=== PATIENT | male | born 1960 | race Caucasian/White ===

== ENCOUNTER → 2016-05-21 | Outpatient (CLI) | payer OTHER ==
[~2016-05-21] VITALS: Ht 177.2 cm; Wt 99.8 kg
[~2016-05-21] MED LIST: ALEV220C2 PO; LIDOCAINE 2% INJ 100 MG/5 ML SDV (FOR ANES.) As Ordered ONE; LISI-538 PO; METF500T PO; MIDAZOLAM INJ 2 MG/2 ML VIAL (J2250) As Ordered ONE; NS 1,000 ML IV SCH; PROPOFOL 200 MG/20 ML VIAL As Ordered ONE
--- NOTE | 2016-05-21 14:19 | ROOR ---
Patient Name: Abraham Overton Procedure Date: 05/21/2016 2:07 PM Date of : 1960 Age: 56 Room: [facility] Gender: Male Note Status: Finalized Procedure: Upper GI endoscopy Indications: Iron deficiency anemia Providers: Endy BOONE MD Referring MD: SUN GARSIA MD Requesting Provider: Medicines: Monitored Anesthesia Care Complications: No immediate complications. Procedure: Pre-Anesthesia Assessment: - The heart rate, respiratory rate, oxygen saturations, blood pressure, adequacy of pulmonary ventilation, and response to care were monitored throughout the procedure. The Endoscope was introduced through the mouth, and advanced to the second part of duodenum. The upper GI endoscopy was accomplished without difficulty. The patient tolerated the procedure well. Findings: The examined esophagus was normal. The entire examined stomach was normal. The examined duodenum was normal. Biopsies for histology were taken with a cold forceps for evaluation of celiac disease. Impression: - Normal esophagus. - Normal stomach. - Normal examined duodenum. Biopsied. Recommendation: - Await pathology results. - Telephone endoscopist for pathology results in 2 weeks. Endy Boone MD Endy BOONE MD 05/21/2016 2:18:58 PM This report has been signed electronically. Number of Addenda: 0 Note Initiated On: 05/21/2016 2:07 PM Estimated Blood Loss: Estimated blood loss: none.
--- NOTE | 2016-05-21 14:49 | ROOR ---
Patient Name: Abraham Overton Procedure Date: 05/21/2016 2:07 PM Date of : 1960 Age: 56 Room: [facility] Gender: Male Note Status: Finalized Procedure: Colonoscopy Indications: Iron deficiency anemia Providers: Endy BOONE MD Referring MD: SUN GARSIA MD Requesting Provider: Medicines: Monitored Anesthesia Care Complications: No immediate complications. Procedure: Pre-Anesthesia Assessment: - The heart rate, respiratory rate, oxygen saturations, blood pressure, adequacy of pulmonary ventilation, and response to care were monitored throughout the procedure. The Colonoscope was introduced through the anus and advanced to the cecum, identified by appendiceal orifice and ileocecal valve. The colonoscopy was performed without difficulty. The patient tolerated the procedure well. The quality of the bowel preparation was good. Findings: The perianal and digital rectal examinations were normal. (Exam: Complete, Prep: Good or Excellent.) An ulcerated partially obstructing large mass was found in the proximal ascending colon. The mass was circumferential. The mass measured five cm in length. This was biopsied with a cold forceps for histology. Two sessile polyps were found in the rectum and sigmoid colon. The polyps were diminutive in size. These polyps were removed with a cold snare. Resection was complete, but the polyp tissue was not retrieved. Impression: - Malignant partially obstructing tumor in the proximal ascending colon. This was not removed, This was Biopsied. - Two diminutive polyps in the rectum and in the sigmoid colon, removed with a cold snare. Complete resection. Polyp tissue not retrieved. Recommendation: - Refer to a surgeon at appointment to be scheduled. - My office will call you in next few days (after pathology is reviewed) - Perform CT scan (computed tomography) of the chest. - Perform CT scan (computed tomography) of the abdomen. - My office will arrange for CT scans. We will call you in next few days. Endy Boone MD Endy BOONE MD 05/21/2016 2:49:34 PM This report has been signed electronically. Number of Addenda: 0 Note Initiated On: 05/21/2016 2:07 PM Estimated Blood Loss: Estimated blood loss: none.
[2016-05-21 15:10] VITALS: BP 127/71
== END | disposition home or self-care (01) ==
LOC: M OPP 11:58
PROVIDERS: ATTEND Internal Medicine Gastroenterology
DX: D50.9 Iron deficiency anemia, unspecified (principal); C18.9 Malignant neoplasm of colon, unspecified; D12.5 Benign neoplasm of sigmoid colon; D12.8 Benign neoplasm of rectum; E11.9 Type 2 diabetes mellitus without complications; Z79.84 Long term (current) use of oral hypoglycemic drugs; Z79.899 Other long term (current) drug therapy
CPT/HCPCS: 43239; 45380; 45385; 88305; 99156; 99157; J2250

== ENCOUNTER → 2016-05-27 | Outpatient (CLI) | payer OTHER ==
[~2016-05-27] MED LIST changes: -LIDOCAINE 2% INJ 100 MG/5 ML SDV (FOR ANES.) As Ordered ONE; -MIDAZOLAM INJ 2 MG/2 ML VIAL (J2250) As Ordered ONE; -NS 1,000 ML IV SCH; -PROPOFOL 200 MG/20 ML VIAL As Ordered ONE
[2016-05-27 11:26] LABS: BLOOD UREA NITROGEN 11 MG/DL (7-18); CREATININE FOR GFR 0.83 MG/DL (0.70-1.30); GLOMERULAR FILTRATION RATE > 60.0 (>56)
== END ==
LOC: M LAB 10:26
PROVIDERS: ATTEND Internal Medicine Gastroenterology
DX: D50.9 Iron deficiency anemia, unspecified (principal)

== ENCOUNTER → 2016-06-02 | Outpatient (CLI) | payer OTHER ==
[~2016-06-02] MED LIST changes: +GASTROGRAFIN SOLUTION 30ML (Q9963) As Ordered ONE; +ISOVUE-370 76% 100ML VIAL (Q9967) As Ordered ONE
--- NOTE | 2016-06-02 15:50 | REP ---
CT CHEST WITH IV CONTRAST: TECHNIQUE: Axial contrast enhanced images from the thoracic inlet to the upper abdomen using 100 mL Isovue 370 intravenous contrast material with multiplanar reformations. There are several bilateral subcentimeter nodular opacities. A 4 mm nodular opacity in the right middle lobe is subpleural in location on image 69. A 3 mm nodule in the right lower lobe is seen on image 71 and a 5 mm nodular density is seen along the right lateral diaphragm on image 81. Two left lower lobe subpleural nodular opacities are seen measuring 3 mm and 4 mm in diameter. There is no evidence of mediastinal, hilar or chest wall lymphadenopathy. There is no pleural or pericardial effusion. The heart is normal in size. The thoracic aorta is normal in caliber. There is no dissection. There are mild degenerative changes of the spine without compression fracture. IMPRESSION: Several small bilateral subcentimeter nodular opacities. The largest is in the right lower lobe along the right diaphragm measuring 5 mm in maximum diameter. Recommend followup CT of the chest in 6 months. Signed by Jeronimo Armstrong MD 06/02/2016 05:41 P
--- NOTE | 2016-06-02 15:57 | REP ---
CT ABDOMEN AND PELVIS WITH AND WITHOUT CONTRAST: TECHNIQUE: Axial noncontrast images through the abdomen followed by contrast-enhanced images through the abdomen and pelvis using 100 mL Isovue 370 intravenous contrast material, with coronal and sagittal reformations. The liver demonstrates an oval area of hypodensity on pre IV contrast images measuring 3.0 x 2.3 cm. This demonstrates mild heterogeneous enhancement after the intravenous administration of contrast. Gallbladder is grossly unremarkable. The spleen and adrenals are unremarkable as is the pancreas. Small peripelvic cysts are seen in both kidneys without hydronephrosis. There is a 1.2 cm cortical cyst in the upper pole of the left kidney. There is no abdominal aortic aneurysm. There is no free air or free fluid. There is focal nodular thickening of the mid right colon. There are a few adjacent mildly enlarged mesenteric lymph nodes medial to the right colon, the largest measures 1.3 cm in short axis dimension. The appendix is normal. No pelvic mass is seen. The urinary bladder appears unremarkable. Right adrenal calcifications suggest prior hemorrhage. There is mildly enlarged portal lymph node, 1.3 cm in short axis dimension. IMPRESSION: Nonspecific liver mass. Recommend further evaluation with dynamic MRI with and without contrast. Nodular thickening of the mid right colon compatible with neoplasm. There is mild adjacent mesenteric adenopathy medial to the right colon. There is mildly enlarged portal lymph node, 1.3 cm in short axis dimension. Signed by Jeronimo Armstrong MD 06/02/2016 05:42 P
== END ==
LOC: M RAD 11:43
PROVIDERS: ATTEND Internal Medicine Gastroenterology
DX: C18.2 Malignant neoplasm of ascending colon (principal)
CPT/HCPCS: 71260; 74178; Q9963; Q9967

== ENCOUNTER → 2016-06-08 | Outpatient (CLI) | payer OTHER ==
[~2016-06-08] MED LIST changes: -GASTROGRAFIN SOLUTION 30ML (Q9963) As Ordered ONE; -ISOVUE-370 76% 100ML VIAL (Q9967) As Ordered ONE
--- NOTE | 2016-06-08 10:28 | ECGEPIP ---
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
== END ==
LOC: M EKG 09:39
PROVIDERS: ATTEND Anesthesiology
DX: Z01.818 Encounter for other preprocedural examination (principal)

== ENCOUNTER → 2016-07-01 | Outpatient (CLI) | payer OTHER ==
--- NOTE | 2016-07-01 19:07 | REP ---
MRI LIVER WITH DYNAMIC IMAGING PRE- AND POST- IV CONTRAST: Axial and coronal MR sequence are performed using various weighting with post-IV contrast images obtained following the intravenous administration of 19 mL of gadolinium. Correlation made with CT abdomen and pelvis 06/02/2016. An area of abnormal signal is noted in the right lobe of the liver at the site of the CT abnormality. It measures approximately 4.1 x 2.1 cm. It is low in signal on T1 and high in signal on T2 weighted images. There is peripheral nodular enhancement with the intravenous administration of gadolinium and lesion completely fills in with contrast. The findings are consistent with a hemangioma. No other liver lesion is seen. Spleen, adrenals and pancreas appear unremarkable. A cyst is again seen in the upper pole of the left kidney. IMPRESSION: Liver mass seen on the prior CT represents a hemangioma based on MRI findings. No other liver lesion is seen. Signed by Jeronimo Armstrong MD 07/02/2016 05:15 P
== END ==
LOC: M RAD 13:36
PROVIDERS: ATTEND Surgery
DX: C18.2 Malignant neoplasm of ascending colon (principal); D37.6 Neoplasm of uncertain behavior of liver, gallbladder and bile ducts
CPT/HCPCS: 74183; A9576

== ENCOUNTER → 2016-07-06 | Outpatient (REF) | payer OTHER ==
[2016-07-06 18:47] LABS: INR 0.94
[2016-07-06 18:48] LABS: MEAN CORPUSCULAR HEMOGLOBIN 22.1 pg (27.0-33.0); MEAN CORPUSCULAR HGB CONC 29.7 g/dl (32.0-36.5); MEAN CORPUSCULAR VOLUME 74.3 fl (80.0-96.0); RED CELL DISTRIBUTION WIDTH 14.7 % (11.5-14.5); WHITE BLOOD COUNT 7.5 K/mm3 (4.0-10.0)
[2016-07-06 20:45] LABS: ALBUMIN 3.6 GM/DL (3.2-5.2); ALBUMIN/GLOBULIN RATIO 1.03 (1.00-1.93); ALKALINE PHOSPHATASE 85 U/L (45-117); ALT/SGPT 18 U/L (12-78); ANION GAP 7 MEQ/L (8-16); AST/SGOT 7 U/L (15-37); BILIRUBIN,TOTAL 0.3 MG/DL (0.2-1.0); BLOOD UREA NITROGEN 12 MG/DL (7-18); CALCIUM LEVEL 8.9 MG/DL (8.5-10.1); CARBON DIOXIDE LEVEL 26 MEQ/L (21-32); CARCINOEMBRYONIC ANTIGEN 1.5 NG/ML (<2.5); CHLORIDE LEVEL 106 MEQ/L (98-107); CREATININE FOR GFR 0.76 MG/DL (0.70-1.30); GLOMERULAR FILTRATION RATE > 60.0 (>56); GLUCOSE, FASTING 117 MG/DL (70-105); POTASSIUM SERUM 4.5 MEQ/L (3.5-5.1); SODIUM LEVEL 139 MEQ/L (136-145); TOTAL PROTEIN 7.1 GM/DL (6.4-8.2)
== END ==
LOC: M LAB REF 16:31
PROVIDERS: ATTEND Internal Medicine Medical Oncology
DX: C18.2 Malignant neoplasm of ascending colon (principal)

== ENCOUNTER → 2016-07-07 | Outpatient (CLI) | payer OTHER ==
[~2016-07-07] MED LIST changes: +LIDOCAINE 2% MDV 20 ML VIAL As Ordered ONE; +LIDOCAINE W/EPINEPHRINE 1% 20ML VIAL As Ordered ONE; +MIDAZOLAM INJ 2 MG/2 ML VIAL (J2250) As Ordered ONE; +ceFAZolin 1GM INJ (J0690) As Ordered ONE; +fentaNYL 100 MCG/2 ML INJECTION (J3010) As Ordered ONE
--- NOTE | 2016-07-07 18:37 | REPKIM ---
CLINICAL HISTORY: Colon ca. The referring service has asked a chest infuse-a- port placement for chemotherapy. PROCEDURE PERFORMED: Placement of totally implantable venous access device under combined sonographic and fluoroscopic guidance INTERVENTIONALIST: Zahira Castorena MD CONSENT: The risks, benefits and alternatives to the procedure were explained to the patient and informed written consent was obtained. MEDICATIONS: Local Lidocaine, Ancef 1g IV, Versed IV and Fentanyl IV. SEDATION: Conscious sedation using Versed 2.0 mg IV and Fentanyl 100 mcg IV; starting time at 1330 and end at 1430. Independent trained observer was present during the entire duration of the conscious sedation for monitoring. EBL: 5 mL FLUORO TIME: 0.2 minutes DEVICE USED: [employer] Port 8-[place], Single-Lumen Lot#[id number] PROCEDURE/FINDINGS: The patient was brought to the interventional radiology suite and was positioned supine on the table. Time out procedure was performed. Real time ultrasound was used and permanent image stored. The right IJ vein is patent and compressible. Using ultrasound guidance the internal jugular vein was accessed with a micropuncture needle, after infiltration of the skin and deep tissues with local anesthetic. A peel-away sheath was placed. The catheter tip was inserted via the sheath under controlled respiration. The sheath was removed, and the catheter was flushed with heparinized saline and clamped. Next attention was turned to creation of a subcutaneous pocket for the port along the upper chest. The overlying skin and deep tissues were infiltrated with local anesthetic. A transverse skin incision was made long enough to accommodate the reservoir, and using blunt dissection a subcutaneous pocket was created. A tunnel was created from the pocket to the access site. A clamp was advanced from the pocket incision to the venous access site and used to grasp the free end of the catheter and pull it through to the pocket incision. The catheter was trimmed, attached to the reservoir, and flushed with heparinized saline. The reservoir was inserted into the pocket and secured with 2-0 absorbable sutures. The deep tissue was closed with interrupted 2-0 Vicryl suture. The skin incision was closed with a running subcuticular suture of 4-0 Vicryl. The venotomy incision was closed with 4-0 Vicryl suture. Mastisol and Steri-Strips were applied. The port was then accessed and Heparin (100 units/mL concentration) locked in the port. A sterile dressing was then applied. Post procedure chest spot film radiograph showed the tip of the catheter is at the cavoatrial junction. The patient tolerated the procedure well with no immediate complications. This procedure was performed using ultrasound and fluoroscopy. Dr. Castorena was present. IMPRESSION: 1. The right IJ vein is patent and compressible. 2. Successful placement of right IJ chest port placement as discussed above. The chest [id number] is ready for use. cc: Arelis Carlson MD [facility]
== END | disposition home or self-care (01) ==
LOC: M IRPRO 12:14
PROVIDERS: ATTEND Internal Medicine Medical Oncology
DX: C18.9 Malignant neoplasm of colon, unspecified (principal)
CPT/HCPCS: 36561; 76937; 77001; 99152; 99153; C1788; C1894; J0690; J2250; J3010

== ENCOUNTER → 2016-08-26 | Outpatient (CLI) | payer OTHER ==
[~2016-08-26] MED LIST changes: +GASTROGRAFIN SOLUTION 30ML (Q9963) As Ordered ONE; +ISOVUE-370 76% 100ML VIAL (Q9967) As Ordered ONE; -LIDOCAINE 2% MDV 20 ML VIAL As Ordered ONE; -LIDOCAINE W/EPINEPHRINE 1% 20ML VIAL As Ordered ONE; -METF500T PO; +METF500T13 PO; -MIDAZOLAM INJ 2 MG/2 ML VIAL (J2250) As Ordered ONE; -ceFAZolin 1GM INJ (J0690) As Ordered ONE; -fentaNYL 100 MCG/2 ML INJECTION (J3010) As Ordered ONE
--- NOTE | 2016-08-26 11:17 | REP ---
Clinical: Adenocarcinoma of the cecum. Technique: Axial contrast enhanced images from the lung bases to the pubic symphysis using oral and 100 ml Isovue 370 intravenous contrast material with coronal and sagittal re-formations. Comparison: The 06/02/2016. Findings: The lung bases are clear. Visualized heart and pericardium are normal. The liver demonstrates a vague area of hypodensity with central subtle enhancement along the periphery of the anterior segment right lobe which has been diagnosed as hemangioma by recent MRI. No further hepatic lesions are identified. The spleen, pancreas, gallbladder, and bilateral kidneys are relatively normal / stable. Kidneys demonstrate bilateral subcentimeter parapelvic cysts along with 2 mm nonobstructing left renal calculus. Calcification and atrophy to the right adrenal gland is appreciated along with stable 2 cm nodule to the left adrenal gland which is otherwise nonspecific, but likely represents adenoma. The the patient is status post colonic resection and anastomoses involving the ascending colon. Subtle pericolonic stranding and small lymph nodes in the region of prior neoplasm and current anastomoses are appreciated and warrants followup to exclude recurrence or metastatic disease. The small and large bowel is without obstruction. Evaluation of the colon is somewhat limited due to incomplete intraluminal contrast enhancement and residual soft tissue at the site of anastomosis cannot definitively be excluded. Enhanced and delayed images suggest portal vein thrombosis within the superior mesenteric vein extending to the confluence with splenic vein and proximal portal vein (images 45 - 65). Pelvis demonstrates normal bladder along with enlarged heterogeneous prostate gland measuring 4.6 cm maximal transverse diameter. No ascites. No free air. No obvious retroperitoneal adenopathy. Abdominal aorta is without aneurysm or dissection. Musculoskeletal structures demonstrate age-related changes without focal osseous abnormality. Impression: 1. Evidence for portal vein thrombosis as described above with subtle infiltration to the mesenteric fat as well as small scattered lymph nodes which are nonspecific. 2. Fatty infiltration and small lymph nodes at the site of resection are less prominent than prior examination but require continued follow-up to exclude recurrence. 3. Presumed left adrenal adenoma. 4. Further chronic changes as described above. Signed by Teddy Amaya MD 08/26/2016 11:08 A
== END ==
LOC: M RAD 09:09
PROVIDERS: ATTEND Internal Medicine Medical Oncology
DX: C18.0 Malignant neoplasm of cecum (principal)
CPT/HCPCS: 74178; Q9963; Q9967

== ENCOUNTER → 2016-09-22 | Outpatient (REF) | payer OTHER ==
[~2016-09-22] MED LIST changes: -GASTROGRAFIN SOLUTION 30ML (Q9963) As Ordered ONE; -ISOVUE-370 76% 100ML VIAL (Q9967) As Ordered ONE
== END ==
LOC: M LAB REF 13:30
PROVIDERS: ATTEND Internal Medicine Medical Oncology
DX: C18.9 Malignant neoplasm of colon, unspecified (principal)

== ENCOUNTER → 2017-01-07 | Outpatient (REF) | payer OTHER | LOC: M LAB REF 12:44 | PROVIDERS: ATTEND Internal Medicine Medical Oncology | DX: C18.9 Malignant neoplasm of colon, unspecified (principal) ==

== ENCOUNTER → 2017-02-01 | Outpatient (CLI) | payer OTHER ==
--- NOTE | 2017-02-01 21:59 | REP ---
Whole body PET CT for colon cancer restaging: The patient has a history of carcinoma of the cecum with resection. Comparison is a CT of the abdomen and pelvis dated 08/26/2016. Whole body PET CT scanning is performed from skull base to the upper thighs. Neck and supraclavicular areas: There are no hypermetabolic foci. Chest: There are no hypermetabolic foci. Abdomen, pelvis and upper thighs: There is an anastomotic surgical suture line in the proximal ascending colon, similar to the comparison CT. There are a few normal-size pericolonic lymph nodes adjacent to the ascending colon as previously and mesenteric stranding adjacent to the ascending colon as previously. There are no hypermetabolic foci of these lymph nodes or within the stranding. However, there are two hypermetabolic foci along the medial wall of the ascending colon, each approximately 1 cm in diameter. The inferior-most focus is adjacent to the surgical suture line and demonstrates a maximal standard uptake value of 5.3. Just cephalad to this the second focus demonstrates a standard uptake value of 5.2. Otherwise, there is nonspecific bowel uptake. There are no hypermetabolic foci in the liver. There is no uptake in the left adrenal nodule. Impression: There are two small hypermetabolic foci in the proximal ascending colon as described. There are no other hypermetabolic foci. There is no uptake in the left adrenal nodule. There is nonspecific bowel uptake otherwise. The studies performed with 10 millicuries of F 18 FDG. Signed by Jeronimo Frey MD 02/01/2017 09:51 P
== END ==
LOC: M PLARAD 09:08
PROVIDERS: ATTEND Internal Medicine Medical Oncology
DX: C18.9 Malignant neoplasm of colon, unspecified (principal)
CPT/HCPCS: 78815; A9552

== ENCOUNTER → 2017-02-04 | Outpatient (REF) | payer OTHER | LOC: M LAB REF 13:58 | PROVIDERS: ATTEND Internal Medicine Medical Oncology | DX: C18.9 Malignant neoplasm of colon, unspecified (principal) ==

== ENCOUNTER → 2017-04-07 | Outpatient (REF) | payer OTHER ==
[2017-04-08 11:11] LABS: CARCINOEMBRYONIC ANTIGEN 2.2 NG/ML (<2.5)
== END ==
LOC: M LAB REF 13:44
DX: C18.9 Malignant neoplasm of colon, unspecified (principal)

== ENCOUNTER → 2017-04-12 | Day surgery (SDC) | payer OTHER ==
[~2017-04-12] MED LIST changes: -ALEV220C2 PO; +LIDOCAINE 2% INJ 100 MG/5 ML SDV (FOR ANES.) As Ordered; -LISI-538 PO; -METF500T13 PO; +PROPOFOL 200 MG/20 ML VIAL As Ordered
[2017-04-12] MEDS: LR 1,000 ML IV (11:45)
== END | disposition home or self-care (01) ==
LOC: M OPP 11:38
DX: R93.3 Abnormal findings on diagnostic imaging of other parts of digestive tract (principal); Z98.0 Intestinal bypass and anastomosis status; Z85.038 Personal history of other malignant neoplasm of large intestine; Z92.21 Personal history of antineoplastic chemotherapy; E11.9 Type 2 diabetes mellitus without complications; R10.9 Unspecified abdominal pain; D64.9 Anemia, unspecified; R06.83 Snoring; Z79.84 Long term (current) use of oral hypoglycemic drugs; Z79.899 Other long term (current) drug therapy
CPT/HCPCS: 45378

== ENCOUNTER → 2017-07-05 | Outpatient (REF) | payer OTHER ==
[2017-07-05 14:22] LABS: CARCINOEMBRYONIC ANTIGEN 1.4 NG/ML (<2.5)
== END ==
LOC: M LAB REF 13:23
DX: C18.9 Malignant neoplasm of colon, unspecified (principal)

== ENCOUNTER → 2017-10-04 | Outpatient (REF) | payer OTHER ==
[2017-10-04 13:57] LABS: CARCINOEMBRYONIC ANTIGEN 2.1 NG/ML (<2.5)
== END ==
LOC: M LAB REF 13:26
DX: C18.2 Malignant neoplasm of ascending colon (principal)

== ENCOUNTER → 2017-10-12 | Outpatient (CLI) | payer OTHER ==
[~2017-10-12] MED LIST changes: -LIDOCAINE 2% INJ 100 MG/5 ML SDV (FOR ANES.) As Ordered; +LIDOCAINE 2% MDV 20 ML VIAL As Ordered; -PROPOFOL 200 MG/20 ML VIAL As Ordered
== END | disposition home or self-care (01) ==
LOC: M IRPRO 10:19
DX: Z45.2 Encounter for adjustment and management of vascular access device (principal); Z85.038 Personal history of other malignant neoplasm of large intestine
CPT/HCPCS: 36590

== ENCOUNTER → 2018-01-31 | Outpatient (CLI) | payer OTHER ==
[~2018-01-31] MED LIST changes: +GASTROGRAFIN SOLUTION 30ML (Q9963) As Ordered; -LIDOCAINE 2% MDV 20 ML VIAL As Ordered
== END ==
LOC: M RAD 12:09
DX: C18.9 Malignant neoplasm of colon, unspecified (principal); R59.0 Localized enlarged lymph nodes
CPT/HCPCS: Q9963

== ENCOUNTER → 2018-02-22 | Outpatient (CLI) | payer OTHER ==
[~2018-02-22] MED LIST changes: +ALEV220C2 PO; +ATOR1TAB19 PO; -GASTROGRAFIN SOLUTION 30ML (Q9963) As Ordered; +LIDOCAINE 1% MDV 20ML VIAL As Ordered ONE; +LISI-538 PO; +LOPE2CAP PO; +METF500T13 PO; +ONDA8TAB7 PO; +PROC10TA4 PO; +VITAD1000T PO
--- NOTE | 2018-02-22 13:35 | REP ---
CT GUIDED BIOPSY OF RETROPERITONEAL ADENOPATHY: Patient was referred for CT guided biopsy of retroperitoneal adenopathy. Procedure was explained in detail to the patient as well as the risks, which include but are not limited, hemorrhage, infection, pain and injury to internal organs. Informed consent was obtained. Under sterile conditions and after satisfactory administration of local anesthesia, using CT guidance a 17 gauge introducer needle was placed into margin of left retroperitoneal adenopathy at the level of the left renal vein. Using coaxial technique an 18-gauge TenHua Kang biopsy gun was inserted through the introducer needle. Biopsy gun was fired. Images show the biopsy needle within the adenopathy. Four 18-gauge core biopsy samples were obtained without difficulty. They were placed in Formalin and sent to pathology. The needle was removed and hemostasis was obtained with no immediate complication. Postprocedure images show a tiny amount of air in the region of the biopsied lymph node with no hematoma. The patient was observed for 1 hour prior to discharge. He was discharged in stable condition. Electronically Signed by Jeronimo Armstrong MD 02/22/2018 02:19 P
== END ==
LOC: M RADPRO 08:15
PROVIDERS: ATTEND Internal Medicine Medical Oncology
DX: C78.6 Secondary malignant neoplasm of retroperitoneum and peritoneum (principal); C18.9 Malignant neoplasm of colon, unspecified; Z79.899 Other long term (current) drug therapy

== ENCOUNTER → 2018-03-08 | Outpatient (CLI) | payer OTHER ==
[~2018-03-08] MED LIST changes: +DOXY-350 PO; +HYDR1CRE93 TOP; +ISOVUE-300 61% 50ML VIAL (Q9967) As Ordered ONE; -LIDOCAINE 1% MDV 20ML VIAL As Ordered ONE; +LIDOCAINE 2% MDV 20 ML VIAL As Ordered ONE; +MAGICMW SSP; +ceFAZolin 1GM INJ (J0690 PER 500MG) As Ordered ONE
--- NOTE | 2018-03-27 07:09 | REPIR ---
DATE OF PROCEDURE: 03/08/2018 ATTENDING SURGEON: Dr. Nilam Lubin LAMINATION INSPECTOR: Enzo Palafox PREOPERATIVE DIAGNOSIS: Colon cancer with metastatic disease, previous right internal jugular vein tunneled central venous catheter with subcutaneous port. POSTOPERATIVE DIAGNOSIS: Colon cancer with metastatic disease, previous right internal jugular vein tunneled central venous catheter with subcutaneous port. PROCEDURE: Ultrasound-guided right internal jugular vein cannulation, fluoroscopic guided right internal jugular vein tunneled central venous catheter with subcutaneous port placement with a [place] PowerPort and a 25 cm length catheter. INDICATION: The patient is a 57-year-old male with colon cancer who requires access for chemotherapy and will undergo placement of a right internal jugular vein tunneled central venous catheter with subcutaneous port. The procedure was described and explained to the patient in detail including a drawing of pictures demonstrating the procedure and pertinent anatomy. Risks, benefits and alternative treatment options were discussed with the patient. Alternative treatment options included but were not limited to, no intervention. Benefits included but were not limited to, central venous access for chemotherapy installation and drawing of blood for laboratory evaluation avoiding peripheral venipuncture and IVs. Risks included but were not limited to, infection, bleeding, renal failure requiring hemodialysis, pneumothorax, hemothorax, possible need for further surgical intervention, adverse reaction to the prepping and draping materials, adverse reaction to the local anesthetic and/or sedation medications, cerebrovascular accident, possible need for transfusion of blood products, myocardial infarction, pulmonary embolus, deep vein thrombosis (DVT), loss of limb, loss of life, failure of the port to function properly requiring revision, repair and/or replacement, bruising, nerve damage, scarring, poor outcome, poor results and poor satisfaction. Risks of not performing the procedure included but were not limited to, no central access, requiring peripheral IVs for chemotherapy and venipuncture for blood draws with sclerosis and loss of peripheral veins. The patient's questions were answered. The patient voices understanding and acceptance of these risks, benefits and alternative treatment options and consents to proceed. No promises or guarantees were made to the patient regarding the procedure results and/or outcome. ANESTHESIA: Local with 20 mL of 2% lidocaine. FLUORO TIME: 0.1 minutes. CONTRAST: None. COMPLICATIONS: None. DRAINS: None. SPECIMENS: None. IMPLANTS: [place] PowerPort with a 25 cm length catheter in the right internal jugular vein. PROCEDURE: The patient was taken to the angiography suite, placed supine on the angiography room table and then prepped and draped. A time-out was then conducted by myself and the team members in the room confirming the correct patient, procedure and laterality. The ultrasound was used to evaluate the right internal jugular vein which was noted to be easily compressible, widely patent and free of thrombus. Ultrasound was then used to guide cannulation of the right internal jugular vein with real-time concurrent visualization of the entry of the micropuncture needle into the right internal jugular vein with a hard copy image preserved. Prior to ultrasound guided cannulation, the skin and subcutaneous tissue was injected with 2% lidocaine. The micropuncture wire was then advanced through the micropuncture needle which was upsized to a micropuncture sheath. A J-wire was advanced through the micropuncture sheath which was removed and an introducer sheath placed over the J-wire using fluoroscopic guidance. The catheter was then tunneled from a puncture wound in the right chest and brought out through the puncture wound at the right internal jugular vein entry site. The catheter was advanced through the introducer sheath and positioned under fluoroscopic guidance with the tip in the superior vena cava/right atrial junction. The introducer sheath was peeled away and removed. The pocket for the subcutaneous port was then created in the chest after anesthetizing the overlying skin and subcutaneous tissue with 2% lidocaine. The port was connected to the catheter which had been measured and cut to 25 cm. The port was placed in the pocket. The port was accessed with a Mcgraw needle and the port was aspirated and noted to aspirate easily and then flushed with heparinized saline. The incision in the chest was closed using 3-0 Monocryl in inverted interrupted fashion. The incision in the neck was closed using 3-0 Monocryl in inverted interrupted fashion. Steri-Strips and dressings were applied. The patient tolerated the procedure well. All instrument, sponge and needle counts were correct at the end of the case. There were no complications. Dr. Lubin was present for and directed the entire case. The patient was transferred to the holding area where the procedure findings and results were discussed with the patient with all of his questions answered. The right internal jugular vein 25 cm tunneled central venous catheter with subcutaneous port is stable for use for access. RADIOLOGIC SUPERVISION INTERPRETATION: The ultrasound of the right internal jugular vein showed the internal jugular vein to be widely patent, easily compressible and free of thrombus. The ultrasound was used to guide cannulation with real-time concurrent visualization of the entry of the needle into the right internal jugular vein with a hard copy image preserved. Fluoroscopy was used to dilate the right internal jugular vein and position the catheter with the tip in the superior vena cava/right atrial junction. Final fluoroscopic image showed the catheter to be in good position and good alignment as well as the port with the tip in the superior vena cava/right atrial junction with no pneumo or hemothorax noted. The tunneled central venous catheter with subcutaneous port is stable for use for access.
== END | disposition home or self-care (01) ==
LOC: M IRPRO 09:27
PROVIDERS: ATTEND Internal Medicine Medical Oncology
DX: C18.9 Malignant neoplasm of colon, unspecified (principal); C79.9 Secondary malignant neoplasm of unspecified site
CPT/HCPCS: 36561; 76937; 77001; C1788; C1894; J0690

== ENCOUNTER → 2018-06-12 | Outpatient (CLI) | payer OTHER ==
[~2018-06-12] MED LIST changes: +CLIN1GEL3 TOP; +GASTROGRAFIN SOLUTION 30ML (Q9963) As Ordered ONE; +HYDR-3363 PO; -ISOVUE-300 61% 50ML VIAL (Q9967) As Ordered ONE; +ISOVUE-370 76% 100ML VIAL (Q9967) As Ordered ONE; -LIDOCAINE 2% MDV 20 ML VIAL As Ordered ONE; +MAGN400T5 PO; -ceFAZolin 1GM INJ (J0690 PER 500MG) As Ordered ONE
--- NOTE | 2018-06-13 08:36 | REP ---
CT chest with IV contrast: History: Followup colon carcinoma. On chemotherapy. Comparison chest CT study: January 31, 2018. June 02, 2016 study is also reviewed. CT contrast dose: 100 mL of intravenous Isovue 370. CT findings: Preliminary digital health professional radiograph shows an [id number] catheter. This is seen on the right side and terminates in the superior vena cava. There is no evidence of hilar or mediastinal mass or adenopathy. No pleural or pericardial effusion is observed. There are multiple stable predominately pleural-based subcentimeter nodules in the left lower lobe, right lower lobe, and right middle lobe unchanged from the June 02, 2016 study. These are consistent with benign granulomatous nodules. No new pulmonary nodule is appreciated. No pulmonary mass lesion is seen. Bone window settings show no bony destructive lesions. There is no evidence of axillary or supraclavicular mass or adenopathy. There is evidence of upper abdominal lymphadenopathy. There is a cyst in the upper pole of the left kidney. There is a lesion in the right lobe of the liver. Impression: No active disease in the chest. There is evidence of upper abdominal lymphadenopathy. Electronically Signed by Angel Venegas MD 06/13/2018 10:22 A
--- NOTE | 2018-06-13 09:10 | REP ---
CT abdomen and pelvis with IV and oral contrast: History: Followup colon carcinoma. On chemotherapy. The patient is status post CT guided retroperitoneal needle biopsy for lymph nodes on February 22, 2018. Comparison abdomen CT study January 31, 2018 and August 26, 2016. PET/CT from February 01, [address] contrast dose: 100 mL of intravenous Isovue 370. CT findings: There is no evidence of upper abdominal ascites. There is a 3.0 cm enhancing liver lesion in the right lobe consistent with the previously described hemangioma. No other definite liver lesion. Spleen is normal in size and homogeneous in texture. There is a small cyst in the upper pole of the left kidney unchanged. There is a small intrarenal calculus in the lower pole of the left kidney. This is also unchanged. There are peripelvic cysts in the right kidney. There is calcification of the right adrenal gland. No left adrenal lesion is seen. There is however portocaval lymphadenopathy in the upper abdomen. This is the largest upper abdominal lymph node measuring 4.1 x 1.8 x 3.3 cm. This appears to have decreased slightly in size compared with the most recent study of January 31, 2018. It is larger than it was August 26, 2016. Left periaortic and right aortocaval adenopathy is also evident. The enlarged lymph nodes above the level of the left renal vascular pedicle which were the target of the recent CT biopsy are unchanged. The aortocaval and left periaortic nodes below the level of the left renal vein and artery are slightly less prominent. The aortocaval node measures 18 mm in craniocaudal span today, 28 mm in craniocaudal dimension on January 31, 2018. No new or other retroperitoneal adenopathy is observed. No pelvic adenopathy is visible. No abdominal wall lesion is seen. Small and large intestinal bowel loops are unremarkable. The patient is status post right hemicolectomy and an anastomosis. No colonic mass lesion is observed. Seminal vesicles, prostate and urinary bladder are unremarkable. No bony destructive lesion is seen. Impression: There is upper abdominal lymphadenopathy in the retroperitoneum and portacaval region. Two or three of these lymph nodes show a subtle decrease in size. Stable liver lesion previously felt to be a hemangioma. Electronically Signed by Angel Venegas MD 06/13/2018 10:22 A
== END ==
LOC: M RAD 15:27
PROVIDERS: ATTEND Internal Medicine Hematology & Oncology
DX: C18.9 Malignant neoplasm of colon, unspecified (principal)

== ENCOUNTER 2018-09-01 22:02 | Emergency (ER) | payer OTHER ==
[~2018-09-01] VITALS: Ht 180.3 cm; Wt 91.8 kg
[~2018-09-01 22:02] MED LIST changes: +ANUS25SU PR; +CEPH500C PO; -GASTROGRAFIN SOLUTION 30ML (Q9963) As Ordered ONE; -ISOVUE-370 76% 100ML VIAL (Q9967) As Ordered ONE; +K-TA1TAB PO; +MAGN400T PO; +OMEP40CA2 PO; +PRED20TA PO; +PRIL20TA2 PO
[2018-09-01] MEDS ORDERED: SUCRALFATE SUSP 1GM/10ML UD PO ONE (22:30)
[2018-09-01] MEDS ORDERED: GI COCKTAIL 50ML BTL(HYOSCYAMINE/MAALOX/LIDOCAINE VISCOUS)(1:3:1) PO ONE (22:30)
[2018-09-01] MEDS ORDERED: PANTOPRAZOLE 40MG INJ (PROTONIX) (C9113) IV ONE (22:30)
[2018-09-01 23:08] LABS: BASO # 0.1 10^3/uL (0.0-0.2); BASO % 0.7 % (0.0-1.0); EOS # 0.4 10^3/uL (0.0-0.50); EOS % 4.8 % (0.0-3.0); HEMATOCRIT 45.4 % (42.0-52.0); HEMOGLOBIN 14.4 g/dl (13.5-17.5); LYMPH # 1.9 10^3/uL (1.5-4.5); LYMPH % 21.2 % (24.0-44.0); MEAN CORPUSCULAR HEMOGLOBIN 29.3 pg (27.0-33.0); MEAN CORPUSCULAR HGB CONC 31.7 g/dl (32.0-36.5); MEAN CORPUSCULAR VOLUME 92.5 fl (80.0-96.0); MONO # 0.7 10^3/uL (0.0-0.8); MONO % 7.5 % (0.0-5.0); NEUTROPHILS # 5.9 10^3/uL (1.8-7.7); NEUTROPHILS % 65.4 % (36.0-66.0); PLATELET COUNT, AUTOMATED 249 10^3/uL (150-450); RED BLOOD COUNT 4.91 10^6/uL (4.30-6.10)
[2018-09-01 23:23] LABS: INR 0.92; PARTIAL THROMBOPLASTIN TIME 26.8 SECONDS (25.0-38.4); PROTHROMBIN TIME 12.1 SECONDS (11.8-14.0)
[2018-09-01 23:43] LABS: ALT/SGPT 21 U/L (12-78); BILIRUBIN,DIRECT < 0.1 MG/DL (0.0-0.2); BILIRUBIN,TOTAL 0.4 MG/DL (0.2-1.0); BLOOD UREA NITROGEN 20 MG/DL (7-18); CALCIUM LEVEL 8.4 MG/DL (8.5-10.1); CARBON DIOXIDE LEVEL 26 MEQ/L (21-32); CHLORIDE LEVEL 110 MEQ/L (98-107); CK-MB VALUE MASS < 1.0 NG/ML (<3.6); CPK CREATINE PHOSPHOKINASE 42 U/L (39-308); GLOMERULAR FILTRATION RATE > 60.0 (>56); GLUCOSE, FASTING 143 MG/DL (70-100); LIPASE 273 U/L (73-393); MB/CK RELATIVE INDEX 2.38 (< OR =4); SODIUM LEVEL 143 MEQ/L (136-145); TOTAL PROTEIN 6.5 GM/DL (6.4-8.2); TROPONIN I < 0.02 NG/ML (< 0.10)
[2018-09-02] MEDS ORDERED: ISOVUE-370 76% 100ML VIAL (Q9967) As Ordered ONE (00:09)
--- NOTE | 2018-09-02 01:43 | REPVR ---
EXAM: CT Abdomen and Pelvis With Contrast EXAM DATE/TIME: 09/01/2018 11:58 PM CLINICAL HISTORY: 58 years old, male; Abdominal pain; Generalized; Prior surgery; Surgery date: 6+ months; Surgery type: Colon TECHNIQUE: Imaging protocol: Axial computed tomography images of the abdomen and pelvis with intravenous contrast. Coronal and sagittal reformatted images were created and reviewed. Radiation optimization: All CT scans at this facility use at least one of these dose optimization techniques: automated exposure control; mA and/or kV adjustment per patient size (includes targeted exams where dose is matched to clinical indication); or iterative reconstruction. Contrast material: ISO; Contrast volume: 100 ml; Contrast route: PORT; COMPARISON: CT ABD PELVIS WITH CONTRAST 06/12/2018 4:54 PM FINDINGS: Lungs: 3 mm nodule in the lateral segment of the right middle lobe. 3 mm nodule in the anterior right lower lobe and 5 mm nodule in the mid to right lower lobe. 3 mm nodule in the right lower lobe pleural base. 3 mm nodule in the left lower lobe. 3 mm nodule in the left lung base. Nodules are present number next size from prior study. Further workup with nonemergent CT chest is recommended. Liver: Normal. No mass. Gallbladder and bile ducts: Contracted gallbladder. Nodule in the left adrenal gland measuring 19.4 x 14 mm. Pancreas: Normal. No ductal dilation. Spleen: Normal. No splenomegaly. Adrenals: Calcifications of the right adrenal gland likely from prior injury. Kidneys and ureters: 2 cysts in the upper pole of the left kidney, one measuring 16 and another measuring 8.2 mm. Small right renal parapelvic cyst. Stomach and bowel: Diverticulosis without CT evidence of diverticulitis. Right-sided ileocolonic anastomotic surgery. Appendix: Appendix is likely surgically absent. No bowel dilatation or obstruction. No bowel dilatation or obstruction. Intraperitoneal space: Normal. No free air. No significant fluid collection. Vasculature: Normal. No abdominal aortic aneurysm. Lymph nodes: Retroperitoneal and precaval lymph nodes largest one is in the left para-aortic region measuring up to 29 mm and on the right side measuring about 17.2 mm. Few scattered mesenteric root lymph nodes measuring up to 15 mm adjacent to the right colonic surgery. Lymph nodes are slightly prominent than prior study. Bladder: Unremarkable as visualized. Reproductive: Prominent prostate causing indentation on the bladder base. Bones/joints: Mild degenerative changes. Soft tissues: Unremarkable. IMPRESSION: Retroperitoneal and precaval lymph nodes largest one is in the left para-aortic region measuring up to 29 mm and on the right side measuring about 17.2 mm. Few scattered mesenteric root lymph nodes measuring up to 15 mm adjacent to the right colonic surgery. Lymph nodes are slightly prominent than prior study. COMMENT: Consistent with the [employer]'s Incidental Findings Committee Report (J Am Aby Radiol 2010): Unless the patient's specific circumstances suggest otherwise, any liver lesion 0.5 cm or less, any cystic kidney lesion less than 1.0 cm, and/or any adrenal lesion 1.0 cm or less not otherwise characterized in this report as possessing suspicious or indeterminate imaging features is/are highly likely to be benign and do not require follow-up imaging or biopsy. Electronically signed by: Tiffany Rivera On 09/02/2018 01:42:30 AM
[2018-09-02] MEDS ORDERED: SUCR1SS PO (02:07)
[2018-09-02] MEDS ORDERED: PROT1TAB2 PO (02:07)
[2018-09-02 02:32] VITALS: BP 128/82
[2018-09-02] MEDS ORDERED: SODIUM CHLORIDE 0.9% INJ 10 ML SYR IV PRN (02:45)
--- NOTE | 2018-09-02 11:19 | ECGEPIP ---
[facility] - ED Test Date: 2018-09-01 Pat Name: DAYNA PENN Department: Room: - Gender: Male Radiology Manager: : 1960 Requested By: NITHIN YEE Order Number: [id number] Reading MD: Lupe Estrella Measurements Intervals [place] Rate: 103 P: 25 ID: [id number] QRS: QRSD: 94 T: 20 QT: 331 QTc: 435 Interpretive Statements SINUS TACHYCARDIA BORDERLINE LEFT AXIS DEVIATION ABNORMAL RHYTHM ECG NSTTW abnormalities INCREASED RATE 06/08/16 Electronically Signed on 09-02-2018 11:19:48 EDT by Lupe Estrella
--- NOTE | 2018-09-04 13:21 | ED PDOC ---
Post-Departure Follow-Up ft luis manuel fp faxed formal report of ct abd/p. pt also sent certified letter. pleas e ensure pt follows up w pcp des for abnormal lymphadenopathy on ct =- see report Briseida Parry MD Sep 04, 2018 13:21
== END 2018-09-02 02:52 | disposition home or self-care (01) ==
LOC: M ED 22:02
DX: K29.70 Gastritis, unspecified, without bleeding (principal); I10 Essential (primary) hypertension; E78.5 Hyperlipidemia, unspecified; C18.9 Malignant neoplasm of colon, unspecified; K21.9 Gastro-esophageal reflux disease without esophagitis; Z86.79 Personal history of other diseases of the circulatory system; Z79.899 Other long term (current) drug therapy
CPT/HCPCS: 36415; 74177; 80048; 80076; 82550; 82553; 83690; 84484; 85025; 85610; 85730; 93005; 96374; 99284; C9113; Q9967

== ENCOUNTER 2018-11-01 11:35 | Day surgery (SDC) | payer OTHER ==
[~2018-11-01] VITALS: Ht 180.3 cm; Wt 88.5 kg
[~2018-11-01 11:35] MED LIST changes: +ACET-897 PO; +CHOL100029 PO; +NS 1,000 ML IV ONE; +POTA10TA16 PO; +PROT1TAB2 PO; +SUCR1SS PO; -VITAD1000T PO
[2018-11-01] MEDS ORDERED: PROPOFOL 200 MG/20 ML VIAL As Ordered ONE (13:03)
[2018-11-01 14:15] VITALS: BP 135/93
--- NOTE | 2018-11-01 15:05 | ROOR ---
Patient Name: Abraham Overton Procedure Date: 11/01/2018 1:33 PM Date of : 1960 Age: 58 Room: [facility] Gender: Male Note Status: Finalized Procedure: Upper GI endoscopy Indications: Epigastric abdominal pain, Abnormal CT of the GI tract Providers: Yovani Kirkpatrick MD Referring MD: SUN GARSIA MD Requesting Provider: Medicines: Monitored Anesthesia Care Complications: No immediate complications. Procedure: Pre-Anesthesia Assessment: - Prior to the procedure, a History and Physical was performed, and patient medications and allergies were reviewed. The patient is competent. The risks and benefits of the procedure and the sedation options and risks were discussed with the patient. All questions were answered and informed consent was obtained. Patient identification and proposed procedure were verified by the physician, the nurse and the contract coordinator in the procedure room. Mental Status Examination: alert and oriented. CV Examination: regular rate and rhythm. Prophylactic Antibiotics: The patient does not require prophylactic antibiotics. Prior Anticoagulants: The patient has taken no previous anticoagulant or antiplatelet agents. ASA Grade Assessment: II - A patient with mild systemic disease. After reviewing the risks and benefits, the patient was deemed in satisfactory condition to undergo the procedure. The anesthesia plan was to use monitored anesthesia care (MAC). Immediately prior to administration of medications, the patient was re-assessed for adequacy to receive sedatives. The heart rate, respiratory rate, oxygen saturations, blood pressure, adequacy of pulmonary ventilation, and response to care were monitored throughout the procedure. The physical status of the patient was re-assessed after the procedure. The Endoscope was introduced through the mouth, and advanced to the second part of duodenum. The upper GI endoscopy was accomplished without difficulty. The patient tolerated the procedure well. Findings: The examined esophagus was normal. A few diminutive sessile polyps were found in the gastric body. Localized mild inflammation characterized by swelling with narrowing of the pyloric channel was found at the pylorus. Erythematous mucosa was found in the first portion of the duodenum and in the second portion of the duodenum. Multiple diffuse erosions were found in the second portion of the duodenum. Biopsies were taken with a cold forceps for histology. Impression: - Normal esophagus. - A few gastric polyps. - Gastritis. - Erythematous duodenopathy. - Duodenal erosions. Biopsied. Recommendation: - Discharge patient to home. - Resume previous diet. - Continue present medications. - Await pathology results. Yovani Kirkpatrick MD Yovani Kirkpatrick MD 11/01/2018 3:05:27 PM Electronically signed by Yovani Kirkpatrick MD Number of Addenda: 0 Note Initiated On: 11/01/2018 1:33 PM Estimated Blood Loss: Estimated blood loss was minimal.
[2018-11-07] MEDS ORDERED: PANT40TA3 PO (11:52)
== END 2018-11-01 14:28 | disposition home or self-care (01) ==
LOC: M OPP 11:35
PROVIDERS: ATTEND Surgery
DX: K31.7 Polyp of stomach and duodenum (principal); K29.70 Gastritis, unspecified, without bleeding; K31.89 Other diseases of stomach and duodenum; K26.9 Duodenal ulcer, unspecified as acute or chronic, without hemorrhage or perforation; R10.13 Epigastric pain; R93.3 Abnormal findings on diagnostic imaging of other parts of digestive tract; Z79.899 Other long term (current) drug therapy; C18.9 Malignant neoplasm of colon, unspecified; Z92.21 Personal history of antineoplastic chemotherapy

== ENCOUNTER → 2018-12-11 | Outpatient (CLI) | payer OTHER ==
[~2018-12-11] MED LIST changes: +CAPE1TAB2 PO; +GASTROGRAFIN SOLUTION 30ML (Q9963) As Ordered ONE; +ISOVUE-370 76% 100ML VIAL (Q9967) As Ordered ONE; -MAGN400T PO; +MAGN400T3 PO; +NEUR300C PO; -NS 1,000 ML IV ONE; -OMEP40CA2 PO; +OMEP40CA97 PO; +PANT40TA3 PO
--- NOTE | 2018-12-12 09:54 | REP ---
Clinical: Colon cancer. Restaging. Comparison: 06/12/2018. Technique: Axial contrast enhanced images from the thoracic inlet to the upper abdomen with coronal and sagittal re-formations using 100 ml Isovue 370 intravenous contrast material. Findings: Bilateral lung [place] are relatively well aerated, symmetric and clear. No acute pulmonary parenchymal consolidation, significant nodule or mass lesion appreciated to suggest metastatic disease or active process. Small scattered subpleural noncalcified nodules up to 4 mm remains stable. No effusion. No pneumothorax. Tracheobronchial tree is patent. No axillary, hilar, or mediastinal adenopathy. The mediastinum demonstrates normal pulmonary vasculature, thoracic aorta, and heart/pericardium. Impression: No acute mediastinal or pleuroparenchymal process appreciated. No evidence for metastatic disease related to the chest. Electronically Signed by Teddy Amaya MD 12/12/2018 09:45 A
--- NOTE | 2018-12-12 10:06 | REP ---
Clinical: Colon cancer. Restaging. Technique: Axial contrast enhanced images from the lung bases to the pubic symphysis using oral (per protocol) and 100 ml Isovue 370 intravenous contrast material with coronal and sagittal re-formations as well as delayed images of the abdomen. Comparison: 09/02/2018, 06/12/2018 . Findings: Adenopathy involving the celiac axis and extending into the bharat hepatis as well as para-aortic retroperitoneal adenopathy appears to be increased when compared to both prior examinations. Specifically as example, bulky left para-aortic conglomerate adenopathy currently measuring approximately 4.1 x 2.7 cm diameter previously measured 2.7 x 1.6 cm. Smaller mid to lower abdominal and retroperitoneal lymph nodes are also noted which appears slightly more prominent than prior examination as well. Liver demonstrates low density areas within the medial left lobe measuring approximately 1 cm each and vague areas of low density within the posterior right hepatic lobe extending to the periphery which are similar to prior examination and suggestive of stable metastatic disease. Spleen, pancreas, gallbladder, and bilateral adrenal glands appear relatively stable including calcification and atrophic appearance to the right adrenal gland along with enhancing nodular component to the left adrenal gland which is nonspecific. The enteric system is without obstruction. Scattered diverticula noted without acute diverticulitis. Pelvis demonstrates normal bladder and stable appearance of the prostate gland. No ascites. No free air. Abdominal aorta and vasculature are relatively normal. Musculoskeletal structures are intact without focal abnormality. Impression: 1. Increased adenopathy primarily noted in the celiac axis/bharat hepatis and periaortic retroperitoneal space. 2. Low density findings within the liver appears similar to prior examination. 3. Stable appearance of the bilateral adrenal glands (left greater than right). Electronically Signed by Teddy Amaya MD 12/12/2018 09:59 A
== END ==
LOC: M RAD 11:28
PROVIDERS: ATTEND Internal Medicine Hematology & Oncology
DX: C18.9 Malignant neoplasm of colon, unspecified (principal); R59.1 Generalized enlarged lymph nodes; R91.8 Other nonspecific abnormal finding of lung field
CPT/HCPCS: 71260; 74177; Q9963; Q9967

== ENCOUNTER → 2019-03-05 | Outpatient (CLI) | payer OTHER ==
--- NOTE | 2019-03-05 22:19 | REP ---
Clinical: Restaging colon cancer. Technique: Axial contrast enhanced images from the thoracic inlet to the upper abdomen with coronal and sagittal re-formations using 100 ml Isovue 370 intravenous contrast material. Comparison: 12/11/2018. Findings: The bilateral lung [place] are well-aerated. Few small qpt-et-lzttu mm noncalcified nodules primarily noted in the bilateral lower lobes are nonspecific. However, given the history of metastatic colon cancer, early pulmonary metastases cannot definitively be excluded. No consolidation. No pleural effusion. Tracheobronchial tree is patent. No significant mediastinal, axillary or hilar adenopathy noted. The mediastinum demonstrates normal thoracic aorta without aneurysm or dissection. Atherosclerotic changes to the coronary arteries noted without cardiomegaly or pericardial effusion. Surrounding musculoskeletal structures are intact. Impression: 1. Few scattered bibasilar noncalcified nodules measuring 2-3 mm are nonspecific. Consider short-term follow-up given the patient's history of metastatic colon cancer. 2. No further acute mediastinal or pleuroparenchymal process appreciated. Electronically Signed by Teddy Amaya MD 03/05/2019 10:11 P
--- NOTE | 2019-03-06 09:05 | REP ---
Clinical: Restaging. Colon cancer. Technique: Axial contrast enhanced images from the lung bases to the pubic symphysis using oral (per protocol) and 100 ml Isovue 370 intravenous contrast material with delayed images of the abdomen as well as coronal and sagittal re-formations. Comparison: 12/11/2018. Findings: Liver demonstrates few scattered small hypodensities which may be slightly more numerous than prior examination and are nonspecific and too small to characterize. Spleen, pancreas, gallbladder, bilateral adrenal glands and kidneys are relatively normal / stable. Partially calcified, atrophic appearance to the right adrenal gland along with bilateral renal cysts and nonobstructing left intrarenal calculi are unchanged. Adenopathy at the bharat hepatis/celiac axis and majority of the retroperitoneal adenopathy adjacent to the aorta remain stable. However, there are few moderately increased pathologic lymph nodes adjacent to the IVC and aortocaval space which have increased. As example, a 2.4 cm lymph node (image 64) previously measured 9 mm. Evidence for prior right hemicolectomy. Residual large bowel demonstrates diverticulosis and no evidence for obstruction. The small bowel is grossly unremarkable. The pelvis demonstrates collapsed bladder and mildly prominent prostate gland/seminal vesicles. No ascites. No free air. Abdominal aorta and vasculature without aneurysm or dissection. Musculoskeletal structures demonstrate degenerative changes without focal abnormality. Impression: 1. Liver demonstrates few subcentimeter hypodensities which may be slightly more numerous than prior examination and differential diagnosis would include small cysts as well as the possibility of metastatic disease. 2. Few enlarged pathologic retroperitoneal lymph nodes increased from prior examination. 3. Diverticulosis. 4. No ascites. No acute focal inflammatory stranding. Electronically Signed by Teddy Amaya MD 03/06/2019 08:56 A
== END ==
LOC: M RAD 15:49
PROVIDERS: ATTEND Internal Medicine Hematology & Oncology
DX: C18.6 Malignant neoplasm of descending colon (principal)
CPT/HCPCS: 71260; 74177; Q9963; Q9967

== ENCOUNTER 2019-04-28 17:01 | Inpatient (IN) | payer OTHER ==
[~2019-04-28] VITALS: Ht 177.8 cm; Wt 83.9 kg
[~2019-04-28 17:01] MED LIST changes: +CELE100C PO; +D 10TAB2 PO; -GASTROGRAFIN SOLUTION 30ML (Q9963) As Ordered ONE; -ISOVUE-370 76% 100ML VIAL (Q9967) As Ordered ONE; +ONDA8TAB10 PO; -ONDA8TAB7 PO; +VITA100054 PO
[2019-04-28] MEDS ORDERED: ONDANSETRON 4MG/2ML VIAL (J2405) IV ONE (17:45)
[2019-04-28] MEDS ORDERED: ACETAMINOPHEN 325 MG TAB PO ONE (17:45)
[2019-04-28] MEDS ORDERED: NS 1,000 ML IV ONE (17:45)
[2019-04-28 18:26] LABS: VENOUS BASE EXCESS -1.2 (-2.0-2.0); VENOUS HCO3 23.2 MEQ/L (23.0-27.0); VENOUS O2 SATURATION 49.9 % (60.0-80.0); VENOUS PARTIAL PRESSURE CO2 37.9 mmHg (38.0-50.0); VENOUS PH 7.404 UNITS (7.330-7.430); VENOUS STANDARD HCO3 22.3 MEQ/L; VENOUS TOTAL CO2 24.3 MEQ/L (24.0-28.0)
[2019-04-28 18:29] LABS: BASO % 0.3 % (0.0-1.0); HEMATOCRIT 45.4 % (42.0-52.0); HEMOGLOBIN 15.3 g/dl (13.5-17.5); LYMPH # 0.5 10^3/uL (1.5-5.0); LYMPH % 12.4 % (24.0-44.0); MEAN CORPUSCULAR HEMOGLOBIN 30.9 pg (27.0-33.0); MEAN CORPUSCULAR HGB CONC 33.7 g/dl (32.0-36.5); MEAN CORPUSCULAR VOLUME 91.7 fl (80.0-96.0); MONO # 0.1 10^3/uL (0.0-0.8); MONO % 2.3 % (0.0-5.0); NEUTROPHILS # 3.3 10^3/uL (1.5-8.5); NEUTROPHILS % 84.5 % (36.0-66.0); PLATELET COUNT, AUTOMATED 236 10^3/uL (150-450); RED BLOOD COUNT 4.95 10^6/uL (4.30-6.10); WHITE BLOOD COUNT 3.9 10^3/uL (4.0-10.0)
[2019-04-28 18:40] LABS: INR 1.02; PROTHROMBIN TIME 13.1 SECONDS (11.8-14.0)
[2019-04-28 18:57] LABS: INFLUENZA A AMPLIFICATION POSITIVE (NEGATIVE); INFLUENZA B AMPLIFICATION NEGATIVE (NEGATIVE)
[2019-04-28 19:00] LABS: ALBUMIN 3.1 GM/DL (3.2-5.2); ALT/SGPT 17 U/L (12-78); BILIRUBIN,DIRECT 0.2 MG/DL (0.0-0.2); BILIRUBIN,TOTAL 0.8 MG/DL (0.2-1.0); BLOOD UREA NITROGEN 12 MG/DL (7-18); CALCIUM LEVEL 8.4 MG/DL (8.5-10.1); CARBON DIOXIDE LEVEL 24 MEQ/L (21-32); CHLORIDE LEVEL 100 MEQ/L (98-107); CK-MB VALUE MASS < 1.0 NG/ML (<3.6); CPK CREATINE PHOSPHOKINASE 46 U/L (39-308); CREATININE FOR GFR 0.78 MG/DL (0.70-1.30); GLOMERULAR FILTRATION RATE > 60.0 (>56); GLUCOSE, FASTING 110 MG/DL (70-100); MB/CK RELATIVE INDEX 2.17 (< OR =4); SODIUM LEVEL 133 MEQ/L (136-145); TOTAL PROTEIN 6.8 GM/DL (6.4-8.2); TROPONIN I < 0.02 NG/ML (< 0.10)
[2019-04-28] MEDS ORDERED: OSELTAMIVIR PHOSPHATE 75 MG CAP (TAMIFLU) PO ONE (19:15)
[2019-04-28] MEDS ORDERED: GABAPENTIN 300 MG CAP PO ONE (20:15)
[2019-04-28] MEDS ORDERED: GABA-843 PO (20:49)
[2019-04-28] MEDS ORDERED: VITAD1000T PO (20:49)
[2019-04-28] MEDS: GABAPENTIN 300 MG CAP PO SCH (21:00)
[2019-04-28] MEDS: OSELTAMIVIR PHOSPHATE 75 MG CAP (TAMIFLU) PO SCH (21:18)
[2019-04-28] MEDS ORDERED: MOM 30ML SUSPENSION UDC PO PRN (21:45)
[2019-04-28] MEDS ORDERED: POTASSIUM CHLORIDE 10 MEQ SR TABLET PO PRN (21:45)
[2019-04-28] MEDS ORDERED: MAALOX 30 ML SUSP *UDC PO PRN (21:45)
--- NOTE | 2019-04-28 21:53 | HPEPDOC ---
[facility] Medical History & Physical Date of Admission Apr 28, 2019 Date of Service: Apr 28, 2019 Attending Physician: GABBIE MEDRANO MD History and Physical CHIEF COMPLAINT: Weakness HISTORY OF PRESENT ILLNESS: Melvin wei is a 58-year-old male with a history of adenocarcinoma of the colon with metastasis to lymph nodes who presents to the hospital with a 48-hour history of weakness. Patient states when he came home from the [facility] on , 04/26/2019 he was feeling weak and spent most of the day in bed. Patient's is feeling like he's had the chills. Patient reports that he's had to wear a sweatshirt, sweatpants, thick socks, be on a heated waterbed, and be under a down comforter to feel warm. Patient has not been able to eat or drink much over the past 2 days. Patient says he has been vomiting over the last few days. Patient says last time he vomited was once he arrived to the emergency department. Patient denies any blood in his vomitus. Patient denies any decreased urine output as he's been trying to maintain drinking as much as he can. Patient says he does not feel dizzy or lightheaded but he just feels weak. REVIEW OF SYSTEMS: General: Patient does not know if he's had a fever but endorses chills. Patient denies night sweats or unintentional weight loss. HEENT: Patient denies headaches, changes in vision, sore throat. Cardiovascular: Patient denies chest pain, chest pressure, or palpitations Respiratory: Patient denies shortness of breath, cough GI: Patient endorses nausea and vomiting. Patient also endorses chronic abdominal pain in his right lower quadrant secondary to lymph node metastasis. : Patient denies pain or difficulty with urination Neurological: Patient denies numbness or tingling in extremities Extremities: Patient denies swelling or pain in extremities Skin: Patient endorses a rash that is from his chemotherapeutic agent that he is currently seeing oncology for. Hematologic: Patient denies any easy bruising. Lymphatic: Patient denies any lumps in his neck, axilla, or groin. PAST MEDICAL HISTORY: 1. Adenocarcinoma of the colon with metastasis to lymph nodes on FOLFIRI with Erbitux 2. Hypertension. 3. Uhm-iwecuma-vyycjljbx diabetes mellitus. Dyslipidemia PAST SURGICAL HISTORY: 1. Right hemicolectomy. 2. Inguinal hernia repair. 3. Tonsillectomy as a child. SOCIAL HISTORY: Patient lives at home with his in their [place] [facility]. Patient says he smoked for short time when he is 15 years old. Patient denies drinking any alcohol or taking any other illicit drugs. Patient is retired and his former . Patient's last appointment was to [facility] when he was 40 years old. 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 FAMILY HISTORY: Patient's is heart disease runs in his family with both his mother and father having it. His maternal grandmother had colon cancer. HTN ALLERGIES: Please see below. HOME MEDICATIONS: Please see below. PHYSICAL EXAMINATION: VITAL SIGNS: Temperature 98.7, pulse 98, respiratory rate 24, blood pressure 118/83, pulse oximetry 97% on room air. General: Patient is an alert and oriented male patient who appears very tired while lying on the stretcher in the emergency department. Patient was able to answer questions and sit awake through the entire exam however, he did appear very run down. Patient does not appear to be in any acute distress. HEENT: Normocephalic, atraumatic, dry mucous membranes, posterior pharynx was nonerythematous. Neck: No lymphadenopathy, thyromegaly Cardiac: Regular rate and rhythm, no murmurs, normal S1, normal S2 Pulm: Clear to auscultation bilaterally. No wheezes, rhonchi, rales Abd: Soft and nondistended abdomen. There was tenderness to palpation of the right lower quadrant which patient says is chronic secondary to lymph node metastasis. Ext: No edema bilateral lower extremities Neuro: No gross neurological deficits. Patient was able to follow commands. Skin: Patient had a rash on the posterior forearms that appeared papular howev er, did appear to be mostly scabbed over at this point. LABORATORY DATA: IMAGING: A chest x-ray performed in the emergency department is pending official read from radiology however, on personal review the airway is straight no bony abnormalities, cardiac silhouette is normal size and shape. There is a [id number] in place. Lung montana appear well aerated with no focal consolidation. MICROBIOLOGY: Please see below. ASSESSMENT: Patient is a 58-year-old male who presents to the hospital with weakness and was found to have influenza A. PLAN: 1. Influenza A. Patient will be placed on droplet precautions and was started on Tamiflu 75 mg twice a day. We will continue to monitor the patient. Because the patient is not taking very much in by mouth, patient will be receiving normal saline at 70 mL per hour. 2. Weakness. This is most likely secondary to patient's influenza A. As patient is feeling better, he'll work with physical therapy prior to discharge summary can be safely discharged home. 3. Sepsis secondary to influenza. Patient was tachycardic, tachypneic, and had a fever upon arrival to the hospital. Patient does not appear to have any other infection at this time. We will continue with Tamiflu and other supportive care. 4. Adenocarcinoma of the colon. Patient will follow-up with oncology after discharge. 5. Hypertension. We will continue the patient's lisinopril 20 mg. 6. Hyperlipidemia. Continue atorvastatin 10 mg daily. 7. Abdominal pain secondary to adenocarcinoma of the colon with metastasis to lymph node. Patient has been on gabapentin 300 mg 3 times a day for this. This will be continued. 8. DVT prophylaxis: Enoxaparin 40 mg daily 9. CODE STATUS: Full code Home Medications Scheduled Acetaminophen (Tylenol Extra Strength) 500 Mg Tablet, 1,000 MG PO QHS Atorvastatin Calcium (Atorvastatin Calcium) 10 Mg Tab, 10 MG PO QPM Cholecalciferol (Vitamin D3) (Vitamin D3) 1,000 Unit Tablet, 1,000 UNITS PO DAILY Gabapentin (Gabapentin) 300 Mg Capsule, 300 MG PO TID Lisinopril (Lisinopril) 20 Mg Tab, 20 MG PO DAILY Scheduled PRN Ondansetron HCl (Ondansetron HCl) 8 Mg Tablet, 8 MG PO Q6H PRN for NAUSEA OR VOMITING Potassium Chloride (Potassium Chloride) 10 Meq Tab.er.prt, 10 MEQ PO DAILYPRN PRN for ASDIRECTED Allergies Coded Allergies: No Known Allergies (Unverified , 10/11/18) A-FIB/CHADSVASC A-FIB History Current/History of A-Fib/PAF?: No GME ATTESTATION GME ATTESTATION My faculty preceptor for this patient encounter was physically present during the encounter and was fully available. All aspects of the patient interview, examination, medical decision making process, and medical care plan development were reviewed and approved by the faculty preceptor. The faculty preceptor is aware and concurs with the plan as stated in the body of this note and will attest to such by his/her cosignature. ATTENDING NOTE Time of service 9:17 PM Mr. Overton is a 59-year-old male with a past medical history of stage IV colon cancer 2 diabetes, hypertension and dyslipidemia who is admitted for management of sepsis secondary to influenza A. 1. Sepsis 2/2 Influenza A Plan: admit to medical floor/ telemetry / Tamiflu / lactic acid / IV fluids / /f/u blood cx / Acetaminophen PRN for fever / target MAP 65 to 70 / f/u Is and Os with target UOP of atleast 0.5 ml/kg/H / target serum glucose 140-180 while acutely ill 2. Mild Hypoxemia VBG reviewed Plan: supplemental O2 PRN TIERRA FINNEGAN DO Apr 28, 2019 21:53 GABBIE MEDRANO MD Apr 28, 2019 23:34
[2019-04-28 22:30] VITALS: BP 146/98
[2019-04-28] MEDS: ATORVASTATIN 10 MG TAB PO SCH (23:44)
[2019-04-28] MEDS: NS 1,000 ML IV SCH (23:44)
[2019-04-29 06:00] VITALS: BP 144/97
[2019-04-29] MEDS: ONDANSETRON 4MG/2ML VIAL (J2405) IV PRN ×4 (06:09→21:01)
[2019-04-29] MEDS: GABAPENTIN 300 MG CAP PO SCH ×3 (07:06→21:01)
[2019-04-29 08:10] LABS: BASO % 0.3 % (0.0-1.0); HEMATOCRIT 41.8 % (42.0-52.0); HEMOGLOBIN 14.1 g/dl (13.5-17.5); LYMPH # 0.5 10^3/uL (1.5-5.0); LYMPH % 16.1 % (24.0-44.0); MEAN CORPUSCULAR HEMOGLOBIN 30.9 pg (27.0-33.0); MEAN CORPUSCULAR HGB CONC 33.7 g/dl (32.0-36.5); MEAN CORPUSCULAR VOLUME 91.7 fl (80.0-96.0); MONO # 0.1 10^3/uL (0.0-0.8); MONO % 2.6 % (0.0-5.0); NEUTROPHILS # 2.5 10^3/uL (1.5-8.5); PLATELET COUNT, AUTOMATED 181 10^3/uL (150-450); RED BLOOD COUNT 4.56 10^6/uL (4.30-6.10); WHITE BLOOD COUNT 3.1 10^3/uL (4.0-10.0)
[2019-04-29 08:30] LABS: HEMOGLOBIN A1c 6.9 %
[2019-04-29 08:41] LABS: BLOOD UREA NITROGEN 10 MG/DL (7-18); CALCIUM LEVEL 7.6 MG/DL (8.5-10.1); CARBON DIOXIDE LEVEL 21 MEQ/L (21-32); CHLORIDE LEVEL 106 MEQ/L (98-107); CREATININE FOR GFR 0.53 MG/DL (0.70-1.30); GLOMERULAR FILTRATION RATE > 60.0 (>56); GLUCOSE, FASTING 88 MG/DL (70-100); MAGNESIUM LEVEL 1.7 MG/DL (1.8-2.4); POTASSIUM SERUM 3.7 MEQ/L (3.5-5.1); SODIUM LEVEL 136 MEQ/L (136-145)
[2019-04-29] MEDS: VITAMIN D 1,000 INTERNATIONAL UNITS TABLET PO SCH (08:49)
[2019-04-29] MEDS: lisinopriL 20 MG TAB PO SCH (08:50)
[2019-04-29] MEDS: ENOXAPARIN 40 MG/0.4 ML SYRINGE (J1650) SC SCH (08:51)
--- NOTE | 2019-04-29 09:01 | REP ---
CHEST: Single view. There is no evidence of acute infiltrate. No pleural effusion is seen. The heart is normal in size. The mediastinal silhouette is unremarkable. The visualized osseous structures are intact. A right central venous catheter is seen with the tip in the superior vena cava. IMPRESSION: No acute pulmonary disease. Electronically Signed by Jeronimo Armstrong MD 04/29/2019 06:26 P
[2019-04-29 10:00] VITALS: BP 139/63
--- NOTE | 2019-04-29 10:45 | IPNPDOC ---
Date Seen The patient was seen on 04/29/19. Progress Note SUBJECTIVE: 59-year-old male with past medical history of metastatic colon cancer, status post right hemicolectomy, currently on chemotherapy, hypertension, diabetes mellitus and hyperlipidemia was admitted for influenza. Patient continues to have generalized fatigue, malaise, dyspnea and dry cough, minimally improved from yesterday, no other complaints. He denies any chest pain, nausea, vomiting, abdominal pain or diarrhea. 10 point review of system is negative except for above PHYSICAL EXAMINATION: VITAL SIGNS: Please see below. GENERAL: No distress HEENT: Normocephalic, atraumatic, moist mucous membranes NECK: Supple CARDIOVASCULAR EXAMINATION: S1, S2, no murmurs RESPIRATORY EXAMINATION: Scattered rhonchi, no wheezing ABDOMINAL EXAMINATION: Soft, nontender, nondistended, positive bowel sounds EXTREMITIES: Range of motion intact SKIN: No rash NEUROLOGICAL EXAMINATION: Alert and oriented 3, no focal deficits PSYCHIATRIC EXAMINATION: Calm and cooperative LABORATORY DATA, IMAGING STUDIES, MICROBIOLOGY: Please see below. ASSESSMENT AND PLAN: 59-year-old male with past medical history of metastatic colon cancer on chemotherapy, hypertension, hyperlipidemia, diabetes mellitus, admitted for influenza virus. PROBLEMS: 1. Influenza: Supportive care, Tamiflu 75 mg twice a day, slight improvement from yesterday, but still far from baseline, immunocompromised, will monitor david wood.. 2. Metastatic colon cancer: Status post resection, currently on chemotherapy, outpatient follow-up. 3. Hypertension: Continue lisinopril 4. Hyperlipidemia: Continue atorvastatin DVT prophylaxis: Lovenox. GI prophylaxis: Not needed VS, I&O, 24H, Fishbone Vital Signs/I&O Vital Signs Date Time Temp Pulse Resp B/P (MAP) Pulse Ox O2 Delivery O2 Flow Rate FiO2 04/29/19 06:00 97.9 87 18 144/97 (113) 93 04/28/19 22:30 Room Air I&O- Last 24 Hours up to 6 AM 04/29/19 06:00 Intake Total 1835 ml Balance 1835 ml Laboratory Data 24H LABS Laboratory Tests 2 04/28/19 18:17: Immature Granulocyte % (Auto) 0.5, Neutrophils (%) (Auto) 84.5H, Lymphocytes (%) (Auto) 12.4L, Monocytes (%) (Auto) 2.3, Eosinophils (%) (Auto) 0.0, Basophils (%) (Auto) 0.3, Neutrophils # (Auto) 3.3, Lymphocytes # (Auto) 0.5L, Monocytes # (Auto) 0.1, Eosinophils # (Auto) 0.0, Basophils # (Auto) 0.0, Nucleated Red Blood Cells % (auto) 0.0, Prothrombin Time 13.1, Prothromb Time International Ratio 1.02, Blood Gas Bicarbonate Standard 22.3, Venous Blood pH 7.404, Venous Blood Partial Pressure CO2 37.9L, Venous Blood Partial Pressure O2 28.0L, Venous Blood Total Carbon Dioxide 24.3, Venous Blood HCO3 23.2, Venous Blood Oxygen Saturation 49.9L, Venous Blood Base Excess -1.2, Anion Gap 9, Glomerular Filtration Rate > 60.0, Lactic Acid Level 2.2*H, Calcium Level 8.4L, Total Bilirubin 0.8, Direct Bilirubin 0.2, Aspartate Amino Transf (AST/SGOT) 13, Anibal ne Aminotransferase (ALT/SGPT) 17, Alkaline Phosphatase 93, Total Creatine Kinase 46, Creatine Kinase MB < 1.0, Creatine Kinase MB Relative Index 2.17, Troponin I < 0.02, Total Protein 6.8, Albumin 3.1L, Albumin/Globulin Ratio 0.84L 04/28/19 18:18: Influenza Type A (RT-PCR) POSITIVEH, Influenza Type B (RT-PCR) NEGATIVE 04/28/19 22:48: Lactic Acid Followup at 4 Hours 1.9 04/29/19 07:53: Immature Granulocyte % (Auto) 1.0, Neutrophils (%) (Auto) 80.0H, Lymphocytes (%) (Auto) 16.1L, Monocytes (%) (Auto) 2.6, Eosinophils (%) (Auto) 0.0, Basophils (%) (Auto) 0.3, Neutrophils # (Auto) 2.5, Lymphocytes # (Auto) 0.5L, Monocytes # (Auto) 0.1, Eosinophils # (Auto) 0.0, Basophils # (Auto) 0.0, Nucleated Red Blood Cells % (auto) 0.0, Anion Gap 9, Glomerular Filtration Rate > 60.0, Calcium Level 7.6L, Estimated Mean Plasma Glucose 151H, Hemoglobin A1c 6.9, Magnesium Level 1.7L CBC/BMP Laboratory Tests 04/28/19 18:17 04/29/19 07:53 Microbiology Microbiology 04/28/19 Blood Culture, Received Pending 04/28/19 Blood Culture, Received Pending ELISEO BARNES MD Apr 29, 2019 10:45
[2019-04-29] MEDS ORDERED: POTASSIUM CHLORIDE 10 MEQ SR TABLET PO ONE (11:00)
[2019-04-29] MEDS: MAG SULF 1GM/100ML (MAG RUN) 1 GM in IV 1 EA IV SCH ×2 (11:55→13:15)
[2019-04-29] MEDS: NS 1,000 ML IV SCH ×2 (13:15→21:02)
[2019-04-29 14:00] VITALS: BP 119/84
[2019-04-29] MEDS: ACETAMINOPHEN TAB 650MG DOSE (2X325MG) PO PRN ×2 (15:58→21:01)
[2019-04-29] MEDS: VANCOMYCIN ORAL SOL 250MG/5ML ORAL SYRINGE PO SCH ×2 (18:00→23:04)
[2019-04-29 19:01] LABS: CLOSTRIDIUM DIFFICILE PCR POSITIVE (NEGATIVE)
--- NOTE | 2019-04-29 19:27 | IPNPDOC ---
Text Note Date of Service The patient was seen on 04/29/19. NOTE Per RN Senia Amos C diff is positive. Since the WBC # is not >15 and his Cr is not >1.5 we will start Fidaxomicin 200mg BID for 10 days. GABBIE MEDRANO MD Apr 29, 2019 19:27
--- NOTE | 2019-04-29 20:24 | ECGEPIP ---
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
[2019-04-29] MEDS ORDERED: FIDAXOMICIN 200 MG TAB (DIFICID) PO SCH (21:00)
[2019-04-29] MEDS: ATORVASTATIN 10 MG TAB PO SCH (21:01)
[2019-04-29] MEDS: OSELTAMIVIR PHOSPHATE 75 MG CAP (TAMIFLU) PO SCH (21:01)
[2019-04-29 22:00] VITALS: BP 115/75
[2019-04-30] MEDS: ACETAMINOPHEN TAB 650MG DOSE (2X325MG) PO PRN ×2 (01:33→11:50)
[2019-04-30] MEDS: ONDANSETRON 4MG/2ML VIAL (J2405) IV PRN ×3 (01:33→11:49)
[2019-04-30 06:00] VITALS: BP 100/63
[2019-04-30 06:09] LABS: BASO % 0.4 % (0.0-1.0); HEMATOCRIT 40.9 % (42.0-52.0); HEMOGLOBIN 13.8 g/dl (13.5-17.5); LYMPH # 0.5 10^3/uL (1.5-5.0); MEAN CORPUSCULAR HEMOGLOBIN 30.7 pg (27.0-33.0); MEAN CORPUSCULAR HGB CONC 33.7 g/dl (32.0-36.5); MEAN CORPUSCULAR VOLUME 91.1 fl (80.0-96.0); MONO # 0.1 10^3/uL (0.0-0.8); NEUTROPHILS # 1.8 10^3/uL (1.5-8.5); NEUTROPHILS % 76.2 % (36.0-66.0); PLATELET COUNT, AUTOMATED 173 10^3/uL (150-450); RED BLOOD COUNT 4.49 10^6/uL (4.30-6.10); WHITE BLOOD COUNT 2.4 10^3/uL (4.0-10.0)
[2019-04-30] MEDS: VANCOMYCIN ORAL SOL 250MG/5ML ORAL SYRINGE PO SCH ×3 (06:12→18:33)
[2019-04-30 06:31] LABS: BLOOD UREA NITROGEN 13 MG/DL (7-18); CALCIUM LEVEL 7.2 MG/DL (8.5-10.1); CARBON DIOXIDE LEVEL 20 MEQ/L (21-32); CHLORIDE LEVEL 106 MEQ/L (98-107); CREATININE FOR GFR 0.66 MG/DL (0.70-1.30); GLOMERULAR FILTRATION RATE > 60.0 (>56); GLUCOSE, FASTING 91 MG/DL (70-100); POTASSIUM SERUM 3.2 MEQ/L (3.5-5.1); SODIUM LEVEL 133 MEQ/L (136-145)
[2019-04-30] MEDS: ENOXAPARIN 40 MG/0.4 ML SYRINGE (J1650) SC SCH (08:43)
[2019-04-30] MEDS: lisinopriL 20 MG TAB PO SCH (08:43)
[2019-04-30] MEDS: POTASSIUM CHLORIDE 10 MEQ SR TABLET PO SCH ×2 (08:44→11:50)
[2019-04-30] MEDS: GABAPENTIN 300 MG CAP PO SCH ×3 (08:44→20:40)
[2019-04-30] MEDS: OSELTAMIVIR PHOSPHATE 75 MG CAP (TAMIFLU) PO SCH ×2 (08:44→20:40)
[2019-04-30] MEDS: VITAMIN D 1,000 INTERNATIONAL UNITS TABLET PO SCH (08:44)
[2019-04-30] MEDS: BACITRACIN OINT 30GM TOP PRN (11:51)
[2019-04-30 14:00] VITALS: BP 104/69
--- NOTE | 2019-04-30 15:03 | IPNPDOC ---
Date Seen The patient was seen on 04/30/19. Progress Note SUBJECTIVE: 59-year-old male with past medical history of metastatic colon cancer, status post right hemicolectomy, currently on chemotherapy, hypertension, diabetes mellitus and hyperlipidemia was admitted for influenza. Patient continues to have generalized fatigue, malaise, dyspnea and dry cough, minimally improved from yesterday, no other complaints. He denies any chest pain, nausea, vomiting, abdominal pain or diarrhea. 04/30/19 Positive for C. diff, started on oral vancomycin, reports significant fatigue in the morning, PO intake is low, had multiple watery BMs overnight, no other com plaints. 10 point review of system is negative except for above PHYSICAL EXAMINATION: VITAL SIGNS: Please see below. GENERAL: No distress HEENT: Normocephalic, atraumatic, moist mucous membranes NECK: Supple CARDIOVASCULAR EXAMINATION: S1, S2, no murmurs RESPIRATORY EXAMINATION: Scattered rhonchi, no wheezing ABDOMINAL EXAMINATION: Soft, nontender, nondistended, positive bowel sounds EXTREMITIES: Range of motion intact SKIN: No rash NEUROLOGICAL EXAMINATION: Alert and oriented 3, no focal deficits PSYCHIATRIC EXAMINATION: Calm and cooperative LABORATORY DATA, IMAGING STUDIES, MICROBIOLOGY: Please see below. ASSESSMENT AND PLAN: 59-year-old male with past medical history of metastatic colon cancer on chemotherapy, hypertension, hyperlipidemia, diabetes mellitus, admitted for influenza virus. PROBLEMS: 1. Influenza: Supportive care, Tamiflu 75 mg twice a day, immunocompromised, maría l monitor closely. 2. C. diff: Continue oral vancomycin, IV hydration. 2. Metastatic colon cancer: Status post resection, currently on chemotherapy, outpatient follow-up. 3. Hypertension: Continue lisinopril 4. Hyperlipidemia: Continue atorvastatin DVT prophylaxis: Lovenox. GI prophylaxis: Not needed VS, I&O, 24H, Fishbone Vital Signs/I&O Vital Signs Date Time Temp Pulse Resp B/P (MAP) Pulse Ox O2 Delivery O2 Flow Rate FiO2 04/30/19 14:00 98.9 99 17 104/69 (81) 99 Room Air I&O- Last 24 Hours up to 6 AM 04/30/19 06:00 Intake Total 2845 ml Output Total 150 ml Balance 2695 ml Laboratory Data 24H LABS Laboratory Tests 2 04/30/19 05:56: Immature Granulocyte % (Auto) 0.4, Neutrophils (%) (Auto) 76.2H, Lymphocytes (%) (Auto) 20.0L, Monocytes (%) (Auto) 3.0, Eosinophils (%) (Auto) 0.0, Basophils (%) (Auto) 0.4, Neutrophils # (Auto) 1.8, Lymphocytes # (Auto) 0.5L, Monocytes # (Auto) 0.1, Eosinophils # (Auto) 0.0, Basophils # (Auto) 0.0, Nucleated Red Blood Cells % (auto) 0.0, Anion Gap 7L, Glomerular Filtration Rate > 60.0, Calcium Level 7.2L, Magnesium Level 2.0 CBC/BMP Laboratory Tests 04/30/19 05:56 Microbiology Microbiology 04/28/19 Blood Culture - Preliminary, Resulted No growth after 24 hours . All specim... 04/28/19 Blood Culture - Preliminary, Resulted No growth after 24 hours . All specim... ELISEO BARNES MD Apr 30, 2019 15:03
[2019-04-30] MEDS ORDERED: ONDANSETRON 4 MG TAB (S0181) PO PRN (18:00)
[2019-04-30] MEDS: ATORVASTATIN 10 MG TAB PO SCH (20:40)
[2019-04-30 22:00] VITALS: BP 127/78
[2019-05-01] MEDS: VANCOMYCIN ORAL SOL 250MG/5ML ORAL SYRINGE PO SCH ×5 (00:03→23:34)
[2019-05-01 06:00] VITALS: BP 130/82
[2019-05-01 06:38] LABS: HEMATOCRIT 36.5 % (42.0-52.0); HEMOGLOBIN 12.6 g/dl (13.5-17.5); LYMPH # 0.4 10^3/uL (1.5-5.0); LYMPH % 16.2 % (24.0-44.0); MEAN CORPUSCULAR HEMOGLOBIN 30.8 pg (27.0-33.0); MEAN CORPUSCULAR HGB CONC 34.5 g/dl (32.0-36.5); MEAN CORPUSCULAR VOLUME 89.2 fl (80.0-96.0); MONO # 0.1 10^3/uL (0.0-0.8); NEUTROPHILS # 1.9 10^3/uL (1.5-8.5); NEUTROPHILS % 79.9 % (36.0-66.0); PLATELET COUNT, AUTOMATED 152 10^3/uL (150-450); RED BLOOD COUNT 4.09 10^6/uL (4.30-6.10); WHITE BLOOD COUNT 2.4 10^3/uL (4.0-10.0)
[2019-05-01 07:07] LABS: BLOOD UREA NITROGEN 5 MG/DL (7-18); CALCIUM LEVEL 7.5 MG/DL (8.5-10.1); CARBON DIOXIDE LEVEL 22 MEQ/L (21-32); CHLORIDE LEVEL 102 MEQ/L (98-107); CREATININE FOR GFR 0.51 MG/DL (0.70-1.30); GLOMERULAR FILTRATION RATE > 60.0 (>56); GLUCOSE, FASTING 112 MG/DL (70-100); MAGNESIUM LEVEL 1.5 MG/DL (1.8-2.4); POTASSIUM SERUM 3.1 MEQ/L (3.5-5.1); SODIUM LEVEL 132 MEQ/L (136-145)
[2019-05-01] MEDS: POTASSIUM CHLORIDE 10 MEQ SR TABLET PO SCH ×4 (08:30→13:07)
[2019-05-01] MEDS: ENOXAPARIN 40 MG/0.4 ML SYRINGE (J1650) SC SCH (09:00)
[2019-05-01] MEDS: VITAMIN D 1,000 INTERNATIONAL UNITS TABLET PO SCH (09:43)
[2019-05-01] MEDS: OSELTAMIVIR PHOSPHATE 75 MG CAP (TAMIFLU) PO SCH ×2 (09:43→21:11)
[2019-05-01] MEDS: MAG SULF 1GM/100ML (MAG RUN) 1 GM in IV 1 EA IV SCH ×4 (09:43→13:07)
[2019-05-01] MEDS: GABAPENTIN 300 MG CAP PO SCH ×3 (09:44→21:11)
[2019-05-01] MEDS: lisinopriL 20 MG TAB PO SCH (09:45)
[2019-05-01] MEDS: NS 1,000 ML IV SCH ×2 (09:46→21:21)
[2019-05-01 10:00] VITALS: BP 130/82
[2019-05-01] MEDS: ONDANSETRON 4MG/2ML VIAL (J2405) IV PRN ×3 (11:03→21:16)
[2019-05-01 14:00] VITALS: BP 120/73
[2019-05-01] MEDS: ACETAMINOPHEN TAB 650MG DOSE (2X325MG) PO PRN ×2 (14:01→23:34)
--- NOTE | 2019-05-01 17:45 | IPNPDOC ---
Date Seen The patient was seen on 05/01/19. Progress Note SUBJECTIVE: 59-year-old male with past medical history of metastatic colon cancer, status post right hemicolectomy, currently on chemotherapy, hypertension, diabetes mellitus and hyperlipidemia was admitted for influenza. Patient continues to have generalized fatigue, malaise, dyspnea and dry cough, minimally improved from yesterday, no other complaints. He denies any chest pain, nausea, vomiting, abdominal pain or diarrhea. 04/30/19 Positive for C. diff, started on oral vancomycin, reports significant fatigue in the morning, PO intake is low, had multiple watery BMs overnight, no other com plaints. 05/01/19 Remains fatigued, had 3-4 episodes of diarrhea overnight & earlier today, tolerating PO but intake is low compared to output, continues to have SOB/dry cough, no other complaints. 10 point review of system is negative except for above PHYSICAL EXAMINATION: VITAL SIGNS: Please see below. GENERAL: No distress HEENT: Normocephalic, atraumatic, moist mucous membranes NECK: Supple CARDIOVASCULAR EXAMINATION: S1, S2, no murmurs RESPIRATORY EXAMINATION: Scattered rhonchi, no wheezing ABDOMINAL EXAMINATION: Soft, nontender, nondistended, positive bowel sounds EXTREMITIES: Range of motion intact SKIN: No rash NEUROLOGICAL EXAMINATION: Alert and oriented 3, no focal deficits PSYCHIATRIC EXAMINATION: Calm and cooperative LABORATORY DATA, IMAGING STUDIES, MICROBIOLOGY: Please see below. ASSESSMENT AND PLAN: 59-year-old male with past medical history of metastatic colon cancer on chemotherapy, hypertension, hyperlipidemia, diabetes mellitus, admitted for influenza virus. PROBLEMS: 1. Influenza: Supportive care, Tamiflu 75 mg twice a day, immunocompromised, will monitor closely. 2. C. diff: Continue oral vancomycin, IV hydration. 2. Metastatic colon cancer: Status post resection, currently on chemotherapy, outpatient follow-up. 3. Hypertension: Continue lisinopril 4. Hyperlipidemia: Continue atorvastatin DVT prophylaxis: Lovenox. GI prophylaxis: Not needed VS, I&O, 24H, Fishbone Vital Signs/I&O Vital Signs Date Time Temp Pulse Resp B/P (MAP) Pulse Ox O2 Delivery O2 Flow Rate FiO2 05/01/19 14:00 97.9 97 19 120/73 (89) 94 Room Air I&O- Last 24 Hours up to 6 AM 05/01/19 05:59 Intake Total 1530 ml Output Total 0 ml Balance 1530 ml Laboratory Data 24H LABS Laboratory Tests 2 05/01/19 06:20: Immature Granulocyte % (Auto) 0.9, Neutrophils (%) (Auto) 79.9H, Lymphocytes (%) (Auto) 16.2L, Monocytes (%) (Auto) 3.0, Eosinophils (%) (Auto) 0.0, Basophils (%) (Auto) 0.0, Neutrophils # (Auto) 1.9, Lymphocytes # (Auto) 0.4L, Monocytes # (Auto) 0.1, Eosinophils # (Auto) 0.0, Basophils # (Auto) 0.0, Nucleated Red Blood Cells % (auto) 0.0, Anion Gap 8, Glomerular Filtration Rate > 60.0, Calcium Level 7.5L, Magnesium Level 1.5L CBC/BMP Laboratory Tests 05/01/19 06:20 Microbiology Microbiology 04/28/19 Blood Culture - Preliminary, Resulted No Growth after 48 hours. All Specime... 04/28/19 Blood Culture - Preliminary, Resulted No Growth after 48 hours. All Specime... ELISEO BARNES MD May 01, 2019 17:45
[2019-05-01] MEDS ORDERED: POTASSIUM CHLORIDE 10% LIQ 20 MEQ/15 ML UDC PO SCH (21:00)
[2019-05-01] MEDS: ATORVASTATIN 10 MG TAB PO SCH (21:11)
[2019-05-01 22:00] VITALS: BP 125/75
[2019-05-02] MEDS: VANCOMYCIN ORAL SOL 250MG/5ML ORAL SYRINGE PO SCH ×4 (05:33→23:53)
[2019-05-02] MEDS: ONDANSETRON 4MG/2ML VIAL (J2405) IV PRN ×3 (05:33→15:51)
[2019-05-02 06:00] VITALS: BP 124/77
[2019-05-02 06:00] LABS: EOS % 0.6 % (0.0-3.0); HEMATOCRIT 37.9 % (42.0-52.0); LYMPH # 0.6 10^3/uL (1.5-5.0); LYMPH % 33.5 % (24.0-44.0); MEAN CORPUSCULAR HGB CONC 34.3 g/dl (32.0-36.5); MEAN CORPUSCULAR VOLUME 90.5 fl (80.0-96.0); MONO # 0.1 10^3/uL (0.0-0.8); MONO % 6.4 % (0.0-5.0); NEUTROPHILS % 58.9 % (36.0-66.0); PLATELET COUNT, AUTOMATED 145 10^3/uL (150-450); RED BLOOD COUNT 4.19 10^6/uL (4.30-6.10)
[2019-05-02 06:33] LABS: BLOOD UREA NITROGEN 7 MG/DL (7-18); CALCIUM LEVEL 7.4 MG/DL (8.5-10.1); CARBON DIOXIDE LEVEL 23 MEQ/L (21-32); CHLORIDE LEVEL 104 MEQ/L (98-107); CREATININE FOR GFR 0.51 MG/DL (0.70-1.30); GLOMERULAR FILTRATION RATE > 60.0 (>56); GLUCOSE, FASTING 87 MG/DL (70-100); POTASSIUM SERUM 2.9 MEQ/L (3.5-5.1); SODIUM LEVEL 134 MEQ/L (136-145)
[2019-05-02 06:34] LABS: WHITE BLOOD COUNT 1.7 10^3/uL (4.0-10.0)
[2019-05-02] MEDS ORDERED: POTASSIUM CHLORIDE 10 MEQ SR TABLET PO ONE ×2 (07:15→18:45)
[2019-05-02] MEDS: ENOXAPARIN 40 MG/0.4 ML SYRINGE (J1650) SC SCH (09:00)
[2019-05-02 09:22] LABS: IMMUNOGLOBULIN G 730 MG/DL (681-1648); IMMUNOGLOBULIN M 47.8 MG/DL (40-230)
[2019-05-02] MEDS: KCL 10MEQ/100ML SWI (KRUN) 10 MEQ in IV 1 EA IV SCH ×4 (09:47→13:33)
[2019-05-02] MEDS: GABAPENTIN 300 MG CAP PO SCH ×3 (09:48→21:09)
[2019-05-02] MEDS: OSELTAMIVIR PHOSPHATE 75 MG CAP (TAMIFLU) PO SCH ×2 (09:48→21:09)
[2019-05-02] MEDS: VITAMIN D 1,000 INTERNATIONAL UNITS TABLET PO SCH (09:48)
[2019-05-02] MEDS: NS 1,000 ML IV SCH ×2 (09:48→21:10)
[2019-05-02] MEDS: lisinopriL 20 MG TAB PO SCH (09:52)
[2019-05-02 14:00] VITALS: BP 115/75
[2019-05-02] MEDS ORDERED: FILGRASTIM 300 MCG/0.5 ML SYRINGE (J1442 PER 1MCG) SC ONE (14:00)
[2019-05-02] MEDS: POTASSIUM CHLORIDE 10% LIQ 20 MEQ/15 ML UDC PO ONE ×2 (15:51→16:45)
[2019-05-02] MEDS: LIDOCAINE VISCOUS 2% SOLN 15ML UDC SS PRN (15:51)
--- NOTE | 2019-05-02 18:59 | IPNPDOC ---
Date Seen The patient was seen on 05/02/19. Progress Note SUBJECTIVE: 59-year-old male with past medical history of metastatic colon cancer, status post right hemicolectomy, currently on chemotherapy, hypertension, diabetes mellitus and hyperlipidemia was admitted for influenza. Patient continues to have generalized fatigue, malaise, dyspnea and dry cough, minimally improved from yesterday, no other complaints. He denies any chest pain, nausea, vomiting, abdominal pain or diarrhea. 04/30/19 Positive for C. diff, started on oral vancomycin, reports significant fatigue in the morning, PO intake is low, had multiple watery BMs overnight, no other com plaints. 05/01/19 Remains fatigued, had 3-4 episodes of diarrhea overnight & earlier today, tolerating PO but intake is low compared to output, continues to have SOB/dry cough, no other complaints. 05/02/19 Patient continues to have profound diarrhea, roughly 8 episodes of diarrhea overnight and earlier today, continues to have mild dyspnea with dry cough, remains fatigued, oral intake and adequate. Patient neutropenic today. 10 point review of system is negative except for above PHYSICAL EXAMINATION: VITAL SIGNS: Please see below. GENERAL: No distress HEENT: Normocephalic, atraumatic, moist mucous membranes NECK: Supple CARDIOVASCULAR EXAMINATION: S1, S2, no murmurs RESPIRATORY EXAMINATION: Scattered rhonchi, no wheezing ABDOMINAL EXAMINATION: Soft, nontender, nondistended, positive bowel sounds EXTREMITIES: Range of motion intact SKIN: No rash NEUROLOGICAL EXAMINATION: Alert and oriented 3, no focal deficits PSYCHIATRIC EXAMINATION: Calm and cooperative LABORATORY DATA, IMAGING STUDIES, MICROBIOLOGY: Please see below. ASSESSMENT AND PLAN: 59-year-old male with past medical history of metastatic colon cancer on chemotherapy, hypertension, hyperlipidemia, diabetes mellitus, a dmitted for influenza virus. PROBLEMS: 1. Influenza: Supportive care, Tamiflu 75 mg twice a day for a total of 5 days, neutropenic today, case discussed with patient's oncologist, Dr. Enriquez, who r ecommends checking immunoglobulin levels and agrees with Neupogen 300 g once. 2. C. diff: Continue oral vancomycin, IV hydration. Patient with hypokalemia from GI loss, will continue to supplement as needed. 2. Metastatic colon cancer: Status post resection, currently on chemotherapy, outpatient follow-up. 3. Hypertension: Continue lisinopril 4. Hyperlipidemia: Continue atorvastatin DVT prophylaxis: Lovenox. GI prophylaxis: Not needed VS, I&O, 24H, Fishbone Vital Signs/I&O Vital Signs Date Time Temp Pulse Resp B/P (MAP) Pulse Ox O2 Delivery O2 Flow Rate FiO2 05/02/19 14:00 98.4 89 17 115/75 (88) 95 Room Air I&O- Last 24 Hours up to 6 AM 05/02/19 06:00 Intake Total 2910 ml Output Total 250 ml Balance 2660 ml Laboratory Data 24H LABS Laboratory Tests 2 05/02/19 05:26: Anion Gap 7L, Glomerular Filtration Rate > 60.0, Calcium Level 7.4L, Magnesium Level 2.0, Immunoglobulin G 730, Immunoglobulin A 251.0, Immunoglobulin M 47.8 05/02/19 05:27: Immature Granulocyte % (Auto) 0.6, Neutrophils (%) (Auto) 58.9, Lymphocytes (%) (Auto) 33.5, Monocytes (%) (Auto) 6.4H, Eosinophils (%) (Auto) 0.6, Basophils (%) (Auto) 0.0, Neutrophils # (Auto) 1.0L, Lymphocytes # (Auto) 0.6L, Monocytes # (Auto) 0.1, Eosinophils # (Auto) 0.0, Basophils # (Auto) 0.0, Nucleated Red Blood Cells % (auto) 0.0 CBC/BMP Laboratory Tests 05/02/19 05:26 05/02/19 05:27 Microbiology Microbiology 04/28/19 Blood Culture - Preliminary, Resulted No Growth after 72 hours. All specime... 04/28/19 Blood Culture - Preliminary, Resulted No Growth after 72 hours. All specime... ELISEO BARNES MD May 02, 2019 18:59
[2019-05-02] MEDS: ATORVASTATIN 10 MG TAB PO SCH (21:09)
[2019-05-02] MEDS: BACITRACIN OINT 30GM TOP PRN (21:13)
[2019-05-02 22:00] VITALS: BP 118/76
[2019-05-03] MEDS: VANCOMYCIN ORAL SOL 250MG/5ML ORAL SYRINGE PO SCH ×3 (05:43→17:07)
[2019-05-03] MEDS: ONDANSETRON 4MG/2ML VIAL (J2405) IV PRN ×3 (05:43→20:33)
[2019-05-03 06:00] VITALS: BP 119/76
[2019-05-03 06:40] LABS: BASO % 0.2 % (0.0-1.0); EOS % 0.5 % (0.0-3.0); HEMATOCRIT 37.3 % (42.0-52.0); HEMOGLOBIN 12.8 g/dl (13.5-17.5); LYMPH # 0.7 10^3/uL (1.5-5.0); LYMPH % 11.3 % (24.0-44.0); MEAN CORPUSCULAR HEMOGLOBIN 30.7 pg (27.0-33.0); MEAN CORPUSCULAR HGB CONC 34.3 g/dl (32.0-36.5); MEAN CORPUSCULAR VOLUME 89.4 fl (80.0-96.0); MONO # 0.2 10^3/uL (0.0-0.8); MONO % 3.6 % (0.0-5.0); NEUTROPHILS # 5.1 10^3/uL (1.5-8.5); NEUTROPHILS % 84.1 % (36.0-66.0); PLATELET COUNT, AUTOMATED 171 10^3/uL (150-450); RED BLOOD COUNT 4.17 10^6/uL (4.30-6.10); WHITE BLOOD COUNT 6.1 10^3/uL (4.0-10.0)
[2019-05-03 07:06] LABS: BLOOD UREA NITROGEN 3 MG/DL (7-18); CALCIUM LEVEL 7.5 MG/DL (8.5-10.1); CARBON DIOXIDE LEVEL 23 MEQ/L (21-32); CHLORIDE LEVEL 107 MEQ/L (98-107); CREATININE FOR GFR 0.43 MG/DL (0.70-1.30); GLOMERULAR FILTRATION RATE > 60.0 (>56); GLUCOSE, FASTING 94 MG/DL (70-100); MAGNESIUM LEVEL 1.6 MG/DL (1.8-2.4); POTASSIUM SERUM 3.2 MEQ/L (3.5-5.1); SODIUM LEVEL 137 MEQ/L (136-145)
[2019-05-03] MEDS: ENOXAPARIN 40 MG/0.4 ML SYRINGE (J1650) SC SCH (08:37)
[2019-05-03] MEDS ORDERED: POTASSIUM CHLORIDE 10 MEQ SR TABLET PO ONE (09:30)
[2019-05-03] MEDS: GABAPENTIN 300 MG CAP PO SCH ×3 (09:50→20:33)
[2019-05-03] MEDS: OSELTAMIVIR PHOSPHATE 75 MG CAP (TAMIFLU) PO SCH ×2 (09:50→20:33)
[2019-05-03] MEDS: lisinopriL 20 MG TAB PO SCH (09:51)
[2019-05-03] MEDS: KCL 10MEQ/100ML SWI (KRUN) 10 MEQ in IV 1 EA IV SCH ×4 (09:51→13:34)
[2019-05-03] MEDS: VITAMIN D 1,000 INTERNATIONAL UNITS TABLET PO SCH (11:05)
[2019-05-03] MEDS: NS 1,000 ML IV SCH ×2 (11:30→20:35)
[2019-05-03 14:00] VITALS: BP 114/77
[2019-05-03] MEDS: MAG SULF 1GM/100ML (MAG RUN) 1 GM in IV 1 EA IV SCH ×4 (14:45→18:15)
[2019-05-03] MEDS: ATORVASTATIN 10 MG TAB PO SCH (20:33)
[2019-05-03] MEDS: LIDOCAINE VISCOUS 2% SOLN 15ML UDC SS PRN (20:33)
--- NOTE | 2019-05-03 21:17 | IPNPDOC ---
Date Seen The patient was seen on 05/03/19. Progress Note SUBJECTIVE: 59-year-old male with past medical history of metastatic colon cancer, status post right hemicolectomy, currently on chemotherapy, hypertension, diabetes mellitus and hyperlipidemia was admitted for influenza. Patient continues to have generalized fatigue, malaise, dyspnea and dry cough, minimally improved from yesterday, no other complaints. He denies any chest pain, nausea, vomiting, abdominal pain or diarrhea. 04/30/19 Positive for C. diff, started on oral vancomycin, reports significant fatigue in the morning, PO intake is low, had multiple watery BMs overnight, no other com plaints. 05/01/19 Remains fatigued, had 3-4 episodes of diarrhea overnight & earlier today, tolerating PO but intake is low compared to output, continues to have SOB/dry cough, no other complaints. 05/02/19 Patient continues to have profound diarrhea, roughly 8 episodes of diarrhea overnight and earlier today, continues to have mild dyspnea with dry cough, remains fatigued, oral intake and adequate. Patient neutropenic today. 05/03/19 Still having copious amounts of diarrhea, dyspnea resolved, continues to have dry cough, tolerating PO, although intake adequate, no other complaints. 10 point review of system is negative except for above PHYSICAL EXAMINATION: VITAL SIGNS: Please see below. GENERAL: No distress HEENT: Normocephalic, atraumatic, moist mucous membranes NECK: Supple CARDIOVASCULAR EXAMINATION: S1, S2, no murmurs RESPIRATORY EXAMINATION: Scattered rhonchi, no wheezing ABDOMINAL EXAMINATION: Soft, nontender, nondistended, positive bowel sounds EXTREMITIES: Range of motion intact SKIN: No rash NEUROLOGICAL EXAMINATION: Alert and oriented 3, no focal deficits PSYCHIATRIC EXAMINATION: Calm and cooperative LABORATORY DATA, IMAGING STUDIES, MICROBIOLOGY: Please see below. ASSESSMENT AND PLAN: 59-year-old male with past medical history of metastatic colon cancer on chemotherapy, hypertension, hyperlipidemia, diabetes mellitus, admitted for influenza virus. PROBLEMS: 1. Influenza: Supportive care, Tamiflu 75 mg twice a day for a total of 5 days, neutropenia resolved, immunoglobulin levels within normal limits. 2. C. diff: Continue oral vancomycin, IV hydration. Electrolyte supplemented. 2. Metastatic colon cancer: Status post resection, currently on chemotherapy, outpatient follow-up. 3. Hypertension: Continue lisinopril 4. Hyperlipidemia: Continue atorvastatin DVT prophylaxis: Lovenox. GI prophylaxis: Not needed VS, I&O, 24H, Fishbone Vital Signs/I&O Vital Signs Date Time Temp Pulse Resp B/P (MAP) Pulse Ox O2 Delivery O2 Flow Rate FiO2 05/03/19 14:00 98.7 82 18 114/77 (89) 95 Room Air I&O- Last 24 Hours up to 6 AM 05/03/19 06:00 Intake Total 3290 ml Output Total 0 ml Balance 3290 ml Laboratory Data 24H LABS Laboratory Tests 2 05/03/19 06:14: Immature Granulocyte % (Auto) 0.3, Neutrophils (%) (Auto) 84.1H, Lymphocytes (%) (Auto) 11.3L, Monocytes (%) (Auto) 3.6, Eosinophils (%) (Auto) 0.5, Basophils (%) (Auto) 0.2, Neutrophils # (Auto) 5.1, Lymphocytes # (Auto) 0.7L, Monocytes # (Auto) 0.2, Eosinophils # (Auto) 0.0, Basophils # (Auto) 0.0, Nucleated Red Blood Cells % (auto) 0.0 05/03/19 06:15: Anion Gap 7L, Glomerular Filtration Rate > 60.0, Calcium Level 7.5L, Magnesium Level 1.6L CBC/BMP Laboratory Tests 05/03/19 06:14 05/03/19 06:15 Microbiology Microbiology 04/28/19 Blood Culture - Final, Complete NO GROWTH AFTER 5 DAYS 04/28/19 Blood Culture - Final, Complete NO GROWTH AFTER 5 DAYS ELISEO BARNES MD May 03, 2019 21:17
[2019-05-03 22:00] VITALS: BP 114/76
[2019-05-04] MEDS: VANCOMYCIN ORAL SOL 250MG/5ML ORAL SYRINGE PO SCH ×4 (00:40→17:03)
[2019-05-04 06:00] VITALS: BP 124/77
[2019-05-04 06:36] LABS: HEMATOCRIT 36.4 % (42.0-52.0); HEMOGLOBIN 12.4 g/dl (13.5-17.5); MEAN CORPUSCULAR HEMOGLOBIN 30.7 pg (27.0-33.0); MEAN CORPUSCULAR HGB CONC 34.1 g/dl (32.0-36.5); MEAN CORPUSCULAR VOLUME 90.1 fl (80.0-96.0); PLATELET COUNT, AUTOMATED 184 10^3/uL (150-450); RED BLOOD COUNT 4.04 10^6/uL (4.30-6.10); WHITE BLOOD COUNT 7.3 10^3/uL (4.0-10.0)
[2019-05-04 07:01] LABS: BLOOD UREA NITROGEN 2 MG/DL (7-18); CALCIUM LEVEL 7.5 MG/DL (8.5-10.1); CARBON DIOXIDE LEVEL 24 MEQ/L (21-32); CHLORIDE LEVEL 109 MEQ/L (98-107); CREATININE FOR GFR 0.48 MG/DL (0.70-1.30); GLOMERULAR FILTRATION RATE > 60.0 (>56); GLUCOSE, FASTING 93 MG/DL (70-100); MAGNESIUM LEVEL 1.8 MG/DL (1.8-2.4); PHOSPHORUS LEVEL 2.3 MG/DL (2.5-4.9); POTASSIUM SERUM 3.2 MEQ/L (3.5-5.1); SODIUM LEVEL 140 MEQ/L (136-145)
[2019-05-04 07:16] LABS: ATYPICAL LYMPH 1 % (0-5); EOSINOPHILS 2 % (0-3); LYMPHOCYTES 11 % (16-44); MONOCYTES 3 % (0-5); NEUTROPHILS 83 % (28-66)
[2019-05-04 07:18] LABS: PLATELET ESTIMATE NORMAL (NORMAL)
[2019-05-04] MEDS ORDERED: POTASSIUM CHLORIDE 10 MEQ SR TABLET PO ONE (08:45)
[2019-05-04] MEDS: ENOXAPARIN 40 MG/0.4 ML SYRINGE (J1650) SC SCH (09:00)
[2019-05-04] MEDS: MAG SULF 1GM/100ML (MAG RUN) 1 GM in IV 1 EA IV SCH ×2 (09:44→11:00)
[2019-05-04] MEDS: lisinopriL 20 MG TAB PO SCH (09:44)
[2019-05-04] MEDS: VITAMIN D 1,000 INTERNATIONAL UNITS TABLET PO SCH (09:44)
[2019-05-04] MEDS: K-PHOS NEUTRAL 250MG TABLET (SOD.PHOSPHATE/POT.PHOSPHATE) PO SCH ×3 (09:44→20:45)
[2019-05-04] MEDS: GABAPENTIN 300 MG CAP PO SCH ×3 (09:45→20:45)
[2019-05-04] MEDS: KCL 10MEQ/100ML SWI (KRUN) 10 MEQ in IV 1 EA IV SCH ×6 (11:56→18:21)
[2019-05-04] MEDS: NS 1,000 ML IV SCH ×2 (12:30→22:28)
[2019-05-04 14:00] VITALS: BP 115/76
[2019-05-04] MEDS: ONDANSETRON 4MG/2ML VIAL (J2405) IV PRN (20:45)
[2019-05-04] MEDS: ATORVASTATIN 10 MG TAB PO SCH (20:45)
--- NOTE | 2019-05-04 21:33 | IPNPDOC ---
Date Seen The patient was seen on 05/04/19. Progress Note SUBJECTIVE: 59-year-old male with past medical history of metastatic colon cancer, status post right hemicolectomy, currently on chemotherapy, hypertension, diabetes mellitus and hyperlipidemia was admitted for influenza. Patient continues to have generalized fatigue, malaise, dyspnea and dry cough, minimally improved from yesterday, no other complaints. He denies any chest pain, nausea, vomiting, abdominal pain or diarrhea. 04/30/19 Positive for C. diff, started on oral vancomycin, reports significant fatigue in the morning, PO intake is low, had multiple watery BMs overnight, no other com plaints. 05/01/19 Remains fatigued, had 3-4 episodes of diarrhea overnight & earlier today, tolerating PO but intake is low compared to output, continues to have SOB/dry cough, no other complaints. 05/02/19 Patient continues to have profound diarrhea, roughly 8 episodes of diarrhea overnight and earlier today, continues to have mild dyspnea with dry cough, remains fatigued, oral intake and adequate. Patient neutropenic today. 05/03/19 Still having copious amounts of diarrhea, dyspnea resolved, continues to have dry cough, tolerating PO, although intake adequate, no other complaints. 05/04/19 continues to have diarrhea, no dyspnea, continues to have dry cough & fatigue. 10 point review of system is negative except for above PHYSICAL EXAMINATION: VITAL SIGNS: Please see below. GENERAL: No distress HEENT: Normocephalic, atraumatic, moist mucous membranes NECK: Supple CARDIOVASCULAR EXAMINATION: S1, S2, no murmurs RESPIRATORY EXAMINATION: Scattered rhonchi, no wheezing ABDOMINAL EXAMINATION: Soft, nontender, nondistended, positive bowel sounds EXTREMITIES: L antecubital abscess draining pus, at a previous IV site. SKIN: No rash NEUROLOGICAL EXAMINATION: Alert and oriented 3, no focal deficits PSYCHIATRIC EXAMINATION: Calm and cooperative LABORATORY DATA, IMAGING STUDIES, MICROBIOLOGY: Please see below. ASSESSMENT AND PLAN: 59-year-old male with past medical history of metastatic colon cancer on chemotherapy, hypertension, hyperlipidemia, diabetes mellitus, admitted for influenza virus. PROBLEMS: 1. Influenza: Supportive care, complete Tamiflu for a total of 5 days, neutr openia resolved, immunoglobulin levels within normal limits. 2. C. diff: Continue oral vancomycin, IV hydration. Electrolyte supplemented. 2. Metastatic colon cancer: Status post resection, currently on chemotherapy, outpatient follow-up. 3. Hypertension: Continue lisinopril 4. Hyperlipidemia: Continue atorvastatin 5. LUE Abscess - at IV site, general surgery consulted for I&D. DVT prophylaxis: Lovenox. GI prophylaxis: Not needed VS, I&O, 24H, Fishbone Vital Signs/I&O Vital Signs Date Time Temp Pulse Resp B/P (MAP) Pulse Ox O2 Delivery O2 Flow Rate FiO2 05/04/19 14:00 97.7 92 13 115/76 (89) 96 05/03/19 14:00 Room Air I&O- Last 24 Hours up to 6 AM 05/04/19 06:00 Intake Total 4335 ml Output Total 1975 ml Balance 2360 ml Laboratory Data 24H LABS Laboratory Tests 2 05/04/19 06:10: Neutrophils (%) (Auto) , Nucleated Red Blood Cells % (auto) 0.0, Neutrophils 83H, Lymphocytes (Manual) 11L, Monocytes (Manual) 3, Eosinophils (Manual) 2, Atypical Lymphocytes 1, Red Blood Cell Morphology NORMAL, Platelet Estimate NORMAL, Anion Gap 7L, Glomerular Filtration Rate > 60.0, Calcium Level 7.5L, Phosphorus Level 2.3L, Magnesium Level 1.8 CBC/BMP Laboratory Tests 05/04/19 06:10 Microbiology Microbiology 04/28/19 Blood Culture - Final, Complete NO GROWTH AFTER 5 DAYS 04/28/19 Blood Culture - Final, Complete NO GROWTH AFTER 5 DAYS ELISEO BARNES MD May 04, 2019 21:33
[2019-05-04 22:00] VITALS: BP 114/78
[2019-05-05] MEDS: VANCOMYCIN ORAL SOL 250MG/5ML ORAL SYRINGE PO SCH ×4 (00:25→17:36)
[2019-05-05 06:00] VITALS: BP 134/81
[2019-05-05 06:26] LABS: HEMATOCRIT 35.8 % (42.0-52.0); HEMOGLOBIN 12.3 g/dl (13.5-17.5); MEAN CORPUSCULAR HEMOGLOBIN 31.4 pg (27.0-33.0); MEAN CORPUSCULAR HGB CONC 34.4 g/dl (32.0-36.5); MEAN CORPUSCULAR VOLUME 91.3 fl (80.0-96.0); PLATELET COUNT, AUTOMATED 211 10^3/uL (150-450); RED BLOOD COUNT 3.92 10^6/uL (4.30-6.10); WHITE BLOOD COUNT 5.3 10^3/uL (4.0-10.0)
[2019-05-05 06:42] LABS: BLOOD UREA NITROGEN < 1 MG/DL (7-18); CALCIUM LEVEL 7.8 MG/DL (8.5-10.1); CARBON DIOXIDE LEVEL 27 MEQ/L (21-32); CHLORIDE LEVEL 109 MEQ/L (98-107); CREATININE FOR GFR 0.43 MG/DL (0.70-1.30); GLOMERULAR FILTRATION RATE > 60.0 (>56); GLUCOSE, FASTING 88 MG/DL (70-100); MAGNESIUM LEVEL 1.6 MG/DL (1.8-2.4); PHOSPHORUS LEVEL 2.5 MG/DL (2.5-4.9); POTASSIUM SERUM 3.4 MEQ/L (3.5-5.1); SODIUM LEVEL 139 MEQ/L (136-145)
[2019-05-05 07:25] LABS: ATYPICAL LYMPH 4 % (0-5); BASOPHILS 1 % (0-1); EOSINOPHILS 1 % (0-3); LYMPHOCYTES 19 % (16-44); MONOCYTES 3 % (0-5); NEUTROPHILS 71 % (28-66)
[2019-05-05 07:26] LABS: ANISOCYTOSIS 1+; PLATELET ESTIMATE NORMAL (NORMAL)
[2019-05-05] MEDS ORDERED: POTASSIUM CHLORIDE 10 MEQ SR TABLET PO ONE (08:00)
[2019-05-05] MEDS: KCL 10MEQ/100ML SWI (KRUN) 10 MEQ in IV 1 EA IV SCH ×4 (08:22→14:38)
[2019-05-05] MEDS: VITAMIN D 1,000 INTERNATIONAL UNITS TABLET PO SCH (08:23)
[2019-05-05] MEDS: K-PHOS NEUTRAL 250MG TABLET (SOD.PHOSPHATE/POT.PHOSPHATE) PO SCH ×3 (08:23→20:25)
[2019-05-05] MEDS: GABAPENTIN 300 MG CAP PO SCH ×3 (08:23→20:25)
[2019-05-05] MEDS: ENOXAPARIN 40 MG/0.4 ML SYRINGE (J1650) SC SCH (08:25)
[2019-05-05] MEDS: lisinopriL 20 MG TAB PO SCH (08:25)
[2019-05-05] MEDS: MAG SULF 1GM/100ML (MAG RUN) 1 GM in IV 1 EA IV SCH ×4 (09:54→16:44)
[2019-05-05] MEDS: NS 1,000 ML IV SCH (13:30)
[2019-05-05 14:00] VITALS: BP 128/72
[2019-05-05] MEDS ORDERED: KCL 10MEQ IN STERILE WATER 100ML As Ordered ONE (14:36)
[2019-05-05] MEDS ORDERED: MAGNESIUM SULFATE 1 GM/100 ML D5W BAG (10MG/ML) (J3475) As Ordered ONE ×2 (15:05→16:31)
[2019-05-05] MEDS: ACETAMINOPHEN TAB 650MG DOSE (2X325MG) PO PRN (15:08)
[2019-05-05] MEDS: ATORVASTATIN 10 MG TAB PO SCH (20:25)
--- NOTE | 2019-05-05 20:44 | IPNPDOC ---
Date Seen The patient was seen on 05/05/19. Progress Note SUBJECTIVE: 59-year-old male with past medical history of metastatic colon cancer, status post right hemicolectomy, currently on chemotherapy, hypertension, diabetes mellitus and hyperlipidemia was admitted for influenza. Patient continues to have generalized fatigue, malaise, dyspnea and dry cough, minimally improved from yesterday, no other complaints. He denies any chest pain, nausea, vomiting, abdominal pain or diarrhea. 04/30/19 Positive for C. diff, started on oral vancomycin, reports significant fatigue in the morning, PO intake is low, had multiple watery BMs overnight, no other com plaints. 05/01/19 Remains fatigued, had 3-4 episodes of diarrhea overnight & earlier today, tolerating PO but intake is low compared to output, continues to have SOB/dry cough, no other complaints. 05/02/19 Patient continues to have profound diarrhea, roughly 8 episodes of diarrhea overnight and earlier today, continues to have mild dyspnea with dry cough, remains fatigued, oral intake and adequate. Patient neutropenic today. 05/03/19 Still having copious amounts of diarrhea, dyspnea resolved, continues to have dry cough, tolerating PO, although intake adequate, no other complaints. 05/04/19 continues to have diarrhea, no dyspnea, continues to have dry cough & fatigue. 05/05/19 Slight improvement in diarrhea, frequency & volume of diarrhea has improved from yesterday, no longer having any dyspnea/cough, no other complaints. 10 point review of system is negative except for above PHYSICAL EXAMINATION: VITAL SIGNS: Please see below. GENERAL: No distress HEENT: Normocephalic, atraumatic, moist mucous membranes NECK: Supple CARDIOVASCULAR EXAMINATION: S1, S2, no murmurs RESPIRATORY EXAMINATION: Scattered rhonchi, no wheezing ABDOMINAL EXAMINATION: Soft, nontender, nondistended, positive bowel sounds EXTREMITIES: ROM intact SKIN: No rash NEUROLOGICAL EXAMINATION: Alert and oriented 3, no focal deficits PSYCHIATRIC EXAMINATION: Calm and cooperative LABORATORY DATA, IMAGING STUDIES, MICROBIOLOGY: Please see below. ASSESSMENT AND PLAN: 59-year-old male with past medical history of metastatic colon cancer on chemotherapy, hypertension, hyperlipidemia, diabetes mellitus, admitted for influenza virus. PROBLEMS: 1. Influenza: Supportive care, completed Tamiflu for a total of 5 days, neutropenia resolved, immunoglobulin levels within normal limits. 2. C. diff: Continue oral vancomycin, IV hydration. Electrolyte supplemented. Tentatively plan for discharge in 24-48 hours if oral intake & electrolyte levels acceptable 2. Metastatic colon cancer: Status post resection, currently on chemotherapy, outpatient follow-up. 3. Hypertension: Continue lisinopril 4. Hyperlipidemia: Continue atorvastatin DVT prophylaxis: Lovenox. GI prophylaxis: Not needed VS, I&O, 24H, Fishbone Vital Signs/I&O Vital Signs Date Time Temp Pulse Resp B/P (MAP) Pulse Ox O2 Delivery O2 Flow Rate FiO2 05/05/19 14:00 98.8 89 16 128/72 (90) 94 Room Air I&O- Last 24 Hours up to 6 AM 05/05/19 06:00 Intake Total 2300 ml Output Total 850 ml Balance 1450 ml Laboratory Data 24H LABS Laboratory Tests 2 05/05/19 06:04: Neutrophils (%) (Auto) , Nucleated Red Blood Cells % (auto) 0.0, Neutrophils 71H, Band Neutrophils 1, Lymphocytes (Manual) 19, Monocytes (Manual) 3, Eosinophils (Manual) 1, Basophils (Manual) 1, Atypical Lymphocytes 4, Anisocy tosis 1+, Platelet Estimate NORMAL, Anion Gap 3L, Glomerular Filtration Rate > 60.0, Calcium Level 7.8L, Phosphorus Level 2.5, Magnesium Level 1.6L CBC/BMP Laboratory Tests 05/05/19 06:04 Microbiology Microbiology 05/04/19 Gram Stain - Final, Resulted 05/04/19 Wound Culture, Resulted Pending 04/28/19 Blood Culture - Final, Complete NO GROWTH AFTER 5 DAYS 04/28/19 Blood Culture - Final, Complete NO GROWTH AFTER 5 DAYS ELISEO BARNES MD May 05, 2019 20:43
[2019-05-05 22:00] VITALS: BP 120/79
[2019-05-05] MEDS: ONDANSETRON 4MG/2ML VIAL (J2405) IV PRN (22:13)
[2019-05-06] MEDS: VANCOMYCIN ORAL SOL 250MG/5ML ORAL SYRINGE PO SCH ×4 (00:18→17:22)
[2019-05-06] MEDS: NS 1,000 ML IV SCH (01:36)
[2019-05-06 06:00] VITALS: BP 122/79
[2019-05-06 06:04] LABS: HEMATOCRIT 35.4 % (42.0-52.0); HEMOGLOBIN 12.2 g/dl (13.5-17.5); MEAN CORPUSCULAR HEMOGLOBIN 31.2 pg (27.0-33.0); MEAN CORPUSCULAR HGB CONC 34.5 g/dl (32.0-36.5); MEAN CORPUSCULAR VOLUME 90.5 fl (80.0-96.0); PLATELET COUNT, AUTOMATED 236 10^3/uL (150-450); RED BLOOD COUNT 3.91 10^6/uL (4.30-6.10); WHITE BLOOD COUNT 3.7 10^3/uL (4.0-10.0)
[2019-05-06 06:21] LABS: BLOOD UREA NITROGEN 1 MG/DL (7-18); CALCIUM LEVEL 7.8 MG/DL (8.5-10.1); CARBON DIOXIDE LEVEL 26 MEQ/L (21-32); CHLORIDE LEVEL 107 MEQ/L (98-107); CREATININE FOR GFR 0.44 MG/DL (0.70-1.30); GLOMERULAR FILTRATION RATE > 60.0 (>56); GLUCOSE, FASTING 96 MG/DL (70-100); POTASSIUM SERUM 3.7 MEQ/L (3.5-5.1); SODIUM LEVEL 137 MEQ/L (136-145)
[2019-05-06] MEDS ORDERED: POTASSIUM CHLORIDE 10 MEQ SR TABLET PO ONE (08:45)
[2019-05-06] MEDS: ENOXAPARIN 40 MG/0.4 ML SYRINGE (J1650) SC SCH (09:00)
[2019-05-06] MEDS: GABAPENTIN 300 MG CAP PO SCH ×3 (09:04→20:15)
[2019-05-06] MEDS: lisinopriL 20 MG TAB PO SCH (09:05)
[2019-05-06] MEDS: VITAMIN D 1,000 INTERNATIONAL UNITS TABLET PO SCH (09:05)
[2019-05-06 14:00] VITALS: BP 135/86
[2019-05-06] MEDS ORDERED: SODIUM CHLORIDE 0.9% INJ 10 ML SYR IV PRN (14:30)
--- NOTE | 2019-05-06 18:28 | IPNPDOC ---
Date Seen The patient was seen on 05/06/19. Progress Note SUBJECTIVE: 59-year-old male with past medical history of metastatic colon cancer, status post right hemicolectomy, currently on chemotherapy, hypertension, diabetes mellitus and hyperlipidemia was admitted for influenza. Patient continues to have generalized fatigue, malaise, dyspnea and dry cough, minimally improved from yesterday, no other complaints. He denies any chest pain, nausea, vomiting, abdominal pain or diarrhea. 04/30/19 Positive for C. diff, started on oral vancomycin, reports significant fatigue in the morning, PO intake is low, had multiple watery BMs overnight, no other com plaints. 05/01/19 Remains fatigued, had 3-4 episodes of diarrhea overnight & earlier today, tolerating PO but intake is low compared to output, continues to have SOB/dry cough, no other complaints. 05/02/19 Patient continues to have profound diarrhea, roughly 8 episodes of diarrhea overnight and earlier today, continues to have mild dyspnea with dry cough, remains fatigued, oral intake and adequate. Patient neutropenic today. 05/03/19 Still having copious amounts of diarrhea, dyspnea resolved, continues to have dry cough, tolerating PO, although intake adequate, no other complaints. 05/04/19 continues to have diarrhea, no dyspnea, continues to have dry cough & fatigue. 05/05/19 Slight improvement in diarrhea, frequency & volume of diarrhea has improved from yesterday, no longer having any dyspnea/cough, no other complaints. 05/06/19 Diarrhea improving, no other complaints, oral intake improving as well, denies dyspnea/cough. 10 point review of system is negative except for above PHYSICAL EXAMINATION: VITAL SIGNS: Please see below. GENERAL: No distress HEENT: Normocephalic, atraumatic, moist mucous membranes NECK: Supple CARDIOVASCULAR EXAMINATION: S1, S2, no murmurs RESPIRATORY EXAMINATION: clear to auscultation ABDOMINAL EXAMINATION: Soft, nontender, nondistended, positive bowel sounds EXTREMITIES: ROM intact SKIN: No rash NEUROLOGICAL EXAMINATION: Alert and oriented 3, no focal deficits PSYCHIATRIC EXAMINATION: Calm and cooperative LABORATORY DATA, IMAGING STUDIES, MICROBIOLOGY: Please see below. ASSESSMENT AND PLAN: 59-year-old male with past medical history of metastatic colon cancer on chemotherapy, hypertension, hyperlipidemia, diabetes mellitus, admitted for influenza virus. PROBLEMS: 1. Influenza: Supportive care, completed Tamiflu for a total of 5 days, n eutropenia resolved, immunoglobulin levels within normal limits. 2. C. diff: Continue oral vancomycin, IV fluids discontinued. Electrolyte supplemented. Tentatively plan for discharge tomorrow if oral intake & electrolyte levels acceptable 2. Metastatic colon cancer: Status post resection, currently on chemotherapy, outpatient follow-up. 3. Hypertension: Continue lisinopril 4. Hyperlipidemia: Continue atorvastatin DVT prophylaxis: Lovenox. GI prophylaxis: Not needed VS, I&O, 24H, Fishbone Vital Signs/I&O Vital Signs Date Time Temp Pulse Resp B/P (MAP) Pulse Ox O2 Delivery O2 Flow Rate FiO2 05/06/19 14:00 98.4 89 15 135/86 (102) 95 Room Air I&O- Last 24 Hours up to 6 AM 05/06/19 05:59 Intake Total 3480 ml Output Total 950 ml Balance 2530 ml Laboratory Data 24H LABS Laboratory Tests 2 05/06/19 05:21: Nucleated Red Blood Cells % (auto) 0.0, Anion Gap 4L, Glomerular Filtration Rate > 60.0, Calcium Level 7.8L CBC/BMP Laboratory Tests 05/06/19 05:21 Microbiology Microbiology 05/04/19 Gram Stain - Final, Resulted 05/04/19 Wound Culture - Preliminary, Resulted Staphylococcus Aureus 04/28/19 Blood Culture - Final, Complete NO GROWTH AFTER 5 DAYS 04/28/19 Blood Culture - Final, Complete NO GROWTH AFTER 5 DAYS ELISEO BARNES MD May 06, 2019 18:28
[2019-05-06] MEDS: ATORVASTATIN 10 MG TAB PO SCH (20:15)
[2019-05-06 22:00] VITALS: BP 124/80
[2019-05-06] MEDS: ONDANSETRON 4MG/2ML VIAL (J2405) IV PRN (22:39)
[2019-05-07] MEDS: VANCOMYCIN ORAL SOL 250MG/5ML ORAL SYRINGE PO SCH ×3 (00:46→12:10)
[2019-05-07 06:00] VITALS: BP 123/80
[2019-05-07 06:39] LABS: MEAN CORPUSCULAR HEMOGLOBIN 30.6 pg (27.0-33.0); MEAN CORPUSCULAR HGB CONC 34.2 g/dl (32.0-36.5); MEAN CORPUSCULAR VOLUME 89.4 fl (80.0-96.0); PLATELET COUNT, AUTOMATED 281 10^3/uL (150-450); RED BLOOD COUNT 4.25 10^6/uL (4.30-6.10); WHITE BLOOD COUNT 3.9 10^3/uL (4.0-10.0)
[2019-05-07 07:05] LABS: BLOOD UREA NITROGEN 1 MG/DL (7-18); CALCIUM LEVEL 8.4 MG/DL (8.5-10.1); CARBON DIOXIDE LEVEL 23 MEQ/L (21-32); CHLORIDE LEVEL 102 MEQ/L (98-107); CREATININE FOR GFR 0.44 MG/DL (0.70-1.30); GLOMERULAR FILTRATION RATE > 60.0 (>56); GLUCOSE, FASTING 97 MG/DL (70-100); MAGNESIUM LEVEL 1.7 MG/DL (1.8-2.4); PHOSPHORUS LEVEL 2.4 MG/DL (2.5-4.9); POTASSIUM SERUM 4.1 MEQ/L (3.5-5.1); SODIUM LEVEL 131 MEQ/L (136-145)
[2019-05-07 08:56] VITALS: BP 119/78
[2019-05-07] MEDS: VITAMIN D 1,000 INTERNATIONAL UNITS TABLET PO SCH (08:56)
[2019-05-07] MEDS: GABAPENTIN 300 MG CAP PO SCH (08:56)
[2019-05-07] MEDS: MAG SULF 1GM/100ML (MAG RUN) 1 GM in IV 1 EA IV SCH ×3 (08:56→11:15)
[2019-05-07] MEDS: lisinopriL 20 MG TAB PO SCH (08:56)
[2019-05-07] MEDS: ENOXAPARIN 40 MG/0.4 ML SYRINGE (J1650) SC SCH (08:57)
[2019-05-07] MEDS ORDERED: SODIUM CHLORIDE 0.9% INJ 10 ML SYR IV SCH (09:00)
[2019-05-07] MEDS ORDERED: K-PHOS NEUTRAL 250MG TABLET (SOD.PHOSPHATE/POT.PHOSPHATE) PO SCH (10:00)
[2019-05-07] MEDS ORDERED: FIRV50SO PO (10:45)
[2019-05-07] MEDS: ACETAMINOPHEN TAB 650MG DOSE (2X325MG) PO PRN (12:10)
[2019-05-07] MEDS ORDERED: MUPI2OI TOP (12:38)
--- NOTE | 2019-05-07 19:25 | DS.PDOC ---
Discharge Summary General Date of Admission Apr 28, 2019 at 20:31 Date of Discharge 05/07/19 Attending Physician: ELISEO BARNES MD Discharge Summary PROCEDURES PERFORMED DURING STAY: None. ADMITTING DIAGNOSES: 1. Influenza, C. difficile, electrolyte abnormalities. DISCHARGE DIAGNOSES: 1. Influenza, C. difficile, electrolyte abnormalities. COMPLICATIONS/CHIEF COMPLAINT: Dehydration; Influenza A. HISTORY OF PRESENT ILLNESS: 59-year-old male was admitted for influenza, initi ally treated with supportive care and Tamiflu. Patient was also diagnosed with C. difficile, treated with oral vancomycin. Patient had persistent diarrhea during hospitalization causing significant dehydration and severe electrolyte abnormalities requiring oral and IV supplementation. Patient finally had improvement in diarrhea, significant decrease in frequency and formed stool today, oral intake is adequate and electrolytes are acceptable for discharge. Patient completed his course of Tamiflu. Patient is clinically and hemodynamically stable for discharge today. Patient will be discharged on oral vancomycin to complete his regimen. Patient will also be discharged with a prescription for blood work to be done within 3-5 days to monitor renal function and electrolytes. Patient is advised to follow with PCP within 1 week for results. HOSPITAL COURSE: As above. DISCHARGE MEDICATIONS: Please see below. ALLERGIES: Please see below. PHYSICAL EXAMINATION: VITAL SIGNS: Please see below. GENERAL: No distress HEENT: Normocephalic, atraumatic, moist mucous membranes NECK: Supple CARDIOVASCULAR EXAMINATION: S1, S2, no murmurs RESPIRATORY EXAMINATION: Clear to auscultation, no wheezing ABDOMINAL EXAMINATION: Soft, nontender, nondistended, positive bowel sounds EXTREMITIES: Range of motion intact SKIN: No rash NEUROLOGICAL EXAMINATION: Alert and oriented 3, no focal deficits PSYCHIATRIC EXAMINATION: Calm and cooperative LABORATORY DATA: Please see below. IMAGING: Chest x-ray without acute pathology PROGNOSIS: Fair ACTIVITY: As tolerated. DIET: Cardiac DISCHARGE PLAN: Follow with PCP and oncologist within 1-2 weeks DISPOSITION: 01 Home, Self-Care. DISCHARGE INSTRUCTIONS: 1. As above. ITEMS TO FOLLOWUP ON ON OUTPATIENT: 1. Repeat blood work within 3-5 days. DISCHARGE CONDITION: Stable. TIME SPENT ON DISCHARGE: Greater than 33 minutes. Vital Signs/I&Os Vital Signs Date Time Temp Pulse Resp B/P (MAP) Pulse Ox O2 Delivery O2 Flow Rate FiO2 05/07/19 08:56 119/78 05/07/19 06:00 97.9 105 16 95 Room Air I&O- Last 24 Hours up to 6 AM 05/07/19 06:00 Intake Total 1410 ml Output Total 2375 ml Balance -965 ml Laboratory Data Labs 24H Laboratory Tests 2 05/07/19 06:09: Nucleated Red Blood Cells % (auto) 0.0, Anion Gap 6L, Glomerular Filtration Rate > 60.0, Calcium Level 8.4L, Phosphorus Level 2.4L, Magnesium Level 1.7L CBC/BMP Laboratory Tests 05/07/19 06:09 Microbiology Microbiology 05/04/19 Gram Stain - Final, Complete 05/04/19 Wound Culture - Final, Complete Staphylococcus Aureus 04/28/19 Blood Culture - Final, Complete NO GROWTH AFTER 5 DAYS 04/28/19 Blood Culture - Final, Complete NO GROWTH AFTER 5 DAYS Discharge Medications Scheduled Acetaminophen (Tylenol Extra Strength) 500 Mg Tablet, 1,000 MG PO QHS, (Reported) Atorvastatin Calcium (Atorvastatin Calcium) 10 Mg Tab, 10 MG PO QPM, (Reported) Cholecalciferol (Vitamin D3) (Vitamin D3) 1,000 Unit Tablet, 1,000 UNITS PO DAILY, (Reported) Gabapentin (Gabapentin) 300 Mg Capsule, 300 MG PO TID, (Reported) Lisinopril (Lisinopril) 20 Mg Tab, 20 MG PO DAILY, (Reported) Mupirocin (Mupirocin) 22 Gm Oint...g., 1 APLCT TOP TID apply to affected area(s) Vancomycin HCl (Firvanq) 50 Mg/1 Ml Soln.recon, 250 MG PO Q6H Scheduled PRN Ondansetron HCl (Ondansetron HCl) 8 Mg Tablet, 8 MG PO Q6H PRN for NAUSEA OR VOMITING, (Reported) Potassium Chloride (Potassium Chloride) 10 Meq Tab.er.prt, 10 MEQ PO DAILYPRN PRN for ASDIRECTED, (Reported) Allergies Coded Allergies: No Known Allergies (Unverified , 10/11/18) ELISEO BARNES MD May 07, 2019 19:25
--- NOTE | 2019-05-08 09:57 | IPN ---
DATE OF SERVICE: 05/06/2019 HISTORY: I was asked to see the patient on May 03 for an IV site infection in the left antecubital fossa. He had originally been admitted with influenza and diarrhea and was diagnosed with Clostridium difficile several days after admission. He continues on oral vancomycin. His antecubital fossa infection appeared to be draining adequately at the time of my initial visit and I recommended some warm compresses and local wound care. Vital signs show that the patient has been afebrile. His pulse is in the 70s and 80s and his blood pressure is good. Intake and output show that yesterday he had 3200 in with 950 out in urine, but multiple loose bowel movements were recorded. His weight is remaining about the same at 84 kg. Physical exam was limited to his left antecubital fossa. He now has an open area where the pustule has opened further and there is a small amount of dried purulent matter on the dressing. There is an area of redness about 1.5 cm wide x 5 mm long. There is a central opening about 3-4 mm in size and there is no additional fluid that can be extruded. Microbiology report indicates the presence of Staphylococcus aureus with quantity of growth that is heavy. Apparently, there are still pending tests to determine whether this is a methicillin-resistant Staph aureus or methicillin-sensitive. IMPRESSION: The patient is doing well with the small antecubital fossa infection. This appears to be adequately drained and he is not showing any increased area of cellulitis. RECOMMENDATIONS: I have not placed the patient on any antibiotics for this and have recommended continuing local wound care. Certainly, additional antibiotics to treat the Staph aureus may worsen his Clostridium difficile process. I will defer to the hospitalist to determine if they feel antibiotics systemically for this infection are appropriate. I will check back periodically to see how he is doing.
== END 2019-05-07 14:00 | disposition home or self-care (01) | DRG 872 ==
LOC: M ED 17:01 → M ED INP 20:31 → ENRESERVTM 22:13 → ENRESERVDT 22:13 → M MSPAV 22:31
PROVIDERS: ADMIT Internal Medicine; ATTEND Internal Medicine
DX: A41.9 Sepsis, unspecified organism (principal); A04.72 Enterocolitis due to Clostridium difficile, not specified as recurrent; C18.9 Malignant neoplasm of colon, unspecified; C77.9 Secondary and unspecified malignant neoplasm of lymph node, unspecified; L03.114 Cellulitis of left upper limb; J10.1 Influenza due to other identified influenza virus with other respiratory manifestations; E86.0 Dehydration; Z79.899 Other long term (current) drug therapy; I10 Essential (primary) hypertension; E78.5 Hyperlipidemia, unspecified; E11.9 Type 2 diabetes mellitus without complications

== ENCOUNTER 2019-05-09 11:32 | Inpatient (IN) | payer OTHER ==
[~2019-05-09] VITALS: Ht 175.3 cm; Wt 78.4 kg
[~2019-05-09 11:32] MED LIST changes: +FIRV50SO PO; +GABA-843 PO; +MUPI2OI TOP; +VITAD1000T PO
[2019-05-09] MEDS ORDERED: NS 1,000 ML IV SCH (12:27)
[2019-05-09] MEDS ORDERED: MORPHINE 4 MG/ML 1ML VIAL/SYRINGE (J2270) IV ONE ×2 (12:30→16:30)
[2019-05-09] MEDS ORDERED: VANCOMYCIN ORAL SOL 250MG/5ML ORAL SYRINGE PO ONE (12:30)
--- NOTE | 2019-05-09 12:34 | REP ---
Portable chest, 02:16 p.m., single AP view with the patient supine: Comparison is 04/28/2019. The lung [place] are clear and unchanged. The cardiac size is normal and unchanged. The mumtaz, mediastinum, skeletal structures are unremarkable and unchanged. There is a right IJ Yrnupm-C-Ezmc with the tip in the superior vena cava, unchanged. Impression: No acute cardiopulmonary findings. No interval change. Right IJ Ukprhw-I-Mdaz is unchanged. Electronically Signed by Jeronimo Frey MD 05/09/2019 12:24 P
[2019-05-09 12:57] LABS: BASO % 0.2 % (0.0-1.0); EOS % 0.3 % (0.0-3.0); HEMATOCRIT 39.6 % (42.0-52.0); HEMOGLOBIN 13.4 g/dl (13.5-17.5); LYMPH # 0.8 10^3/uL (1.5-5.0); LYMPH % 13.1 % (24.0-44.0); MEAN CORPUSCULAR HEMOGLOBIN 30.7 pg (27.0-33.0); MEAN CORPUSCULAR HGB CONC 33.8 g/dl (32.0-36.5); MEAN CORPUSCULAR VOLUME 90.6 fl (80.0-96.0); MONO # 1.1 10^3/uL (0.0-0.8); MONO % 17.5 % (0.0-5.0); NEUTROPHILS # 4.1 10^3/uL (1.5-8.5); NEUTROPHILS % 67.9 % (36.0-66.0); PLATELET COUNT, AUTOMATED 373 10^3/uL (150-450); RED BLOOD COUNT 4.37 10^6/uL (4.30-6.10)
[2019-05-09 13:27] LABS: ALBUMIN 2.6 GM/DL (3.2-5.2); ALT/SGPT 10 U/L (12-78); BILIRUBIN,DIRECT 0.2 MG/DL (0.0-0.2); BILIRUBIN,TOTAL 0.7 MG/DL (0.2-1.0); BLOOD UREA NITROGEN 7 MG/DL (7-18); CALCIUM LEVEL 8.5 MG/DL (8.5-10.1); CARBON DIOXIDE LEVEL 26 MEQ/L (21-32); CHLORIDE LEVEL 102 MEQ/L (98-107); CK-MB VALUE MASS < 1.0 NG/ML (<3.6); CPK CREATINE PHOSPHOKINASE 22 U/L (39-308); CREATININE FOR GFR 0.49 MG/DL (0.70-1.30); GLOMERULAR FILTRATION RATE > 60.0 (>56); GLUCOSE, FASTING 109 MG/DL (70-100); MB/CK RELATIVE INDEX 4.55 (< OR =4); POTASSIUM SERUM 4.5 MEQ/L (3.5-5.1); SODIUM LEVEL 134 MEQ/L (136-145); TOTAL PROTEIN 6.4 GM/DL (6.4-8.2); TROPONIN I < 0.02 NG/ML (< 0.10)
[2019-05-09] MEDS ORDERED: ISOVUE-370 76% 100ML VIAL (Q9967) As Ordered ONE (14:07)
--- NOTE | 2019-05-09 15:18 | REP ---
CT PULMONARY ANGIOGRAM: With IV contrast. HISTORY: Left-sided chest pain and cough. COMPARISON STUDIES: Comparison study March 05, 2019. CONTRAST DOSE: 75 mL of Isovue [address] TECHNIQUE: Helical scanning is acquired and overlapping 1.5 mm and contiguous 3 mm axial images are reformatted. In addition, maximum intensity projection and multiplanar re-formation images are generated in sagittal and coronal imaging projections. CT PULMONARY ANGIOGRAPHIC FINDINGS: There is good opacification of the pulmonary arterial tree. There is no CT evidence of pulmonary embolus. There is no evidence of aortic aneurysm or dissection. No pleural or pericardial effusion is apparent. There is a right-sided Zamuqc-L-Rmdd catheter in place with its tip in the SVC right atrial junction. No adrenal lesion is seen. There are two visible small low-density lesions in the liver which are unchanged from the March 05, 2019 CT study of the abdomen. Visualized upper abdominal structures are otherwise unremarkable. No hilar or mediastinal adenopathy is seen. The lung parenchyma is exposed at a lesser level of inspiration. There is discoid atelectasis in the left lower lobe and there are subsegmental atelectatic changes in the dependent portions of the lower lobes. No focal infiltrate is appreciated. No significant pulmonary nodule is visualized. No bony destructive lesion is seen. IMPRESSION: No CT evidence of pulmonary embolus. Discoid atelectasis left lower lobe. Too small hypodense nodules in the liver unchanged from recent prior CT study. No other acute abnormality. Electronically Signed by Angel Venegas MD 05/09/2019 04:51 P
[2019-05-09] MEDS ORDERED: MUPI2OI TOP (16:49)
[2019-05-09] MEDS ORDERED: VANC250C3 PO (16:49)
[2019-05-09] MEDS ORDERED: IRIN300V IV (16:57)
[2019-05-09] MEDS ORDERED: [UNRECOGNIZED DRUG - CODE] IV (16:57)
[2019-05-09] MEDS ORDERED: [UNRECOGNIZED DRUG - CODE] IV (16:57)
[2019-05-09] MEDS ORDERED: ERBI200I IV (16:57)
[2019-05-09] MEDS ORDERED: PANTOPRAZOLE 40MG TAB (PROTONIX) PO ONE (17:45)
[2019-05-09] MEDS ORDERED: GLUCOSE 4 GM CHEW TABLET PO PRN (18:00)
[2019-05-09] MEDS: VANCOMYCIN ORAL SOL 250MG/5ML ORAL SYRINGE PO SCH (18:00)
[2019-05-09] MEDS ORDERED: GLUCAGON FOR INJ 1 MG VIAL (J1610) SC PRN (18:00)
[2019-05-09] MEDS ORDERED: DEXTROSE 50% 50 ML SYRINGE IV PRN (18:00)
[2019-05-09] MEDS: NS 1,000 ML IV SCH (18:19)
--- NOTE | 2019-05-09 18:22 | HPEPDOC ---
[facility] Medical History & Physical Date of Admission May 09, 2019 Date of Service: May 09, 2019 Attending Physician: ELISEO BARNES MD History and Physical CHIEF COMPLAINT: L shoulder/chest pain HISTORY OF PRESENT ILLNESS: 59 y.o male w/ PMH of metastatic Colon cancer, on chemotherapy, HTN, DM & HLD presents from home with L shoulder/chest pain. Patient was recently admitted for influenza & c. diff, was discharged a few days ago. He reports sleeping on the couch, on his left side, two nights ago. He started having left shoulder/chest pain yesterday which has persisted through today. Pain is sharp in nature, non-radiating, constant and reproducible. He denies any associated symptoms, denies any SOB, vomiting, dizziness, palpitations or headache. He reports significant improvement in pain with Morphine in the ED but pain is very severe with movement of his arm. He denies any trauma. He reports significant improvement in diarrhea from the time he was discharged. 10 point review of system is negative except for above. PAST MEDICAL HISTORY: 1. Metastatic colon cancer 2. HTN 3. DM 4. HLD PAST SURGICAL HISTORY: 1. Colon resection 2. Hernia repair SOCIAL HISTORY: Previous smoker rare alcohol use denies drug use FAMILY HISTORY: Positive for heart disease ALLERGIES: Please see below. HOME MEDICATIONS: Please see below. PHYSICAL EXAMINATION: VITAL SIGNS: See below GENERAL APPEARANCE: No distress HEENT: Moist mucus membranes CARDIOVASCULAR: S1, S2, no murmurs LUNGS: clear to auscultation ABDOMEN: soft, non-tender, non-distended, +BS MUSCULOSKELETAL: Significant L shoulder & lateral chest pain with palpation, worse with movement of L arm/lifting EXTREMITIES: No LE edema NEUROLOGICAL: No focal deficits PSYCHIATRIC: Calm LABORATORY DATA: See below. IMAGING: CT chest showing atelectasis MICROBIOLOGY: Please see below. ASSESSMENT: 59 y.o male w/ multiple medical comorbidities who was recently admitted for Influenza & C. diff now presents with pleuritic shoulder/chest pain. PLAN: 1. L Shoulder/chest pain - Pleuritic, slept on his left side the night before, cardiac work up negative, pain severe in nature requiring extensive pain meds, PT, pain control w/ IV Toradol as needed, will monitor progression over the next 24-48 hours and treat accordingly. 2. DM - sliding scale insulin w/ meals & at bedtime 3. HTN - continue Lisinopril 4. HLD - continue atorvastatin DVT Prophylaxis - Lovenox GI Prophylaxis - Protonix Vital Signs Vital Signs Date Time Temp Pulse Resp B/P (MAP) Pulse Ox O2 Delivery O2 Flow Rate FiO2 05/09/19 16:00 113 18 142/86 (104) 96 Room Air 05/09/19 11:33 97.8 Laboratory Data Labs 24H Laboratory Tests 2 05/09/19 12:49: Immature Granulocyte % (Auto) 1.0, Neutrophils (%) (Auto) 67.9H, Lymphocytes (%) (Auto) 13.1L, Monocytes (%) (Auto) 17.5H, Eosinophils (%) (Auto) 0.3, Basophils (%) (Auto) 0.2, Neutrophils # (Auto) 4.1, Lymphocytes # (Auto) 0.8L, Monocytes # (Auto) 1.1H, Eosinophils # (Auto) 0.0, Basophils # (Auto) 0.0, Nucleated Red Blood Cells % (auto) 0.0, Anion Gap 6L, Glomerular Filtration Rate > 60.0, C alcium Level 8.5, Total Bilirubin 0.7, Direct Bilirubin 0.2, Aspartate Amino Transf (AST/SGOT) 4L, Alanine Aminotransferase (ALT/SGPT) 10L, Alkaline Phosphatase 110, Total Creatine Kinase 22L, Creatine Kinase MB < 1.0, Creatine Kinase MB Relative Index 4.55H, Troponin I < 0.02, Total Protein 6.4, Albumin 2.6L, Albumin/Globulin Ratio 0.68L CBC/BMP Laboratory Tests 05/09/19 12:49 Home Medications Scheduled Acetaminophen (Tylenol Extra Strength) 500 Mg Tablet, 1,000 MG PO QHS Atorvastatin Calcium (Atorvastatin Calcium) 10 Mg Tab, 10 MG PO QHS Cetuximab (Erbitux) 200 Mg/100 Ml Vial, 520 MG IV ASDIRECTED RECEIVES ON DAY 03/07/14 OF 21 DAY CHEMO CYCLE Cholecalciferol (Vitamin D3) (Vitamin D3) 1,000 Unit Tablet, 1,000 UNITS PO DAILY Fluorouracil (Adrucil) 500 Mg/10 Ml Vial, 830 MG IV ASDIRECTED RECEIVES ON DAY 1 OF 21 DAY CHEMO CYCLE Gabapentin (Gabapentin) 300 Mg Capsule, 300 MG PO TID Irinotecan HCl (Irinotecan HCl) 300 Mg/15 Ml Vial, 370 MG IV ASDIRECTED RECEIVES ON DAY 1 OF 21 DAY CHEMO CYCLE Leucovorin Calcium (Leucovorin Calcium) 100 Mg Vial, 830 MG IV ASDIRECTED RECEIVES ON DAY 1 OF 21 DAY CHEMO CYCLE Leucovorin Calcium (Leucovorin Calcium) 100 Mg Vial, 4,970 MG IV ASDIRECTED CONTINUOUS INFUSION OVER 46-48 HOURS Lisinopril (Lisinopril) 20 Mg Tab, 20 MG PO DAILY Mupirocin (Mupirocin) 22 Gm Oint...g., 1 APLCT TOP TID APPLY TO LEFT ARM AT IV SITE Potassium Chloride (Potassium Chloride) 10 Meq Tab.er.prt, 10 MEQ PO DAILY Vancomycin Hcl (Vancomycin HCl) 250 Mg Capsule, 250 MG PO Q6H PER FAMILY, PT HAS 5 DOSES OF MEDICATION LEFT Scheduled PRN Ondansetron HCl (Ondansetron HCl) 8 Mg Tablet, 8 MG PO Q6H PRN for NAUSEA OR VOMITING Allergies Coded Allergies: No Known Allergies (Unverified , 10/11/18) A-FIB/CHADSVASC A-FIB History Current/History of A-Fib/PAF?: No ELISEO BARNES MD May 09, 2019 18:22
[2019-05-09 19:00] VITALS: BP 129/99
--- NOTE | 2019-05-09 20:57 | ECGEPIP ---
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
[2019-05-09] MEDS: HumaLOG INSULIN (NovoLOG) PER UNIT SC SCH (21:00)
[2019-05-09] MEDS: GABAPENTIN 300 MG CAP PO SCH (21:50)
[2019-05-09] MEDS: ATORVASTATIN 10 MG TAB PO SCH (21:50)
[2019-05-09] MEDS: KETOROLAC 30 MG/ML VIAL (J1885) IV PRN (21:52)
[2019-05-09] MEDS: ACETAMINOPHEN 500 MG TAB PO SCH (21:52)
[2019-05-09] MEDS: DICLOFENAC EPOLAMINE 1.3 % PATCH TOP SCH (21:52)
[2019-05-10] MEDS: VANCOMYCIN ORAL SOL 250MG/5ML ORAL SYRINGE PO SCH ×4 (00:50→18:28)
[2019-05-10] MEDS: NS 1,000 ML IV SCH ×2 (00:50→14:17)
[2019-05-10] MEDS: KETOROLAC 30 MG/ML VIAL (J1885) IV PRN ×4 (03:59→21:28)
[2019-05-10 06:00] VITALS: BP 120/74
[2019-05-10 06:29] LABS: HEMATOCRIT 36.3 % (42.0-52.0); HEMOGLOBIN 12.2 g/dl (13.5-17.5); MEAN CORPUSCULAR HEMOGLOBIN 30.7 pg (27.0-33.0); MEAN CORPUSCULAR HGB CONC 33.6 g/dl (32.0-36.5); MEAN CORPUSCULAR VOLUME 91.4 fl (80.0-96.0); PLATELET COUNT, AUTOMATED 326 10^3/uL (150-450); RED BLOOD COUNT 3.97 10^6/uL (4.30-6.10); WHITE BLOOD COUNT 9.2 10^3/uL (4.0-10.0)
[2019-05-10 07:01] LABS: ALBUMIN 2.2 GM/DL (3.2-5.2); ALT/SGPT 6 U/L (12-78); BILIRUBIN,TOTAL 0.9 MG/DL (0.2-1.0); BLOOD UREA NITROGEN 10 MG/DL (7-18); CALCIUM LEVEL 8.2 MG/DL (8.5-10.1); CARBON DIOXIDE LEVEL 26 MEQ/L (21-32); CHLORIDE LEVEL 100 MEQ/L (98-107); CREATININE FOR GFR 0.61 MG/DL (0.70-1.30); GLOMERULAR FILTRATION RATE > 60.0 (>56); GLUCOSE, FASTING 102 MG/DL (70-100); MAGNESIUM LEVEL 1.5 MG/DL (1.8-2.4); POTASSIUM SERUM 4.5 MEQ/L (3.5-5.1); SODIUM LEVEL 132 MEQ/L (136-145); TOTAL PROTEIN 5.6 GM/DL (6.4-8.2)
[2019-05-10] MEDS: HumaLOG INSULIN (NovoLOG) PER UNIT SC SCH ×4 (07:30→20:44)
[2019-05-10] MEDS: PANTOPRAZOLE 40MG TAB (PROTONIX) PO SCH (08:46)
[2019-05-10] MEDS: lisinopriL 20 MG TAB PO SCH (08:46)
[2019-05-10] MEDS: VITAMIN D 1,000 INTERNATIONAL UNITS TABLET PO SCH (08:46)
[2019-05-10] MEDS: GABAPENTIN 300 MG CAP PO SCH ×3 (08:46→21:28)
[2019-05-10] MEDS: DICLOFENAC EPOLAMINE 1.3 % PATCH TOP SCH ×2 (08:46→21:29)
[2019-05-10] MEDS: ENOXAPARIN 40MG/0.4ML SYRINGE (J1650 PER 10MG) SC SCH ×2 (08:47→08:54)
[2019-05-10] MEDS: MAG SULF 1GM/100ML (MAG RUN) 1 GM in IV 1 EA IV SCH ×4 (10:41→14:17)
[2019-05-10] MEDS: BENZONATATE 100 MG CAP PO PRN (10:41)
[2019-05-10] MEDS ORDERED: DICL1PAT TOP (11:44)
[2019-05-10] MEDS ORDERED: OXYC1TAB23 PO (11:50)
[2019-05-10] MEDS ORDERED: DICL1GEL3 TOP (12:57)
[2019-05-10 14:00] VITALS: BP 138/91
[2019-05-10] MEDS: ONDANSETRON 4MG/2ML VIAL (J2405) IV PRN (18:04)
[2019-05-10] MEDS: ATORVASTATIN 10 MG TAB PO SCH (21:29)
[2019-05-10] MEDS: ACETAMINOPHEN 500 MG TAB PO SCH (21:29)
[2019-05-10 22:00] VITALS: BP 136/90
--- NOTE | 2019-05-10 22:35 | IPNPDOC ---
Date Seen The patient was seen on 05/10/19. Progress Note HISTORY OF PRESENT ILLNESS: 59 y.o male w/ PMH of metastatic Colon cancer, on chemotherapy, HTN, DM & HLD presents from home with L shoulder/chest pain. Patient was recently admitted for influenza & c. diff, was discharged a few days ago. He reports sleeping on the couch, on his left side, two nights ago. He started having left shoulder/chest pain yesterday which has persisted through today. Pain is sharp in nature, non-radiating, constant and reproducible. He denies any associated symptoms, denies any SOB, vomiting, dizziness, palpitations or headache. He reports significant improvement in pain with Morphine in the ED but pain is very severe with movement of his arm. He denies any trauma. He reports significant improvement in diarrhea from the time he was discharged. 05/10/19 Pain has improved from yesterday, minimal at rest, still having moderate pain with movement of left upper extremity, febrile today, no other complaints. 10 point review of system is negative except for above. PHYSICAL EXAMINATION: VITAL SIGNS: See below GENERAL APPEARANCE: No distress HEENT: Moist mucus membranes CARDIOVASCULAR: S1, S2, no murmurs LUNGS: clear to auscultation ABDOMEN: soft, non-tender, non-distended, +BS MUSCULOSKELETAL: Left shoulder/chest pain with active movement of left upper e xtremity, pain with palpation has resolved. EXTREMITIES: No LE edema NEUROLOGICAL: No focal deficits PSYCHIATRIC: Calm LABORATORY DATA: See below. IMAGING: CT chest showing atelectasis MICROBIOLOGY: Please see below. ASSESSMENT: 59 y.o male w/ multiple medical comorbidities who was recently a dmitted for Influenza & C. diff now presents with pleuritic shoulder/chest pain. PLAN: 1. L Shoulder/chest pain -Improving, likely musculoskeletal, cardiac work up negative, pain control, was planning to discharge patient but he developed fever, ordered infectious workup, will monitor overnight and plan for discharge tomorrow if stable. 2. DM - sliding scale insulin w/ meals & at bedtime 3. HTN - continue Lisinopril 4. HLD - continue atorvastatin DVT Prophylaxis - Lovenox GI Prophylaxis - Protonix VS, I&O, 24H, Fishbone Vital Signs/I&O Vital Signs Date Time Temp Pulse Resp B/P (MAP) Pulse Ox O2 Delivery O2 Flow Rate FiO2 05/10/19 14:00 100.5 109 18 138/91 (107) 91 Room Air I&O- Last 24 Hours up to 6 AM 05/10/19 06:00 Intake Total 2100 ml Balance 2100 ml Laboratory Data 24H LABS Laboratory Tests 2 05/10/19 06:06: Nucleated Red Blood Cells % (auto) 0.0, Anion Gap 6L, Glomerular Filtration Rate > 60.0, Calcium Level 8.2L, Magnesium Level 1.5L, Total Bilirubin 0.9, Aspartate Amino Transf (AST/SGOT) 7, Alanine Aminotransferase (ALT/SGPT) 6L, Alkaline Phosphatase 89, Total Protein 5.6L, Albumin 2.2L, Albumin/Globulin Ratio 0.65L 05/10/19 11:54: Bedside Glucose (Misc Panel) 107H 05/10/19 17:00: Bedside Glucose (Misc Panel) 100 05/10/19 20:33: Bedside Glucose (Misc Panel) 131H CBC/BMP Laboratory Tests 05/10/19 06:06 Microbiology Microbiology 05/10/19 Blood Culture, Received Pending 05/10/19 Blood Culture, Received Pending 05/10/19 Respiratory Virus Panel (PCR) ([facility]) - Final, Complete 05/10/19 Blood Culture, Received Pending ELISEO BARNES MD May 10, 2019 22:35
[2019-05-10] MEDS ORDERED: PERCOCET 5MG/325MG TAB PO PRN (22:45)
[2019-05-11] MEDS: VANCOMYCIN ORAL SOL 250MG/5ML ORAL SYRINGE PO SCH ×5 (00:02→23:41)
[2019-05-11] MEDS: NS 1,000 ML IV SCH ×3 (00:02→21:21)
[2019-05-11 06:00] VITALS: BP 138/78
[2019-05-11] MEDS: PERCOCET 5MG/325MG TAB PO PRN ×2 (06:17→14:39)
[2019-05-11 07:01] LABS: HEMOGLOBIN 11.4 g/dl (13.5-17.5); MEAN CORPUSCULAR HEMOGLOBIN 30.8 pg (27.0-33.0); MEAN CORPUSCULAR HGB CONC 33.5 g/dl (32.0-36.5); MEAN CORPUSCULAR VOLUME 91.9 fl (80.0-96.0); PLATELET COUNT, AUTOMATED 274 10^3/uL (150-450); WHITE BLOOD COUNT 9.5 10^3/uL (4.0-10.0)
[2019-05-11] MEDS: HumaLOG INSULIN (NovoLOG) PER UNIT SC SCH ×4 (07:30→21:00)
[2019-05-11 07:45] LABS: BLOOD UREA NITROGEN 11 MG/DL (7-18); CALCIUM LEVEL 7.8 MG/DL (8.5-10.1); CARBON DIOXIDE LEVEL 23 MEQ/L (21-32); CHLORIDE LEVEL 101 MEQ/L (98-107); CREATININE FOR GFR 0.44 MG/DL (0.70-1.30); GLOMERULAR FILTRATION RATE > 60.0 (>56); GLUCOSE, FASTING 101 MG/DL (70-100); MAGNESIUM LEVEL 2.1 MG/DL (1.8-2.4); POTASSIUM SERUM 4.4 MEQ/L (3.5-5.1); SODIUM LEVEL 131 MEQ/L (136-145)
--- NOTE | 2019-05-11 08:27 | PHACANCOPD ---
PHARMACY VANCOMYCIN DOSING Pt Demographics Demographics Patient Age:59 , Weight:78.400 , Gender: male Adjusted Body Weight Date: 05/11/19, Adjusted Body Weight: Kg Events Past 24 Hours Events Past 24 Hours: YES: Fever; NO: Dialysis, Diuretic Therapy, Change in CrCl, Elevation in WBC, Pending Diagnostics, Pending Procedures, Other Vancomycin Vancomycin Target Ranges: 15-20 mcg/ml Vancomycin Load Y/N: Yes Load Dose Date Time Vancomycin Load Dose: 2G Date: 05/10 Time: 0900 Vancomycin Dose Date: 05/11/19. Current Vancomycin Dose: Intermittent Dosing?: No Labs Labs Item Value Date Time White Blood Count 9.5 10^3/uL 05/11/19 0650 White Blood Count 9.2 10^3/uL 05/10/19 0606 White Blood Count 6.0 10^3/uL 05/09/19 1249 Creatinine 0.44 MG/DL L 05/11/19 0650 Creatinine 0.61 MG/DL L 05/10/19 0606 Creatinine 0.49 MG/DL L 05/09/19 1249 Micro Microbiology 05/10/19 Blood Culture, Received Pending 05/10/19 Blood Culture - Preliminary, Resulted 05/10/19 Respiratory Virus Panel (PCR) ([facility]) - Final, Complete 05/10/19 Blood Culture - Preliminary, Resulted Creatinine Clearance Date:05/11/19. Creatinine Clearance: . Assessment and Plan Maintaining Current Dose?: Yes Reason for dose change: No Dose Change Pharmacist Note Pharmacist Note Date: 05/11/19. Pharmacist note: Pt was recently admitted with influenza. Now returns with pleuritic left shoulder/chest pain. Blood cultures preliminary for G(+) clusters. Vancomycin ordered empirically. No hx of Vanco here. Loaded patient with Vanco 2G, followed by 1G IV Q8H@1000. We will continue to monitor and adjust dose as needed. [facility] May 11, 2019 08:27
[2019-05-11] MEDS ORDERED: VANCOMYCIN HCL 1,000 MG, VIAL MATE ADAPTER 1 EACH in D5W 250 ML IV ONE (09:00)
[2019-05-11] MEDS: ENOXAPARIN 40MG/0.4ML SYRINGE (J1650 PER 10MG) SC SCH (09:00)
[2019-05-11] MEDS: lisinopriL 20 MG TAB PO SCH (09:14)
[2019-05-11] MEDS: PANTOPRAZOLE 40MG TAB (PROTONIX) PO SCH (09:14)
[2019-05-11] MEDS: VITAMIN D 1,000 INTERNATIONAL UNITS TABLET PO SCH (09:14)
[2019-05-11] MEDS: GABAPENTIN 300 MG CAP PO SCH ×3 (09:14→21:19)
[2019-05-11] MEDS: DICLOFENAC EPOLAMINE 1.3 % PATCH TOP SCH ×2 (09:15→21:17)
[2019-05-11] MEDS: VANCOMYCIN HCL 1,000 MG, VIAL MATE ADAPTER 1 EACH in D5W 250 ML IV SCH ×2 (11:40→17:52)
[2019-05-11 12:35] LABS: ERYTHROCYTE SEDIMENTATION RATE 65 mm/hr (0-20)
[2019-05-11] MEDS: ONDANSETRON 4MG/2ML VIAL (J2405) IV PRN (13:37)
--- NOTE | 2019-05-11 13:46 | REP ---
MRI LEFT SHOULDER WITHOUT CONTRAST: HISTORY: Concern for septic arthritis/osteomyelitis. No comparison radiographs. Comparison is made with images from chest CT May 09, 2019. TECHNIQUE: Axial, oblique coronal and oblique sagittal imaging planes utilized. T1- and T2-weighted scans were included with and without fat saturation. MRI FINDINGS: There is a mild subcortical cyst formation in the superolateral humeral head, which is a finding which may correlate with impingement. Otherwise, cortical and medullary bone signal intensity are normal. There is no evidence to suggest osteomyelitis. There is mild osteoarthritic hypertrophy at the acromioclavicular joint and a sliver of fluid is seen within the joint. No glenohumeral effusion is seen. Tendinosis/tendonitis change is seen in the distal supraspinatus tendon with no full-thickness cuff tear seen. No glenoid labral disruption is appreciated. Infraspinatus, subscapularis, and biceps tendons have an intact appearance. No juxta-articular cyst or mass is seen. IMPRESSION: No MR evidence of osteomyelitis or septic arthritis. Mild AC joint osteoarthritic hypertrophy. Tendinosis change in the distal supraspinatus tendon. Tiny sliver of subacromial subdeltoid bursal fluid. Electronically Signed by Angel Venegas MD 05/11/2019 03:51 P
--- NOTE | 2019-05-11 13:47 | REP ---
LEFT FOREARM SOFT TISSUE SONOGRAPHY WITH DOPPLER: HISTORY: Assess depth of left forearm abscess. FINDINGS: Soft tissue sonography of the left forearm show thrombosis of the distal segment of the cephalic vein. In the area of skin oozing, there is a small hypoechoic tract to the overlying skin. No abscess cavity is appreciated. IMPRESSION: Venous thrombosis of the left cephalic vein. A thin tract from the occluded cephalic vein is seen to the overlying skin in the area of skin oozing. No abscess cavity is appreciated. Electronically Signed by Angel Venegas MD 05/11/2019 03:51 P
[2019-05-11 14:00] VITALS: BP 145/90
[2019-05-11] MEDS: ACETAMINOPHEN TAB 650MG DOSE (2X325MG) PO PRN (16:08)
--- NOTE | 2019-05-11 19:45 | ECHO ---
DATE OF PROCEDURE: 05/11/2019 AGE: 59 GENDER: Male HEIGHT: 69 inches WEIGHT: 171 pounds BODY SURFACE AREA: 1.94 m2 PATIENT LOCATION: Inpatient, [address] [place] [address], room 4213 REFERRING PHYSICIAN: Dr. Ray Smiley INDICATION: Sepsis. 2-D MEASUREMENTS: RV: 3.8 cm LV: 4.9 cm Septum: 1.0 cm Posterior wall: 1.0 cm Aortic root: 3.2 cm LA: 3.6 cm LVEF: 75%. DOPPLER MEASUREMENTS: AV: 1.14 m/s LVOT: 0.91 m/s LVOT diameter; 1.9 cm MV-E: 54, A: 69, EA ratio: 0.8 Early mitral deceleration time: 203 ms E prime medial: 9.9 A prime medial: 12.7 E prime lateral: 8.9 PB: 0.8 m/s Pulmonary artery acceleration time: 100 ms RVSP: 40 mmHg IVC: 2.0 cm COMMENTS Normal sinus rhythm without intraventricular conduction disturbance. M-mode and two-dimensional echocardiography was performed with pulsed, continuous wave, color flow and tissue Doppler studies. Normal left ventricular size, wall thickness and hyperkinetic wall motion. Left atrial size upper limits of normal with grade 1 LV diastolic dysfunction, but normal estimated mean left atrial pressure. Normal right heart chamber sizes and motion with Doppler evidence of mild pulmonary hypertension. Normal IVC size, but slightly reduced respiratory collapse in keeping with a slightly elevated central venous pressure. Normal appearing valvular structures and function. Normal aortic dimensions. No apparent intracardiac mass or pericardial effusion. MTDD
[2019-05-11] MEDS: ATORVASTATIN 10 MG TAB PO SCH (21:19)
[2019-05-11] MEDS: ENOXAPARIN 80MG/0.8ML SYRINGE (J1650 PER 10MG) SC SCH (21:20)
[2019-05-11] MEDS: ACETAMINOPHEN 500 MG TAB PO SCH (21:20)
[2019-05-11 22:00] VITALS: BP 117/70
--- NOTE | 2019-05-11 23:24 | IPNPDOC ---
Date Seen The patient was seen on 05/11/19. Progress Note HISTORY OF PRESENT ILLNESS: 59 y.o male w/ PMH of metastatic Colon cancer, on chemotherapy, HTN, DM & HLD presents from home with L shoulder/chest pain. Patient was recently admitted for influenza & c. diff, was discharged a few days ago. He reports sleeping on the couch, on his left side, two nights ago. He started having left shoulder/chest pain yesterday which has persisted through today. Pain is sharp in nature, non-radiating, constant and reproducible. He denies any associated symptoms, denies any SOB, vomiting, dizziness, palpitations or headache. He reports significant improvement in pain with Morphine in the ED but pain is very severe with movement of his arm. He denies any trauma. He reports significant improvement in diarrhea from the time he was discharged. 05/10/19 Pain has improved from yesterday, minimal at rest, still having moderate pain with movement of left upper extremity, febrile today, no other complaints. 05/11/19 Patient seen in the morning, continues to have left arm/shoulder pain, diarrhea improving, blood cultures are positive for gram-positive cocci in clusters. 10 point review of system is negative except for above. PHYSICAL EXAMINATION: VITAL SIGNS: See below GENERAL APPEARANCE: No distress HEENT: Moist mucus membranes CARDIOVASCULAR: S1, S2, no murmurs LUNGS: clear to auscultation ABDOMEN: soft, non-tender, non-distended, +BS MUSCULOSKELETAL: Left shoulder/chest pain with active movement of left upper extremity. EXTREMITIES: Left upper extremity with small abscess having pustular drainage NEUROLOGICAL: No focal deficits PSYCHIATRIC: Calm LABORATORY DATA: See below. MICROBIOLOGY: Please see below. ASSESSMENT: 59 y.o male w/ multiple medical comorbidities who was recently admitted for Influenza & C. diff now presents with pleuritic shoulder/chest pain. PLAN: 1. Bacteremia Blood cultures are positive for gram-positive cocci in clusters, TTE without vegetation, started vancomycin empirically, left upper extremity ultrasound negative for abscess, but does show a cephalic vein thrombosis. Patient has a port, which will need to be removed, will contact surgery. 2. DVT. Left upper extremity, positive for cephalic vein thrombosis, patient has been refusing his DVT prophylaxis Lovenox "just because", start Lovenox 80 mg twice a day, risks and benefits were explained to patient and in detail, he is agreeable with this plan. 3. DM - sliding scale insulin w/ meals & at bedtime 4. HTN - continue Lisinopril 5. HLD - continue atorvastatin DVT Prophylaxis - Lovenox GI Prophylaxis - Protonix VS, I&O, 24H, Fishbone Vital Signs/I&O Vital Signs Date Time Temp Pulse Resp B/P (MAP) Pulse Ox O2 Delivery O2 Flow Rate FiO2 05/11/19 15:09 18 Room Air 05/11/19 14:00 101.9 93 145/90 (108) 96 I&O- Last 24 Hours up to 6 AM 05/11/19 06:00 Intake Total 4180 ml Output Total 0 ml Balance 4180 ml Laboratory Data 24H LABS Laboratory Tests 2 05/11/19 06:50: Nucleated Red Blood Cells % (auto) 0.0, Erythrocyte Sedimentation Rate 65H, Anion Gap 7L, Glomerular Filtration Rate > 60.0, Calcium Level 7.8L, Magnesium Level 2.1, C-Reactive Protein, Quantitative 13.40H 05/11/19 16:30: Bedside Glucose (Misc Panel) 105 05/11/19 21:09: Bedside Glucose (Misc Panel) 147H CBC/BMP Laboratory Tests 05/11/19 06:50 Microbiology Microbiology 05/10/19 Blood Culture - Preliminary, Resulted 05/10/19 Blood Culture - Preliminary, Resulted 05/10/19 Respiratory Virus Panel (PCR) ([facility]) - Final, Complete 05/10/19 Blood Culture - Preliminary, Resulted ELISEO BARNES MD May 11, 2019 23:24
[2019-05-12] MEDS: PERCOCET 5MG/325MG TAB PO PRN ×4 (00:34→22:13)
[2019-05-12] MEDS: VANCOMYCIN HCL 1,000 MG, VIAL MATE ADAPTER 1 EACH in D5W 250 ML IV SCH ×4 (01:55→22:13)
[2019-05-12] MEDS: ONDANSETRON 4MG/2ML VIAL (J2405) IV PRN (04:40)
[2019-05-12] MEDS: VANCOMYCIN ORAL SOL 250MG/5ML ORAL SYRINGE PO SCH ×4 (05:43→23:31)
[2019-05-12] MEDS: NS 1,000 ML IV SCH (05:43)
[2019-05-12 06:00] VITALS: BP 124/72
[2019-05-12 06:27] LABS: HEMATOCRIT 32.4 % (42.0-52.0); HEMOGLOBIN 10.8 g/dl (13.5-17.5); MEAN CORPUSCULAR HEMOGLOBIN 30.4 pg (27.0-33.0); MEAN CORPUSCULAR HGB CONC 33.3 g/dl (32.0-36.5); MEAN CORPUSCULAR VOLUME 91.3 fl (80.0-96.0); PLATELET COUNT, AUTOMATED 256 10^3/uL (150-450); RED BLOOD COUNT 3.55 10^6/uL (4.30-6.10); WHITE BLOOD COUNT 9.5 10^3/uL (4.0-10.0)
[2019-05-12 07:05] LABS: ALBUMIN 1.7 GM/DL (3.2-5.2); ALT/SGPT 6 U/L (12-78); BILIRUBIN,TOTAL 0.3 MG/DL (0.2-1.0); BLOOD UREA NITROGEN 7 MG/DL (7-18); CALCIUM LEVEL 7.7 MG/DL (8.5-10.1); CARBON DIOXIDE LEVEL 26 MEQ/L (21-32); CHLORIDE LEVEL 99 MEQ/L (98-107); CREATININE FOR GFR 0.46 MG/DL (0.70-1.30); GLOMERULAR FILTRATION RATE > 60.0 (>56); GLUCOSE, FASTING 104 MG/DL (70-100); MAGNESIUM LEVEL 1.8 MG/DL (1.8-2.4); PHOSPHORUS LEVEL 3.1 MG/DL (2.5-4.9); SODIUM LEVEL 130 MEQ/L (136-145); TOTAL PROTEIN 4.8 GM/DL (6.4-8.2)
[2019-05-12] MEDS: HumaLOG INSULIN (NovoLOG) PER UNIT SC SCH ×4 (07:30→20:37)
[2019-05-12] MEDS ORDERED: SODIUM CHLORIDE 0.9% INJ 10 ML SYR IV SCH (09:00)
[2019-05-12] MEDS: VITAMIN D 1,000 INTERNATIONAL UNITS TABLET PO SCH (09:16)
[2019-05-12] MEDS: FAMOTIDINE 20 MG TAB PO SCH ×2 (09:17→20:55)
[2019-05-12] MEDS: lisinopriL 20 MG TAB PO SCH (09:17)
[2019-05-12] MEDS: GABAPENTIN 300 MG CAP PO SCH ×3 (09:17→20:55)
[2019-05-12] MEDS: ENOXAPARIN 80MG/0.8ML SYRINGE (J1650 PER 10MG) SC SCH ×2 (09:17→20:55)
[2019-05-12] MEDS: DICLOFENAC EPOLAMINE 1.3 % PATCH TOP SCH ×2 (09:18→20:55)
[2019-05-12] MEDS ORDERED: SODIUM CHLORIDE 0.9% INJ 10 ML SYR IV PRN (10:30)
[2019-05-12] MEDS ORDERED: ONDANSETRON 4MG/2ML VIAL (J2405) IV PRN ×2 (10:30→15:15)
[2019-05-12] MEDS ORDERED: LIDOCAINE 1% MDV 20ML VIAL As Ordered ONE (13:19)
[2019-05-12] MEDS ORDERED: BUPIVACAINE HCL 0.25% 10ML VIAL As Ordered ONE (13:19)
--- NOTE | 2019-05-12 13:51 | IPNPDOC ---
Text Note Date of Service The patient was seen on 05/12/19. NOTE I was asked to remove aptients infusaport on his right side for suspicion of the source of his bloodstream infection. He has had 3 blood cultures positive for staphylococcus aureus. In the preop area anesthesia was not able to get another peripheral line so I will also attempt to place a temporary central venous catheter on left side. He has been complaining of left shoulder pain and has a pain patch on the left shoulder. Will do a left IJ catheter. Consent has been amended as such. VS,Beni, I+O VS, Beni, I+O Laboratory Tests 05/12/19 06:14 Vital Signs Date Time Temp Pulse Resp B/P (MAP) Pulse Ox O2 Delivery O2 Flow Rate FiO2 05/12/19 09:17 126/74 05/12/19 07:45 16 Room Air 05/12/19 06:00 97.3 88 95 I&O- Last 24 Hours up to 6 AM 05/12/19 06:00 Intake Total 2050 ml Output Total 400 ml Balance 1650 ml NUNO BULL MD May 12, 2019 13:51
[2019-05-12] MEDS ORDERED: propofoL 200 MG/20 ML VIAL As Ordered ONE (14:31)
[2019-05-12] MEDS ORDERED: fentaNYL 100 MCG/2 ML INJECTION (J3010) As Ordered ONE (14:31)
[2019-05-12] MEDS ORDERED: MIDAZOLAM INJ 2 MG/2 ML VIAL (J2250) As Ordered ONE (14:31)
[2019-05-12] MEDS ORDERED: LIDOCAINE 2% INJ 100 MG/5 ML SDV (FOR ANES.) As Ordered ONE (14:31)
[2019-05-12] MEDS ORDERED: LIDOCAINE 1% MDV 20ML VIAL SC ONE (14:40)
[2019-05-12] MEDS ORDERED: fentaNYL 100 MCG/2 ML INJECTION (J3010) IV PRN (15:15)
[2019-05-12] MEDS ORDERED: LR 1,000 ML IV SCH (15:15)
[2019-05-12] MEDS ORDERED: PERCOCET 5MG/325MG TAB PO PRN (15:15)
[2019-05-12 15:25] VITALS: BP 157/90
--- NOTE | 2019-05-12 18:34 | IPNPDOC ---
Date Seen The patient was seen on 05/12/19. Progress Note HISTORY OF PRESENT ILLNESS: 59 y.o male w/ PMH of metastatic Colon cancer, on chemotherapy, HTN, DM & HLD presents from home with L shoulder/chest pain. Patient was recently admitted for influenza & c. diff, was discharged a few days ago. He reports sleeping on the couch, on his left side, two nights ago. He started having left shoulder/chest pain yesterday which has persisted through today. Pain is sharp in nature, non-radiating, constant and reproducible. He denies any associated symptoms, denies any SOB, vomiting, dizziness, palpitations or headache. He reports significant improvement in pain with Morphine in the ED but pain is very severe with movement of his arm. He denies any trauma. He reports significant improvement in diarrhea from the time he was discharged. 05/10/19 Pain has improved from yesterday, minimal at rest, still having moderate pain with movement of left upper extremity, febrile today, no other complaints. 05/11/19 Patient seen in the morning, continues to have left arm/shoulder pain, diarrhea improving, blood cultures are positive for gram-positive cocci in clusters. 05/12/19 Patient seen in the morning, no acute events overnight, unchanged from yesterday , continues to have left arm pain, diarrhea has resolved. He denies any short of breath, chest pain, nausea, vomiting, abdominal pain or dizziness. 10 point review of system is negative except for above. PHYSICAL EXAMINATION: VITAL SIGNS: See below GENERAL APPEARANCE: No distress HEENT: Moist mucus membranes CARDIOVASCULAR: S1, S2, no murmurs LUNGS: clear to auscultation ABDOMEN: soft, non-tender, non-distended, +BS MUSCULOSKELETAL: Left shoulder/chest pain with active movement of left upper extremity. EXTREMITIES: Range of motion intact NEUROLOGICAL: No focal deficits PSYCHIATRIC: Calm LABORATORY DATA: See below. MICROBIOLOGY: Please see below. ASSESSMENT: 59 y.o male w/ multiple medical comorbidities who was recently admitted for Influenza & C. diff now presents with pleuritic shoulder/chest pain. PLAN: 1. Staph aureus Bacteremia All 3 sets of cultures are positive, susceptibility pending, repeat cultures have been drawn, TTE without vegetation, continue vancomycin, Gen. surgery was consulted regarding removal of [id number], scheduled to have it removed later today. Infectious disease was consulted 2. Superficial vein thrombosis Left upper extremity Doppler positive for cephalic vein thrombosis, septic thrombophlebitis, history of hepatic/portal vein thrombosis, status post 3 months of anticoagulation, given history of prior thrombosis, current active malignancy on chemotherapy, we'll and tinea anticoagulation with Lovenox 80 mg twice a day, risks and benefits were explained to patient and in detail, he is agreeable with this plan. 3. DM - sliding scale insulin w/ meals & at bedtime 4. HTN - continue Lisinopril 5. HLD - continue atorvastatin DVT Prophylaxis - Lovenox GI Prophylaxis - Protonix VS, I&O, 24H, Fishbone Vital Signs/I&O Vital Signs Date Time Temp Pulse Resp B/P (MAP) Pulse Ox O2 Delivery O2 Flow Rate FiO2 05/12/19 16:27 18 Room Air 05/12/19 15:25 97.3 86 157/90 (112) 92 I&O- Last 24 Hours up to 6 AM 05/12/19 06:00 Intake Total 2050 ml Output Total 400 ml Balance 1650 ml Laboratory Data 24H LABS Laboratory Tests 2 05/11/19 21:09: Bedside Glucose (Misc Panel) 147H 05/12/19 06:14: Nucleated Red Blood Cells % (auto) 0.0, Anion Gap 5L, Glomerular Filtration Rate > 60.0, Calcium Level 7.7L, Phosphorus Level 3.1, Magnesium Level 1.8, Total Bilirubin 0.3#, Aspartate Amino Transf (AST/SGOT) 17, Alanine Aminotransferase (ALT/SGPT) 6L, Alkaline Phosphatase 85, Total Protein 4.8L, Albumin 1.7#L, Albumin/Globulin Ratio 0.55L 05/12/19 11:40: Bedside Glucose (Misc Panel) 102 05/12/19 16:30: Bedside Glucose (Misc Panel) 77 05/12/19 17:25: Vancomycin Level Trough 9.6L CBC/BMP Laboratory Tests 05/12/19 06:14 Microbiology Microbiology 05/12/19 Gram Stain, Received Pending 05/12/19 Bacterial Culture, Received Pending 05/12/19 Anaerobic Culture, Received Pending 05/12/19 Blood Culture, Received Pending 05/10/19 Blood Culture - Preliminary, Resulted Staphylococcus Aureus 05/10/19 Blood Culture - Preliminary, Resulted Staphylococcus Aureus 05/10/19 Respiratory Virus Panel (PCR) ([facility]) - Final, Complete 05/10/19 Blood Culture - Preliminary, Resulted Staphylococcus Aureus ELISEO BARNES MD May 12, 2019 18:34
--- NOTE | 2019-05-12 19:26 | REPVR ---
PROCEDURE INFORMATION: Exam: MR Head Without and With Contrast Exam date and time: 05/12/2019 6:41 PM Age: 59 years old Clinical indication: Alteration of consciousness and altered mental status/memory loss; Stupor; Confusion or disorientation; Patient HX: PT has brief moments of confusion and slurred speech, blood infection, sepsis from port/removal. Nki, no priors of brain, PT was given 15cc prohance; Additional info: AMS, staph aureus bacteremia, immunocompromised TECHNIQUE: Imaging protocol: MR of the head without and with intravenous contrast. Contrast material: PROHANCE; Contrast volume: 15 ml; Contrast route: 20G CENTRAL LINE; COMPARISON: No relevant prior studies available. FINDINGS: Brain: Normal. No acute infarct. No hemorrhage. No significant white matter disease. No edema. No abnormal enhancement. Ventricles: Normal. No ventriculomegaly. Bones/joints: Unremarkable. Soft tissues: Unremarkable. Sinuses: Normal as visualized. No acute sinusitis. Mastoid air cells: Normal as visualized. No mastoid effusion. Orbits: Unremarkable. IMPRESSION: No acute intracranial abnormality. Electronically signed by: Carlso Fung On 05/12/2019 19:26:37 PM
[2019-05-12] MEDS: ACETAMINOPHEN 500 MG TAB PO SCH (20:55)
[2019-05-12] MEDS: ATORVASTATIN 10 MG TAB PO SCH (20:55)
[2019-05-12] MEDS: SODIUM CHLORIDE 0.9% INJ 10 ML SYR IV SCH (20:57)
[2019-05-12 22:00] VITALS: BP 128/81
[2019-05-12] MEDS: SODIUM CHLORIDE 0.9% INJ 10 ML SYR IV PRN (23:32)
[2019-05-13] MEDS: VANCOMYCIN HCL 1,000 MG, VIAL MATE ADAPTER 1 EACH in D5W 250 ML IV SCH (05:43)
[2019-05-13] MEDS: VANCOMYCIN ORAL SOL 250MG/5ML ORAL SYRINGE PO SCH ×4 (05:44→23:04)
[2019-05-13] MEDS: SODIUM CHLORIDE 0.9% INJ 10 ML SYR IV SCH ×3 (05:44→21:46)
[2019-05-13] MEDS: PERCOCET 5MG/325MG TAB PO PRN ×3 (05:46→18:49)
[2019-05-13 06:00] VITALS: BP 129/82
[2019-05-13 06:05] LABS: HEMATOCRIT 32.3 % (42.0-52.0); HEMOGLOBIN 10.9 g/dl (13.5-17.5); MEAN CORPUSCULAR HEMOGLOBIN 30.7 pg (27.0-33.0); MEAN CORPUSCULAR HGB CONC 33.7 g/dl (32.0-36.5); PLATELET COUNT, AUTOMATED 270 10^3/uL (150-450); RED BLOOD COUNT 3.55 10^6/uL (4.30-6.10); WHITE BLOOD COUNT 12.6 10^3/uL (4.0-10.0)
[2019-05-13 06:26] LABS: BLOOD UREA NITROGEN 8 MG/DL (7-18); CALCIUM LEVEL 7.5 MG/DL (8.5-10.1); CARBON DIOXIDE LEVEL 28 MEQ/L (21-32); CHLORIDE LEVEL 97 MEQ/L (98-107); GLOMERULAR FILTRATION RATE > 60.0 (>56); GLUCOSE, FASTING 87 MG/DL (70-100); POTASSIUM SERUM 4.1 MEQ/L (3.5-5.1); SODIUM LEVEL 131 MEQ/L (136-145)
[2019-05-13] MEDS: HumaLOG INSULIN (NovoLOG) PER UNIT SC SCH ×4 (07:28→21:00)
[2019-05-13] MEDS: ENOXAPARIN 80MG/0.8ML SYRINGE (J1650 PER 10MG) SC SCH ×2 (07:35→21:44)
[2019-05-13] MEDS: FAMOTIDINE 20 MG TAB PO SCH ×2 (07:35→21:44)
[2019-05-13] MEDS: DICLOFENAC EPOLAMINE 1.3 % PATCH TOP SCH ×2 (07:36→21:45)
[2019-05-13] MEDS: GABAPENTIN 300 MG CAP PO SCH ×3 (07:36→21:47)
[2019-05-13] MEDS: VITAMIN D 1,000 INTERNATIONAL UNITS TABLET PO SCH (07:36)
[2019-05-13] MEDS: lisinopriL 20 MG TAB PO SCH (07:36)
--- NOTE | 2019-05-13 10:31 | REP ---
REASON: Placement of central venous catheter. COMPARISON: 05/09/2019 The right-sided central venous catheter has been removed. A left-sided internal jugular central venous catheter has been placed, the tip of which is in the left brachiocephalic vein at the junction of the superior vena cava. There is no pneumothorax. There is no significant change in the appearance of the lung [place] other than hypoexpansion seen today likely causing bibasilar subsegmental atelectatic change. There is no change in the osseous structures. IMPRESSION: As above. Electronically Signed by Cornel Tejada DO 05/13/2019 10:53 A
[2019-05-13] MEDS: BENZONATATE 100 MG CAP PO PRN (12:24)
[2019-05-13 14:00] VITALS: BP 127/81
[2019-05-13] MEDS: ceFAZolin SOD 2 GM in IV 1 EA IV SCH ×2 (15:33→22:02)
[2019-05-13] MEDS: ATORVASTATIN 10 MG TAB PO SCH (21:44)
[2019-05-13] MEDS: ACETAMINOPHEN 500 MG TAB PO SCH (21:44)
[2019-05-13] MEDS: SODIUM CHLORIDE 0.9% INJ 10 ML SYR IV PRN ×2 (21:46→23:05)
[2019-05-13 22:00] VITALS: BP 120/78
--- NOTE | 2019-05-13 22:01 | IPNPDOC ---
Date Seen The patient was seen on 05/13/19. Progress Note HISTORY OF PRESENT ILLNESS: 59 y.o male w/ PMH of metastatic Colon cancer, on chemotherapy, HTN, DM & HLD presents from home with L shoulder/chest pain. Patient was recently admitted for influenza & c. diff, was discharged a few days ago. He reports sleeping on the couch, on his left side, two nights ago. He started having left shoulder/chest pain yesterday which has persisted through today. Pain is sharp in nature, non-radiating, constant and reproducible. He denies any associated symptoms, denies any SOB, vomiting, dizziness, palpitations or headache. He reports significant improvement in pain with Morphine in the ED but pain is very severe with movement of his arm. He denies any trauma. He reports significant improvement in diarrhea from the time he was discharged. 05/10/19 Pain has improved from yesterday, minimal at rest, still having moderate pain with movement of left upper extremity, febrile today, no other complaints. 05/11/19 Patient seen in the morning, continues to have left arm/shoulder pain, diarrhea improving, blood cultures are positive for gram-positive cocci in clusters. 05/12/19 Patient seen in the morning, no acute events overnight, unchanged from yesterday , continues to have left arm pain, diarrhea has resolved. He denies any short of breath, chest pain, nausea, vomiting, abdominal pain or dizziness. 05/13/19 Infusaport removed by surgery yesterday, L IJ TLC was placed due to lack of IV access, no acute events overnight, comfortable, without complaints today. 10 point review of system is negative except for above. PHYSICAL EXAMINATION: VITAL SIGNS: See below GENERAL APPEARANCE: No distress HEENT: Moist mucus membranes Neck: L IJ TLC CARDIOVASCULAR: S1, S2, no murmurs LUNGS: clear to auscultation ABDOMEN: soft, non-tender, non-distended, +BS EXTREMITIES: Range of motion intact NEUROLOGICAL: No focal deficits PSYCHIATRIC: Calm LABORATORY DATA: See below. MICROBIOLOGY: Please see below. ASSESSMENT: 59 y.o male w/ multiple medical comorbidities who was recently admitted for Influenza & C. diff now presents with pleuritic shoulder/chest pain. PLAN: 1. MSSA Bacteremia All 3 sets of cultures grew MSSA, downgrade antibiotics to Ancef, TTE without vegetation, [id number] has been removed, now has LI TLC, Infectious disease consultation pending. 2. Superficial vein thrombosis Left upper extremity Doppler positive for cephalic vein thrombosis, septic thrombophlebitis, history of hepatic/portal vein thrombosis, status post 3 months of anticoagulation, given history of prior thrombosis and current active malignancy on chemotherapy, we'll continuie anticoagulation with Lovenox 80 mg twice a day, risks and benefits were explained to patient and in detail, he is agreeable with this plan. Will get Hematology recommendation regarding anticoagulation. 3. DM - sliding scale insulin w/ meals & at bedtime 4. HTN - continue Lisinopril 5. HLD - continue atorvastatin DVT Prophylaxis - Lovenox GI Prophylaxis - Protonix VS, I&O, 24H, Fishbone Vital Signs/I&O Vital Signs Date Time Temp Pulse Resp B/P (MAP) Pulse Ox O2 Delivery O2 Flow Rate FiO2 05/13/19 18:49 18 Room Air 05/13/19 14:00 98.4 89 127/81 (96) 95 I&O- Last 24 Hours up to 6 AM 05/13/19 05:59 Intake Total 2025 ml Output Total 1255 ml Balance 770 ml Laboratory Data 24H LABS Laboratory Tests 2 05/13/19 05:42: Nucleated Red Blood Cells % (auto) 0.0, Anion Gap 6L, Glomerular Filtration Rate > 60.0, Calcium Level 7.5L 05/13/19 11:36: Bedside Glucose (Misc Panel) 90 05/13/19 16:36: Bedside Glucose (Misc Panel) 127H CBC/BMP Laboratory Tests 05/13/19 05:42 Microbiology Microbiology 05/12/19 Gram Stain - Final, Resulted 05/12/19 Bacterial Culture, Resulted Pending 05/12/19 Anaerobic Culture, Resulted Pending 05/12/19 Blood Culture - Preliminary, Resulted No growth after 24 hours . All specim... 05/10/19 Blood Culture - Final, Complete Staphylococcus Aureus 05/10/19 Blood Culture - Final, Complete Staphylococcus Aureus 05/10/19 Respiratory Virus Panel (PCR) ([facility]) - Final, Complete 05/10/19 Blood Culture - Final, Complete Staphylococcus Aureus ELISEO BARNES MD May 13, 2019 22:01
[2019-05-14] MEDS: PERCOCET 5MG/325MG TAB PO PRN (03:30)
[2019-05-14 06:00] VITALS: BP 119/78
[2019-05-14] MEDS: VANCOMYCIN ORAL SOL 250MG/5ML ORAL SYRINGE PO SCH ×3 (06:18→17:45)
[2019-05-14] MEDS: SODIUM CHLORIDE 0.9% INJ 10 ML SYR IV SCH ×3 (06:18→21:01)
[2019-05-14] MEDS: ceFAZolin SOD 2 GM in IV 1 EA IV SCH ×3 (06:18→23:25)
[2019-05-14] MEDS: HumaLOG INSULIN (NovoLOG) PER UNIT SC SCH ×4 (07:30→20:40)
[2019-05-14] MEDS: DICLOFENAC EPOLAMINE 1.3 % PATCH TOP SCH ×2 (08:00→21:01)
[2019-05-14] MEDS: ENOXAPARIN 80MG/0.8ML SYRINGE (J1650 PER 10MG) SC SCH (08:00)
[2019-05-14] MEDS: GABAPENTIN 300 MG CAP PO SCH ×3 (08:00→21:00)
[2019-05-14] MEDS: FAMOTIDINE 20 MG TAB PO SCH ×2 (08:00→21:00)
[2019-05-14] MEDS: lisinopriL 20 MG TAB PO SCH (08:01)
[2019-05-14] MEDS: VITAMIN D 1,000 INTERNATIONAL UNITS TABLET PO SCH (08:02)
--- NOTE | 2019-05-14 13:18 | IPNPDOC ---
Date Seen The patient was seen on 05/14/19. Progress Note HISTORY OF PRESENT ILLNESS: 59 y.o male w/ PMH of metastatic Colon cancer, on chemotherapy, HTN, DM & HLD presents from home with L shoulder/chest pain. Patient was recently admitted for influenza & c. diff, was discharged a few days ago. He reports sleeping on the couch, on his left side, two nights ago. He started having left shoulder/chest pain yesterday which has persisted through today. Pain is sharp in nature, non-radiating, constant and reproducible. He denies any associated symptoms, denies any SOB, vomiting, dizziness, pa lpitations or headache. He reports significant improvement in pain with Morphine in the ED but pain is very severe with movement of his arm. He denies any trauma. He reports significant improvement in diarrhea from the time he was discharged. 05/10/19 Pain has improved from yesterday, minimal at rest, still having moderate pain with movement of left upper extremity, febrile today, no other complaints. 05/11/19 Patient seen in the morning, continues to have left arm/shoulder pain, diarrhea improving, blood cultures are positive for gram-positive cocci in clusters. 05/12/19 Patient seen in the morning, no acute events overnight, unchanged from yesterday, continues to have left arm pain, diarrhea has resolved. He denies any short of breath, chest pain, nausea, vomiting, abdominal pain or dizziness. 05/13/19 Infusaport removed by surgery yesterday, L IJ TLC was placed due to lack of IV access, no acute events overnight, comfortable, without complaints today. 05/14/19 Patient seen in the morning, comfortable, no acute events overnight, denies any chest pain, nausea, vomiting, abdominal pain, diarrhea. He continues to have a dry cough at this time. 10 point review of system is negative except for above. PHYSICAL EXAMINATION: VITAL SIGNS: See below GENERAL APPEARANCE: No distress HEENT: Moist mucus membranes Neck: L IJ TLC CARDIOVASCULAR: S1, S2, no murmurs LUNGS: clear to auscultation ABDOMEN: soft, non-tender, non-distended, +BS EXTREMITIES: Range of motion intact NEUROLOGICAL: No focal deficits PSYCHIATRIC: Calm LABORATORY DATA: See below. MICROBIOLOGY: Please see below. ASSESSMENT: 59 y.o male w/ multiple medical comorbidities who was recently admitted for Influenza & C. diff now presents with pleuritic shoulder/chest pain. PLAN: 1. MSSA Bacteremia All 3 sets of cultures grew MSSA, continue Ancef, TTE without vegetation, Pbnrif-b-Utpc has been removed, now has [facility] TLC, Infectious disease consultation pending. 2. Superficial vein thrombosis Left upper extremity Doppler positive for cephalic vein thrombosis, septic thrombophlebitis, history of portal vein thrombosis, status post 3 months of anticoagulation, continue anticoagulation, Lovenox, switched for Eliquis 5 mg twice a day, case was discussed with Dr. Enriquez from hematology/oncology, who agrees with this plan. 3. DM - sliding scale insulin w/ meals & at bedtime 4. HTN - continue Lisinopril 5. HLD - continue atorvastatin DVT Prophylaxis - Lovenox GI Prophylaxis - Protonix VS, I&O, 24H, Fishbone Vital Signs/I&O Vital Signs Date Time Temp Pulse Resp B/P (MAP) Pulse Ox O2 Delivery O2 Flow Rate FiO2 05/14/19 12:12 17 05/14/19 08:01 120/78 05/14/19 06:00 97.5 85 95 Room Air I&O- Last 24 Hours up to 6 AM 05/14/19 06:00 Intake Total 630 ml Output Total 800 ml Balance -170 ml Laboratory Data 24H LABS Laboratory Tests 2 05/13/19 16:36: Bedside Glucose (Misc Panel) 127H 05/13/19 20:12: Bedside Glucose (Misc Panel) 181H 05/14/19 06:24: Bedside Glucose (Misc Panel) 93 Microbiology Microbiology 05/12/19 Gram Stain - Final, Resulted 05/12/19 Bacterial Culture, Resulted Pending 05/12/19 Anaerobic Culture - Final, Resulted 05/12/19 Blood Culture - Preliminary, Resulted No Growth after 48 hours. All Specime... 05/10/19 Blood Culture - Final, Complete Staphylococcus Aureus 05/10/19 Blood Culture - Final, Complete Staphylococcus Aureus 05/10/19 Respiratory Virus Panel (PCR) ([facility]) - Final, Complete 05/10/19 Blood Culture - Final, Complete Staphylococcus Aureus ELISEO BARNES MD May 14, 2019 13:18
[2019-05-14 14:00] VITALS: BP 123/88
[2019-05-14] MEDS: ACETAMINOPHEN TAB 650MG DOSE (2X325MG) PO PRN (17:45)
[2019-05-14] MEDS: BENZONATATE 100 MG CAP PO PRN (17:46)
[2019-05-14] MEDS: SODIUM CHLORIDE 0.9% INJ 10 ML SYR IV PRN (19:59)
[2019-05-14] MEDS: ATORVASTATIN 10 MG TAB PO SCH (21:00)
[2019-05-14] MEDS: APIXABAN 5 MG TAB (ELIQUIS) PO SCH (21:00)
[2019-05-14] MEDS: ACETAMINOPHEN 500 MG TAB PO SCH (21:01)
[2019-05-14 22:00] VITALS: BP 124/85
[2019-05-15] VITALS (9 sets, daily range): BP systolic 114–142; BP diastolic 64–92
[2019-05-15] MEDS: VANCOMYCIN ORAL SOL 250MG/5ML ORAL SYRINGE PO SCH ×3 (00:08→12:06)
[2019-05-15] MEDS: PERCOCET 5MG/325MG TAB PO PRN ×2 (00:09→15:21)
[2019-05-15] MEDS: SODIUM CHLORIDE 0.9% INJ 10 ML SYR IV SCH ×3 (05:57→22:00)
[2019-05-15] MEDS: ceFAZolin SOD 2 GM in IV 1 EA IV SCH ×3 (06:37→23:42)
[2019-05-15] MEDS: HumaLOG INSULIN (NovoLOG) PER UNIT SC SCH ×4 (07:10→20:27)
[2019-05-15] MEDS: GABAPENTIN 300 MG CAP PO SCH ×3 (08:23→21:17)
[2019-05-15] MEDS: DICLOFENAC EPOLAMINE 1.3 % PATCH TOP SCH ×2 (08:23→21:17)
[2019-05-15] MEDS: FAMOTIDINE 20 MG TAB PO SCH ×2 (08:23→21:17)
[2019-05-15] MEDS: lisinopriL 20 MG TAB PO SCH (08:23)
[2019-05-15] MEDS: VITAMIN D 1,000 INTERNATIONAL UNITS TABLET PO SCH (08:23)
[2019-05-15] MEDS: APIXABAN 5 MG TAB (ELIQUIS) PO SCH ×2 (08:23→21:17)
--- NOTE | 2019-05-15 08:40 | CR ---
DATE OF CONSULTATION: 05/14/2019 INFECTIOUS DISEASE CONSULTATION REQUESTING HIP HOP DANCE INSTRUCTOR: Ray Smiley MD REASON FOR CONSULT: Staphylococcus aureus bacteremia. HISTORY OF PRESENT ILLNESS: Mr. Overton is a 59-year-old gentleman with a history of stage IV metastatic colon cancer diagnosed in 2017 status post ascending colectomy in 2017 and chemotherapy for which he follows with Dr. Enriquez at our cancer center. After his most recent chemotherapy session about 3 weeks ago, he has felt gradually increasing weakness, lethargy, and nausea. He initially was hospitalized 04/28/2019 to 05/07/2019, diagnosed with Clostridium (C) difficile colitis and influenza A treated with tamiflu supportive care and oral vancomycin. During that hospitalization, his left arm wound, where there was reportedly an IV that had infiltrated, had culture positive for Staphylococcus aureus. He was not sent on any antibiotics and was to followup outpatient. He now returns for worsening vague generalized weakness, found to have temperatures as high as 101.9. Infectious disease has been consulted due to positive blood cultures times three for methicillin-sensitive Staphylococcus aureus (MSSA). He is currently on by mouth vancomycin day #6 and IV cefazolin day #2 with rising white count, erythrocyte sedimentation rate (ESR) elevated at 65, CRP at 13.4, suspected source of infection with right Qbzmlp-D-Tsgj from which he receives his chemotherapy. That has since been removed this past weekend and repeat blood culture is negative at 24 hours. When examined at bedside, he reports he feels mildly improved from admission with some tenderness on his left upper chest wall in his neck region, which recently had a peripherally inserted central catheter (PICC) line placed since his right Kwriir-P-Tbgb was taken out. Denies any fever, chills, cough, wheezing, or any other skin rashes or any other complaints. Is tolerating by mouth intake well. Still has some mild nausea. PAST MEDICAL HISTORY: Includes dyslipidemia, stage IV colon cancer, vitamin D deficiency, hypertension, and peripheral neuropathy. HOME MEDICATIONS: - Tylenol 1000 mg by mouth nightly - atorvastatin 10 mg by mouth nightly - cetuximab 520 mg IV - vitamin D3 1000 units by mouth daily - diclofenac topical four times a day - fluorouracil 830 mg IV - gabapentin 300 mg by mouth three times a day - irinotecan 370 mg IV - leucovorin 830 mg IV and 4970 mg IV continuous infusion - lisinopril 20 mg by mouth daily - Neosporin topical three times a day - Zofran 8 mg by mouth every 6 hours as needed - Percocet one tablet by mouth four times a day as needed - potassium chloride 10 mg by mouth daily - vancomycin 250 mg by mouth every 6 hours from recent hospital discharge started on 05/09/2019 INPATIENT MEDICATIONS: - glucagon, glucose and D50, hypoglycemic protocol - vancomycin 250 mg by mouth every 6 hours, continued since 05/09/2019, currently day #6 - Humalog insulin - diclofenac patch topical every 12 hours - gabapentin 300 mg by mouth three times a day - Lipitor 10 mg by mouth nightly - Tylenol 1000 mg by mouth nightly - lisinopril 20 mg by mouth daily - vitamin D 1000 units by mouth daily - Tessalon Perles 200 mg by mouth three times a day as needed - Percocet three tablets by mouth every 6 hours as needed - Percocet one tablet by mouth every 6 hours as needed - Tylenol 650 mg by mouth every 6 hours as needed - Lovenox 80 mg subcutaneous twice a day - Pepcid 20 mg by mouth twice a day - Zofran 4 mg IV every 4 hours as needed - cefazolin 2 grams IV every 8 hours started on 05/13/2019, currently day #2 ALLERGIES: No known allergies. SURGICAL HISTORY: Ascending colon resected for colon cancer in [address] Kirkpatrick, right Loiwzi-c-Imzl, pilonidal cyst removal, hernia repair right femoral as a child, and tonsillectomy. FAMILY HISTORY: Father had heart disease. Mother had colon cancer. Strokes are on both sides of the parents. Uncle on father's side had prostate cancer. 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 Lives at home with . Denies any tobacco, alcohol, or illicit substances. REVIEW OF SYSTEMS: Denies any fever. Admits to chills and loss of appetite with gradual weight loss since diagnosed with cancer. Denies any new headaches, blurred vision, tinnitus, dysphagia, odynophagia. Admits to nausea. Denies vomiting or abdominal pain. Admits to intermittent bright blood upon wiping which he attributes to hemorrhoids. Denies any new constipation. Admits to diarrhea since radiation, also now with antibiotics. Denies any new skin rashes or any hot swollen joints or any swelling or lumps or bumps. Denies any new motor or sensory weakness. Admits to mild chest pain in the upper left chest wall and neck area. PHYSICAL EXAMINATION: VITAL SIGNS: Temperature 98.4, pulse 88, respirations 14, blood pressure 123/88, mean arterial pressure (MAP) of 100, pulse oximetry 96% on room air, maximum temperature (T-max) over the last 24 hours of 98.4, T-max since admission is 101.9, which was on the afternoon of 05/11/2019. GENERAL: Resting in bed, no acute distress, alert and oriented times three, appears older than stated age. HEENT: Head normocephalic, atraumatic. Extraocular muscles intact. Poor dentition with dry mucous membranes. Neck is supple with a central line in the left internal jugular with dry blood on the surrounding dressing. CARDIAC: Heart regular rate and rhythm without any appreciable murmurs. There is trace peripheral edema in the lower extremities bilaterally. Dressing clean, dry, intact on the right upper chest wall where recent Cttdrx-v-Zgxw was removed. LUNGS: Have rales in the right lower base. Equal chest rise bilaterally. Clear lung sounds in the remaining lung [place]. No accessory muscle usage. ABDOMEN: Soft, nontender, nondistended with hypoactive bowel sounds. MUSCULOSKELETAL: Strength intact, able to move all extremities. NEUROLOGIC: No focal deficits or any motor or sensory deficiencies. SKIN: No visible rashes or lesions. He does have a small, 2-3 mm, round, purple healing scab wound on the left antecubital region which is where prior cultures grew Staphylococcus aureus. LABORATORY DATA: WBC 12.6, up from 6 on admission, hemoglobin and hematocrit 10.9 and 32.3, platelets 270, ESR 65, CRP 13.4, sodium and potassium 131 and 4.1, BUN and creatinine 8 and 0.5, albumin 1.7. Microbiology: Respiratory panel is negative. Blood cultures from 05/10/2019 positive for MSSA resistant to penicillin only. Port cultures from the right Nyrhzr-s-Xoou that has been removed also positive for MSSA. Repeat blood culture on 05/12/2019 is negative at 48 hours. Culture from left antecubital arm wound from 05/04/2019 positive also for MSSA on 05/04/2019. The Jlvuhx-f-Zusn tip cultures are currently pending. IMAGING: Chest x-ray 05/09/2019 is negative with the right internal jugular (IJ) Mhalty-o-Vysx intact. CTA negative for pulmonary embolism (PE). There is atelectasis left lower lobe. Small hypodense nodules in the liver, unchanged from prior imaging. Shoulder MRI of the left on 05/11/2019 is negative for osteomyelitis or septic arthritis. There is mild acromioclavicular (AC) joint osteoarthritic hypertrophy. Tendinosis change in the distal supraspinatus tendon. Tiny sliver of subacromial subdeltoid bursal fluid. 05/11/2019 left forearm Doppler is positive for venous thrombosis of the left cephalic vein with a thin tract from the occluded cephalic vein seen to the overlying skin where there is oozing. No abscess cavity noted. Chest x-ray on 05/12/2019 reveals a right-sided central venous catheter removed and left-sided IJ central venous catheter is placed without any pneumothorax. Brain MRI on 05/12/2019 for concern of altered mental status, Staphylococcus aureus bacteremia in the immunocompromised patient is negative for any abnormalities. 05/11/2019 echo reveals a left ventricular ejection fraction (LVEF) of 75%, normal sinus rhythm without any intraventricular conduction disturbance. No intracardiac mass or pericardial effusion. There is normal appearing valvular structures and function. Normal inferior vena cava (IVC). Normal right heart chambers. Grade 1 left ventricular diastolic dysfunction. Mild pulmonary hypertension. IMPRESSION AND PLAN: This is a 59-year-old gentleman with active stage IV metastatic colon adenocarcinoma on chemotherapy with Dr. Enriquez presenting for generalized weakness and nausea, found to have methicillin-sensitive Staphylococcus aureus (MSSA) bacteremia, suspected site is more likely the left antecubital wound and less likely the right chest Aaefoj-b-Dbtm. 1. Septic thrombophlebitis of the left cephalic vein. This appears to be where patient had a prior IV that had infiltrated Culture left antecubital wound was positive for MSSA on 05/04/2019 and now he has positive blood cultures for the pathogen total of four positive cultures. A repeat blood culture on 05/12/2019 is negative. Dttgld-b-Wwpd tip site culture is currently pending. This is uncomplicated Staphylococcus bacteremia. Patient has no valvular disease or TTE without vegetation, he is afebrile. Continue to trend inflammatory markers and white count. Will continue IV antibiotics for a total of 14 days from his most recent negative blood culture which is from 05/12/2019. Thus, he will require IV antibiotics until 05/26/2019. This was discussed with the patient. He may likely need midline versus a peripherally inserted central catheter (PICC) line on discharge. Hold off on any reinsertion of any Wwqizf-p-Gudg at this time given his active blood infection. 2. Clostridium (C) difficile colitis recently diagnosed 04/29/2019. Continue by mouth vancomycin as noted above given he is a high risk patient. 3. Influenza A diagnosed 04/28/2019 status post complete course of Tamiflu. He has a mild residual cough. Continue supportive care. Encourage incentive spirometry and ambulation. Most recent chest imaging only noted atelectasis. Monitor with these recommendations.DC tamiflu 5. Protein calorie malnutrition. Patient has active cancer, being treated with chemotherapy. Has decreased appetite and lost weight over the past 3 years since his diagnosis. Low albumin at 1.7 today. Encourage by mouth intake and consider supplementing with additional nutritional drinks. Thank you for the consultation. We shall be happy to follow along. MELYSSA
[2019-05-15 11:06] LABS: C REACTIVE PROTEIN QUANTITATIV 8.41 MG/DL (0.00-0.30)
[2019-05-15 11:28] LABS: ERYTHROCYTE SEDIMENTATION RATE 81 mm/hr (0-20)
--- NOTE | 2019-05-15 12:30 | IPN ---
DATE: 05/15/2019 The patient has not had any fevers. No chills. He is eating his breakfast at the bedside. No chest pain, pressure or tightness. White count is 12.6 this morning, currently on intravenous nafcillin. No other issues per nursing. PHYSICAL EXAMINATION: VITAL SIGNS: Temperature 97.6, pulse 101, respiratory rate 11, blood pressure 120/80, 93% on room air. GENERAL: The patient is awake, alert, oriented, answering questions appropriately. Face is symmetric. Tongue is midline. LUNGS: Clear to auscultation. No wheezing or rales. HEART: S1, S2. Sinus rhythm. No murmurs, rubs or gallops. ABDOMEN: Soft, nontender, nondistended. Left IJ is in place. No erythema, tenderness. EXTREMITIES: No cyanosis or clubbing. LABORATORY DATA: CBC and metabolic panel have been reviewed and notable for a white count of 12,000. The patient had Staphylococcus aureus on blood culture from 05/10/2019. No growth on 05/12/2019 on set, second set has Staphylococcus epidermidis. Two sets on 05/15/2019 still pending. ASSESSMENT AND PLAN: 59-year-old male with history of metastatic colon cancer, on chemotherapy, hypertension, diabetes, hyperlipidemia, had an Mocfbc-B-Oepo when he presented with bacteremia, complaints of left shoulder and chest pain. The patient had methicillin sensitive Staphylococcus aureus (MSSA) in the blood culture, three sets, Staphylococcus epidermidis grew on 05/12/2019. Repeat blood cultures today still pending. White count is increased. Transesophageal echo is ordered. Dr. Alvares will try to do today. 1. Methicillin sensitive Staphylococcus aureus (MSSA) bacteremia. Transthoracic echo is negative for endocarditis. The patient has increased white count of 12,000 despite nafcillin. Transesophageal echo ordered for today with Dr. Alvares. Keep patient nothing by mouth after breakfast. 2. History of metastatic colon cancer. Ufupad-A-Mehs removed on 05/13/2019. Left IJ triple lumen catheter was placed due to lack of IV access on 05/13/2019. Still with potential for line infection with a new left IJ triple lumen catheter. Defer to infectious disease. If needs another line, we will hold off on an Fjbbxn-U-Kgry placement until bacteremia has cleared. 3. Metastatic colon cancer. The patient follows with Dr. Enriquez as an outpatient. Will need to hold off on chemotherapy until bacteremia has resolved. 4. Dyslipidemia, chronic. 5. Hypertension. Controlled on Lisinopril. 6. History of Clostridium (C.) difficile. On tapering dose of vancomycin. MTDD
[2019-05-15] MEDS ORDERED: NS 1,000 ML IV ONE (13:15)
[2019-05-15] MEDS ORDERED: MIDAZOLAM INJ 2 MG/2 ML VIAL (J2250) As Ordered ONE (13:33)
[2019-05-15] MEDS ORDERED: LIDOCAINE VISCOUS 2% SOLN 15ML UDC As Ordered ONE (13:37)
[2019-05-15 13:40] LABS: BLOOD UREA NITROGEN 5 MG/DL (7-18); CALCIUM LEVEL 8.1 MG/DL (8.5-10.1); CARBON DIOXIDE LEVEL 31 MEQ/L (21-32); CHLORIDE LEVEL 100 MEQ/L (98-107); CREATININE FOR GFR 0.53 MG/DL (0.70-1.30); GLOMERULAR FILTRATION RATE > 60.0 (>56); GLUCOSE, FASTING 97 MG/DL (70-100); POTASSIUM SERUM 4.1 MEQ/L (3.5-5.1); SODIUM LEVEL 134 MEQ/L (136-145)
[2019-05-15 14:21] LABS: HEMATOCRIT 33.3 % (42.0-52.0); HEMOGLOBIN 10.9 g/dl (13.5-17.5); MEAN CORPUSCULAR HGB CONC 32.7 g/dl (32.0-36.5); MEAN CORPUSCULAR VOLUME 91.7 fl (80.0-96.0); PLATELET COUNT, AUTOMATED 293 10^3/uL (150-450); RED BLOOD COUNT 3.63 10^6/uL (4.30-6.10); WHITE BLOOD COUNT 12.9 10^3/uL (4.0-10.0)
[2019-05-15] MEDS ORDERED: LIDOCAINE VISCOUS 2% SOLN 15ML UDC MT ONE (14:45)
[2019-05-15] MEDS ORDERED: MIDAZOLAM INJ 2 MG/2 ML VIAL (J2250) IV ONE ×2 (14:45)
--- NOTE | 2019-05-15 14:50 | IPNPDOC ---
Date Seen The patient was seen on 05/15/19. Progress Note Per Sampler Ovens, Dr. Grider, NORMAL TRANSESOPHAGEAL ECHOCARDIOGRAM. NO VEGETATIONS. PLAN: Line sepsis from infusaport -2weeks antibiotics -infusaport discontinued -due to poor iv access , left IJ triple lumen placed 05/03/19 before negative blood cultures. -ID consulted to decide if ok to leave left IJ triple lumen to complete 14 days iv abx for line infection, or if left IJ triple lumen catheter also needs to be removed until repeat blood cultures are negative. VS, I&O, 24H, Fishbone Vital Signs/I&O Vital Signs Date Time Temp Pulse Resp B/P (MAP) Pulse Ox O2 Delivery O2 Flow Rate FiO2 05/15/19 14:30 121 16 114/71 (85) 93 Room Air 05/15/19 14:25 2 05/15/19 06:00 97.6 I&O- Last 24 Hours up to 6 AM 05/15/19 06:00 Intake Total 1680 ml Output Total 1975 ml Balance -295 ml Laboratory Data 24H LABS Laboratory Tests 2 05/14/19 16:29: Bedside Glucose (Misc Panel) 176H 05/14/19 20:00: C-Reactive Protein, Quantitative 9.04H 05/14/19 20:32: Bedside Glucose (Misc Panel) 163H 05/15/19 06:10: Bedside Glucose (Misc Panel) 95 05/15/19 10:21: Nucleated Red Blood Cells % (auto) 0.0, Erythrocyte Sedimentation Rate 81H, Anion Gap 3L, Glomerular Filtration Rate > 60.0, Calcium Level 8.1L, C-Reactive Protein, Quantitative 8.41H 05/15/19 11:06: Bedside Glucose (Misc Panel) 94 CBC/BMP Laboratory Tests 05/15/19 10:21 Microbiology Microbiology 05/15/19 Blood Culture, Received Pending 05/15/19 Blood Culture, Received Pending 05/12/19 Gram Stain - Final, Complete 05/12/19 Bacterial Culture - Final, Complete Staphylococcus Epidermidis 05/12/19 Anaerobic Culture - Final, Complete 05/12/19 Blood Culture - Preliminary, Resulted No Growth after 72 hours. All specime... 05/10/19 Blood Culture - Final, Complete Staphylococcus Aureus 05/10/19 Blood Culture - Final, Complete Staphylococcus Aureus 05/10/19 Respiratory Virus Panel (PCR) ([facility]) - Final, Complete 05/10/19 Blood Culture - Final, Complete Staphylococcus Aureus MARTHA RIVERA MD May 15, 2019 14:50
--- NOTE | 2019-05-15 15:38 | T-ECHO ---
DATE OF STUDY: 05/15/2019 REFERRING PHYSICIAN: Dr. Kathya Che PROCEDURE PERFORMED: Transesophageal echocardiogram. INDICATION: Methicillin-sensitive Staphylococcus aureus bacteremia. PREPROCEDURE DIAGNOSIS: Methicillin-sensitive Staphylococcus aureus bacteremia. POSTPROCEDURE DIAGNOSIS: Methicillin-sensitive Staphylococcus aureus bacteremia. PRINCIPAL FINDINGS: Normal transesophageal echocardiogram. No vegetations. PROCEDURE PERFORMED BY: Endy Alvares MD FAST FOOD RESTAURANT MANAGER: None. IV SEDATION: Midazolam 4 mg IV. COMPLICATIONS: None. PROCEDURE DESCRIPTION: The patient received viscus lidocaine to gargle. He received a total of midazolam 4 mg IV for IV sedation. The patient tolerated the procedure well without any immediate complications. Rhythm was sinus tachycardia. Esophageal intubation using 3D Elsa transesophageal echocardiogram probe was accomplished without difficulty by Dr. Alvares. The left and right ventricles appeared normal in size and systolic function and without regional wall motion abnormalities. Left ventricular ejection fraction was 65% by visual estimate. All the cardiac valves were structurally and functionally normal. Trace mitral regurgitation and trace pulmonic regurgitation were present and within normal limits. No aortic regurgitation. No vegetations in any of the cardiac valves. Atrial septum was intact anatomically and by color flow Doppler. Pulmonary venous connections to the left atrium were normal. Normal pulse wave Doppler of the left upper pulmonary vein. No pericardial effusion. Distal aortic arch and descending thoracic aorta were normal. CONCLUSIONS: 1. Normal transesophageal echocardiogram. 2. No vegetations on any of the cardiac valves.
[2019-05-15] MEDS ORDERED: VANCOMYCIN ORAL SOL 250MG/5ML ORAL SYRINGE PO SCH (17:15)
--- NOTE | 2019-05-15 19:16 | REPVR ---
PROCEDURE INFORMATION: Exam: US Left Non-Vascular Joint or Other Extremity Structure, Limited Upper Extremity Exam date and time: 05/15/2019 6:53 PM Age: 59 years old Clinical indication: Pain; Shoulder; Left; Additional info: Left shoulder swelling / infected bursa? ? ? TECHNIQUE: Imaging protocol: Left US Non-Vascular Joint or Other Extremity Structure. Limited exam of the upper extremity. COMPARISON: US EXTREMITY NON VASCUL LIMITED 05/11/2019 12:40 PM FINDINGS: Soft tissues: Unremarkable. No loculated collections. Bones/joints: Visualized anterior interface of the osseous structures unremarkable. IMPRESSION: Minimal fluid adjacent to the long head of the biceps tendon may indicate a small glenohumeral joint effusion versus synovitis. Biceps tendon intact. Electronically signed by: Kimani Andujar On 05/15/2019 19:15:50 PM
--- NOTE | 2019-05-15 21:00 | IPN ---
DATE: 05/15/2019 INFECTIOUS DISEASE PROGRESS NOTE Abraham is examined at bedside, is feeling much better overall, however is having severe left shoulder pain, gradually worsening the last few days. He has otherwise remained afebrile and underwent a CADEN today. Denies any fevers, chills, cough, chest pain, shortness of breath, sputum production, or any abdominal pain. Tolerating medications well. PHYSICAL EXAMINATION: Temperature 98.1, maximum temperature (T-max) last 24 hours is 98.1, pulse 120, respirations 16, blood pressure 142/64, mean arterial pressure (MAP) 90, pulse oximetry 96% on room air. He is laying comfortably in bed, no acute distress, alert and oriented times three, appropriately conversant. Head: Normocephalic, atraumatic. Extraocular muscles intact. Moist mucous membranes. Neck: Supple with left internal jugular (IJ) central line in place. Heart: Regular rhythm with borderline tachycardia on exam with no appreciable murmurs. Trace peripheral edema in lower extremities bilaterally. [id number] in the right upper chest was removed this past weekend due to concern of infection. Lungs: Rales in the right lower base. Equal chest rise bilaterally. No wheezing, rhonchi, or rales in the other lung [place]. No accessory muscle use. Abdomen: Soft with normoactive bowel sounds, nontender, nondistended. Musculoskeletal: Strength intact, however limited range of motion of the left arm due to shoulder pain. No visible crepitus or effusion or any red, hot, swollen joints. Neurologic: No focal deficits. Zhu intact from prior days. Skin: No visible rashes or lesions. Small, 2-3 mm, round, purple, healing wound on the left antecubital region, unchanged from prior days. This is where prior cultures grew Staphylococcus aureus. LABORATORY DATA: WBC 12.9, hemoglobin and hematocrit 10.9 and 33.3, platelets 203, ESR up from 65 to 81, CRP down from 9 to 8.4, sodium and potassium 134 and 4.1, BUN and creatinine 5 and 0.53. Repeat blood cultures from today are pending. IMPRESSION/PLAN: 59-year-old gentleman with active stage IV metastatic colon adenocarcinoma on chemotherapy presented with generalized weakness and nausea, found to have methicillin-sensitive Staphylococcus aureus (MSSA) bacteremia, most likely site from his left antecubital fossa from where initial culture first was positive for Staphylococcus aureus and thereafter found to have MSSA bacteremia. 1. Uncomplicated Staphylococcus bacteremia. Initial transthoracic echo was negative for any valvular disease or vegetation and he continues to be febrile. He has undergone a CADEN today. The official report is pending, however after discussions with cardiology they report no vegetations or lesions on CADEN. Given this, will continue his IV antibiotics for a total of 2 weeks from his most recent negative culture, thus his end date will be 05/26/2019. Consider peripherally inserted central catheter (PICC) line versus midline as he nears discharge. Avoid any re-insertions of an Igzftz-h-Jzoc at this time until his blood infection clears. Continue cefazolin, currently day #3. Repeat blood cultures from today are pending, followup on these. 2. Likely septic thrombophlebitis of the left cephalic vein. This is where his cultures were first positive for MSSA on 05/04/2019. His Lanvax-g-Iebk tip culture is likely contaminated and grew Staphylococcus epidermidis. Thus, that was likely not the source of his bacteremia, making clinical suspicion stronger for this left arm wound being the source. 3. Clostridium (C) difficile colitis, recently diagnosed 04/29/2019. Continue by mouth vancomycin, currently being day #7 of his hospitalization on this vancomycin. We will decrease the dose to twice a day to make it as a preventative dosing and we will continue this for an additional week after his IV cefazolin is completed given he is immunocompromised and high risk for recurrent C. difficile. Monitor for diarrhea. At this point, he is doing well on current medications. 4. Influenza A, diagnosed 04/28/2019. He just completed a course of Tamiflu. Continue supportive care for his post-residual cough. Encourage incentive spirometry, ambulation, especially in light of atelectasis noted on recent imaging. 5. Left shoulder increasing pain. Most recent MRI of the shoulder on 05/11/2019 was negative for osteomyelitis or septic arthritis. Found some osteoarthritic hypertrophy. There is tendinosis in the distal supraspinatus noted on the image, as well as subacromial subdeltoid bursal fluid. Will recommend following up with an ultrasound to reassess this effusion and rule out septic joint versus worsening inflammatory changes. Consider orthopaedic consult pending the imaging. 6. Protein calorie malnutrition. Patient has active cancer, is actively being treated with chemotherapy. He has low albumin, decreased appetite, and positive for weight loss over the past 3 years. Consider supplementing nutritional drinks. My faculty preceptor for this patient encounter was physically present during the encounter and was fully available. All aspects of the patient interview, examination, medical decision making process, and medical care plan development were reviewed and approved by the faculty preceptor. The faculty preceptor is aware and concurs with the plan as stated in the body of this note and will attest to such by her cosignature. MELYSSA
[2019-05-15] MEDS: ACETAMINOPHEN 500 MG TAB PO SCH (21:17)
[2019-05-15] MEDS: ATORVASTATIN 10 MG TAB PO SCH (21:17)
[2019-05-16 02:00] VITALS: BP 125/76
[2019-05-16 06:00] VITALS: BP 133/87
[2019-05-16] MEDS: ceFAZolin SOD 2 GM in IV 1 EA IV SCH ×3 (06:36→22:02)
[2019-05-16] MEDS: SODIUM CHLORIDE 0.9% INJ 10 ML SYR IV SCH ×3 (06:36→22:03)
[2019-05-16 06:49] LABS: BASO # 0.1 10^3/uL (0.0-0.2); BASO % 0.4 % (0.0-1.0); EOS # 0.2 10^3/uL (0.0-0.5); EOS % 2.1 % (0.0-3.0); HEMATOCRIT 31.6 % (42.0-52.0); HEMOGLOBIN 10.4 g/dl (13.5-17.5); LYMPH # 1.4 10^3/uL (1.5-5.0); MEAN CORPUSCULAR HEMOGLOBIN 30.5 pg (27.0-33.0); MEAN CORPUSCULAR HGB CONC 32.9 g/dl (32.0-36.5); MEAN CORPUSCULAR VOLUME 92.7 fl (80.0-96.0); MONO # 1.1 10^3/uL (0.0-0.8); MONO % 9.1 % (0.0-5.0); NEUTROPHILS # 8.7 10^3/uL (1.5-8.5); NEUTROPHILS % 74.9 % (36.0-66.0); PLATELET COUNT, AUTOMATED 277 10^3/uL (150-450); RED BLOOD COUNT 3.41 10^6/uL (4.30-6.10); WHITE BLOOD COUNT 11.7 10^3/uL (4.0-10.0)
[2019-05-16 07:15] LABS: BLOOD UREA NITROGEN 6 MG/DL (7-18); CALCIUM LEVEL 8.1 MG/DL (8.5-10.1); CARBON DIOXIDE LEVEL 27 MEQ/L (21-32); CHLORIDE LEVEL 103 MEQ/L (98-107); CREATININE FOR GFR 0.45 MG/DL (0.70-1.30); GLOMERULAR FILTRATION RATE > 60.0 (>56); GLUCOSE, FASTING 102 MG/DL (70-100); POTASSIUM SERUM 4.1 MEQ/L (3.5-5.1); SODIUM LEVEL 138 MEQ/L (136-145)
[2019-05-16] MEDS ORDERED: CEFA2PLA4 IV (07:37)
[2019-05-16] MEDS: HumaLOG INSULIN (NovoLOG) PER UNIT SC SCH ×4 (09:06→21:00)
[2019-05-16] MEDS: lisinopriL 20 MG TAB PO SCH (09:07)
[2019-05-16] MEDS: PERCOCET 5MG/325MG TAB PO PRN ×3 (09:07→22:03)
[2019-05-16] MEDS: VITAMIN D 1,000 INTERNATIONAL UNITS TABLET PO SCH (09:07)
[2019-05-16] MEDS: APIXABAN 5 MG TAB (ELIQUIS) PO SCH ×2 (09:07→22:01)
[2019-05-16] MEDS: GABAPENTIN 300 MG CAP PO SCH ×3 (09:07→22:01)
[2019-05-16] MEDS: FAMOTIDINE 20 MG TAB PO SCH ×2 (09:07→22:01)
[2019-05-16] MEDS: DICLOFENAC EPOLAMINE 1.3 % PATCH TOP SCH ×2 (09:08→22:02)
[2019-05-16 10:00] VITALS: BP 122/78
[2019-05-16] MEDS ORDERED: [UNRECOGNIZED DRUG - CODE] IV (12:56)
--- NOTE | 2019-05-16 13:06 | IPN ---
DATE: 05/16/2019 Patient denies any fever or chills. No cough, shortness of breath (SOB), chest pain, pressure or tightness, nausea, vomiting, diarrhea, abdominal pain. Temperature 96.4, pulse 106, sinus tachycardia, respiratory rate 21, blood pressure 122/78, 95% on room air. Generally, patient is awake, alert and oriented to person, place and time, answering questions appropriately. Anicteric, no jaundice. Moist mucous membranes. No jugular venous distention (JVD). Left internal jugular (IJ) noted. No erythema, tenderness or swelling. Lungs clear to auscultation. No wheezing, rales or rhonchi. Heart S1, S2 sinus tachycardia, nondisplaced point of maximal impulse (PMI). Abdomen is obese, soft, nontender, nondistended. Extremities no cyanosis, clubbing. Skin warm, dry and well perfused. LABORATORY DATA:: White count 11.7, hemoglobin 10, hematocrit 31, platelet count 277. Sodium 138, potassium 4, chloride 103, bicarb 27, BUN 6, creatinine 0.4, glucose 102. Microbiology: 05/09 blood culture Staphylococcus Aureus, 05/11 one of two sets Staphylococcus epidermidis, 05/14 no growth after 24 hours, 05/15 blood culture is pending. Extremity ultrasound 05/14 minimal fluid adjacent to long head of the biceps tendon, may indicate a small glenohumeral joint effusion versus synovitis. ASSESSMENT/PLAN: This is a 59-year-old male with history of metastatic colon cancer on chemotherapy, diabetic, hypertension, hyperlipidemia, has an Infusaport when he presented to the emergency room with complaints of left shoulder pain and chest pain. Blood culture grew out methicillin-sensitive Staphylococcus aureus (MSSA). Repeat blood culture on 05/11 grew out Staphylococcus epidermidis, most likely a contaminant. Repeat blood cultures on 05/14 are negative for 24 hours. Transesophageal echocardiogram (CADEN) was negative for endocarditis. ID consulted for line sepsis management. To complete IV cefazolin every 8 hours until 05/26/2019. IMPRESSION: 1. MSSA line sepsis secondary to Infusaport, which has been discontinued. Infusaport was discontinued on 05/12 and left IJ triple lumen catheter was placed due to a lack of IV access. Still with potential for line infection with new left IJ triple lumen catheter. Infectious disease specialist recommended discontinuation of left IJ triple lumen at hospital discharge and placement of a PICC line and to complete antibiotics for a total of 14 days from negative cultures. Patient is not to have an Infusaport placed for chemotherapy until five days of completion of antibiotics and negative repeat blood cultures. 2. Dyslipidemia. Chronic. 3. Hypertension. Controlled on lisinopril. 4. History of C. difficile currently on tapering dose of vancomycin. DISPOSITION: Patient and family services (PFS) to arrange for home care referral as well as IV antibiotics every 8 hours. Per infectious disease, line sepsis cannot be under treated and requires every 8 hours dosing. No changes to be made. Once home care and antibiotics are approved, the patient may be discharged at any time. UZIELD
[2019-05-16] MEDS: ACETAMINOPHEN TAB 650MG DOSE (2X325MG) PO PRN (13:38)
[2019-05-16 14:00] VITALS: BP 120/78
[2019-05-16] MEDS ORDERED: ELIQ5TAB PO (14:20)
[2019-05-16] MEDS ORDERED: VANC1CAP7 PO (14:27)
[2019-05-16 18:00] VITALS: BP 120/77
[2019-05-16] MEDS: ACETAMINOPHEN 500 MG TAB PO SCH (21:00)
[2019-05-16 22:00] VITALS: BP 118/80
[2019-05-16] MEDS: ATORVASTATIN 10 MG TAB PO SCH (22:01)
[2019-05-16] MEDS: SODIUM CHLORIDE 0.9% INJ 10 ML SYR IV PRN (23:07)
[2019-05-17] MEDS: SODIUM CHLORIDE 0.9% INJ 10 ML SYR IV SCH (05:42)
[2019-05-17] MEDS: PERCOCET 5MG/325MG TAB PO PRN ×2 (05:58→12:10)
[2019-05-17 06:00] VITALS: BP 122/82
[2019-05-17] MEDS: ceFAZolin SOD 2 GM in IV 1 EA IV SCH (06:00)
[2019-05-17 06:12] LABS: BASO # 0.1 10^3/uL (0.0-0.2); BASO % 0.5 % (0.0-1.0); EOS # 0.3 10^3/uL (0.0-0.5); EOS % 2.2 % (0.0-3.0); HEMATOCRIT 31.1 % (42.0-52.0); HEMOGLOBIN 10.1 g/dl (13.5-17.5); LYMPH # 1.5 10^3/uL (1.5-5.0); LYMPH % 13.2 % (24.0-44.0); MEAN CORPUSCULAR HEMOGLOBIN 30.5 pg (27.0-33.0); MEAN CORPUSCULAR HGB CONC 32.5 g/dl (32.0-36.5); MONO # 0.9 10^3/uL (0.0-0.8); MONO % 8.2 % (0.0-5.0); NEUTROPHILS # 8.2 10^3/uL (1.5-8.5); NEUTROPHILS % 73.7 % (36.0-66.0); PLATELET COUNT, AUTOMATED 306 10^3/uL (150-450); RED BLOOD COUNT 3.31 10^6/uL (4.30-6.10); WHITE BLOOD COUNT 11.1 10^3/uL (4.0-10.0)
[2019-05-17 06:19] LABS: BLOOD UREA NITROGEN 7 MG/DL (7-18); C REACTIVE PROTEIN QUANTITATIV 5.43 MG/DL (0.00-0.30); CARBON DIOXIDE LEVEL 29 MEQ/L (21-32); CHLORIDE LEVEL 101 MEQ/L (98-107); CREATININE FOR GFR 0.52 MG/DL (0.70-1.30); GLOMERULAR FILTRATION RATE > 60.0 (>56); GLUCOSE, FASTING 101 MG/DL (70-100); POTASSIUM SERUM 4.2 MEQ/L (3.5-5.1); SODIUM LEVEL 135 MEQ/L (136-145)
[2019-05-17 06:36] LABS: ERYTHROCYTE SEDIMENTATION RATE > 140 mm/hr (0-20)
[2019-05-17] MEDS: SODIUM CHLORIDE 0.9% INJ 10 ML SYR IV PRN (06:54)
--- NOTE | 2019-05-17 07:56 | DS.PDOC ---
Discharge Summary General Date of Admission May 11, 2019 at 13:11 Date of Discharge May 17, 2019 Discharge Summary DISCHARGE DIAGNOSES: MSSA bacteremia from infusaport line sepsis septic thrombophlebitis of the left cephalic vein- positive for MSSA on 05/04/2019. Venous thrombosis of the left cephalic vein. small left glenohumeral joint effusion versus synovitis. Clostridium (C) difficile colitis,diagnosed 04/29/2019. Influenza A, diagnosed 04/28/2019. stage 4 metastatic colon cancer on chemotherapy type 2 diabetes hypertension hyperlipidemia DISCHARGE MEDICATIONS: pls see below PROCEDURES DURING THIS ADMISSION: 05/12/19 REMOVAL OF INFUSAPORT 05/12/19 LEFT INTERNAL JUGULAR VEIN CENTRAL VENOUS CATHETER DUE TO POOR IV ACCESS 05/17/19 REMOVAL OF LEFT IJ CVC 05/17/19 PICC LINE PLACEMENT FOR IV CEFAZOLIN UNTIL 05/26/19 CONSULTANTS DURING THIS ADMISSION: GENERAL SURGERY: DR. BULL-REMOVAL OF INFUSAPORT/LEFT IJ CVC PLACEMENT INFECTIOUS DISEASE: DR. BAILEY DISCHARGE INSTRUCTIONS: (1) MSSA LINE SEPSIS/BACTEREMIA-to complete iv cefazolin 6g iv q24hrs until 05/26/19. sherron Bailey in 1-2 wks, weekly cbc w diff, mp, esr, crp, repeat blood cx on completion of antibiotics. (2)Clostridium (C) difficile colitis,diagnosed 04/29/2019. Due to high risk of recurrent Cdiff infection, ID recommended continuation of vancomycin po 250 mg bid until 06/02/19 , 7days after completion of antibiotics. (3)stage 4 metastatic colon cancer. sherron Enriquez in 1-2wks. Pt is to have repeat blood cultures after completing cefazolin, and infusaport for chemo is not to be inserted until 5 days of negative cultures from completion of antibiotics, or until after June 07, 2019. (4) small left glenohumeral joint effusion versus synovitis. Primary care physician to refer to orthopedic surgery within 1-2wks of discharge. HOSPITAL COURSE: This is a 59-year-old male with history of stage 4 metastatic colon cancer on chemotherapy seen at the [facility] by Dr. Enriquez, type 2 diabetic, hypertension, hyperlipidemia, had an Infusaport when he presented to the emergency room with complaints of left shoulder pain and chest pain. Ct chest: no PE, PNA, or effusion. Blood culture grew out methicillin-sensitive Staphylococcus aureus (MSSA). Repeat blood culture on 05/11 grew out Staphylococcus epidermidis, most likely a contaminant. Repeat blood cultures on 05/14 are negative for 24 hours. TTE negative. Transesophageal echocardiogram (CADEN) was negative for endocarditis. ID consulted for line sepsis management. To complete IV cefazolin every 8 hours until 05/26/2019. MSSA line sepsis secondary to Infusaport, which has been discontinued. on 05/12 and left IJ triple lumen catheter was placed due to a lack of IV access. Still with potential for line infection with new left IJ triple lumen catheter. Infectious disease specialist recommended discontinuation of left IJ triple lumen at hospital discharge and placement of a PICC line and to complete antibiotics for a total of 14 days from negative cultures. Patient is not to have an Infusaport placed for chemotherapy until five days of completion of antibiotics and negative repeat blood cultures. 2D echo was negative . Transthoracic Echocardiogram: NO vegetations. No endocarditis. To simplify his home antibiotic regimen, pt's cefazolin was changed to 6grams iv daily until 05/26/19. Due to high risk of recurrent Cdiff infection, ID recommended continuation of vancomycin po 250 mg bid until 06/02/19 , 7days after completion of antibiotics. Pt is to have repeat blood cultures after completing cefazolin, and infusaport for chemo is not to be inserted until 5 days of negative cultures from completion of antibiotics, or until after June 07, 2019. Dyslipidemia. Chronic. Hypertension. Controlled on lisinopril. History of C. difficile currently on tapering dose of vancomycin down ton 250 mg bid to be completed 7days after iv abx are done on May. DISCHARGE PHYSICAL EXAMINATION: VITALS: PLS SEE BELOW Generally, patient is awake, alert and oriented to person, place and time, answering questions appropriately. Anicteric, no jaundice. Moist mucous membranes. No jugular venous distention (JVD). Left internal jugular (IJ) noted. No erythema, tenderness or swelling. Lungs clear to auscultation. No wheezing, rales or rhonchi. Heart S1, S2 sinus tachycardia, nondisplaced point of maximal impulse (PMI). Abdomen is obese, soft, nontender, nondistended. Extremities no cyanosis, clubbing. Skin warm, dry and well perfused. DISCHARGE LABORATORY DATA:: White count 11.7, hemoglobin 10, hematocrit 31, platelet count 277. Sodium 138, potassium 4, chloride 103, bicarb 27, BUN 6, creatinine 0.4, glucose 102. MICROBIOLOGY 05/09 blood culture Staphylococcus Aureus, 05/11 one of two sets Staphylococcus epidermidis, 05/14 no growth after 24 hours, 05/15 blood culture negative. 05/17/19 triplelumen cath tip pending. IMAGING STUDIES: PLS SEE BELOW CT PULMONARY ANGIOGRAM: With IV contrast. HISTORY: Left-sided chest pain and cough. COMPARISON STUDIES: Comparison study March 05, 2019. CONTRAST DOSE: 75 mL of Isovue [address] TECHNIQUE: Helical scanning is acquired and overlapping 1.5 mm and contiguous 3 mm axial images are reformatted. In addition, maximum intensity projection and multiplanar re-formation images are generated in sagittal and coronal imaging projections. CT PULMONARY ANGIOGRAPHIC FINDINGS: There is good opacification of the pulmonary arterial tree. There is no CT evidence of pulmonary embolus. There is no evidence of aortic aneurysm or dissection. No pleural or pericardial effusion is apparent. There is a right-sided Xqvaiq-N-Xgyd catheter in place with its tip in the SVC right atrial junction. No adrenal lesion is seen. There are two visible small low-density lesions in the liver which are unchanged from the March 05, 2019 CT study of the abdomen. Visualized upper abdominal structures are otherwise unremarkable. No hilar or mediastinal adenopathy is seen. The lung parenchyma is exposed at a lesser level of inspiration. There is discoid atelectasis in the left lower lobe and there are subsegmental atelectatic changes in the dependent portions of the lower lobes. No focal infiltrate is appreciated. No significant pulmonary nodule is visualized. No bony destructive lesion is seen. IMPRESSION: No CT evidence of pulmonary embolus. Discoid atelectasis left lower lobe. Too small hypodense nodules in the liver unchanged from recent prior CT study. No other acute abnormality. Electronically Signed by Angel Venegas MD 05/09/2019 04:51 P DD: Angel Venegas MD 05/09/19 1455 DT: ODILIA 05/09/19 6956 DS: MARQUISE 05/09/19 1651 05/09/19 1651 MRI LEFT SHOULDER WITHOUT CONTRAST: HISTORY: Concern for septic arthritis/osteomyelitis. No comparison radiographs. Comparison is made with images from chest CT May 09, 2019. TECHNIQUE: Axial, oblique coronal and oblique sagittal imaging planes utilized. T1- and T2-weighted scans were included with and without fat saturation. MRI FINDINGS: There is a mild subcortical cyst formation in the superolateral humeral head, which is a finding which may correlate with impingement. Otherwise, cortical and medullary bone signal intensity are normal. There is no evidence to suggest osteomyelitis. There is mild osteoarthritic hypertrophy at the acromioclavicular joint and a sliver of fluid is seen within the joint. No glenohumeral effusion is seen. Tendinosis/tendonitis change is seen in the distal supraspinatus tendon with no full-thickness cuff tear seen. No glenoid labral disruption is appreciated. Infraspinatus, subscapularis, and biceps tendons have an intact appearance. No juxta-articular cyst or mass is seen. IMPRESSION: No MR evidence of osteomyelitis or septic arthritis. Mild AC joint osteoarthritic hypertrophy. Tendinosis change in the distal supraspinatus tendon. Tiny sliver of subacromial subdeltoid bursal fluid. Electronically Signed by Angel Venegas MD 05/11/2019 03:51 P DD: Angel Venegas MD 05/11/19 1256 DT: ODILIA 05/11/19 1342 LEFT FOREARM SOFT TISSUE SONOGRAPHY WITH DOPPLER: HISTORY: Assess depth of left forearm abscess. FINDINGS: Soft tissue sonography of the left forearm show thrombosis of the distal segment of the cephalic vein. In the area of skin oozing, there is a small hypoechoic tract to the overlying skin. No abscess cavity is appreciated. IMPRESSION: Venous thrombosis of the left cephalic vein. A thin tract from the occluded cephalic vein is seen to the overlying skin in the area of skin oozing. No abscess cavity is appreciated. Electronically Signed by Angel Venegas MD 05/11/2019 03:51 P DD: Angel Venegas MD 05/11/19 1302 DT: ODILIA 05/11/19 1345 DS: MARQUISE 05/11/19 1551 05/11/19 1551 REASON: Placement of central venous catheter. COMPARISON: 05/09/2019 The right-sided central venous catheter has been removed. A left-sided internal jugular central venous catheter has been placed, the tip of which is in the left brachiocephalic vein at the junction of the superior vena cava. There is no pneumothorax. There is no significant change in the appearance of the lung [place] other than hypoexpansion seen today likely causing bibasilar subsegmental atelectatic change. There is no change in the osseous structures. IMPRESSION: As above. Unreviewed PROCEDURE INFORMATION: Exam: MR Head Without and With Contrast Exam date and time: 05/12/2019 6:41 PM Age: 59 years old Clinical indication: Alteration of consciousness and altered mental status/memory loss; Stupor; Confusion or disorientation; Patient HX: PT has brief moments of confusion and slurred speech, blood infection, sepsis from port/removal. Nki, no priors of brain, PT was given 15cc prohance; Additional info: AMS, staph aureus bacteremia, immunocompromised TECHNIQUE: Imaging protocol: MR of the head without and with intravenous contrast. Contrast material: PROHANCE; Contrast volume: 15 ml; Contrast route: 20G CENTRAL LINE; COMPARISON: No relevant prior studies available. FINDINGS: Brain: Normal. No acute infarct. No hemorrhage. No significant white matter disease. No edema. No abnormal enhancement. Ventricles: Normal. No ventriculomegaly. Bones/joints: Unremarkable. Soft tissues: Unremarkable. Sinuses: Normal as visualized. No acute sinusitis. Mastoid air cells: Normal as visualized. No mastoid effusion. Orbits: Unremarkable. IMPRESSION: No acute intracranial abnormality. PROCEDURE INFORMATION: Exam: US Left Non-Vascular Joint or Other Extremity Structure, Limited Upper Extremity Exam date and time: 05/15/2019 6:53 PM Age: 59 years old Clinical indication: Pain; Shoulder; Left; Additional info: Left shoulder swelling / infected bursa? ? ? TECHNIQUE: Imaging protocol: Left US Non-Vascular Joint or Other Extremity Structure. Lmited exam of the upper extremity. COMPARISON: US EXTREMITY NON VASCUL LIMITED 05/11/2019 12:40 PM FINDINGS: Soft tissues: Unremarkable. No loculated collections. Bones/joints: Visualized anterior interface of the osseous structures unremarkable. IMPRESSION: Minimal fluid adjacent to the long head of the biceps tendon may indicate a small glenohumeral joint effusion versus synovitis. Biceps tendon intact. Electronically signed by: Kimani Anand On 05/15/2019 19:15:50 PM DD: KIMANI ANAND MD 05/15/191852 DT: MARY 05/15/191914 DS: DEBRA 05/15/191914 TRANSTHORACIC ECHOCARDIOGRAM: AGE: 59 GENDER: Male HEIGHT: 69 inches WEIGHT: 171 pounds BODY SURFACE AREA: 1.94 m2 PATIENT LOCATION: Inpatient, [address] [place] [address], room 4213 REFERRING PHYSICIAN: Dr. Ray Smiley INDICATION: Sepsis. 2-D MEASUREMENTS: RV: 3.8 cm LV: 4.9 cm Septum: 1.0 cm Posterior wall: 1.0 cm Aortic root: 3.2 cm LA: 3.6 cm LVEF: 75%. DOPPLER MEASUREMENTS: AV: 1.14 m/s LVOT: 0.91 m/s LVOT diameter; 1.9 cm MV-E: 54, A: 69, EA ratio: 0.8 Early mitral deceleration time: 203 ms E prime medial: 9.9 A prime medial: 12.7 E prime lateral: 8.9 PB: 0.8 m/s Pulmonary artery acceleration time: 100 ms RVSP: 40 mmHg IVC: 2.0 cm COMMENTS Normal sinus rhythm without intraventricular conduction disturbance. M-mode and two-dimensional echocardiography was performed with pulsed, continuous wave, color flow and tissue Doppler studies. Normal left ventricular size, wall thickness and hyperkinetic wall motion. Left atrial size upper limits of normal with grade 1 LV diastolic dysfunction, but normal estimated mean left atrial pressure. Normal right heart chamber sizes and motion with Doppler evidence of mild pulmonary hypertension. Normal IVC size, but slightly reduced respiratory collapse in keeping with a slightly elevated central venous pressure. Normal appearing valvular structures and function. Normal aortic dimensions. No apparent intracardiac mass or pericardial effusion. DD: Ruddy Yen MD, [facility] 05/11/191841 DT: [facility] 05/11/19 193 DS: DANIEL 05/13/19 1024 <Electronically signed by Ruddy Yen > 05/13/19 1024 DS2: TRANSESOPHAGEAL ECHOCARDIOGRAM: DATE OF STUDY: 05/15/2019 REFERRING PHYSICIAN: Dr. Martha Rivera PROCEDURE PERFORMED: Transesophageal echocardiogram. INDICATION: Methicillin-sensitive Staphylococcus aureus bacteremia. PREPROCEDURE DIAGNOSIS: Methicillin-sensitive Staphylococcus aureus bacteremia. POSTPROCEDURE DIAGNOSIS: Methicillin-sensitive Staphylococcus aureus bacteremia. PRINCIPAL FINDINGS: Normal transesophageal echocardiogram. No vegetations. PROCEDURE PERFORMED BY: Endy Alvares MD INTERIOR DESIGN DIRECTOR: None. IV SEDATION: Midazolam 4 mg IV. COMPLICATIONS: None. PROCEDURE DESCRIPTION: The patient received viscus lidocaine to gargle. He received a total of midazolam 4 mg IV for IV sedation. The patient tolerated the procedure well without any immediate complications. Rhythm was sinus tachycardia. Esophageal intubation using 3D Elsa transesophageal echocardiogram probe was accomplished without difficulty by Dr. Alvares. The left and right ventricles appeared normal in size and systolic function and without regional wall motion abnormalities. Left ventricular ejection fraction was 65% by visual estimate. All the cardiac valves were structurally and functionally normal. Trace mitral regurgitation and trace pulmonic regurgitation were present and within normal limits. No aortic regurgitation. No vegetations in any of the cardiac valves. Atrial septum was intact anatomically and by color flow Doppler. Pulmonary venous connections to the left atrium were normal. Normal pulse wave Doppler of the left upper pulmonary vein. No pericardial effusion. Distal aortic arch and descending thoracic aorta were normal. CONCLUSIONS: 1. Normal transesophageal echocardiogram. 2. No vegetations on any of the cardiac valves. DD: Endy Alvares MD [facility] 05/15/19 1448 DT: Pancho 05/15/19 1528 DS: ANTLENY 05/16/19 1016 <Electronically signed by Endy Alvares MD> 05/16/19 1016 DS2: TIME SPENT ON DISCHARGE: 30 MINUTES. Vital Signs/I&Os Vital Signs Date Time Temp Pulse Resp B/P (MAP) Pulse Ox O2 Delivery O2 Flow Rate FiO2 05/16/19 15:11 15 92 Room Air 05/16/19 14:00 96.8 116 120/78 (92) 05/16/19 06:00 2.0 I&O- Last 24 Hours up to 6 AM 05/16/19 06:00 Intake Total 1350 ml Output Total 1475 ml Balance -125 ml Laboratory Data Labs 24H Laboratory Tests 2 05/15/19 20:01: Bedside Glucose (Misc Panel) 191H 05/16/19 06:31: Immature Granulocyte % (Auto) 1.5, Neutrophils (%) (Auto) 74.9H, Lymphocytes (%) (Auto) 12.0L, Monocytes (%) (Auto) 9.1H, Eosinophils (%) (Auto) 2.1, Basophils (%) (Auto) 0.4, Neutrophils # (Auto) 8.7H, Lymphocytes # (Auto) 1.4L, Monocytes # (Auto) 1.1H, Eosinophils # (Auto) 0.2, Basophils # (Auto) 0.1, Nucleated Red Blood Cells % (auto) 0.0, Anion Gap 8, Glomerular Filtration Rate > 60.0, Calcium Level 8.1L 05/16/19 11:30: Bedside Glucose (Misc Panel) 117H 05/16/19 16:23: Bedside Glucose (Misc Panel) 133H CBC/BMP Laboratory Tests 05/16/19 06:31 FSBS Laboratory Tests Test 05/15/19 20:01 05/16/19 11:30 05/16/19 16:23 Range/Units Bedside Glucose (Misc Panel) 191 117 133 70-105 MG/DL Microbiology Microbiology 05/16/19 Blood Culture, Received Pending 05/16/19 Blood Culture, Received Pending 05/15/19 Blood Culture - Preliminary, Resulted No growth after 24 hours . All specim... 05/15/19 Blood Culture - Preliminary, Resulted No growth after 24 hours . All specim... 05/12/19 Gram Stain - Final, Complete 05/12/19 Bacterial Culture - Final, Complete Staphylococcus Epidermidis 05/12/19 Anaerobic Culture - Final, Complete 05/12/19 Blood Culture - Preliminary, Resulted No Growth after 72 hours. All specime... 05/10/19 Blood Culture - Final, Complete Staphylococcus Aureus 05/10/19 Blood Culture - Final, Complete Staphylococcus Aureus 05/10/19 Respiratory Virus Panel (PCR) (SHIRA) - Final, Complete 05/10/19 Blood Culture - Final, Complete Staphylococcus Aureus Discharge Medications Scheduled Acetaminophen (Tylenol Extra Strength) 500 Mg Tablet, 1,000 MG PO QHS, (Reported) Apixaban (Eliquis) 5 Mg Tablet, 5 MG PO BID Atorvastatin Calcium (Atorvastatin Calcium) 10 Mg Tab, 10 MG PO QHS, (Reported) Cefazolin Sodium in 0.9 % NaCl (Cefazolin 3 G/100 ml-0.9% NaCl) 3 Gm/100 Ml Piggyback, 6 INJ IV DAILY Cholecalciferol (Vitamin D3) (Vitamin D3) 1,000 Unit Tablet, 1,000 UNITS PO DAILY, (Reported) Diclofenac Sodium (Diclofenac Sodium) 1% 100GM Gel..gram., 1 APLCT TOP QID Gabapentin (Gabapentin) 300 Mg Capsule, 300 MG PO TID, (Reported) Lisinopril (Lisinopril) 20 Mg Tab, 20 MG PO DAILY, (Reported) Mupirocin (Mupirocin) 22 Gm Oint...g., 1 APLCT TOP TID, (Reported) APPLY TO LEFT ARM AT IV SITE Potassium Chloride (Potassium Chloride) 10 Meq Tab.er.prt, 10 MEQ PO DAILY, (Reported) Vancomycin HCl (Vancocin HCl) 250 Mg Capsule, 250 MG PO BID Scheduled PRN Ondansetron HCl (Ondansetron HCl) 8 Mg Tablet, 8 MG PO Q6H PRN for NAUSEA OR VOMITING, (Reported) Oxycodone HCl/Acetaminophen (Oxycodone-Acetaminophen 5-325) 1 Each Tablet, 1 TAB PO QIDP PRN for pain Allergies Coded Allergies: No Known Allergies (Unverified , 10/11/18) MARTHA RIVERA MD May 16, 2019 17:51
[2019-05-17] MEDS: GABAPENTIN 300 MG CAP PO SCH (07:59)
[2019-05-17] MEDS: FAMOTIDINE 20 MG TAB PO SCH (07:59)
[2019-05-17 08:00] VITALS: BP 122/82
[2019-05-17] MEDS: lisinopriL 20 MG TAB PO SCH (08:00)
[2019-05-17] MEDS: VITAMIN D 1,000 INTERNATIONAL UNITS TABLET PO SCH (08:00)
[2019-05-17] MEDS: DICLOFENAC EPOLAMINE 1.3 % PATCH TOP SCH (08:00)
[2019-05-17] MEDS: APIXABAN 5 MG TAB (ELIQUIS) PO SCH (08:00)
[2019-05-17] MEDS: HumaLOG INSULIN (NovoLOG) PER UNIT SC SCH ×2 (08:01→12:00)
[2019-05-17] MEDS: ACETAMINOPHEN TAB 650MG DOSE (2X325MG) PO PRN (09:46)
[2019-05-17] MEDS ORDERED: LIDOCAINE 1% MDV 20ML VIAL As Ordered ONE (10:51)
[2019-05-17] MEDS ORDERED: VANC250C3 PO (10:52)
[2019-05-17] MEDS ORDERED: DICL1PAT TOP (10:52)
[2019-05-17] MEDS ORDERED: DICL1GEL3 TOP (10:55)
[2019-05-17] MEDS ORDERED: PERCOCET PO (10:55)
[2019-05-17 11:28] VITALS: BP 118/72
--- NOTE | 2019-05-17 17:43 | REP ---
PICC line insertion under ultrasound guidance. The procedure was performed by HODA Thomason, under the direct supervision of Dr. Armstrong. The risks and benefits of the procedure were explained to the patient and informed consent was obtained both verbally and written. Directly prior to the start of the procedure, a formal timeout was completed in the procedure room. The right basilic vein was localized using ultrasound guidance. The skin was prepped and draped in the sterile fashion. 1 ml 1% lidocaine 10 mg/ml was used as a local anesthetic. Using ultrasound guidance the right basilic vein was cannulated and a 0.018 guidewire was inserted and advanced to the SVC using fluoroscopic guidance. The needle was removed and a 4.5 Slovak dilator and peel-away sheath was inserted over the guidewire. A 4.5 Slovak single lumen catheter was cut to the length of 40 cm. The dilator was removed and the catheter was inserted over the guide wire with the tip ending in the SVC. The peel-away sheath was removed and the catheter was flushed with heparinized saline as per hospital protocol. The catheter was affixed to the skin and a sterile dressing was applied. The patient tolerated the procedure well and there were no immediate complications. 1.1 minutes of fluoroscopy time was utilized for this procedure. Some fluoroscopic images are performed with last image hold technology. These images require no additional radiation. Reviewed by HODA Rose 05/17/2019 11:34 A Electronically Signed by Jeronimo Armstrong MD 05/17/2019 05:35 P
--- NOTE | 2019-06-07 08:55 | ROOPDOC ---
[facility] Report Of Operation Report of Operation DATE OF PROCEDURE: 06/07/19 PREPROCEDURE DIAGNOSES: suspected central line infection, lack of peripheral venous access POSTPROCEDURE DIAGNOSES: same. PROCEDURE: Insertion of left IJ triple lumen catheter under ultrasound guidance, removal of right IJ infusaport. SURGEON: Clayton Paul MD TRANSLITERATOR: ANESTHESIA: Monitored Anesthesia care, local anesthesia with 1% lidocaine mixed with 1/4% marcaine. ESTIMATED BLOOD LOSS: Approximately 10 mL. COMPLICATIONS: none. PROCEDURE NOTE: Patient has had positive blood cultures for Staphylococcus epidermidis with negative workup as to the source. He has a long-standing Dljfni-p-Uvkp placed in the right side for his chemotherapy and this is being suspected to be the source of infection and thus I was asked to remove the port. Patient does not have any peripheral access despite multiple attempts by anesthesia. Thus it was decided to put a temporary triple-lumen catheter on the left side prior to removal of his Vmpmzh-m-Gljc. DESCRIPTION OF PROCEDURE: Patient is currently receiving vancomycin IV and scheduled doses for his positive blood culture. This is continued perioperatively in his usual scheduled doses. Anesthesia attempted to place peripheral IV while in the preoperative holding area with no success. I discussed with the patient placement of a in addition to the planned removal of his Kcnokd-f-Gcsg. He was brought to the operating room, laid supine on the table his left arm was tucked. Compression boots placed on both lower extremities were DVT prophylaxis. Monitored anesthesia care including IV sedation was started.We paused for a surgical timeout using both pre-incision safety checklist to verify correct patient, procedure site and additional clinical information prior to beginning the procedure Using a sterile line bundle, his left neck chest, shoulder and upper arms were prepped and draped in usual sterile fashion. I used an ultrasound to locate the course of his internal jugular vein. He was placed in slight Trendelenburg position. An anterior approach to the right IJ was used with entry to the right IJ using the 18-gauge finder needle visualized under ultrasound. Using modified Seldinger technique, the guidewire was threaded through the needle and later on exchange for a triple lumen catheter which was placed at 21 cm at the skin edge. All ports were tested and noted to be aspirating and flushing well. This was secured to the skin and antibiotic containing occlusive dressing was placed. I then switched to the other side, the right chest was prepped and draped in usual sterile fashion. I used a mixture of 1% lidocaine and 1/4% Marcaine to do a field block around the right anterior chest Kzbgco-k-Evzs. The previous transverse incision was opened up and this was deepened through to the subcutaneous tissue in the capsule containing the Ividnu-q-Hzvr. Using a perforating towel clip the port was delivered outside of the capsule and the securing Prolene sutures were cut off. The catheter was removed while placing pressure on the right IJ. The tip of the catheter was sent for microbiology. After maintaining pressure for roughly about 2 minutes, we checked for adequate hemostasis. Once assured of the subcutaneous tissue Was Closed with 3-0 Vicryl and the Skin Was Closed with 4-0 Nylon in a subcuticular fashion. Patient tolerated procedure well. This promptly awakened, transferred to the stretcher and brought to recovery room in stable condition. CLAYTON PAUL MD Jun 07, 2019 08:54
== END 2019-05-17 13:53 | disposition home health service (06) | DRG 314 ==
LOC: M ED 11:32 → M ED INP 11:33 → ENRESERV 18:29 → M MSPAV 19:01 → OBSVTOIN 05-11 13:11
PROVIDERS: ADMIT Internal Medicine; ATTEND General Practice
PROC: 05HN33Z Insertion of Infusion Device into Left Internal Jugular Vein, Percutaneous Approach (ICD-10-PCS; 2019-05-12)
PROC: 02PY33Z Removal of Infusion Device from Great Vessel, Percutaneous Approach (ICD-10-PCS; 2019-05-12)
PROC: B246ZZ4 Ultrasonography of Right and Left Heart, Transesophageal (ICD-10-PCS; 2019-05-15)
PROC: 02HV33Z Insertion of Infusion Device into Superior Vena Cava, Percutaneous Approach (ICD-10-PCS; principal; 2019-05-17 11:00)
DX: T80.211A Bloodstream infection due to central venous catheter, initial encounter (principal); A41.01 Sepsis due to Methicillin susceptible Staphylococcus aureus; I82.612 Acute embolism and thrombosis of superficial veins of left upper extremity; C18.9 Malignant neoplasm of colon, unspecified; E46 Unspecified protein-calorie malnutrition; C79.9 Secondary malignant neoplasm of unspecified site; E78.5 Hyperlipidemia, unspecified; I10 Essential (primary) hypertension; E11.51 Type 2 diabetes mellitus with diabetic peripheral angiopathy without gangrene; M25.412 Effusion, left shoulder; Z79.899 Other long term (current) drug therapy; Z79.4 Long term (current) use of insulin; Y83.8 Other surgical procedures as the cause of abnormal reaction of the patient, or of later complication, without mention of misadventure at the time of the procedure

== ENCOUNTER → 2019-05-22 | Outpatient (REF) | payer OTHER ==
[~2019-05-22] MED LIST changes: +CEFA2PLA4 IV; +DICL1GEL3 TOP; +DICL1PAT TOP; +ELIQ5TAB PO; +ERBI200I IV; +IRIN300V IV; +OXYC1TAB23 PO; +PERCOCET PO; +VANC1CAP7 PO; +VANC250C3 PO; +[UNRECOGNIZED DRUG - CODE] IV; +[UNRECOGNIZED DRUG - CODE] IV; +[UNRECOGNIZED DRUG - CODE] IV
[2019-05-22 14:46] LABS: HEMATOCRIT 32.5 % (42.0-52.0); HEMOGLOBIN 10.4 g/dl (13.5-17.5); MEAN CORPUSCULAR HEMOGLOBIN 30.1 pg (27.0-33.0); MEAN CORPUSCULAR VOLUME 94.2 fl (80.0-96.0); PLATELET COUNT, AUTOMATED 649 10^3/uL (150-450); RED BLOOD COUNT 3.45 10^6/uL (4.30-6.10); WHITE BLOOD COUNT 12.9 10^3/uL (4.0-10.0)
[2019-05-22 15:02] LABS: ALBUMIN 2.3 GM/DL (3.2-5.2); ALT/SGPT 12 U/L (12-78); BILIRUBIN,TOTAL 0.3 MG/DL (0.2-1.0); BLOOD UREA NITROGEN 8 MG/DL (7-18); C REACTIVE PROTEIN QUANTITATIV 1.75 MG/DL (0.00-0.30); CALCIUM LEVEL 8.6 MG/DL (8.5-10.1); CARBON DIOXIDE LEVEL 30 MEQ/L (21-32); CHLORIDE LEVEL 98 MEQ/L (98-107); CREATININE FOR GFR 0.55 MG/DL (0.70-1.30); GLOMERULAR FILTRATION RATE > 60.0 (>56); GLUCOSE, FASTING 162 MG/DL (70-100); POTASSIUM SERUM 4.7 MEQ/L (3.5-5.1); SODIUM LEVEL 132 MEQ/L (136-145); TOTAL PROTEIN 6.6 GM/DL (6.4-8.2)
[2019-05-22 15:07] LABS: ERYTHROCYTE SEDIMENTATION RATE 118 mm/hr (0-20)
== END ==
LOC: M SHH 14:23
PROVIDERS: ATTEND General Practice
DX: A41.2 Sepsis due to unspecified staphylococcus (principal); T80.212D Local infection due to central venous catheter, subsequent encounter; A04.72 Enterocolitis due to Clostridium difficile, not specified as recurrent; C18.9 Malignant neoplasm of colon, unspecified

== ENCOUNTER → 2019-05-24 | Outpatient (CLI) | payer OTHER ==
--- NOTE | 2019-05-24 15:07 | REP ---
MRI left shoulder without contrast: History: Acute pain left shoulder, rule out septic arthritis or osteomyelitis. Comparison left shoulder MRI study is from May 11, 2019. Technique: Axial, oblique coronal, and oblique sagittal imaging planes are utilized. T1 and T2-weighted scans were included with and without fat saturation. MRI findings: The glenohumeral and acromioclavicular joints are normally aligned. There is osteoarthritic hypertrophy in the acromioclavicular joint. There is no evidence of marrow edema or significant joint effusion to suggest septic arthritis or osteomyelitis. There is no evidence of glenohumeral joint effusion. No significant subacromial subdeltoid bursal effusion is seen. There is mild subcortical cyst formation in the superolateral humeral head, unchanged from the prior study. Tendinosis tendonitis change is seen in the distal supraspinatus on oblique coronal T1 and oblique coronal T2-weighted scans, unchanged. No periarticular fluid collection is seen. Skeletal muscle signal intensity is normal. Impression: No significant change from the May 11, 2019 prior study. No MR evidence to suggest septic arthritis, osteomyelitis, or periarticular fluid collection. Electronically Signed by Angel Venegas MD 05/24/2019 03:38 P
== END ==
LOC: M RAD 12:16
PROVIDERS: ATTEND Internal Medicine Infectious Disease
DX: M25.512 Pain in left shoulder (principal); B95.61 Methicillin susceptible Staphylococcus aureus infection as the cause of diseases classified elsewhere; R78.81 Bacteremia

== ENCOUNTER → 2019-05-29 | Outpatient (REF) | payer OTHER ==
[2019-05-29 16:18] LABS: HEMATOCRIT 34.6 % (42.0-52.0); HEMOGLOBIN 10.9 g/dl (13.5-17.5); MEAN CORPUSCULAR HEMOGLOBIN 29.6 pg (27.0-33.0); MEAN CORPUSCULAR HGB CONC 31.5 g/dl (32.0-36.5); PLATELET COUNT, AUTOMATED 622 10^3/uL (150-450); RED BLOOD COUNT 3.68 10^6/uL (4.30-6.10); WHITE BLOOD COUNT 9.1 10^3/uL (4.0-10.0)
[2019-05-29 16:41] LABS: ALBUMIN 2.6 GM/DL (3.2-5.2); ALT/SGPT 11 U/L (12-78); BILIRUBIN,TOTAL 0.4 MG/DL (0.2-1.0); BLOOD UREA NITROGEN 7 MG/DL (7-18); C REACTIVE PROTEIN QUANTITATIV 0.32 MG/DL (0.00-0.30); CALCIUM LEVEL 9.2 MG/DL (8.5-10.1); CARBON DIOXIDE LEVEL 30 MEQ/L (21-32); CHLORIDE LEVEL 97 MEQ/L (98-107); CREATININE FOR GFR 0.61 MG/DL (0.70-1.30); GLOMERULAR FILTRATION RATE > 60.0 (>56); GLUCOSE, FASTING 100 MG/DL (70-100); POTASSIUM SERUM 4.6 MEQ/L (3.5-5.1); SODIUM LEVEL 133 MEQ/L (136-145); TOTAL PROTEIN 7.2 GM/DL (6.4-8.2)
[2019-05-29 17:14] LABS: ERYTHROCYTE SEDIMENTATION RATE 87 mm/hr (0-20)
== END ==
LOC: M SHH 15:58
PROVIDERS: ATTEND General Practice
DX: A41.2 Sepsis due to unspecified staphylococcus (principal); C18.9 Malignant neoplasm of colon, unspecified; T80.212A Local infection due to central venous catheter, initial encounter; A04.72 Enterocolitis due to Clostridium difficile, not specified as recurrent

== ENCOUNTER 2019-06-01 17:59 | Inpatient (IN) | payer MEDICARE, OTHER ==
[~2019-06-01] VITALS: Ht 180.3 cm; Wt 79.9 kg
[2019-06-01 18:33] LABS: BASO # 0.1 10^3/uL (0.0-0.2); BASO % 0.7 % (0.0-1.0); EOS # 0.1 10^3/uL (0.0-0.5); EOS % 0.9 % (0.0-3.0); HEMATOCRIT 34.7 % (42.0-52.0); LYMPH # 1.7 10^3/uL (1.5-5.0); LYMPH % 18.3 % (24.0-44.0); MEAN CORPUSCULAR HGB CONC 31.7 g/dl (32.0-36.5); MEAN CORPUSCULAR VOLUME 91.6 fl (80.0-96.0); MONO # 0.7 10^3/uL (0.0-0.8); MONO % 7.2 % (0.0-5.0); NEUTROPHILS # 6.9 10^3/uL (1.5-8.5); NEUTROPHILS % 72.3 % (36.0-66.0); PLATELET COUNT, AUTOMATED 523 10^3/uL (150-450); RED BLOOD COUNT 3.79 10^6/uL (4.30-6.10); WHITE BLOOD COUNT 9.5 10^3/uL (4.0-10.0)
--- NOTE | 2019-06-01 18:35 | REPVR ---
PROCEDURE INFORMATION: Exam: CT Head Without Contrast Exam date and time: 06/01/2019 6:15 PM Age: 59 years old Clinical indication: Other: Status epilepticus TECHNIQUE: Imaging protocol: Computed tomography of the head without contrast. Radiation optimization: All CT scans at this facility use at least one of these dose optimization techniques: automated exposure control; mA and/or kV adjustment per patient size (includes targeted exams where dose is matched to clinical indication); or iterative reconstruction. COMPARISON: MRI-Brain W/O FOLL BY WITH 05/12/2019 6:04 PM FINDINGS: Brain: No intracranial mass, mass effect or midline shift. No acute intracranial hemorrhage. No CT evidence of acute cortical infarct. Ventricles: Ventricles, cisterns, and sulci are normal in size for age. Bones/joints: No calvarial fracture or destructive process. Sinuses: Imaged paranasal sinuses are clear. Mastoid air cells: Mastoid air cells are normally aerated. Orbits: Imaged orbits are unremarkable. Soft tissues: No focal extracranial soft tissue swelling. IMPRESSION: No acute or concerning focal intracranial abnormality. Electronically signed by: Rudy Ayers On 06/01/2019 18:35:06 PM
[2019-06-01] MEDS: NS 1,000 ML IV SCH (18:42)
[2019-06-01 19:00] LABS: ALBUMIN 2.9 GM/DL (3.2-5.2); ALT/SGPT 10 U/L (12-78); BILIRUBIN,DIRECT 0.2 MG/DL (0.0-0.2); BILIRUBIN,TOTAL 0.6 MG/DL (0.2-1.0); BLOOD UREA NITROGEN 10 MG/DL (7-18); CALCIUM LEVEL 9.2 MG/DL (8.5-10.1); CARBON DIOXIDE LEVEL 26 MEQ/L (21-32); CHLORIDE LEVEL 100 MEQ/L (98-107); CK-MB VALUE MASS < 1.0 NG/ML (<3.6); CPK CREATINE PHOSPHOKINASE 24 U/L (39-308); CREATININE FOR GFR 0.57 MG/DL (0.70-1.30); GLOMERULAR FILTRATION RATE > 60.0 (>56); GLUCOSE, FASTING 90 MG/DL (70-100); MAGNESIUM LEVEL 1.8 MG/DL (1.8-2.4); MB/CK RELATIVE INDEX 4.17 (< OR =4); PHOSPHORUS LEVEL 3.7 MG/DL (2.5-4.9); POTASSIUM SERUM 4.2 MEQ/L (3.5-5.1); SODIUM LEVEL 132 MEQ/L (136-145); TROPONIN I < 0.02 NG/ML (< 0.10)
--- NOTE | 2019-06-01 19:47 | REP ---
CHEST, SINGLE VIEW: There is no evidence of acute infiltrate. No pleural effusion is seen. The heart is normal in size. The mediastinal silhouette is unremarkable. The visualized osseous structures are intact. A right arm PICC line is seen with the tip in the superior vena cava. IMPRESSION: No acute pulmonary disease. Electronically Signed by Jeronimo Armstrong MD 06/01/2019 11:28 P
[2019-06-01] MEDS ORDERED: levETIRAcetam 250MG TABLET (KEPPRA) PO ONE (20:45)
[2019-06-01] MEDS ORDERED: ACETAMINOPHEN TAB 650MG DOSE (2X325MG) PO PRN (21:00)
[2019-06-01] MEDS ORDERED: HumaLOG INSULIN (NovoLOG) PER UNIT SC SCH (21:00)
[2019-06-01] MEDS ORDERED: GLUCOSE 4 GM CHEW TABLET PO PRN (21:00)
[2019-06-01] MEDS ORDERED: DEXTROSE 50% 50 ML SYRINGE IV PRN (21:00)
[2019-06-01] MEDS ORDERED: MAALOX 30 ML SUSP *UDC PO PRN (21:00)
[2019-06-01] MEDS ORDERED: GLUCAGON FOR INJ 1 MG VIAL (J1610) SC PRN (21:00)
[2019-06-01] MEDS ORDERED: OXYC1TAB23 PO (21:04)
[2019-06-01] MEDS ORDERED: DICL1GEL3 TOP (21:04)
[2019-06-01] MEDS ORDERED: DICL1PAT TD (21:04)
[2019-06-01 21:09] LABS: PROLACTIN 12.8 NG/ML (2.1-17.7)
--- NOTE | 2019-06-01 21:12 | HPEPDOC ---
[facility] Medical History & Physical Date of Admission Jun 01, 2019 Date of Service: Jun 01, 2019 Attending Physician: GABBIE MEDRANO MD History and Physical TIME OF SERVICE: 10:30 PM CHIEF COMPLAINT: Loss of consciousness HISTORY OF PRESENT ILLNESS: Over the last week this 59-year-old male has had what he describes as shaking of his right arm while trying the color on his ipad. Today came to the hospital for evaluation after having 2 episodes where he lost consciousness. The first episode was unwitnessed; the a second episode was witnessed by EMS, who reported that episode his eyes rolled to the back of his head, his is arms were out the side and stiff. Per discussion with Dr. Khan, Dr. Dr. Ortiz recommended starting 750 mg of Keppra twice a day and felt that the patient could be discharged; Dr. Khan requested admission for observation and to rule out cardiogenic causes of syncope. 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 difficile on cefazolin until 06/02/2019 ? Tonsillectomy Piloidal cystectomy Inguinal Hernia repair 1956 SOCIAL HISTORY: Former smoker Takes alcohol occasionally Denies recreational drugs [place] FAMILY HISTORY: Father had CAD and diabetes Grandmother had unknown type of cancer ALLERGIES: Please see below. HOME MEDICATIONS: Please see below. PHYSICAL EXAMINATION: Vital Signs Date Time Temp Pulse Resp B/P (MAP) Pulse Ox O2 Delivery O2 Flow Rate FiO2 06/01/19 18:05 99.7 113 18 135/87 100 Room Air GEN: well-nourished / well developed/ grimacing with pain INTEGUMENT: not flushed/ not jaundice HEENT: NCAT / mucus membranes moist and pink CVS: RRR/NMRG/ trace lower extremity edema LUNGS: able to speak full sentences without stopping to take a breath / no coughing / lungs are clear to auscultation bilaterally on room air ABDOMEN: soft & not tender with palpation NEURO: CN 2-12 are grossly intact / speech is not dysarthric PSYCH: alert and oriented to person place and time/ able to understand and follow all commands LABORATORY DATA: Anion Gap 6L, Glomerular Filtration Rate > 60.0, Lactic Acid Level 1.5, Calcium Level 9.2, Phosphorus Level 3.7, Magnesium Level 1.8, Total Bilirubin 0.6, Direct Bilirubin 0.2, Aspartate Amino Transf (AST/SGOT) 9, Alanine Aminotransferase (ALT/SGPT) 10L, Alkaline Phosphatase 122H, Total Creatine Kinase 24L, Creatine Kinase MB < 1.0, Creatine Kinase MB Relative Index 4.17H, Troponin I < 0.02, Total Protein 7.0, Albumin 2.9L, Albumin/Globulin Ratio 0.71L, Prolactin 12.8 06/01/19 18:37: Bedside Glucose (Misc Panel) 98 IMAGING: CT head "IMPRESSION: No acute or concerning focal intracranial abnormality. " Chest xray "IMPRESSION: No acute pulmonary disease." MICROBIOLOGY: 06/01/19 Blood Culture, Received Pending 06/01/19 Blood Culture, Received Pending ASSESSMENT: Mr. Overton is a 59-year-old with a history of portal vein thrombosis, NIDDM, chronic HTN, dyslipidemia, Cancer of the cecum, and C. difficile colitis who is admitted for evaluation of syncope versus seizure. PLAN: 1. Syncope VS Syncopal seizure Cause to be determined. The patient thinks it might be due to polypharmacy EKG showed sinus tachycardia with a heart rate of 100 [address] theCT of the head and troponin were unremarkable. Plan: Admit to the medical floor for observation/Telemetry / pending add-on prolactin to rule out seizure will c/w Keppra 750 mg twice a day/ f/u orthostats / fall precautions / the daytime team can determine if additional testing ie, EEG, MRI of brain w shruti +/- out patient Neuro eval are warranted in the morning 2. C. difficile colitis. Per d/w Pharmacist he is on Vancomycin but per Onc progress notes he was switched to Cefazolin. - contact precautions / will ask the day time team to confirm weather he is on Vanc or Cefazolin until June 01 in the morning 3. Tachycardia cause TBD - telemetry / f/u Trops / TSH & mag / pending orthostats may start IVF 4. NN Anemia with thrombocytosis likely multifactorial 2/2 SYED and ACD 2/2 cancer of the cecum - f/u iron studies 5. Asymptomatic mild hyponatremia cause TBD - f/u Sosmol, Uosmol & Young to dete rmine subtype / f/u BMP in the morning 6. Severe left shoulder pain, likely secondary to degenerative joint disease. Status post Bupivacaine & kenalog infection - c/w diclofenac, gabapentin, oxycodone/acetaminophen 7. Right sided abdominal pain possibly 2/2 cancer - c/w pain meds 8. Back pain - c/w home meds, if pain doesn't improve the day time team may consider ordering imaging studies and a Pain Medicine consult 9. NIDDM. A1C within range - diabetic diet / f/u accuchecks / hypoglycemia protocol / sliding scale insulin 10. Chronic HTN - c/w ACEI 11. Cancer of the cecum - f/u Oncologist as scheduled 12. Portal vein thrombosis - c/w apixaban DVT PROPHYLAXIS: n/a on AC DISPOSITION: likely home after less than 2 midnight's stay Home Medications Scheduled Apixaban (Eliquis) 5 Mg Tablet, 5 MG PO BID Cholecalciferol (Vitamin D3) (Vitamin D3) 1,000 Unit Tablet, 1,000 UNITS PO DAILY Diclofenac Epolamine (Diclofenac Epolamine) 1 Each Patch.td12, 1 EACH TD Q12H APPLY TO LEFT SHOULDER Diclofenac Sodium (Diclofenac Sodium) 1% 100GM Gel..gram., 1 APLCT TOP QID APPLY TO LEFT SHOULDER Gabapentin (Gabapentin) 300 Mg Capsule, 300 MG PO TID Lisinopril (Lisinopril) 20 Mg Tab, 20 MG PO DAILY Potassium Chloride (Potassium Chloride) 10 Meq Tab.er.prt, 5 MEQ PO DAILY PATIENT STATES HE ONLY TAKES .5 TABLET, HALF THE PRESCRIBED DOSE Scheduled PRN Acetaminophen (Tylenol Extra Strength) 500 Mg Tablet, 1,000 MG PO Q8H PRN for PAIN TAKES 8 HOURS AFTER NIGHT DOSE OF OXYCODONE Ondansetron HCl (Ondansetron HCl) 8 Mg Tablet, 8 MG PO Q6H PRN for NAUSEA OR VOMITING Oxycodone HCl/Acetaminophen (Oxycodone-Acetaminophen 5-325) 1 Each Tablet, 1 TAB PO QID PRN for PAIN Allergies Coded Allergies: No Known Allergies (Unverified , 10/11/18) A-FIB/CHADSVASC A-FIB History Current/History of A-Fib/PAF?: No Current PO Anticoag Therapy: No GABBIE MEDRANO MD Jun 01, 2019 21:12
[2019-06-01 21:52] LABS: HEMOGLOBIN A1c 6.8 %
[2019-06-01 22:30] VITALS: BP 134/79
[2019-06-01] MEDS ORDERED: PERCOCET 5MG/325MG TAB PO PRN (22:30)
[2019-06-02] MEDS ORDERED: ONDANSETRON 4 MG TAB (S0181) PO PRN
[2019-06-02] MEDS: GABAPENTIN 300 MG CAP PO SCH ×2 (00:10→09:40)
[2019-06-02] MEDS: APIXABAN 5 MG TAB (ELIQUIS) PO SCH ×2 (00:11→09:37)
[2019-06-02] MEDS: NS 1,000 ML IV SCH (01:45)
[2019-06-02] MEDS ORDERED: MORPHINE 2 MG/ML 1ML VIAL (J2270) IV ONE (02:00)
[2019-06-02] MEDS ORDERED: RAMELTEON 8 MG TAB (ROZEREM) PO SCH (02:00)
[2019-06-02] MEDS: DICLOFENAC EPOLAMINE 1.3 % PATCH TD SCH ×2 (03:42→09:38)
[2019-06-02 06:00] VITALS: BP_SYST 111; BP_SYST 119; BP_SYST 123; BP_DIAS 59; BP_DIAS 87; BP_DIAS 95
[2019-06-02] MEDS ORDERED: ANEXSIA, NORCO 7.5MG/325MG TABLET(HYDROCODONE/APAP) PO PRN (06:00)
[2019-06-02 06:29] LABS: HEMATOCRIT 34.1 % (42.0-52.0); HEMOGLOBIN 10.8 g/dl (13.5-17.5); MEAN CORPUSCULAR HEMOGLOBIN 29.5 pg (27.0-33.0); MEAN CORPUSCULAR HGB CONC 31.7 g/dl (32.0-36.5); MEAN CORPUSCULAR VOLUME 93.2 fl (80.0-96.0); PLATELET COUNT, AUTOMATED 481 10^3/uL (150-450); RED BLOOD COUNT 3.66 10^6/uL (4.30-6.10); WHITE BLOOD COUNT 7.7 10^3/uL (4.0-10.0)
[2019-06-02 06:57] LABS: BLOOD UREA NITROGEN 8 MG/DL (7-18); CALCIUM LEVEL 8.9 MG/DL (8.5-10.1); CARBON DIOXIDE LEVEL 27 MEQ/L (21-32); CHLORIDE LEVEL 103 MEQ/L (98-107); CREATININE FOR GFR 0.53 MG/DL (0.70-1.30); GLOMERULAR FILTRATION RATE > 60.0 (>56); GLUCOSE, FASTING 86 MG/DL (70-100); POTASSIUM SERUM 4.4 MEQ/L (3.5-5.1); SODIUM LEVEL 135 MEQ/L (136-145); TROPONIN I < 0.02 NG/ML (< 0.10)
[2019-06-02] MEDS: GASTROGRAFIN SOLUTION 30ML PO SCH ×2 (07:01→07:48)
[2019-06-02] MEDS: HumaLOG INSULIN (NovoLOG) PER UNIT SC SCH ×2 (07:30→12:00)
[2019-06-02] MEDS ORDERED: VANC250C3 PO (07:40)
--- NOTE | 2019-06-02 07:49 | ECGEPIP ---
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
[2019-06-02] MEDS ORDERED: ISOVUE-370 76% 100ML VIAL (Q9967) As Ordered ONE (08:20)
[2019-06-02] MEDS ORDERED: levETIRAcetam 250MG TABLET (KEPPRA) PO SCH (09:00)
[2019-06-02] MEDS ORDERED: ENOXAPARIN 40 MG/0.4 ML SYRINGE (J1650) SC SCH (09:00)
[2019-06-02] MEDS ORDERED: POTASSIUM CHLORIDE 10% LIQ 20 MEQ/15 ML UDC PO SCH (09:00)
[2019-06-02] MEDS ORDERED: lisinopriL 20 MG TAB PO SCH (09:00)
[2019-06-02] MEDS ORDERED: VITAMIN D 1,000 INTERNATIONAL UNITS TABLET PO SCH (09:00)
[2019-06-02] MEDS ORDERED: VANCOMYCIN ORAL SOL 250MG/5ML ORAL SYRINGE PO SCH (09:00)
[2019-06-02 09:37] VITALS: BP 119/75
[2019-06-02] MEDS ORDERED: SODIUM CHLORIDE 0.9% INJ 10 ML SYR IV PRN (10:30)
--- NOTE | 2019-06-02 11:05 | REP ---
CT ABDOMEN AND PELVIS WITH ORAL AND IV CONTRAST: TECHNIQUE: Axial contrast enhanced images from the lung bases to the pubic symphysis using 100 mL Isovue 370 intravenous contrast material with multiplanar reformations. COMPARISON: 03/05/2019. There are several subcentimeter nodular opacities in both lung bases which are essentially stable. The liver demonstrates several hypodense nodules which have increased in size to a mild extent when compared to the prior study consistent with increased size of metastatic lesions. The largest is in the right lobe posterolaterally and measures about 2.6 cm in maximum diameter. Approximately six nodules are visualized scattered throughout the liver. The spleen is normal in size with no intrinsic abnormality. Left adrenal gland is unremarkable. Right adrenal gland demonstrates calcification with no mass. No pancreatic mass is seen. Small peripelvic cysts are seen of both kidneys. There is a cortical cyst in the upper pole of the left kidney which measures approximately 1.9 cm in diameter. There is also a calculus in the mid left kidney measuring approximately 5 mm in diameter. There is no hydronephrosis bilaterally. There is no abdominal aortic aneurysm. Portal adenopathy is again seen unchanged. Diffuse retroperitoneal adenopathy is seen surrounding the aorta and inferior vena cava. This has mildly increased in size compared to the prior study. There is encasement and narrowing of the main left renal artery. There is mild left perinephric stranding. No pelvic adenopathy is seen. No bowel wall thickening is seen. Patient appears to have had a right hemicolectomy. Urinary bladder is mildly distended and grossly unremarkable. There is impression upon the base of the bladder by mildly enlarged prostate. No definite bone lesion is seen. IMPRESSION: Several subcentimeter nodular densities in the lung bases are stable. There are at least six metastatic liver nodules which have increased in size when compared to the prior study. Stable portal adenopathy is seen. There is mild increased size of fairly extensive retroperitoneal adenopathy. Adenopathy encases and narrows the main left renal artery, with what appears to be a fairly significant stenosis of the main left renal artery. No definite bone lesion is seen. Electronically Signed by Jeronmio Armstrong MD 06/02/2019 12:46 P
[2019-06-02] MEDS ORDERED: KEPP250T5 PO (11:06)
--- NOTE | 2019-06-02 11:23 | REP ---
CT LUMBAR SPINE WITHOUT CONTRAST: CT lumbar spine performed, with sagittal and coronal reconstruction images. There is no compression fracture. There is normal alignment and lumbar lordosis. There is mild diffuse spurring. There is slight narrowing of the L4-5 disc space. There is mild diffuse disc bulging at L2-3, L3-4, L4-5, and L5-S1. There is no spinal stenosis or neural foraminal narrowing. No bone lesion is seen. IMPRESSION: No evidence of bone lesion. Mild diffuse degenerative changes with mild diffuse disc bulging at several levels. No evidence of spinal stenosis or neural foraminal narrowing. Electronically Signed by Jeronimo Armstrong MD 06/02/2019 12:47 P
--- NOTE | 2019-06-02 13:40 | REP ---
MRI BRAIN WITHOUT CONTRAST: Multiple sequences obtained in the sagittal, axial, and coronal planes. Comparison is made with prior study of 05/12/2019. Ventricles are normal in size and position with no midline shift or mass effect. Armstrong-white differentiation is well maintained. No signal abnormalities are seen in the brain, brainstem or cerebellum. There is no abnormal signal in the temporal lobes. The seventh and eighth cranial nerves complexes are unremarkable and unchanged. Globes are intact. There is no acute infarct. There is no abnormal signal in the ADC or DWI images. There is mild mucosal thickening in the inferior maxillary sinuses bilaterally. There is also mild mucosal thickening in the ethmoid sinuses bilaterally. IMPRESSION: No acute intracranial abnormality. Mild mucosal thickening in the ethmoid and maxillary sinuses. Electronically Signed by Jeronimo Armstrong MD 06/02/2019 02:28 P
[2019-06-02] MEDS ORDERED: KEPP1TAB PO (13:41)
--- NOTE | 2019-06-02 16:18 | DS.PDOC ---
Discharge Summary General Date of Admission Jun 02, 2019 at 01:54 Date of Discharge June 02, 2019 Attending Physician: ELISEO BARNES MD Discharge Summary PROCEDURES PERFORMED DURING STAY: [None]. ADMITTING DIAGNOSES: 1. Syncope vs seizure DISCHARGE DIAGNOSES: 1. Syncope vs seizure COMPLICATIONS/CHIEF COMPLAINT: Syncopal Seizure. HISTORY OF PRESENT ILLNESS: Over the last week this 59-year-old male has had what he describes as shaking of his right arm while trying the color on his ipad. Today came to the hospital for evaluation after having 2 episodes where he lost consciousness. The first episode was unwitnessed; the a second episode was witnessed by EMS, who reported that episode his eyes rolled to the back of his head, his is arms were out the side and stiff. Per discussion with Dr. Khan, Dr. Dr. Ortiz recommended starting 750 mg of Keppra twice a day and felt that the patient could be discharged; Dr. Khan requested admission for observation and to rule out cardiogenic causes of syncope. HOSPITAL COURSE: The patient was admitted after 2 witnessed syncopal vs seizure- like events at home. Neurology (Dr. Ortiz) was called by ED physician and he recommended 750mg Keppra. The patient was placed on telemetry monitoring with no untoward events. Orthostatic vital signs remained stable. All labs were within normal limits. All imaging was found to be normal. On hospital day #2 the patient only complained of severe left shoulder pain, which was treated with IV morphine. He was discharged home in stable state with plan to follow up with Neurology, Oncology and his PCP within 7 days. DISCHARGE MEDICATIONS: Please see below. ALLERGIES: Please see below. PHYSICAL EXAMINATION ON DISCHARGE: VITAL SIGNS: Please see below. GENERAL APPEARANCE: Laying in bed, appears stated age, no acute distress, calm, cooperative HEENT: EOMI, PERRLA, neck is supple with no thyromegaly or lymphadenopathy RESPIRATORY: Lungs are clear to auscultation bilaterally with no adventitious breath sounds appreciated CARDIOVASCULAR: no JVD, RRR,no murmurs/rubs/gallops ABDOMEN: Soft, nontender to palpation in all four quadrants, no masses/organomegaly EXTREMITIES: no clubbing, cyanosis or edema noted NEUROLOGICAL: CN 2-12 intact; No obvious focal deficits PSYCHIATRIC: normal mood/affect Skin: No rashes or ulcers. LN: No significant cervical or inguinal lymphadenopathy LABORATORY DATA: Please see below. IMAGING: MRI BRAIN WITHOUT CONTRAST: Multiple sequences obtained in the sagittal, axial, and coronal planes. Comparison is made with prior study of 05/12/2019. Ventricles are normal in size and position with no midline shift or mass effect. Armstrong-white differentiation is well maintained. No signal abnormalities are seen in the brain, brainstem or cerebellum. There is no abnormal signal in the temporal lobes. The seventh and eighth cranial nerves complexes are unremarkable and unchanged. Globes are intact. There is no acute infarct. There is no abnormal signal in the ADC or DWI images. There is mild mucosal thickening in the inferior maxillary sinuses bilaterally. There is also mild mucosal thickening in the ethmoid sinuses bilaterally. IMPRESSION: No acute intracranial abnormality. Mild mucosal thickening in the ethmoid and maxillary sinuses. CT ABDOMEN AND PELVIS WITH ORAL AND IV CONTRAST: TECHNIQUE: Axial contrast enhanced images from the lung bases to the pubic symphysis using 100 mL Isovue 370 intravenous contrast material with multiplanar reformations. COMPARISON: 03/05/2019. There are several subcentimeter nodular opacities in both lung bases which are essentially stable. The liver demonstrates several hypodense nodules which have increased in size to a mild extent when compared to the prior study consistent with increased size of metastatic lesions. The largest is in the right lobe posterolaterally and measures about 2.6 cm in maximum diameter. Approximately six nodules are visualized scattered throughout the liver. The spleen is normal in size with no intrinsic abnormality. Left adrenal gland is unremarkable. Right adrenal gland demonstrates calcification with no mass. No pancreatic mass is seen. Small peripelvic cysts are seen of both kidneys. There is a cortical cyst in the upper pole of the left kidney which measures approximately 1.9 cm in diameter. There is also a calculus in the mid left kidney measuring approximately 5 mm in diameter. There is no hydronephrosis bilaterally. There is no abdominal aortic aneurysm. Portal adenopathy is again seen unchanged. Diffuse retroperitoneal adenopathy is seen surrounding the aorta and inferior vena cava. This has mildly increased in size compared to the prior study. There is encasement and narrowing of the main left renal artery. There is mild left perinephric stranding. No pelvic adenopathy is seen. No bowel wall thickening is seen. Patient appears to have had a right hemicolectomy. Urinary bladder is mildly distended and grossly unremarkable. There is impression upon the base of the bladder by mildly enlarged prostate. No definite bone lesion is seen. IMPRESSION: Several subcentimeter nodular densities in the lung bases are stable. There are at least six metastatic liver nodules which have increased in size when compared to the prior study. Stable portal adenopathy is seen. There is mild increased size of fairly extensive retroperitoneal adenopathy. Adenopathy encases and narrows the main left renal artery, with what appears to be a fairly significant stenosis of the main left renal artery. No definite bone lesion is seen. CT LUMBAR SPINE WITHOUT CONTRAST: CT lumbar spine performed, with sagittal and coronal reconstruction images. There is no compression fracture. There is normal alignment and lumbar lordosis. There is mild diffuse spurring. There is slight narrowing of the L4-5 disc space. There is mild diffuse disc bulging at L2-3, L3-4, L4-5, and L5-S1. There is no spinal stenosis or neural foraminal narrowing. No bone lesion is seen. IMPRESSION: No evidence of bone lesion. Mild diffuse degenerative changes with mild diffuse disc bulging at several levels. No evidence of spinal stenosis or neural foraminal narrowing. CHEST, SINGLE VIEW: There is no evidence of acute infiltrate. No pleural effusion is seen. The heart is normal in size. The mediastinal silhouette is unremarkable. The visualized osseous structures are intact. A right arm PICC line is seen with the tip in the superior vena cava. IMPRESSION: No acute pulmonary disease. CT HEAD WITHOUT CONTRAST: TECHNIQUE: Imaging protocol: Computed tomography of the head without contrast. Radiation optimization: All CT scans at this facility use at least one of these dose optimization techniques: automated exposure control; mA and/or kV adjustment per patient size (includes targeted exams where dose is matched to clinical indication); or iterative reconstruction. COMPARISON: MRI-Brain W/O FOLL BY WITH 05/12/2019 6:04 PM FINDINGS: Brain: No intracranial mass, mass effect or midline shift. No acute intracranial hemorrhage. No CT evidence of acute cortical infarct. Ventricles: Ventricles, cisterns, and sulci are normal in size for age. Bones/joints: No calvarial fracture or destructive process. Sinuses: Imaged paranasal sinuses are clear. Mastoid air cells: Mastoid air cells are normally aerated. Orbits: Imaged orbits are unremarkable. Soft tissues: No focal extracranial soft tissue swelling. IMPRESSION: No acute or concerning focal intracranial abnormality. PROGNOSIS: fair ACTIVITY: [As tolerated]. DIET: as tolerated DISCHARGE PLAN: Home DISPOSITION: . DISCHARGE INSTRUCTIONS: 1. Follow up with Neurology (Dr. Ortiz) 2. Follow up with Oncology (Dr. Enriquez) 3. Follow up with PCP ITEMS TO FOLLOWUP ON ON OUTPATIENT: 1. none DISCHARGE CONDITION: [Stable]. TIME SPENT ON DISCHARGE: Greater than 35 minutes. Attending Addendum: I discussed the care and management of this patient with resident in detail and agree with the plan above. Vital Signs/I&Os Vital Signs Date Time Temp Pulse Resp B/P (MAP) Pulse Ox O2 Delivery O2 Flow Rate FiO2 06/02/19 09:37 119/75 06/02/19 07:40 19 06/02/19 06:00 85 108 119 06/02/19 06:00 98.0 06/01/19 22:30 98 Room Air I&O- Last 24 Hours up to 6 AM 06/02/19 06:00 Intake Total 1400 ml Balance 1400 ml Laboratory Data Labs 24H Laboratory Tests 2 06/01/19 18:19: Immature Granulocyte % (Auto) 0.6, Neutrophils (%) (Auto) 72.3H, Lymphocytes (%) (Auto) 18.3L, Monocytes (%) (Auto) 7.2H, Eosinophils (%) (Auto) 0.9, Basophils (%) (Auto) 0.7, Neutrophils # (Auto) 6.9, Lymphocytes # (Auto) 1.7, Monocytes # (Auto) 0.7, Eosinophils # (Auto) 0.1, Basophils # (Auto) 0.1, Nucleated Red Blood Cells % (auto) 0.0, Anion Gap 6L, Glomerular Filtration Rate > 60.0, Lactic Acid Level 1.5, Calcium Level 9.2, Phosphorus Level 3.7, Magnesium Level 1.8, Total Bilirubin 0.6, Direct Bilirubin 0.2, Aspartate Amino Transf (AST/SGOT) 9, Alanine Aminotransferase (ALT/SGPT) 10L, Alkaline Phosphatase 122H, Total Creatine Kinase 24L, Creatine Kinase MB < 1.0, Creatine Kinase MB Relative Index 4.17H, Troponin I < 0.02, Total Protein 7.0, Albumin 2.9L, Albumin/Globulin Ratio 0.71L, Prolactin 12.8 06/01/19 18:37: Bedside Glucose (Misc Panel) 98 4/3/20 21:21: Estimated Mean Plasma Glucose 148H, Hemoglobin A1c 6.8, Osmolality 276, Iron Level 32L, Total Iron Binding Capacity 267, Transferrin % Saturation 12.0L, Ferritin 215 06/01/19 22:39: Bedside Glucose (Misc Panel) 166H 06/02/19 00:05: Troponin I < 0.02 06/02/19 05:24: Troponin I < 0.02, Nucleated Red Blood Cells % (auto) 0.0, Anion Gap 5L, Glomerular Filtration Rate > 60.0, Calcium Level 8.9, Thyroid Stimulating Hormone (TSH) 1.210 06/02/19 13:00: Bedside Glucose (Misc Panel) 93 CBC/BMP Laboratory Tests 06/01/19 18:19 06/02/19 05:24 FSBS Laboratory Tests Test 06/01/19 18:37 06/01/19 22:39 06/02/19 13:00 Range/Units Bedside Glucose (Misc Panel) 98 166 93 70-105 MG/DL Microbiology Microbiology 06/01/19 Blood Culture, Received Pending 06/01/19 Blood Culture, Received Pending Discharge Medications Scheduled Apixaban (Eliquis) 5 Mg Tablet, 5 MG PO BID Cholecalciferol (Vitamin D3) (Vitamin D3) 1,000 Unit Tablet, 1,000 UNITS PO DAILY, (Reported) Diclofenac Epolamine (Diclofenac Epolamine) 1 Each Patch.td12, 1 EACH TD Q12H, (Reported) APPLY TO LEFT SHOULDER Diclofenac Sodium (Diclofenac Sodium) 1% 100GM Gel..gram., 1 APLCT TOP QID, (Re ported) APPLY TO LEFT SHOULDER Gabapentin (Gabapentin) 300 Mg Capsule, 300 MG PO TID, (Reported) Levetiracetam (Keppra) 500 Mg Tablet, 1 TAB PO BID Lisinopril (Lisinopril) 20 Mg Tab, 20 MG PO DAILY, (Reported) Potassium Chloride (Potassium Chloride) 10 Meq Tab.er.prt, 5 MEQ PO DAILY, (Reported) PATIENT STATES HE ONLY TAKES .5 TABLET, HALF THE PRESCRIBED DOSE Vancomycin Hcl (Vancomycin HCl) 250 Mg Capsule, 250 MG PO BID, (Reported) 06/03/2019 LAST DAY FOR VANCO Scheduled PRN Acetaminophen (Tylenol Extra Strength) 500 Mg Tablet, 1,000 MG PO Q8H PRN for PAIN, (Reported) TAKES 8 HOURS AFTER NIGHT DOSE OF OXYCODONE Ondansetron HCl (Ondansetron HCl) 8 Mg Tablet, 8 MG PO Q6H PRN for NAUSEA OR VOMITING, (Reported) Oxycodone HCl/Acetaminophen (Oxycodone-Acetaminophen 5-325) 1 Each Tablet, 1 TAB PO QID PRN for PAIN, (Reported) Allergies Coded Allergies: No Known Allergies (Unverified , 10/11/18) GME ATTESTATION GME ATTESTATION My faculty preceptor for this patient encounter was physically present during the encounter and was fully available. All aspects of the patient interview, examination, medical decision making process, and medical care plan development were reviewed and approved by the faculty preceptor. The faculty preceptor is aware and concurs with the plan as stated in the body of this note and will attest to such by his/her cosignature. VINNY HASSAN MD Jun 02, 2019 13:45 ELISEO BARNES MD Jun 02, 2019 20:30
[2019-06-02] MEDS ORDERED: SODIUM CHLORIDE 0.9% INJ 10 ML SYR IV SCH (18:00)
== END 2019-06-02 14:23 | disposition home or self-care (01) | DRG 101 ==
LOC: M ED 17:59 → EDBD 17:59 → M ED INP 20:48 → ENRESERV 21:26 → M MSPAV 22:13 → OBSVTOIN 06-02 01:54
PROVIDERS: ADMIT Internal Medicine; ATTEND Internal Medicine
DX: R56.9 Unspecified convulsions (principal); A04.72 Enterocolitis due to Clostridium difficile, not specified as recurrent; C18.0 Malignant neoplasm of cecum; E87.1 Hypo-osmolality and hyponatremia; R55 Syncope and collapse; Z79.899 Other long term (current) drug therapy; E78.5 Hyperlipidemia, unspecified; I10 Essential (primary) hypertension; E11.9 Type 2 diabetes mellitus without complications; Z87.891 Personal history of nicotine dependence; D50.9 Iron deficiency anemia, unspecified

== ENCOUNTER 2019-06-05 09:02 | Emergency (ER) | payer MEDICARE, OTHER ==
[~2019-06-05] VITALS: Ht 180.3 cm; Wt 77.0 kg
[~2019-06-05 09:02] MED LIST changes: +DICL1PAT TD; +KEPP1TAB PO; +KEPP250T5 PO
[2019-06-05] MEDS ORDERED: levETIRAcetam 250MG TABLET (KEPPRA) PO ONE ×2 (09:30→10:30)
[2019-06-05 09:31] LABS: BASO # 0.1 10^3/uL (0.0-0.2); BASO % 0.7 % (0.0-1.0); EOS # 0.1 10^3/uL (0.0-0.5); EOS % 1.2 % (0.0-3.0); HEMATOCRIT 35.9 % (42.0-52.0); HEMOGLOBIN 11.3 g/dl (13.5-17.5); LYMPH # 1.8 10^3/uL (1.5-5.0); LYMPH % 20.5 % (24.0-44.0); MEAN CORPUSCULAR HGB CONC 31.5 g/dl (32.0-36.5); MEAN CORPUSCULAR VOLUME 92.3 fl (80.0-96.0); MONO # 0.7 10^3/uL (0.0-0.8); MONO % 7.7 % (0.0-5.0); NEUTROPHILS # 6.2 10^3/uL (1.5-8.5); NEUTROPHILS % 69.4 % (36.0-66.0); PLATELET COUNT, AUTOMATED 468 10^3/uL (150-450); RED BLOOD COUNT 3.89 10^6/uL (4.30-6.10); WHITE BLOOD COUNT 8.9 10^3/uL (4.0-10.0)
[2019-06-05 09:59] LABS: BLOOD UREA NITROGEN 8 MG/DL (7-18); CARBON DIOXIDE LEVEL 23 MEQ/L (21-32); CHLORIDE LEVEL 102 MEQ/L (98-107); GLOMERULAR FILTRATION RATE > 60.0 (>56); GLUCOSE, FASTING 98 MG/DL (70-100); MAGNESIUM LEVEL 1.9 MG/DL (1.8-2.4); SODIUM LEVEL 135 MEQ/L (136-145)
[2019-06-05] MEDS ORDERED: KEPP10002 PO (10:27)
--- NOTE | 2019-06-05 10:31 | REP ---
CT BRAIN WITHOUT CONTRAST: HISTORY: Seizure activity. Comparison brain MRI study June 02, 2019. Comparison CT study June 01, 2019. CT FINDINGS: Preliminary digital roll capper radiograph is unremarkable. No bony calvarial lesion is seen. Visualized paranasal sinuses remain clear. No orbital abnormality is seen. There is minimal generalized atrophy again noted. There is no evidence of intracranial hemorrhage, acute infarction, extra-axial fluid collection, or mass. IMPRESSION: No acute intracranial abnormality. No change from recent comparison study. Electronically Signed by Angel Venegas MD 06/05/2019 10:42 A
[2019-06-05 12:12] VITALS: BP 136/82
--- NOTE | 2019-06-06 09:54 | ECGEPIP ---
[facility] - ED Test Date: 2019-06-05 Pat Name: DAYNA PENN Department: Room: - Gender: Male Administrator: CHAZ : 1960 Requested By: TIERRA FINNEGAN Order Number: [id number] Reading MD: James Brown Measurements Intervals [place] Rate: 96 P: 10 VT: 140 QRS: -1 QRSD: 106 T: 15 QT: 345 QTc: 437 Interpretive Statements SINUS RHYTHM POOR R WAVE PROGRESSION SIMILAR TO 06/01/19 Electronically Signed on 06-06-2019 9:53:36 EDT by James Brown
[2019-06-06] MEDS ORDERED: ELIQ5TAB PO (11:53)
[2019-06-06] MEDS ORDERED: MAGN400C2 PO (11:53)
[2019-06-06] MEDS ORDERED: KEPP10002 PO (11:53)
== END 2019-06-05 12:15 | disposition home or self-care (01) ==
LOC: M ED 09:02
DX: R56.9 Unspecified convulsions (principal); R11.0 Nausea; C18.9 Malignant neoplasm of colon, unspecified; Z86.718 Personal history of other venous thrombosis and embolism; F17.210 Nicotine dependence, cigarettes, uncomplicated; Z79.01 Long term (current) use of anticoagulants; Z79.899 Other long term (current) drug therapy

== ENCOUNTER 2019-06-06 10:32 | Inpatient (IN) | payer MEDICARE, OTHER ==
[~2019-06-06] VITALS: Ht 180.3 cm; Wt 75.8 kg
[2019-06-06] MEDS: DICLOFENAC EPOLAMINE 1.3 % PATCH TD SCH ×2 (09:00→20:28)
[~2019-06-06 10:32] MED LIST changes: +KEPP10002 PO
[2019-06-06 11:08] LABS: BASO # 0.1 10^3/uL (0.0-0.2); BASO % 0.6 % (0.0-1.0); EOS # 0.1 10^3/uL (0.0-0.5); EOS % 1.1 % (0.0-3.0); HEMATOCRIT 37.2 % (42.0-52.0); HEMOGLOBIN 11.6 g/dl (13.5-17.5); LYMPH % 23.3 % (24.0-44.0); MEAN CORPUSCULAR HEMOGLOBIN 28.9 pg (27.0-33.0); MEAN CORPUSCULAR HGB CONC 31.2 g/dl (32.0-36.5); MEAN CORPUSCULAR VOLUME 92.5 fl (80.0-96.0); MONO # 0.7 10^3/uL (0.0-0.8); MONO % 8.3 % (0.0-5.0); NEUTROPHILS # 5.7 10^3/uL (1.5-8.5); NEUTROPHILS % 66.2 % (36.0-66.0); PLATELET COUNT, AUTOMATED 482 10^3/uL (150-450); RED BLOOD COUNT 4.02 10^6/uL (4.30-6.10); WHITE BLOOD COUNT 8.5 10^3/uL (4.0-10.0)
[2019-06-06 11:27] LABS: ALBUMIN 3.1 GM/DL (3.2-5.2); ALT/SGPT 12 U/L (12-78); BILIRUBIN,DIRECT 0.2 MG/DL (0.0-0.2); BILIRUBIN,TOTAL 0.6 MG/DL (0.2-1.0); BLOOD UREA NITROGEN 7 MG/DL (7-18); CALCIUM LEVEL 9.2 MG/DL (8.5-10.1); CARBON DIOXIDE LEVEL 19 MEQ/L (21-32); CHLORIDE LEVEL 98 MEQ/L (98-107); CREATININE FOR GFR 0.86 MG/DL (0.70-1.30); GLOMERULAR FILTRATION RATE > 60.0 (>56); GLUCOSE, FASTING 113 MG/DL (70-100); MAGNESIUM LEVEL 1.8 MG/DL (1.8-2.4); POTASSIUM SERUM 3.9 MEQ/L (3.5-5.1); SODIUM LEVEL 133 MEQ/L (136-145); TOTAL PROTEIN 7.4 GM/DL (6.4-8.2)
[2019-06-06] MEDS ORDERED: MAGN400C2 PO (11:53)
[2019-06-06] MEDS ORDERED: ELIQ5TAB PO (11:53)
[2019-06-06] MEDS ORDERED: KEPP10002 PO (11:53)
[2019-06-06] MEDS ORDERED: ONDANSETRON 4 MG TAB (S0181) PO PRN (12:30)
[2019-06-06 13:08] VITALS: BP 138/95
[2019-06-06] MEDS: VITAMIN D 1,000 INTERNATIONAL UNITS TABLET PO SCH (13:19)
[2019-06-06] MEDS: APIXABAN 5 MG TAB (ELIQUIS) PO SCH ×2 (13:20→20:27)
[2019-06-06] MEDS: POTASSIUM CHLORIDE 10 MEQ SR TABLET PO SCH (13:20)
[2019-06-06] MEDS: lisinopriL 20 MG TAB PO SCH (13:22)
[2019-06-06] MEDS: SLF 3 ML SYR IV SCH ×2 (13:30→20:28)
[2019-06-06] MEDS ORDERED: SLF 3 ML SYR IV PRN (13:30)
--- NOTE | 2019-06-06 14:19 | HPEPDOC ---
[facility] [place] Medical History & Physical Date of Admission Jun 06, 2019 Date of Service: Jun 06, 2019 Attending Physician: LEISEO BARNES MD History and Physical CHIEF COMPLAINT: Seizure HISTORY OF PRESENT ILLNESS: 59 y.o male w/ PMH of metastatic Colon cancer, on chemotherapy, HTN, DM, seizure, left upper extremity DVT & HLD presents with seizure-like activity. Patient was recently hospitalized for question of seizure, workup was negative and patient was discharged on Keppra 500 mg twice a day. Patient reports having another seizure yesterday, presented to the emergency department, after discussing case with neurologist patient was sent home with an increase to Keppra 1 g twice a day. Patient reports good compliance with medication, took his Keppra last night, reportedly seized multiple times on his way to the cancer Center today. Patient recalls being in the car, followed by waking up in the emergency department. He denies any symptoms prior to the seizure, denies any symptoms related to postictal state, denies urinary/fecal incontinence or tongue biting. Patient's witnessed the seizures, reportedly told the patient that he had multiple seizures today, unable to provide any more details regarding his seizures. Patient is currently comfortable in bed, asymptomatic, without any complaints at this time. Patient has not had any seizure activity while in the hospital during last hospitalization, yesterday's ED visit and today, after arrival to the hospital. 10 point review of system is negative except for above. PAST MEDICAL HISTORY: 1. Metastatic colon cancer 2. HTN 3. DM 4. HLD 5. Seizure disorder. 6. Upper extremity DVT PAST SURGICAL HISTORY: 1. Colon resection 2. Hernia repair SOCIAL HISTORY: Previous smoker rare alcohol use denies drug use FAMILY HISTORY: Positive for heart disease ALLERGIES: Please see below. HOME MEDICATIONS: Please see below. PHYSICAL EXAMINATION: VITAL SIGNS: See below GENERAL APPEARANCE: No distress HEENT: Moist mucus membranes CARDIOVASCULAR: S1, S2, no murmurs LUNGS: clear to auscultation ABDOMEN: soft, non-tender, non-distended, +BS EXTREMITIES: No LE edema NEUROLOGICAL: No focal deficits, lateral nystagmus appreciated with left lateral gaze PSYCHIATRIC: Calm LABORATORY DATA: See below. MICROBIOLOGY: Please see below. ASSESSMENT: 59 y.o male w/ multiple medical comorbidities who was recently admitted for seizure activity and presented to the emergency department yesterday with seizure is being readmitted for multiple seizures today. PLAN: 1. Seizures - Admitted for the same reason recently, workup was negative at the time, Keppra was increased to 1 g twice a day yesterday when he presented to the emergency department for seizure, reports good compliance, possible psychogenic component, case discussed with neurologist, Dr. Holden who recommends starting Dilantin, will load with 15 mg/kg 1 followed by 100 mg twice a day, check Dilantin level at 8 PM prior to next dose, will adjust dosing based on levels. EEG pending, will avoid brain imaging as patient had multiple CTs and MRI within the last week. 2. DM - sliding scale insulin w/ meals & at bedtime 3. HTN - continue Lisinopril 4. HLD - continue atorvastatin 5. DVT. Continue Eliquis DVT Prophylaxis - Eliquis GI Prophylaxis - Protonix Vital Signs Vital Signs Date Time Temp Pulse Resp B/P (MAP) Pulse Ox O2 Delivery O2 Flow Rate FiO2 06/06/19 13:22 138/95 06/06/19 13:08 96.5 94 19 97 Room Air Laboratory Data Labs 24H Laboratory Tests 2 06/06/19 10:36: Immature Granulocyte % (Auto) 0.5, Neutrophils (%) (Auto) 66.2H, Lymphocytes (%) (Auto) 23.3L, Monocytes (%) (Auto) 8.3H, Eosinophils (%) (Auto) 1.1, Basophils (%) (Auto) 0.6, Neutrophils # (Auto) 5.7, Lymphocytes # (Auto) 2.0, Monocytes # (Auto) 0.7, Eosinophils # (Auto) 0.1, Basophils # (Auto) 0.1, Nucleated Red Blood Cells % (auto) 0.0, Anion Gap 16, Glomerular Filtration Rate > 60.0, Calcium Level 9.2, Magnesium Level 1.8, Total Bilirubin 0.6, Direct Bilirubin 0.2, Aspartate Amino Transf (AST/SGOT) 10, Alanine Aminotransferase (ALT/SGPT) 12, Alkaline Phosphatase 134H, Total Protein 7.4, Albumin 3.1L, Albumin/Globulin Ratio 0.72L 06/06/19 10:54: Bedside Glucose (Misc Panel) 121H CBC/BMP Laboratory Tests 06/06/19 10:36 Home Medications Scheduled Apixaban (Eliquis) 5 Mg Tablet, 5 MG PO BID Cholecalciferol (Vitamin D3) (Vitamin D3) 1,000 Unit Tablet, 1,000 UNITS PO D AILY Diclofenac Epolamine (Diclofenac Epolamine) 1 Each Patch.td12, 1 EACH TD Q12H APPLY TO LEFT SHOULDER Gabapentin (Gabapentin) 300 Mg Capsule, 300 MG PO TID Levetiracetam (Keppra) 1,000 Mg Tablet, 1,000 MG PO BID Lisinopril (Lisinopril) 20 Mg Tab, 20 MG PO DAILY Magnesium Oxide (Magnesium) 400 Mg Capsule, 400 MG PO DAILY Potassium Chloride (Potassium Chloride) 10 Meq Tab.er.prt, 5 MEQ PO DAILY Scheduled PRN Acetaminophen (Tylenol Extra Strength) 500 Mg Tablet, 1,000 MG PO Q8H PRN for PAIN TAKES 8 HOURS AFTER NIGHT DOSE OF OXYCODONE Diclofenac Sodium (Diclofenac Sodium) 1% 100GM Gel..gram., 1 APLCT TOP QID PRN for PAIN APPLY TO LEFT SHOULDER Ondansetron HCl (Ondansetron HCl) 8 Mg Tablet, 8 MG PO Q6H PRN for NAUSEA OR VOMITING Oxycodone HCl/Acetaminophen (Oxycodone-Acetaminophen 5-325) 1 Each Tablet, 1 TAB PO QID PRN for PAIN Allergies Coded Allergies: No Known Allergies (Unverified , 10/11/18) A-FIB/CHADSVASC A-FIB History Current/History of A-Fib/PAF?: No ELISEO BARNES MD Jun 06, 2019 14:19
[2019-06-06] MEDS ORDERED: NS IV ONE (14:30)
[2019-06-06] MEDS ORDERED: DEXTROSE 50% 50 ML SYRINGE IV PRN (14:30)
[2019-06-06] MEDS ORDERED: GLUCAGON FOR INJ 1 MG VIAL (J1610) SC PRN (14:30)
[2019-06-06] MEDS ORDERED: PHENYTOIN IV ONE (14:30)
[2019-06-06] MEDS ORDERED: GLUCOSE 4 GM CHEW TABLET PO PRN (14:30)
[2019-06-06] MEDS ORDERED: PILL CUTTER 1 EACH XX PRN (15:00)
[2019-06-06 16:00] VITALS: BP 127/82
[2019-06-06] MEDS: GABAPENTIN 300 MG CAP PO SCH ×2 (16:00→20:29)
[2019-06-06] MEDS ORDERED: ONDANSETRON 4MG/2ML VIAL (J2405) As Ordered ONE (17:05)
[2019-06-06] MEDS: ONDANSETRON 4MG/2ML VIAL (J2405) IV PRN (17:11)
[2019-06-06] MEDS ORDERED: HumaLOG INSULIN (NovoLOG) PER UNIT SC SCH ×2 (17:30→21:00)
--- NOTE | 2019-06-06 19:15 | ECGEPIP ---
[facility] - ED Test Date: 2019-06-06 Pat Name: DAYNA PENN Department: Room: - Gender: Male Electrification Adviser: JGonzalez : 1960 Requested By: TIERRA FINNEGAN Order Number: [id number] Reading MD: James Brown Measurements Intervals [place] Rate: 108 P: 31 LA: 136 QRS: 0 QRSD: 103 T: 23 QT: 329 QTc: 443 Interpretive Statements SINUS TACHYCARDIA SIMILAR TO 06/05/19 Electronically Signed on 06-06-2019 19:15:08 EDT by James Brown
[2019-06-06 20:00] VITALS: BP 138/71
[2019-06-06] MEDS: levETIRAcetam 250MG TABLET (KEPPRA) PO SCH (20:27)
--- NOTE | 2019-06-06 20:47 | EEG ---
DATE OF PROCEDURE: 06/06/2019 DIAGNOSIS: Seizure. EEG #: [id number] HISTORY The patient is a 59-year-old man with history of cancer and seizures. This EEG was done to rule out epileptic potential. He is currently taking gabapentin, Keppra, Eliquis Percocet, lisinopril, Lovenox. TECHNICAL DESCRIPTION This digital EEG was recorded by 21 scalp, ear and two EKG electrodes and was reviewed in bipolar and referential montages following reformatting in 10-20 international electrode placement system. INTERPRETATION The patient was noted to be in awake and drowsy states during this EEG. Resting awake background rhythm consisted of well-formed posterior dominant rhythm with anterior/posterior gradient comprising of 10 Hz alpha activity which was symmetric and reactive to eye opening. Attenuation of posterior dominant rhythm was seen during transition into drowsiness. Anteriorly low voltage and mixed frequency activity was noted. Stage I and II sleep were reviewed and was symmetric bilaterally. Hyperventilation could not be performed. Photic stimulation remained unremarkable. EKG revealed normal sinus rhythm. No focal, lateralizing or epileptiform abnormalities were seen. No relevant clinical activity was noted. CONCLUSION This EEG in awake, drowsy states, stage I and II sleep is within normal limits.
[2019-06-06] MEDS ORDERED: PHENYTOIN ER 100 MG CAP PO SCH (21:00)
[2019-06-06] MEDS: PERCOCET 5MG/325MG TAB PO PRN (22:51)
[2019-06-07] VITALS (7 sets, daily range): BP systolic 116–153; BP diastolic 74–84
[2019-06-07] MEDS: SLF 3 ML SYR IV SCH ×3 (06:29→20:45)
[2019-06-07 07:19] LABS: HEMATOCRIT 34.7 % (42.0-52.0); HEMOGLOBIN 11.1 g/dl (13.5-17.5); MEAN CORPUSCULAR HEMOGLOBIN 29.3 pg (27.0-33.0); MEAN CORPUSCULAR VOLUME 91.6 fl (80.0-96.0); PLATELET COUNT, AUTOMATED 417 10^3/uL (150-450); RED BLOOD COUNT 3.79 10^6/uL (4.30-6.10); WHITE BLOOD COUNT 8.2 10^3/uL (4.0-10.0)
[2019-06-07 07:46] LABS: ALBUMIN 2.7 GM/DL (3.2-5.2); ALT/SGPT 12 U/L (12-78); BILIRUBIN,TOTAL 0.6 MG/DL (0.2-1.0); BLOOD UREA NITROGEN 7 MG/DL (7-18); CALCIUM LEVEL 8.9 MG/DL (8.5-10.1); CARBON DIOXIDE LEVEL 28 MEQ/L (21-32); CHLORIDE LEVEL 99 MEQ/L (98-107); CREATININE FOR GFR 0.58 MG/DL (0.70-1.30); GLOMERULAR FILTRATION RATE > 60.0 (>56); GLUCOSE, FASTING 71 MG/DL (70-100); MAGNESIUM LEVEL 1.8 MG/DL (1.8-2.4); SODIUM LEVEL 134 MEQ/L (136-145); TOTAL PROTEIN 6.6 GM/DL (6.4-8.2)
[2019-06-07] MEDS ORDERED: LORazepam 2 MG/ML VIAL (J2060) IV PRN (08:45)
[2019-06-07] MEDS ORDERED: ENOXAPARIN 40 MG/0.4 ML SYRINGE (J1650) SC SCH (09:00)
[2019-06-07] MEDS: PHENYTOIN ER 100 MG CAP PO SCH ×3 (09:24→20:44)
[2019-06-07] MEDS: VITAMIN D 1,000 INTERNATIONAL UNITS TABLET PO SCH (09:24)
[2019-06-07] MEDS: levETIRAcetam 250MG TABLET (KEPPRA) PO SCH ×2 (09:24→20:44)
[2019-06-07] MEDS: GABAPENTIN 300 MG CAP PO SCH ×3 (09:25→20:44)
[2019-06-07] MEDS: DICLOFENAC EPOLAMINE 1.3 % PATCH TD SCH ×2 (09:25→20:44)
[2019-06-07] MEDS: lisinopriL 20 MG TAB PO SCH (09:26)
[2019-06-07] MEDS: POTASSIUM CHLORIDE 10 MEQ SR TABLET PO SCH (09:26)
[2019-06-07] MEDS: APIXABAN 5 MG TAB (ELIQUIS) PO SCH ×2 (09:26→20:44)
[2019-06-07] MEDS: PERCOCET 5MG/325MG TAB PO PRN ×2 (11:38→20:45)
--- NOTE | 2019-06-07 14:58 | IPNPDOC ---
Date Seen The patient was seen on 06/07/19. Progress Note HISTORY OF PRESENT ILLNESS: 59 y.o male w/ PMH of metastatic Colon cancer, on chemotherapy, HTN, DM, seizure, left upper extremity DVT & HLD is readmitted for seizures. He was started on Dilantin yesterday but refused the loading dose due to significant side effects (mainly dizziness). He had another seizure earlier today, prolactin level checked immediately afterwards is elevated. He had a pro dromal episode prior to the seizure, called nursing staff and had a witnessed seizure lasting ~3 minutes. He is anxious post-ictal, no other complaints. 10 point review of system is negative except for above. PHYSICAL EXAMINATION: VITAL SIGNS: See below GENERAL APPEARANCE: No distress HEENT: Moist mucus membranes CARDIOVASCULAR: S1, S2, no murmurs LUNGS: clear to auscultation, tachypneic ABDOMEN: soft, non-tender, non-distended, +BS EXTREMITIES: No LE edema NEUROLOGICAL: No focal deficits PSYCHIATRIC: Calm LABORATORY DATA: See below. MICROBIOLOGY: Please see below. ASSESSMENT: 59 y.o male w/ multiple medical comorbidities who was recently admitted for seizure activity and presented to the emergency department yesterday with seizure is being readmitted for multiple seizures. PLAN: 1. Seizures - had another seizure today, refused Dilantin loading dose yesterday due to side effects, increase Dilantin to 100 mg TID, will check level in the morning, continue Keppra 1 gram BID, PRN Ativan for seizure, case discussed with neurologist (Dr. Holden), EEG without acute pathology. MRI brain w/ & w/o contrast ordered. 2. DM - sliding scale insulin w/ meals & at bedtime 3. HTN - continue Lisinopril 4. HLD - continue atorvastatin 5. DVT. Continue Eliquis DVT Prophylaxis - Eliquis GI Prophylaxis - Protonix VS, I&O, 24H, Fishbone Vital Signs/I&O Vital Signs Date Time Temp Pulse Resp B/P (MAP) Pulse Ox O2 Delivery O2 Flow Rate FiO2 06/07/19 12:08 18 Room Air 06/07/19 12:00 97.9 101 123/82 (96) 98 l I&O- Last 24 Hours up to 6 AM 06/07/19 06:00 Intake Total 360 ml Output Total 300 ml Balance 60 ml Laboratory Data 24H LABS Laboratory Tests 2 06/06/19 19:48: Phenytoin (Dilantin) Level 9.1L 06/07/19 06:59: Nucleated Red Blood Cells % (auto) 0.0, Anion Gap 7L, Glomerular Filtration Rate > 60.0, Calcium Level 8.9, Magnesium Level 1.8, Total Bilirubin 0.6, Aspartate Amino Transf (AST/SGOT) 10, Alanine Aminotransferase (ALT/SGPT) 12, Alkaline Phosphatase 122H, Total Protein 6.6, Albumin 2.7L, Albumin/Globulin Ratio 0.69L 06/07/19 08:35: Prolactin 29.1H CBC/BMP Laboratory Tests 06/07/19 06:59 ELISEO BARNES MD Jun 07, 2019 14:58
[2019-06-07] MEDS ORDERED: PROHANCE 279.3MG/ML 15ML VIAL (A9576) As Ordered ONE (18:07)
--- NOTE | 2019-06-07 18:45 | REPVR ---
PROCEDURE INFORMATION: Exam: MR Head Without and With Contrast Exam date and time: 06/07/2019 6:27 PM Age: 59 years old Clinical indication: Other: Seizure; Additional info: Seizures TECHNIQUE: Imaging protocol: MR of the head without and with intravenous contrast. Contrast material: PROHANCE; Contrast volume: 15 ml; Contrast route: IV; COMPARISON: MRI-Brain W/O FOLL BY WITH 05/12/2019 6:04 PM FINDINGS: Brain: This is a limited MRI brain with/without contrast. Precontrast axial diffusion and coronal T2 sequences are available for review, as well as axial and coronal postcontrast sequences. There is no restricted diffusion within the brain to suggest an acute infarct. The hippocampi are normal in signal intensity and size, without mesial temporal sclerosis. No abnormally enhancing intracranial mass is identified. No cerebral edema. Mild age-appropriate prominence of the sulci. Ventricles: No ventriculomegaly. Bones/joints: Unremarkable, as visualized. Soft tissues: Unremarkable, as visualized. Sinuses: Mucosal thickening of the bilateral maxillary sinuses. Mild mucosal thickening of scattered ethmoid air cells. Mastoid air cells: No mastoid effusion. Orbits: Magnetic susceptibility artifact is identified in the region of the inferior left orbital rim. IMPRESSION: 1. There is no restricted diffusion within the brain to suggest an acute infarct. 2. No abnormally enhancing intracranial mass is identified. 3. Paranasal sinus disease. Electronically signed by: Jerald Morton On 06/07/2019 18:44:47 PM
[2019-06-08] VITALS: BP 101/66
[2019-06-08 04:00] VITALS: BP 123/83
[2019-06-08] MEDS: SLF 3 ML SYR IV SCH ×2 (04:24→17:59)
[2019-06-08 04:26] LABS: HEMATOCRIT 34.3 % (42.0-52.0); HEMOGLOBIN 10.9 g/dl (13.5-17.5); MEAN CORPUSCULAR HEMOGLOBIN 28.8 pg (27.0-33.0); MEAN CORPUSCULAR HGB CONC 31.8 g/dl (32.0-36.5); MEAN CORPUSCULAR VOLUME 90.7 fl (80.0-96.0); PLATELET COUNT, AUTOMATED 420 10^3/uL (150-450); RED BLOOD COUNT 3.78 10^6/uL (4.30-6.10)
[2019-06-08 04:58] LABS: BLOOD UREA NITROGEN 7 MG/DL (7-18); CALCIUM LEVEL 8.8 MG/DL (8.5-10.1); CARBON DIOXIDE LEVEL 28 MEQ/L (21-32); CHLORIDE LEVEL 99 MEQ/L (98-107); CREATININE FOR GFR 0.55 MG/DL (0.70-1.30); GLOMERULAR FILTRATION RATE > 60.0 (>56); GLUCOSE, FASTING 76 MG/DL (70-100); PHENYTOIN (DILANTIN) 5.5 UG/ML (10.0-20.0); POTASSIUM SERUM 3.8 MEQ/L (3.5-5.1); SODIUM LEVEL 133 MEQ/L (136-145)
[2019-06-08] MEDS ORDERED: PHENYTOIN 50 MG CHEW TABLET PO ONE ×2 (09:00→11:00)
[2019-06-08] MEDS: levETIRAcetam 250MG TABLET (KEPPRA) PO SCH ×2 (10:01→20:30)
[2019-06-08] MEDS: GABAPENTIN 300 MG CAP PO SCH ×3 (10:01→20:32)
[2019-06-08] MEDS: lisinopriL 20 MG TAB PO SCH (10:02)
[2019-06-08] MEDS: VITAMIN D 1,000 INTERNATIONAL UNITS TABLET PO SCH (10:02)
[2019-06-08] MEDS: APIXABAN 5 MG TAB (ELIQUIS) PO SCH ×2 (10:02→20:32)
[2019-06-08] MEDS: POTASSIUM CHLORIDE 10 MEQ SR TABLET PO SCH (10:03)
[2019-06-08] MEDS: DICLOFENAC EPOLAMINE 1.3 % PATCH TD SCH ×2 (10:03→20:31)
[2019-06-08] MEDS: PERCOCET 5MG/325MG TAB PO PRN ×2 (10:49→20:31)
[2019-06-08 12:00] VITALS: BP 112/70
--- NOTE | 2019-06-08 12:27 | IPNPDOC ---
Date Seen The patient was seen on 06/08/19. Progress Note SUBJECTIVE: 59 y.o male w/ PMH of metastatic Colon cancer, on chemotherapy, HTN, DM, seizure, left upper extremity DVT & HLD is readmitted for seizures. He has not had any seizure activity since yesterday, resting comfortably in bed, will reattempt Dilantin loading dose by mouth. No acute events overnight 10 point review of system is negative except for above. PHYSICAL EXAMINATION: VITAL SIGNS: See below GENERAL APPEARANCE: No distress HEENT: Moist mucus membranes CARDIOVASCULAR: S1, S2, tachycardic LUNGS: clear to auscultation, tachypneic ABDOMEN: soft, non-tender, non-distended, +BS EXTREMITIES: No LE edema NEUROLOGICAL: No focal deficits PSYCHIATRIC: Calm LABORATORY DATA: See below. MICROBIOLOGY: Please see below. ASSESSMENT: 59 y.o male w/ multiple medical comorbidities who was recently admitted for seizure activity and presented to the emergency department yesterday with seizure is being readmitted for multiple seizures. PLAN: 1. Seizures -No seizure since yesterday, Dilantin level low, will reattempt loading dose of Dilantin by mouth, followed by 100 mg twice a day, recheck levels later today, continue Keppra 1 gram BID, PRN Ativan for seizure, case discussed with neurologist (Dr. Holden), EEG without acute pathology. MRI brain w/ & w/o contrast was negative for acute pathology. 2. DM - sliding scale insulin w/ meals & at bedtime 3. HTN - continue Lisinopril 4. HLD - continue atorvastatin 5. DVT. Continue Eliquis DVT Prophylaxis - Eliquis GI Prophylaxis - Protonix VS, I&O, 24H, Fishbone Vital Signs/I&O Vital Signs Date Time Temp Pulse Resp B/P (MAP) Pulse Ox O2 Delivery O2 Flow Rate FiO2 06/08/19 10:49 18 06/08/19 10:02 123/83 06/08/19 04:00 97.2 100 95 Room Air I&O- Last 24 Hours up to 6 AM 06/08/19 06:00 Intake Total 1130 ml Output Total 650 ml Balance 480 ml Laboratory Data 24H LABS Laboratory Tests 2 06/08/19 04:09: Nucleated Red Blood Cells % (auto) 0.0, Anion Gap 6L, Glomerular Filtration Rate > 60.0, Calcium Level 8.8, Phenytoin (Dilantin) Level 5.5L CBC/BMP Laboratory Tests 06/08/19 04:09 ELISEO BARNES MD Jun 08, 2019 12:27
[2019-06-08 16:00] VITALS: BP 130/77
[2019-06-08 20:00] VITALS: BP 110/73
[2019-06-08] MEDS: PHENYTOIN 50 MG CHEW TABLET PO SCH ×2 (20:30→22:19)
[2019-06-08] MEDS: SODIUM CHLORIDE 0.9% INJ 10 ML SYR IV PRN (20:32)
[2019-06-09] VITALS: BP 114/68
[2019-06-09 04:00] VITALS: BP 118/76
[2019-06-09 04:35] LABS: HEMATOCRIT 35.1 % (42.0-52.0); MEAN CORPUSCULAR HEMOGLOBIN 28.7 pg (27.0-33.0); MEAN CORPUSCULAR HGB CONC 31.3 g/dl (32.0-36.5); MEAN CORPUSCULAR VOLUME 91.6 fl (80.0-96.0); PLATELET COUNT, AUTOMATED 397 10^3/uL (150-450); RED BLOOD COUNT 3.83 10^6/uL (4.30-6.10); WHITE BLOOD COUNT 7.2 10^3/uL (4.0-10.0)
[2019-06-09 05:01] LABS: BLOOD UREA NITROGEN 6 MG/DL (7-18); CALCIUM LEVEL 8.7 MG/DL (8.5-10.1); CARBON DIOXIDE LEVEL 29 MEQ/L (21-32); CHLORIDE LEVEL 99 MEQ/L (98-107); CREATININE FOR GFR 0.57 MG/DL (0.70-1.30); GLOMERULAR FILTRATION RATE > 60.0 (>56); GLUCOSE, FASTING 82 MG/DL (70-100); POTASSIUM SERUM 3.3 MEQ/L (3.5-5.1); SODIUM LEVEL 135 MEQ/L (136-145)
[2019-06-09] MEDS ORDERED: POTASSIUM CHLORIDE 10 MEQ SR TABLET PO ONE ×2 (06:00→17:00)
[2019-06-09] MEDS: SODIUM CHLORIDE 0.9% INJ 10 ML SYR IV SCH ×2 (06:40→17:14)
[2019-06-09] MEDS: TAMSULOSIN 0.4 MG CAP PO SCH (06:44)
[2019-06-09 07:33] VITALS: BP 127/54
[2019-06-09] MEDS: levETIRAcetam 250MG TABLET (KEPPRA) PO SCH ×2 (09:55→20:21)
[2019-06-09] MEDS: APIXABAN 5 MG TAB (ELIQUIS) PO SCH ×2 (09:56→20:20)
[2019-06-09] MEDS: lisinopriL 20 MG TAB PO SCH (09:56)
[2019-06-09] MEDS: PHENYTOIN ER 100 MG CAP PO SCH ×3 (09:56→20:21)
[2019-06-09] MEDS: GABAPENTIN 300 MG CAP PO SCH ×3 (09:56→20:21)
[2019-06-09] MEDS: VITAMIN D 1,000 INTERNATIONAL UNITS TABLET PO SCH (09:56)
[2019-06-09] MEDS: DICLOFENAC EPOLAMINE 1.3 % PATCH TD SCH ×2 (09:57→20:21)
[2019-06-09] MEDS: POTASSIUM CHLORIDE 10 MEQ SR TABLET PO SCH (09:57)
[2019-06-09] MEDS ORDERED: NS 1,000 ML IV SCH (10:00)
[2019-06-09] MEDS: ACETAMINOPHEN 500 MG TAB PO PRN (10:03)
[2019-06-09] MEDS: PERCOCET 5MG/325MG TAB PO PRN ×2 (10:36→20:21)
[2019-06-09 12:14] VITALS: BP 101/66
[2019-06-09 16:00] VITALS: BP 124/75
--- NOTE | 2019-06-09 16:14 | IPNPDOC ---
Date Seen The patient was seen on 06/09/19. Progress Note SUBJECTIVE: 59 y.o male w/ PMH of metastatic Colon cancer, on chemotherapy, HTN, DM, seizure, left upper extremity DVT & HLD is readmitted for seizures. Patient had an episode this morning which was similar to yesterday's episode prior to his seizure where he became very tachycardic, tachypneic, lightheaded with a strain sensation in his mouth. Patient did not have a seizure this time, no issu es overnight. 10 point review of system is negative except for above. PHYSICAL EXAMINATION: VITAL SIGNS: See below GENERAL APPEARANCE: No distress HEENT: Moist mucus membranes CARDIOVASCULAR: S1, S2, tachycardic LUNGS: clear to auscultation, tachypneic ABDOMEN: soft, non-tender, non-distended, +BS EXTREMITIES: No LE edema NEUROLOGICAL: No focal deficits PSYCHIATRIC: Calm LABORATORY DATA: See below. MICROBIOLOGY: Please see below. ASSESSMENT: 59 y.o male w/ multiple medical comorbidities who was recently admitted for seizure activity and presented to the emergency department yesterday with seizure is being readmitted for multiple seizures. PLAN: 1. Seizures - Dilantin level low, increased Dilantin to 200 mg 3 times a day, will recheck level in the morning, continue Keppra 1 gram BID, PRN Ativan for seizure, case discussed with neurologist (Dr. Holden), EEG without acute pathology. MRI brain w/ & w/o contrast was negative for acute pathology. We'll get an LP for further workup, along with blood testing for metabolic etiology; questionable micro-metastases to the brain. 2. DM - Diet controlled 3. HTN - continue Lisinopril 4. HLD - continue atorvastatin 5. DVT. Continue Eliquis DVT Prophylaxis - Eliquis GI Prophylaxis - Protonix VS, I&O, 24H, Fishbone Vital Signs/I&O Vital Signs Date Time Temp Pulse Resp B/P (MAP) Pulse Ox O2 Delivery O2 Flow Rate FiO2 06/09/19 12:14 96.8 101 66 101/66 (78) 97 Room Air I&O- Last 24 Hours up to 6 AM 06/09/19 06:00 Intake Total 500 ml Output Total 650 ml Balance -150 ml Laboratory Data 24H LABS Laboratory Tests 2 06/08/19 20:40: Phenytoin (Dilantin) Level 9.6L 06/09/19 04:25: Nucleated Red Blood Cells % (auto) 0.0, Anion Gap 7L, Glomerular Filtration Rate > 60.0, Calcium Level 8.7 CBC/BMP Laboratory Tests 06/09/19 04:25 ELISEO BARNES MD Jun 09, 2019 16:14
[2019-06-09 20:00] VITALS: BP 120/74
[2019-06-10] VITALS: BP 109/66
[2019-06-10] MEDS: PERCOCET 5MG/325MG TAB PO PRN ×2 (02:04→08:10)
[2019-06-10 04:00] VITALS: BP 137/78
[2019-06-10 05:44] LABS: HEMATOCRIT 33.1 % (42.0-52.0); HEMOGLOBIN 10.4 g/dl (13.5-17.5); MEAN CORPUSCULAR HEMOGLOBIN 28.9 pg (27.0-33.0); MEAN CORPUSCULAR HGB CONC 31.4 g/dl (32.0-36.5); MEAN CORPUSCULAR VOLUME 91.9 fl (80.0-96.0); PLATELET COUNT, AUTOMATED 364 10^3/uL (150-450)
[2019-06-10] MEDS: SODIUM CHLORIDE 0.9% INJ 10 ML SYR IV SCH ×2 (05:54→18:39)
[2019-06-10 07:00] LABS: BLOOD UREA NITROGEN 5 MG/DL (7-18); CALCIUM LEVEL 8.7 MG/DL (8.5-10.1); CARBON DIOXIDE LEVEL 27 MEQ/L (21-32); CHLORIDE LEVEL 102 MEQ/L (98-107); CREATININE FOR GFR 0.48 MG/DL (0.70-1.30); GLOMERULAR FILTRATION RATE > 60.0 (>56); GLUCOSE, FASTING 77 MG/DL (70-100); PHENYTOIN (DILANTIN) 14.4 UG/ML (10.0-20.0); POTASSIUM SERUM 4.1 MEQ/L (3.5-5.1); SODIUM LEVEL 134 MEQ/L (136-145)
[2019-06-10 07:56] VITALS: BP 122/85
[2019-06-10] MEDS: levETIRAcetam 250MG TABLET (KEPPRA) PO SCH ×2 (08:09→21:21)
[2019-06-10] MEDS: DICLOFENAC EPOLAMINE 1.3 % PATCH TD SCH ×2 (08:09→21:20)
[2019-06-10] MEDS: VITAMIN D 1,000 INTERNATIONAL UNITS TABLET PO SCH (08:09)
[2019-06-10] MEDS: GABAPENTIN 300 MG CAP PO SCH ×3 (08:09→21:20)
[2019-06-10] MEDS: TAMSULOSIN 0.4 MG CAP PO SCH (08:09)
[2019-06-10] MEDS: PHENYTOIN ER 100 MG CAP PO SCH ×3 (08:09→21:20)
[2019-06-10] MEDS: APIXABAN 5 MG TAB (ELIQUIS) PO SCH ×2 (08:10→21:21)
[2019-06-10] MEDS: lisinopriL 20 MG TAB PO SCH (08:10)
[2019-06-10] MEDS: POTASSIUM CHLORIDE 10 MEQ SR TABLET PO SCH (08:10)
[2019-06-10] MEDS: ONDANSETRON 4MG/2ML VIAL (J2405) IV PRN (09:17)
[2019-06-10] MEDS: SODIUM CHLORIDE 0.9% INJ 10 ML SYR IV PRN (09:18)
[2019-06-10 12:03] VITALS: BP 122/82
[2019-06-10 14:00] VITALS: BP 126/82
[2019-06-10] MEDS: ACETAMINOPHEN 500 MG TAB PO PRN (18:42)
--- NOTE | 2019-06-10 19:24 | IPNPDOC ---
Date Seen The patient was seen on 06/10/19. Progress Note SUBJECTIVE: 59 y.o male w/ PMH of metastatic Colon cancer, on chemotherapy, HTN, DM, seizure, left upper extremity DVT & HLD is readmitted for seizures. Patient seen in the morning, comfortable, without complaints, no acute events overnight. Patient had a seizure later in the day, received 2 mg of Ativan. 10 point review of system is negative except for above. PHYSICAL EXAMINATION: VITAL SIGNS: See below GENERAL APPEARANCE: No distress HEENT: Moist mucus membranes CARDIOVASCULAR: S1, S2, no murmurs LUNGS: clear to auscultation, no wheezing ABDOMEN: soft, non-tender, non-distended, +BS EXTREMITIES: No LE edema NEUROLOGICAL: No focal deficits PSYCHIATRIC: Calm LABORATORY DATA: See below. MICROBIOLOGY: Please see below. ASSESSMENT: 59 y.o male w/ multiple medical comorbidities who was recently admitted for seizure activity and presented to the emergency department yesterday with seizure is being readmitted for multiple seizures. PLAN: 1. Seizures - Dilantin level within normal limits in the morning, continue Dilantin to 200 mg 3 times a day, will recheck level in the morning & adjust as needed, continue Keppra 1 gram BID, PRN Ativan for seizure, case discussed with neurologist (Dr. Holden), EEG without acute pathology. MRI brain w/ & w/o contrast was negative for acute pathology. We'll get an LP for further workup, along with blood testing for metabolic etiology; questionable micro-metastases to the brain. 2. DM - Diet controlled 3. HTN - continue Lisinopril 4. HLD - continue atorvastatin 5. DVT. Continue Eliquis DVT Prophylaxis - Eliquis GI Prophylaxis - Protonix VS, I&O, 24H, Fishbone Vital Signs/I&O Vital Signs Date Time Temp Pulse Resp B/P (MAP) Pulse Ox O2 Delivery O2 Flow Rate FiO2 06/10/19 14:00 97.2 96 18 126/82 (97) 96 Room Air I&O- Last 24 Hours up to 6 AM0 06/10/19 06:00 Intake Total 2200 ml Output Total 1300 ml Balance 900 ml Laboratory Data 24H LABS Laboratory Tests 2 06/10/19 05:28: Nucleated Red Blood Cells % (auto) 0.0, Anion Gap 5L, Glomerular Filtration Rate > 60.0, Calcium Level 8.7, Thyroid Stimulating Hormone (TSH) 1.390, Phenytoin (Dilantin) Level 14.4 06/10/19 14:40: Bedside Glucose (Misc Panel) 93 CBC/BMP Laboratory Tests 06/10/19 05:28 ELISEO BARNES MD Jun 10, 2019 19:24
[2019-06-10 22:00] VITALS: BP 119/77
[2019-06-11] MEDS: SODIUM CHLORIDE 0.9% INJ 10 ML SYR IV SCH ×2 (05:02→16:54)
[2019-06-11 05:21] LABS: HEMATOCRIT 33.9 % (42.0-52.0); HEMOGLOBIN 10.7 g/dl (13.5-17.5); MEAN CORPUSCULAR HEMOGLOBIN 28.7 pg (27.0-33.0); MEAN CORPUSCULAR HGB CONC 31.6 g/dl (32.0-36.5); MEAN CORPUSCULAR VOLUME 90.9 fl (80.0-96.0); PLATELET COUNT, AUTOMATED 346 10^3/uL (150-450); RED BLOOD COUNT 3.73 10^6/uL (4.30-6.10); WHITE BLOOD COUNT 7.2 10^3/uL (4.0-10.0)
[2019-06-11 05:48] LABS: BLOOD UREA NITROGEN 5 MG/DL (7-18); CALCIUM LEVEL 8.6 MG/DL (8.5-10.1); CARBON DIOXIDE LEVEL 28 MEQ/L (21-32); CHLORIDE LEVEL 103 MEQ/L (98-107); CREATININE FOR GFR 0.53 MG/DL (0.70-1.30); GLOMERULAR FILTRATION RATE > 60.0 (>56); GLUCOSE, FASTING 94 MG/DL (70-100); MAGNESIUM LEVEL 1.6 MG/DL (1.8-2.4); PHOSPHORUS LEVEL 4.2 MG/DL (2.5-4.9); POTASSIUM SERUM 4.1 MEQ/L (3.5-5.1); SODIUM LEVEL 137 MEQ/L (136-145)
[2019-06-11 06:00] VITALS: BP 111/72
[2019-06-11 07:58] LABS: CORTISOL AM 11.6 UG/DL (4.3-22.4)
[2019-06-11] MEDS: PHENYTOIN ER 100 MG CAP PO SCH ×3 (08:58→20:03)
[2019-06-11] MEDS: TAMSULOSIN 0.4 MG CAP PO SCH (08:59)
[2019-06-11] MEDS: GABAPENTIN 300 MG CAP PO SCH ×3 (08:59→20:03)
[2019-06-11] MEDS: levETIRAcetam 250MG TABLET (KEPPRA) PO SCH ×2 (09:00→20:03)
[2019-06-11] MEDS: VITAMIN D 1,000 INTERNATIONAL UNITS TABLET PO SCH (09:00)
[2019-06-11] MEDS: APIXABAN 5 MG TAB (ELIQUIS) PO SCH ×2 (09:01→20:03)
[2019-06-11] MEDS: POTASSIUM CHLORIDE 10 MEQ SR TABLET PO SCH (09:02)
[2019-06-11] MEDS: lisinopriL 20 MG TAB PO SCH (09:03)
[2019-06-11] MEDS: DICLOFENAC EPOLAMINE 1.3 % PATCH TD SCH ×2 (09:06→20:02)
[2019-06-11] MEDS ORDERED: APIXABAN 5 MG TAB (ELIQUIS) PO ONE (12:00)
[2019-06-11 14:00] VITALS: BP 114/77
[2019-06-11] MEDS: MAG SULF 1GM/100ML (MAG RUN) 1 GM in IV 1 EA IV SCH ×3 (17:10→18:53)
--- NOTE | 2019-06-11 18:51 | CR ---
DATE OF CONSULTATION: 06/11/2019 CONSULTATION REPORT FOR: Dr. Smiley REASON FOR CONSULTATION: Frequent seizure-like spells. HISTORY OF PRESENT ILLNESS: Abraham Overton is a 59-year-old man with history of metastatic colon cancer on chemotherapy, hypertension, diabetes, history of deep vein thrombosis (DVT) of left arm who has developed frequent seizure-like spells. These started within the last couple of weeks. The patient was admitted at [facility] a couple of times for these seizure-like spells. He has had a total of 7-8 spells over last 2-3 weeks. The patient was initially hospitalized with two seizures and was discharged home with Keppra 500 mg twice a day. He had another seizure and came to the emergency department and his Keppra was increased to 1000 mg twice a day. The patient was compliant with his medication. He had a couple of seizures on his way to [facility] on the day of admission. The patient remembered being in the car and then woke up in the emergency department. He denies incontinence or tongue biting in any of these episodes. The patient states that he did not know what Dr. Smiley told him yesterday, that he had a seizure when he was in the hospital. The patient was started on Dilantin during this hospital admission in addition to Keppra. His Dilantin level was therapeutic as described below. The patient states that his seizures are as following. He feels and sees both hands and feet start twitching. He called the nurses and then loses consciousness. He does not remember anything after that. He can hear other people in the beginning sometimes but not other times. He states that he does not remember anything after he had called the nurses. He states that in the beginning he can see and feel his both hands and feet are twitching and that is his warning. There is no trigger for these spells. He is tired and confused afterwards. He states that he did not even know that he had a spell yesterday until Dr. Smiley told him that. He states that his back and stomach are sore and burning due to these seizures afterwards. He was told that it was because of the muscle activity. He sometimes feels head pressure when he is going into his seizures. PAST MEDICAL HISTORY: 1. Metastatic colon cancer. 2. Hypertension. 3. Dyslipidemia. 4. Diabetes. 5. Left arm deep vein thrombosis (DVT). 6. Colon resection. 7. Hernia repair. SOCIAL HISTORY: He denies alcohol or illicit drugs. FAMILY HISTORY: No family history of seizures. Positive family history of heart disease. ALLERGIES: None. CURRENT MEDICATIONS: - Eliquis 5 mg by mouth twice a day - gabapentin 300 mg by mouth three times a day - Keppra 1000 mg by mouth twice a day - lisinopril 20 mg by mouth daily - magnesium oxide - potassium chloride - vitamin D3 - diclofenac one patch every 12 hours as needed - Dilantin 200 mg tid - Zofran - Percocet REVIEW OF SYSTEMS: All systems were reviewed with the patient and were found to be noncontributory except as mentioned in the history of present illness. PHYSICAL EXAMINATION: Temperature 97.9, pulse 107, respiratory rate 17, blood pressure 114/77, 96% saturation on room air. HEART: Irregular rate and rhythm. LUNGS: Clear to auscultation. ABDOMEN: Soft, nontender, nondistended. No pedal edema. No musculoskeletal abnormalities. No rash. No signs of meningeal irritation. The patient is awake, alert, oriented to place, person and time. Normal speech, comprehension and repetition. Extraocular muscles are intact. No facial weakness. Tongue and uvula are midline. 5/5 strength in all four extremities. Normal sensation throughout. Gait is normal. No tremor. No dysmetria on [id number] testing. DIAGNOSTIC STUDIES: CT scan of head and MRI scan of brain on 05/11/2019, 06/02/2019, 06/07/2019 were all within normal limits. His routine EEG was normal last week. His Dilantin level was 16 today and 14.4 yesterday. His hemoglobin was 10.7. Normal metabolic profile. Serum prolactin level was 29.1 on 06/07/2019 after his seizure-like spell. ASSESSMENT: 1. Seizure-like spells with persistent spells on therapeutic doses of two broad-spectrum antiepileptic medications, Keppra and Dilantin. 2. There is concern for generalized tonic-clonic seizures and psychogenic nonepileptic spells. PLAN: 1. Continue Keppra 1000 mg by mouth twice a day and Dilantin 200 mg tid but it might become supratherapeutic in few days and might require lowering the dose. 2. Repeat EEG. 3. I explained to the patient that if he continues to have his spells, we may have to transfer him to [facility] for video EEG monitoring. We are exercising caution due to current risk of COVID-19 infection. 4. Seizure precautions including no driving for six months. 5. Follow with our office in 2-3 weeks after hospital discharge. MELYSSA
[2019-06-11] MEDS: PERCOCET 5MG/325MG TAB PO PRN (20:03)
[2019-06-11] MEDS: SODIUM CHLORIDE 0.9% INJ 10 ML SYR IV PRN (20:04)
--- NOTE | 2019-06-11 20:33 | IPNPDOC ---
Date Seen The patient was seen on 06/11/19. Progress Note SUBJECTIVE: 59 y.o male w/ PMH of metastatic Colon cancer, on chemotherapy, HTN, DM, seizure, left upper extremity DVT & HLD is readmitted for seizures. Patient has not had any seizure like activity for >24 hours, resting in bed, concerned about diagnosis/outcome, no other complaints, all questions answered. 10 point review of system is negative except for above. PHYSICAL EXAMINATION: VITAL SIGNS: See below GENERAL APPEARANCE: No distress HEENT: Moist mucus membranes CARDIOVASCULAR: S1, S2, no murmurs LUNGS: clear to auscultation, no wheezing ABDOMEN: soft, non-tender, non-distended, +BS EXTREMITIES: No LE edema NEUROLOGICAL: No focal deficits PSYCHIATRIC: Calm LABORATORY DATA: See below. MICROBIOLOGY: Please see below. ASSESSMENT: 59 y.o male w/ multiple medical comorbidities who was recently admitted for seizure activity and presented to the emergency department yesterday with seizure is being readmitted for multiple seizures. PLAN: 1. Seizure vs pseudoseizure - continue Dilantin 200 mg 3 times a day and Keppra 1 gram BID, PRN Ativan for seizure, Neurology eval appreciated, repeat EEG pending. MRI brain w/ & w/o contrast negative for acute pathology. 2. DM - Diet controlled 3. HTN - continue Lisinopril 4. HLD - continue atorvastatin 5. DVT. Continue Eliquis DVT Prophylaxis - Eliquis GI Prophylaxis - Protonix VS, I&O, 24H, Fishbone Vital Signs/I&O Vital Signs Date Time Temp Pulse Resp B/P (MAP) Pulse Ox O2 Delivery O2 Flow Rate FiO2 06/11/19 20:03 18 06/11/19 14:00 97.9 107 114/77 (89) 96 Room Air I&O- Last 24 Hours up to 6 AM 06/11/19 06:00 Intake Total 1360 ml Output Total 0 ml Balance 1360 ml Laboratory Data 24H LABS Laboratory Tests 2 06/11/19 05:07: Nucleated Red Blood Cells % (auto) 0.0, Anion Gap 6L, Glomerular Filtration Rate > 60.0, Calcium Level 8.6, Phosphorus Level 4.2, Magnesium Level 1.6L, Phenytoin (Dilantin) Level 16.0 06/11/19 15:49: CBC/BMP Laboratory Tests 06/11/19 05:07 ELISEO BARNES MD Jun 11, 2019 20:33
[2019-06-11 22:00] VITALS: BP 112/75
[2019-06-12] VITALS (7 sets, daily range): BP systolic 111–124; BP diastolic 71–81
[2019-06-12] MEDS: PERCOCET 5MG/325MG TAB PO PRN ×2 (04:25→12:51)
[2019-06-12] MEDS: SODIUM CHLORIDE 0.9% INJ 10 ML SYR IV SCH ×2 (05:21→17:45)
[2019-06-12 05:45] LABS: HEMATOCRIT 32.9 % (42.0-52.0); HEMOGLOBIN 10.4 g/dl (13.5-17.5); MEAN CORPUSCULAR HEMOGLOBIN 28.9 pg (27.0-33.0); MEAN CORPUSCULAR HGB CONC 31.6 g/dl (32.0-36.5); MEAN CORPUSCULAR VOLUME 91.4 fl (80.0-96.0); PLATELET COUNT, AUTOMATED 344 10^3/uL (150-450); WHITE BLOOD COUNT 7.2 10^3/uL (4.0-10.0)
[2019-06-12 06:02] LABS: BLOOD UREA NITROGEN 7 MG/DL (7-18); CALCIUM LEVEL 8.3 MG/DL (8.5-10.1); CARBON DIOXIDE LEVEL 29 MEQ/L (21-32); CHLORIDE LEVEL 101 MEQ/L (98-107); CREATININE FOR GFR 0.51 MG/DL (0.70-1.30); GLOMERULAR FILTRATION RATE > 60.0 (>56); GLUCOSE, FASTING 90 MG/DL (70-100); MAGNESIUM LEVEL 2.1 MG/DL (1.8-2.4); POTASSIUM SERUM 3.8 MEQ/L (3.5-5.1); SODIUM LEVEL 135 MEQ/L (136-145)
[2019-06-12] MEDS: levETIRAcetam 250MG TABLET (KEPPRA) PO SCH ×2 (08:17→20:47)
[2019-06-12] MEDS: PHENYTOIN ER 100 MG CAP PO SCH ×3 (08:17→20:47)
[2019-06-12] MEDS: lisinopriL 20 MG TAB PO SCH (08:20)
[2019-06-12] MEDS: VITAMIN D 1,000 INTERNATIONAL UNITS TABLET PO SCH (08:20)
[2019-06-12] MEDS: POTASSIUM CHLORIDE 10 MEQ SR TABLET PO SCH (08:20)
[2019-06-12] MEDS: GABAPENTIN 300 MG CAP PO SCH ×3 (08:20→20:47)
[2019-06-12] MEDS: TAMSULOSIN 0.4 MG CAP PO SCH (08:21)
[2019-06-12] MEDS: APIXABAN 5 MG TAB (ELIQUIS) PO SCH ×2 (08:21→20:47)
[2019-06-12] MEDS: DICLOFENAC EPOLAMINE 1.3 % PATCH TD SCH ×2 (08:21→20:47)
[2019-06-12] MEDS: ALPRAZolam 0.25 MG TAB PO SCH ×2 (09:50→20:47)
[2019-06-12] MEDS ORDERED: BUSP10TA PO (12:50)
[2019-06-12] MEDS ORDERED: DILA100C PO (12:50)
--- NOTE | 2019-06-12 16:22 | EEG ---
DATE OF PROCEDURE: 06/12/2019 REFERRING PHYSICIAN: Dr. Ray Smiley DIAGNOSIS: Seizure-like spells. EEG NUMBER: [id number] HISTORY: The patient is a 59-year-old man with a history of frequent seizure-like spells in last 2-3 weeks despite taking Dilantin and Keppra. This EEG was done to rule out epileptic potential. TECHNICAL DESCRIPTION: This digital EEG was recorded by 21 scalp, ear and two EKG electrodes and was reviewed in bipolar and referential montages following reformatting in 10-20 international electrode placement system. INTERPRETATION: The patient was noted to be in awake and drowsy states during this EEG. Resting awake background rhythm consisted of 9 Hz alpha activity measuring 15-40 microvolts in amplitude, which was symmetric and reactive to eye opening. Anteriorly low voltage and mixed frequency activity was noted. Stage I and II sleep were reviewed and were symmetric bilaterally. Attenuation of background rhythm was seen during transition into drowsiness. Hyperventilation could not be performed. Photic stimulation remained unremarkable. EKG revealed normal sinus rhythm. No focal, lateralizing or epileptiform abnormalities were seen. No relevant clinical activity was noted. CONCLUSION: This prolonged EEG for 35 minutes in awake, drowsy states, stage I and II sleep is within normal limits.
--- NOTE | 2019-06-12 18:43 | DS.PDOC ---
Discharge Summary General Date of Admission Jun 06, 2019 at 12:02 Date of Discharge 06/12/19 Attending Physician: ELISEO BARNES MD Discharge Summary PROCEDURES PERFORMED DURING STAY: None. ADMITTING DIAGNOSES: 1. Uncontrolled Seizure. DISCHARGE DIAGNOSES: 1. Uncontrolled seizure. COMPLICATIONS/CHIEF COMPLAINT: Diabetes Mellitus. HISTORY OF PRESENT ILLNESS: 59-year-old male with past medical history of metastatic colon cancer on chemotherapy, DVT, on anticoagulation, hypertension, and recent seizure activity was admitted for uncontrolled seizures. Patient was admitted 2 weeks ago with first seizure activity, started on Keppra 500 mg twice a day at that time, return to the emergency department 1 week later with another seizure episode, was sent home after Keppra was increased to 1 g twice a day. Patient returned the following day with another seizure activity while he was on his way to the [facility] and has been admitted since then. Patient was also started on Dilantin in addition to Keppra, continued having seizure activity despite 2 antiseizure medications. Patient's last seizure was earlier today when he was transferred momentarily to acute rehabilitation unit, transferred was canceled given his seizure. Patient had an MRI brain performed during his in [facility] hospitalization 2 weeks ago which was negative, had another MRI brain with and without contrast performed during this hospitalization, which is also been negative. Patient has had 2 EEGs performed during this hospitalization, which have been negative. Patient has been a value by neurology, suspicion is high for pseudoseizures, transferred to [facility] is recommended for 24 hour video EEG. Case discussed with neurologist and hospitalist at [facility], patient has been accepted and will be transferred to [facility] later today. Patient is clinically and hemodynamically stable for discharge at this time. HOSPITAL COURSE: As above. DISCHARGE MEDICATIONS: Please see below. ALLERGIES: Please see below. PHYSICAL EXAMINATION: VITAL SIGNS: Please see below. GENERAL: No distress HEENT: Normocephalic, atraumatic, moist mucous membranes NECK: Supple CARDIOVASCULAR EXAMINATION: S1, S2, tachycardic RESPIRATORY EXAMINATION: Clear to auscultation, no wheezing ABDOMINAL EXAMINATION: Soft, nontender, nondistended, positive bowel sounds EXTREMITIES: Range of motion intact SKIN: No rash NEUROLOGICAL EXAMINATION: Alert and oriented 3, no focal deficits PSYCHIATRIC EXAMINATION: Calm and cooperative LABORATORY DATA: Please see below. IMAGING: MRI with and without contrast negative for acute pathology PROGNOSIS: Fair ACTIVITY: As tolerated. DIET: Cardiac DISCHARGE PLAN: Follow with neurologist and hospitalist at [facility] DISPOSITION: [facility]. DISCHARGE INSTRUCTIONS: 1. As above. DISCHARGE CONDITION: Stable. TIME SPENT ON DISCHARGE: Greater than 35 minutes. Vital Signs/I&Os Vital Signs Date Time Temp Pulse Resp B/P (MAP) Pulse Ox O2 Delivery O2 Flow Rate FiO2 06/12/19 16:13 128 24 113/77 (89) 97 Room Air 06/12/19 16:08 97.5 I&O- Last 24 Hours up to 6 AM 06/12/19 06:00 Intake Total 1140 ml Output Total 750 ml Balance 390 ml Laboratory Data Labs 24H Laboratory Tests 2 06/12/19 05:19: Nucleated Red Blood Cells % (auto) 0.0, Anion Gap 5L, Glomerular Filtration Rate > 60.0, Calcium Level 8.3L, Magnesium Level 2.1, Phenytoin (Dilantin) Level 15.0 CBC/BMP Laboratory Tests 06/12/19 05:19 Discharge Medications Scheduled Apixaban (Eliquis) 5 Mg Tablet, 5 MG PO BID, (Reported) Buspirone HCl (Buspirone HCl) 10 Mg Tablet, 1 TAB PO BID Cholecalciferol (Vitamin D3) (Vitamin D3) 1,000 Unit Tablet, 1,000 UNITS PO DAILY, (Reported) Diclofenac Epolamine (Diclofenac Epolamine) 1 Each Patch.td12, 1 EACH TD Q12H, (Reported) APPLY TO LEFT SHOULDER Gabapentin (Gabapentin) 300 Mg Capsule, 300 MG PO TID, (Reported) Levetiracetam (Keppra) 1,000 Mg Tablet, 1,000 MG PO BID, (Reported) Lisinopril (Lisinopril) 20 Mg Tab, 20 MG PO DAILY, (Reported) Magnesium Oxide (Magnesium) 400 Mg Capsule, 400 MG PO DAILY, (Reported) Phenytoin Sodium Extended (Dilantin) 100 Mg Capsule, 200 MG PO BID Potassium Chloride (Potassium Chloride) 10 Meq Tab.er.prt, 5 MEQ PO DAILY, (Reported) Scheduled PRN Acetaminophen (Tylenol Extra Strength) 500 Mg Tablet, 1,000 MG PO Q8H PRN for PAIN, (Reported) TAKES 8 HOURS AFTER NIGHT DOSE OF OXYCODONE Ondansetron HCl (Ondansetron HCl) 8 Mg Tablet, 8 MG PO Q6H PRN for NAUSEA OR VO MITING, (Reported) Oxycodone HCl/Acetaminophen (Oxycodone-Acetaminophen 5-325) 1 Each Tablet, 1 TAB PO QID PRN for PAIN, (Reported) Allergies Coded Allergies: No Known Allergies (Unverified , 10/11/18) ELISEO BARNES MD Jun 12, 2019 18:43
== END 2019-06-12 21:05 | disposition short-term general hospital (02) | DRG 101 ==
LOC: M ED 10:32 → M ED INP 12:02 → ENRESERVDT 12:17 → ENRESERVTM 12:17 → M PCU 12:59 → M MSPAV 06-10 13:59
PROVIDERS: ADMIT Internal Medicine; ATTEND Internal Medicine
DX: G40.909 Epilepsy, unspecified, not intractable, without status epilepticus (principal); C18.9 Malignant neoplasm of colon, unspecified; C79.9 Secondary malignant neoplasm of unspecified site; Z86.718 Personal history of other venous thrombosis and embolism; Z87.891 Personal history of nicotine dependence; Z79.01 Long term (current) use of anticoagulants; Z79.899 Other long term (current) drug therapy; E11.9 Type 2 diabetes mellitus without complications; I10 Essential (primary) hypertension; E78.5 Hyperlipidemia, unspecified

== ENCOUNTER 2019-06-28 15:01 | Inpatient (IN) | payer MEDICARE, OTHER ==
[~2019-06-28] VITALS: Ht 180.3 cm; Wt 75.8 kg
[~2019-06-28 15:01] MED LIST changes: +BUSP10TA PO; -DICL1PAT TD; -DICL1PAT TOP; +DICL1PAT6 TD; +DICL1PAT6 TOP; +DILA100C PO; +MAGN400C2 PO
[2019-06-28] MEDS ORDERED: BISACODYL 10 MG SUPP PR PRN (16:00)
[2019-06-28] MEDS ORDERED: clonazePAM 0.5 MG TAB PO SCH (16:00)
[2019-06-28] MEDS ORDERED: LORazepam 2 MG/ML VIAL IM PRN (16:30)
[2019-06-28 16:35] VITALS: BP 141/85
[2019-06-28] MEDS ORDERED: APAP325T4 PO (16:36)
[2019-06-28] MEDS ORDERED: CLOB10TA PO (16:36)
[2019-06-28] MEDS ORDERED: OXYC-517 PO (16:36)
[2019-06-28] MEDS ORDERED: LEVE750T5 PO (16:36)
[2019-06-28] MEDS ORDERED: LISI30TA4 PO (16:36)
[2019-06-28] MEDS ORDERED: VIMP200T PO (16:36)
[2019-06-28] MEDS ORDERED: DILA100C PO (16:36)
[2019-06-28] MEDS ORDERED: AMLO10TA5 PO (16:36)
[2019-06-28] MEDS ORDERED: DIVA500T94 PO (16:36)
[2019-06-28] MEDS ORDERED: PROT1TAB2 PO (16:36)
[2019-06-28] MEDS ORDERED: LIDO1PAD TD (16:36)
[2019-06-28] MEDS ORDERED: BUSP10TA PO (16:36)
--- NOTE | 2019-06-28 17:32 | HPEPDOC ---
Breaker Layer Note DATE OF ADMISSION: 06-28-19 DATE OF SERVICE: 06-28-19 TIME OF ADMISSION: Please refer to physician's admission order. SOURCE OF ADMISSION INFORMATION: [facility] records, patient CHIEF COMPLAINT: seizure disorder HISTORY OF PRESENT ILLNESS: 59M pmh metastatic colon cancer, HTN, LUE DVT on eliquis was transferred to [facility] from [facility] on 06-12-39 for seizure activity for VEEG. Patient proceeded to have multiple seizures which were captured on VEEG and very difficult to control despite the addition of new anti-seizure medications. Lumbar puncture did not reveal any findings, repeat brain imaging was negative, and patient received a five day course of IV solumedrol for concern for autoimmune induced seizure activity. After the addition of benzodiazepines, lacosamide, and Depakote in addition to an increased dose of Keppra he was found to be seizure-free on vEEG for 48 hours. He was evaluated by therapy with notable deficits in ADLs and mobility below his prior level of function and deemed medically appropriate for discharge to ARU on 06-28-19. REVIEW OF SYSTEMS: The following is a completed review of systems and has been reviewed. Review of systems otherwise unremarkable. PAIN: Patient self reports no pain EYES: No recent vision changes EARS, NOSE, & THROAT: No throat pain, or dysphagia, or rhinorrhea CARDIOVASCULAR: Denies chest pain or palpitations PULMONARY: Denies shortness of breath GASTROINTESTINAL: Denies constipation/diarrhea GENITOURINARY: denies dysuria MUSCULOSKELETAL: generalized weakness NEUROLOGICAL:+seizures HEMATOLOGICAL: denies easy bruising SKIN: no rash PSYCHIATRIC: Unremarkable All other review of systems found to be negative. PAST MEDICAL HISTORY: as per HPI PAST SURGICAL HISTORY: colon and hernia repair ALLERGIES: Please see below. MEDICATIONS: Please see below. SOCIAL HISTORY: no etoh/illicit drugs/smoking DIET: low sodium PHYSICAL EXAMINATION: VITAL SIGNS: Please see below. GENERAL: Pleasant and cooperative. No acute distress. mildly sedated, but able to speak in full sentences and complete complex thought processes HEENT: PERRL. Extraocular movements intact. Clear conjunctiva CARDIOVASCULAR: Regular rate and rhythm. No murmurs, rubs, or gallops LUNGS: Clear to auscultation bilaterally. No wheezes. No rhonchi ABDOMEN: Soft, nontender, nondistended. Positive bowel sounds. Normal active bowel sounds NEUROLOGICAL: Alert and oriented times three. Cranial nerves II through XII grossly intact. Sensation grossly intact +mild apraxia EXTREMITIES:5\5 strength bilateral upper extremities. 5\5 strength right lower extremity. 5/5 strength in left lower extremity. SKIN: +blanchable sacral erythema LABORATORY DATA: Please see below. IMAGING:Imaging documentation personally reviewed by record FUNCTIONAL STATUS: Premorbid: Independent with all activities of daily life as well as mobility On Admission: Min assistance for bathing, upper body dressing, bed chair and wheelchair muir sfers, toilet transfers, ambulation. GOALS: Mod-I for bathing, upper body dressing, bed chair and wheelchair transfers, toilet transfers, ambulation. ASSESSMENT:59-year-old M with past medical history of metastatic colon cancer who presents status post new onset seizure disorder PLAN: 1. Rehab- PT/OT advance gait and ADL training, strengthen/stretch/maintain ROM all 4 limbs 2. Neuro: recent onset of seizures captured on VEEG at [facility] and very difficult to control and contributing to overall impaired mobility -c/u Depakote 500mg BID, Lacosamide 200mg BID, Keppra 1500 q8h, gabapentin 300mg TID, and Onfi 15mg BID ( will bring in medication from [facility] today since we do not carry Onfi inhouse-cell #[phone], discussed with [facility] neurology team who does not recommend any other substitute) -will consult neurology while inhouse to help expedite close outpatient follow- up -Ativan ordered prn seizure 3. Cardiac: hx oh HTN c/u amlodipine and lisinopril, medicine consulted to assist in overall management 4. resp: encourage incentive spirometry 5. Vasc: LUE cephalic vein DVT dx 05-11-19 on eliquis, will repeat US 6. GI: hx of metastatic colon cancer, treatment currently on hold, f/u with oncology 7. Pain: tylneol prn 8. Dispo: TBD POST ADMISSION PHYSICIAN EVALUATION: Medical and functional status: Description of medical status, medical assessment: As above. Rehabilitation diagnosis and current and prior cold morbid medical conditions as above. Risk of complications and plans to mitigate them as above. Description of functional status current status is as above. Prior status as above. Status compared to preadmission: There are no clinically significant differences between the patient's current status and the information described on the preadmission screening document. Treatment plan anticipated: Treatment plan is as described above. Required disciplines including physical therapy, occupational therapy, others as noted above. Intensity of services: 3 hours a day, 6 days a week. Special considerations: There are no specific special or safety considerations that would likely preclude immediate implementation of an intensive rehabilitation program or subsequently influence the plan of care. ATTESTATION: Considering all the information above, it is my best judgment that this patient requires intensive rehabilitation therapy as described above and an inpatient hospital environment due to the complexity of nursing, medical, and rehabilitation needs required by the patient. Furthermore, this patient can reasonably be expected to participate in an benefit from an inpatient rehabilitation stay with an interdisciplinary team approach to the delivery of rehabilitation care under the direction and supervision of rehabilitation physician. PROGNOSIS: good ESTIMATED LENGTH OF STAY:14-18 days. PROJECTED DISCHARGE DESTINATION: Home with family support and any durable medical equipment required to increase functional safety and mobility. TIME SPENT COUNSELING AND COORDINATING INITIAL CARE: Greater than 70 minutes. Vital Signs Vital Signs Date Time Temp Pulse Resp B/P (MAP) Pulse Ox O2 Delivery O2 Flow Rate FiO2 06/28/19 16:35 97.9 112 19 141/85 (103) 97 Room Air Home Medications Scheduled Amlodipine Besylate (Amlodipine Besylate) 10 Mg Tablet, 10 MG PO DAILY, (Reporte d) STARTED AT [facility] Apixaban (Eliquis) 5 Mg Tablet, 5 MG PO BID, (Reported) Buspirone HCl (Buspirone HCl) 10 Mg Tablet, 10 MG PO BID, (Reported) Cholecalciferol (Vitamin D3) (Vitamin D3) 1,000 Unit Tablet, 1,000 UNITS PO DAILY, (Reported) Clobazam (Clobazam) 10 Mg Tablet, 15 MG PO BID, (Reported) STARTED AT [facility] Clobazam (Onfi) 10 Mg Tablet, 15 MG PO BID Diclofenac Epolamine (Diclofenac Epolamine) 1 Each Patch.td12, 1 PATCH TD Q12H, (Reported) APPLY TO LEFT SHOULDER Divalproex Sodium (Divalproex Sodium) 500 Mg Tablet.dr, 500 MG PO Q12H, (Reported) STARTED AT [facility] Gabapentin (Gabapentin) 300 Mg Capsule, 300 MG PO TID, (Reported) Lacosamide (Vimpat) 200 Mg Tablet, 200 MG PO BID, (Reported) STARTED AT [facility] Levetiracetam (Levetiracetam) 750 Mg Tablet, 1,500 MG PO Q8H, (Reported) DOSE CHANGED FROM 1000MG BID AT [facility] Lidocaine (Lidocaine) 5% Adh..patch, 2 PATCH TD DAILY, (Reported) APPLY TO LOWER BACK AND SHOULDER Lisinopril (Lisinopril) 30 Mg Tablet, 30 MG PO DAILY, (Reported) DOSE CHANGED FROM 20MG AT [facility] Magnesium Oxide (Magnesium) 400 Mg Capsule, 400 MG PO DAILY, (Reported) Pantoprazole Sodium (Protonix) 40 Mg Tablet.dr, 40 MG PO DAILY, (Reported) STARTED AT [facility] Phenytoin Sodium Extended (Dilantin) 100 Mg Capsule, 200 MG PO BID, (Reported) DISCONTINUED AT [facility] Scheduled PRN Acetaminophen (Acetaminophen) 325 Mg Tablet, 650 MG PO QID PRN for PAIN, (Reported) Ondansetron HCl (Ondansetron HCl) 8 Mg Tablet, 8 MG PO Q6H PRN for NAUSEA OR VOMITING, (Reported) Oxycodone HCl (Oxycodone HCl) 5 Mg Tablet, 5 MG PO BID PRN for SEVERE PAIN (PS 8-10), (Reported) CHANGED FROM PERCOCET 5MG/325MG AT [facility] Allergies Coded Allergies: No Known Allergies (Unverified , 10/11/18) A-FIB/CHADSVASC A-FIB History Current/History of A-Fib/PAF?: No Current PO Anticoag Therapy: Yes GAGANDEEP DAVIS MD Jun 28, 2019 17:32
[2019-06-28] MEDS ORDERED: ONFI10TA PO (17:45)
[2019-06-28] MEDS: levETIRAcetam 250MG TABLET (KEPPRA) PO SCH ×2 (18:13→20:28)
[2019-06-28] MEDS: GABAPENTIN 300 MG CAP PO SCH ×2 (18:14→20:28)
[2019-06-28] MEDS: REMEDY PHYTOPLEX Z-GUARD PASTE 113GM TUBE (FROM STOREROOM PRODUCT) TOP SCH ×2 (18:15→20:29)
[2019-06-28] MEDS: ACETAMINOPHEN TAB 650MG DOSE (2X325MG) PO PRN (18:19)
[2019-06-28 20:00] VITALS: BP 134/70
[2019-06-28] MEDS ORDERED: PILL CUTTER 1 EACH XX PRN (20:00)
--- NOTE | 2019-06-28 20:00 | REPVR ---
PROCEDURE INFORMATION: Exam: US Duplex Left Upper Extremity Veins, Limited Exam date and time: 06/28/2019 7:44 PM Age: 59 years old Clinical indication: Condition or disease; Other: Cephalic clots; Additional info: Recent cephalic dvt TECHNIQUE: Imaging protocol: Real-time Duplex ultrasound of the Left Upper Extremity with 2-D russell scale, color Doppler flow and spectral waveform analysis with image documentation. Limited exam focused on the left upper extremity veins. COMPARISON: No relevant prior studies available. FINDINGS: Left deep veins: Axillary and brachial veins are patent throughout without thrombus. Normal compressibility and/or augmentation response. Visualized internal jugular and subclavian veins are patent. Left superficial veins: Visualized cephalic and basilic veins are patent without thrombus. Soft tissues: Unremarkable. IMPRESSION: No evidence of deep vein thrombosis involving the left upper extremity. Electronically signed by: Jerald Morton On 06/28/2019 19:59:55 PM
[2019-06-28] MEDS: SENNA 8.6 MG TAB (SENOKOT) PO SCH (20:28)
[2019-06-28] MEDS: DIVALPROEX 500 MG TAB PO SCH (20:28)
[2019-06-28] MEDS: APIXABAN 5 MG TAB (ELIQUIS) PO SCH (20:28)
[2019-06-28] MEDS: LACOSAMIDE 50 MG TAB (VIMPAT) PO SCH (20:28)
[2019-06-28] MEDS: DOCUSATE SODIUM 100 MG CAP PO SCH (20:28)
[2019-06-28] MEDS: busPIRone 10 MG TAB PO SCH (20:28)
[2019-06-28] MEDS: CLOBAZAM 10 MG PO SCH (20:29)
[2019-06-29] MEDS: ACETAMINOPHEN TAB 650MG DOSE (2X325MG) PO PRN ×3 (03:14→22:28)
[2019-06-29 06:00] VITALS: BP 124/73
[2019-06-29] MEDS: levETIRAcetam 250MG TABLET (KEPPRA) PO SCH ×3 (06:09→21:07)
[2019-06-29] MEDS: CLOBAZAM 10 MG PO SCH ×2 (07:48→21:10)
[2019-06-29] MEDS: lisinopriL 10 MG TAB PO SCH (07:49)
[2019-06-29] MEDS: LACOSAMIDE 50 MG TAB (VIMPAT) PO SCH ×2 (07:50→21:07)
[2019-06-29] MEDS: APIXABAN 5 MG TAB (ELIQUIS) PO SCH (07:50)
[2019-06-29] MEDS: busPIRone 10 MG TAB PO SCH ×2 (07:50→21:08)
[2019-06-29] MEDS: DIVALPROEX 500 MG TAB PO SCH ×2 (07:50→21:08)
[2019-06-29] MEDS: amLODIPine 10 MG TAB PO SCH (07:51)
[2019-06-29] MEDS: DOCUSATE SODIUM 100 MG CAP PO SCH ×2 (07:51→21:00)
[2019-06-29] MEDS: GABAPENTIN 300 MG CAP PO SCH ×3 (07:51→21:07)
[2019-06-29] MEDS: ONDANSETRON 4 MG ORAL DISINTEGRATING TAB PO PRN (07:51)
[2019-06-29] MEDS: REMEDY PHYTOPLEX Z-GUARD PASTE 113GM TUBE (FROM STOREROOM PRODUCT) TOP SCH ×3 (07:51→21:00)
[2019-06-29 08:04] LABS: BASO % 0.1 % (0.0-1.0); EOS # 0.2 10^3/uL (0.0-0.5); EOS % 2.2 % (0.0-3.0); HEMATOCRIT 35.2 % (42.0-52.0); HEMOGLOBIN 11.1 g/dl (13.5-17.5); LYMPH # 1.2 10^3/uL (1.5-5.0); MEAN CORPUSCULAR HEMOGLOBIN 27.9 pg (27.0-33.0); MEAN CORPUSCULAR HGB CONC 31.5 g/dl (32.0-36.5); MEAN CORPUSCULAR VOLUME 88.4 fl (80.0-96.0); MONO # 0.8 10^3/uL (0.0-0.8); MONO % 8.6 % (0.0-5.0); NEUTROPHILS # 6.4 10^3/uL (1.5-8.5); NEUTROPHILS % 73.7 % (36.0-66.0); PLATELET COUNT, AUTOMATED 327 10^3/uL (150-450); RED BLOOD COUNT 3.98 10^6/uL (4.30-6.10); WHITE BLOOD COUNT 8.7 10^3/uL (4.0-10.0)
[2019-06-29 08:31] LABS: ALBUMIN 2.5 GM/DL (3.2-5.2); ALT/SGPT 12 U/L (12-78); BILIRUBIN,TOTAL 0.2 MG/DL (0.2-1.0); BLOOD UREA NITROGEN 9 MG/DL (7-18); CALCIUM LEVEL 8.4 MG/DL (8.5-10.1); CARBON DIOXIDE LEVEL 25 MEQ/L (21-32); CHLORIDE LEVEL 108 MEQ/L (98-107); CREATININE FOR GFR 0.45 MG/DL (0.70-1.30); GLOMERULAR FILTRATION RATE > 60.0 (>56); GLUCOSE, FASTING 119 MG/DL (70-100); POTASSIUM SERUM 3.7 MEQ/L (3.5-5.1); SODIUM LEVEL 140 MEQ/L (136-145); TOTAL PROTEIN 6.3 GM/DL (6.4-8.2)
--- NOTE | 2019-06-29 13:58 | IPNPDOC ---
PM&R Progress Note DATE OF SERVICE: June 29, 2019 Partridge Farmer Progress Note Subjective: PAtient reporting he is tired from a full day of therapy and wound like chopped beef for dinner. He denies having any pain. REVIEW OF SYSTEMS: The following is a completed review of systems and has been reviewed. Review of systems otherwise unremarkable. PAIN: Patient self reports no pain EYES: No recent vision changes EARS, NOSE, & THROAT: No throat pain, or dysphagia, or rhinorrhea CARDIOVASCULAR: Denies chest pain or palpitations PULMONARY: Denies shortness of breath GASTROINTESTINAL: Denies constipation/diarrhea GENITOURINARY: denies dysuria MUSCULOSKELETAL: generalized weakness NEUROLOGICAL:+seizures HEMATOLOGICAL: denies easy bruising SKIN: no rash PSYCHIATRIC: Unremarkable All other review of systems found to be negative. PHYSICAL EXAMINATION: VITAL SIGNS: Please see below. GENERAL: Pleasant and cooperative. No acute distress. mildly sedated, but able to speak in full sentences and complete complex thought processes HEENT: PERRL. Extraocular movements intact. Clear conjunctiva CARDIOVASCULAR: Regular rate and rhythm. No murmurs, rubs, or gallops LUNGS: Clear to auscultation bilaterally. No wheezes. No rhonchi ABDOMEN: Soft, nontender, nondistended. Positive bowel sounds. Normal active bowel sounds NEUROLOGICAL: Alert and oriented times three. Cranial nerves II through XII grossly intact. Sensation grossly intact +mild apraxia EXTREMITIES:5\5 strength bilateral upper extremities. 5\5 strength right lower extremity. 5/5 strength in left lower extremity. SKIN: +blanchable sacral erythema ASSESSMENT:59-year-old M with past medical history of metastatic colon cancer who presents status post new onset seizure disorder PLAN: 1. 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 Neuro: recent onset of seizures captured on VEEG at [facility] and very difficult to control and contributing to overall impaired mobility -c/u Depakote 500mg BID, Lacosamide 200mg BID, Keppra 1500 q8h, gabapentin 300mg TID, and Onfi 15mg BID (medicine called in to outpatient pharmacy as [facility] does not carry it) -discussed case with neurology in-house who would prefer to be consulted if new issue arises, so far no new seizure-like activity noted -Ativan ordered prn seizure 3. Cardiac: hx oh HTN c/u amlodipine and lisinopril, medicine consulted to assist in overall management 4. resp: encourage incentive spirometry 5. Vasc: LUE cephalic vein DVT dx 05-11-19 on eliquis, repeat US negative, discussed with Dr. Kang-->treatment for what really is a superficial VT was not necessary, will stop eliquis 6. GI: hx of metastatic colon cancer, treatment currently on hold, f/u with oncology 7. Pain: tylneol prn 8. Dispo: TBD Allergies Coded Allergies: No Known Allergies (Unverified , 10/11/18) Vital Signs Vital Signs Date Time Temp Pulse Resp B/P (MAP) Pulse Ox O2 Delivery O2 Flow Rate FiO2 06/29/19 06:00 97.4 105 18 124/73 (90) 98 Room Air Laboratory Data CBC/BMP Laboratory Tests 06/29/19 07:35 Labs 24H Laboratory Tests 2 06/28/19 16:30: Coronavirus (COVID-19)(PCR) NEGATIVE 06/29/19 07:35: Immature Granulocyte % (Auto) 1.4, Neutrophils (%) (Auto) 73.7H, Lymphocytes (%) (Auto) 14.0L, Monocytes (%) (Auto) 8.6H, Eosinophils (%) (Auto) 2.2, Basophils (%) (Auto) 0.1, Neutrophils # (Auto) 6.4, Lymphocytes # (Auto) 1.2L, Monocytes # (Auto) 0.8, Eosinophils # (Auto) 0.2, Basophils # (Auto) 0.0, Nucleated Red Blood Cells % (auto) 0.0, Anion Gap 7L, Glomerular Filtration Rate > 60.0, Calcium Level 8.4L, Total Bilirubin 0.2, Aspartate Amino Transf (AST/SGOT) 4L, Alanine Aminotransferase (ALT/SGPT) 12, Alkaline Phosphatase 126H, Total Protein 6.3L, Albumin 2.5L, Albumin/Globulin Ratio 0.66L Current Medications Current Medications Current Medications Medications (Trade) Dose Ordered Sig/Juan Pablo Route PRN Reason Start Time Stop Time Status Last Admin Dose Admin Acetaminophen (Tylenol Tab) 650 mg Q4HP PRN PO fever/MILD PAIN (PS 1-4) 06/28/19 16:00 06/29/19 03:14 Amlodipine Besylate (Norvasc) 10 mg DAILY PO 06/29/19 09:00 06/29/19 07:51 Apixaban (Eliquis) 5 mg BID PO 06/28/19 21:00 06/29/19 09:44 DC 06/29/19 07:50 Bisacodyl (Dulcolax Suppository) 10 mg DAILYPRN PRN [place] CONSTIPATION 06/28/19 16:00 Buspirone HCl (Buspar) 10 mg BID PO 06/28/19 21:00 06/29/19 07:50 Clonazepam (KlonoPIN) 0.5 mg TID PO 06/28/19 16:00 06/28/19 17:12 DC Divalproex Sodium (Depakote) 500 mg BID PO 06/28/19 21:00 06/29/19 07:50 Docusate Sodium (Colace) 100 mg BID PO 06/28/19 21:00 06/29/19 07:51 Gabapentin (Neurontin) 300 mg TID PO 06/28/19 16:00 06/29/19 07:51 Home Med (Med Rec Complete!) ASDIRECTED XX 06/28/19 16:45 06/28/19 16:38 DC Lacosamide (Vimpat) 200 mg BID PO 06/28/19 21:00 06/29/19 07:50 Levetiracetam (Keppra) 1,500 mg Q8H PO 06/28/19 14:00 06/29/19 06:09 Lisinopril (Prinivil) 30 mg DAILY PO 06/29/19 09:00 06/29/19 07:49 Lorazepam (Ativan) 2 mg Q4HP PRN IM seizure 06/28/19 16:30 Miscellaneous (Unresolved Patient Own Med Order) SEE LABEL COMMENTS DAILY XX 06/28/19 09:00 06/28/19 19:27 DC Ondansetron HCl (Zofran Odt) 4 mg Q4HP PRN PO NAUSEA OR VOMITING 06/28/19 18:45 06/29/19 07:51 Patient Own Medication (Patient'S Own Med) CLOBAZAM(Onfi)10MG TABS: ADMINISTER 1.5 TABS (15mg) BID PO 06/28/19 21:00 06/29/19 07:48 Bronson (Senokot) 1 tab Q PO 06/28/19 21:00 06/28/19 20:28 GAGANDEEP DAVIS MD June 29, 2019 13:58
[2019-06-29 14:00] VITALS: BP 115/73
[2019-06-29 20:00] VITALS: BP 124/77
--- NOTE | 2019-06-29 20:48 | HPEPDOC ---
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 HISTORY OF PRESENT ILLNESS: Mr. Overton is a 59 year old man with metastatic colorectal CA, HTN, history of LUE clot on eliquis who was recently admitted to [facility] for new persistent seizure activity now discharged to the ARU for acute rehabilitation before likely discharge home. His seizure workup was notable for unrevealing brain MRI, BUS MONITOR fluid studies and he was treated with high dose steroids with concern for autoimmune perhaps paraneoplastic phenomena precipitating the seizures. In ad dition, he was started on multiple agents until they were suppressed after addition of lacosamide, depakote, keppra and clobazam. He was monitored and after he was seizure free for a full 48h on video EEG he was assessed by PT and deemed appropriate for acute rehabilitation and eventually transferred to [facility] acute rehab unit. PAST MEDICAL HISTORY: metastatic colorectal CA, HTN, history of LUE clot on eliquis PAST SURGICAL HISTORY: colon and hernia repair REVIEW OF SYSTEMS: The following is a completed review of systems and has been reviewed. Review of systems otherwise unremarkable. HEENT: No headaches, vision changes, rhinorrhea, congestion, cough, sore throat, difficulty swallowing CARDIOVASCULAR: No chest pain, palpitations, orthopnea PULMONARY: No shortness of breath, audible wheezing, cough GASTROINTESTINAL: No recent history of constipation or diarrhea GENITOURINARY:No hematuria or dysuria MUSCULOSKELETAL: Has generalized weakness from deconditioning that brings him to the ARU NEUROLOGICAL: recent history of seizures HEMATOLOGICAL: No easy bruising, bleeding history SKIN: no rashes ALLERGIES: Please see below. MEDICATIONS: Please see below. SOCIAL HISTORY: Does not consume tobacco, alcohol or illicit drugs PHYSICAL EXAMINATION: VITAL SIGNS: Please see below. GENERAL: Pleasant and cooperative. No acute distress. Sitting up in bed, had been speaking on the phone when I arrived. HEENT: NCAT, PERRLA, EOMI, anicteric, non injected CARDIOVASCULAR: RRR, no mrg LUNGS: CTAB ABDOMEN: Normoactive bowel sounds, soft, NTND NEUROLOGICAL: AOx3 CN2-12 intact. Sensation grossly intact, has slightly slow but clear speech and slow but purposeful successful movement EXTREMITIES: Trace LE edema LABORATORY DATA: Reviewed IMAGING: Reviewed ASSESSMENT:59-year-old M with metastatic colorectal cancer who recently developed epilepsy s/p hospital discharge after optimization now admitted to the ARU for acute rehabilitation. PLAN: Recently diagnosed seizure disorder: -Continue with recently optimized regimen of Depakote 500mg BID, Lacosamide 200mg BID, Keppra 1500 q8h, gabapentin 300mg TID, and clobazam 15mg BID -neurology was consulted to set up outpatient follow-up -Has lorazepam ordered prn for acute seizure activity HTN -continue with home amlodipine 10mg and lisinopril 30mg -BP is well controlled at this time Recent history of LUE cephalic vein DVT: -continue eliquis -Repeat US showed no presence of clots at this time Metastatic colon cancer: -follows with oncology, to follow up as an outpatient DVT ppx: eliquis Vital Signs Vital Signs Date Time Temp Pulse Resp B/P (MAP) Pulse Ox O2 Delivery O2 Flow Rate FiO2 06/29/19 14:00 97.7 109 14 115/73 (87) 97 Room Air Laboratory Data Labs 24H Laboratory Tests 2 06/29/19 07:35: Immature Granulocyte % (Auto) 1.4, Neutrophils (%) (Auto) 73.7H, Lymphocytes (%) (Auto) 14.0L, Monocytes (%) (Auto) 8.6H, Eosinophils (%) (Auto) 2.2, Basophils (%) (Auto) 0.1, Neutrophils # (Auto) 6.4, Lymphocytes # (Auto) 1.2L, Monocytes # (Auto) 0.8, Eosinophils # (Auto) 0.2, Basophils # (Auto) 0.0, Nucleated Red Blood Cells % (auto) 0.0, Anion Gap 7L, Glomerular Filtration Rate > 60.0, Calcium Level 8.4L, Total Bilirubin 0.2, Aspartate Amino Transf (AST/SGOT) 4L, Alanine Aminotransferase (ALT/SGPT) 12, Alkaline Phosphatase 126H, Total Protein 6.3L, Albumin 2.5L, Albumin/Globulin Ratio 0.66L CBC/BMP Laboratory Tests 06/29/19 07:35 Home Medications Scheduled Amlodipine Besylate (Amlodipine Besylate) 10 Mg Tablet, 10 MG PO DAILY STARTED AT [facility] Apixaban (Eliquis) 5 Mg Tablet, 5 MG PO BID Buspirone HCl (Buspirone HCl) 10 Mg Tablet, 10 MG PO BID Cholecalciferol (Vitamin D3) (Vitamin D3) 1,000 Unit Tablet, 1,000 UNITS PO DAILY Clobazam (Clobazam) 10 Mg Tablet, 15 MG PO BID STARTED AT [facility] Clobazam (Onfi) 10 Mg Tablet, 15 MG PO BID Diclofenac Epolamine (Diclofenac Epolamine) 1 Each Patch.td12, 1 PATCH TD Q12H APPLY TO LEFT SHOULDER Divalproex Sodium (Divalproex Sodium) 500 Mg Tablet.dr, 500 MG PO Q12H STARTED AT [facility] Gabapentin (Gabapentin) 300 Mg Capsule, 300 MG PO TID Lacosamide (Vimpat) 200 Mg Tablet, 200 MG PO BID STARTED AT [facility] Levetiracetam (Levetiracetam) 750 Mg Tablet, 1,500 MG PO Q8H DOSE CHANGED FROM 1000MG BID AT [facility] Lidocaine (Lidocaine) 5% Adh..patch, 2 PATCH TD DAILY APPLY TO LOWER BACK AND SHOULDER Lisinopril (Lisinopril) 30 Mg Tablet, 30 MG PO DAILY DOSE CHANGED FROM 20MG AT [facility] Magnesium Oxide (Magnesium) 400 Mg Capsule, 400 MG PO DAILY Pantoprazole Sodium (Protonix) 40 Mg Tablet.dr, 40 MG PO DAILY STARTED AT [facility] Phenytoin Sodium Extended (Dilantin) 100 Mg Capsule, 200 MG PO BID DISCONTINUED AT [facility] Scheduled PRN Acetaminophen (Acetaminophen) 325 Mg Tablet, 650 MG PO QID PRN for PAIN Ondansetron HCl (Ondansetron HCl) 8 Mg Tablet, 8 MG PO Q6H PRN for NAUSEA OR VOMITING Oxycodone HCl (Oxycodone HCl) 5 Mg Tablet, 5 MG PO BID PRN for SEVERE PAIN (PS 8-10) CHANGED FROM PERCOCET 5MG/325MG AT [facility] Allergies Coded Allergies: No Known Allergies (Unverified , 10/11/18) A-FIB/CHADSVASC A-FIB History Current/History of A-Fib/PAF?: No Current PO Anticoag Therapy: Yes SOPHIA SALAZAR MD June 29, 2019 20:48
[2019-06-29] MEDS: SENNA 8.6 MG TAB (SENOKOT) PO SCH (21:00)
[2019-06-30 04:00] VITALS: BP 129/85
[2019-06-30] MEDS: levETIRAcetam 250MG TABLET (KEPPRA) PO SCH ×3 (06:20→20:58)
[2019-06-30] MEDS: busPIRone 10 MG TAB PO SCH ×2 (08:15→20:59)
[2019-06-30] MEDS: DIVALPROEX 500 MG TAB PO SCH ×2 (08:15→20:57)
[2019-06-30] MEDS: DOCUSATE SODIUM 100 MG CAP PO SCH ×2 (08:15→21:00)
[2019-06-30] MEDS: amLODIPine 10 MG TAB PO SCH (08:16)
[2019-06-30] MEDS: GABAPENTIN 300 MG CAP PO SCH ×3 (08:16→20:57)
[2019-06-30] MEDS: CLOBAZAM 10 MG PO SCH ×2 (08:17→21:03)
[2019-06-30] MEDS: LACOSAMIDE 50 MG TAB (VIMPAT) PO SCH ×2 (08:17→20:58)
[2019-06-30] MEDS: lisinopriL 10 MG TAB PO SCH (08:17)
[2019-06-30] MEDS: REMEDY PHYTOPLEX Z-GUARD PASTE 113GM TUBE (FROM STOREROOM PRODUCT) TOP SCH ×3 (08:20→21:00)
[2019-06-30 14:00] VITALS: BP 109/72
[2019-06-30] MEDS: ACETAMINOPHEN TAB 650MG DOSE (2X325MG) PO PRN (15:02)
[2019-06-30 20:00] VITALS: BP 101/70
[2019-06-30] MEDS: SENNA 8.6 MG TAB (SENOKOT) PO SCH (21:00)
[2019-07-01 05:45] VITALS: BP 151/91
[2019-07-01] MEDS: levETIRAcetam 250MG TABLET (KEPPRA) PO SCH ×3 (06:29→20:16)
--- NOTE | 2019-07-01 07:16 | REPVR ---
PROCEDURE INFORMATION: Exam: CT Head Without Contrast Exam date and time: 07/01/2019 6:50 AM Age: 59 years old Clinical indication: Injury or trauma; Fall; Initial encounter; Blunt trauma (contusions or hematomas); Additional info: Fell, hit head, on eliquis TECHNIQUE: Imaging protocol: Computed tomography of the head without contrast. Radiation optimization: All CT scans at this facility use at least one of these dose optimization techniques: automated exposure control; mA and/or kV adjustment per patient size (includes targeted exams where dose is matched to clinical indication); or iterative reconstruction. COMPARISON: CT Head without contrast 06/05/2019 9:42 AM FINDINGS: Brain: Most likely extra-axial artifact at the bone/brain interface over the temporal lobes bilaterally. There is additional superimposed streak artifact over the hemispheric convexities. More focal accentuated density at the bone brain interface over the right hemispheric convexity would not exclude a subtle small subdural hemorrhage best appreciated series 201 images 17 -20 of 0.25 cm in diameter.. There is no focally dominant parenchymal hemorrhage. No mass effect or midline shift. Ventricles: Normal. No ventriculomegaly. Bones/joints: Unremarkable. No acute fracture. Sinuses: Visualized sinuses are unremarkable. No fluid levels. Mastoid air cells: Visualized mastoid air cells are well aerated. Soft tissues: Unremarkable. Other findings: Hemispheric volume loss. IMPRESSION: While findings could reflect artifact very small subdural hemorrhage over the right hemispheric convexity is not entirely excluded. Short interval follow-up repeat CT head is recommended. Electronically signed by: Manjula Guerrier On 07/01/2019 07:15:59 AM
--- NOTE | 2019-07-01 08:14 | REPVR ---
PROCEDURE INFORMATION: Exam: CT Head Without Contrast Exam date and time: 07/01/2019 7:30 AM Age: 59 years old Clinical indication: Injury or trauma; Fall; Initial encounter; Blunt trauma (contusions or hematomas); Consciousness not specified; Additional info: Please rescan at 3mm slices for better delineation TECHNIQUE: Imaging protocol: Computed tomography of the head without contrast. Radiation optimization: All CT scans at this facility use at least one of these dose optimization techniques: automated exposure control; mA and/or kV adjustment per patient size (includes targeted exams where dose is matched to clinical indication); or iterative reconstruction. COMPARISON: CT Head without contrast 06/05/2019 9:42 AM FINDINGS: Brain: Persistent area of attenuation over the right hemispheric convexity with neuro radiology consultation is felt to reflect artifact and is likely non hemorrhagic in origin Ventricles: Normal. No ventriculomegaly. Bones/joints: Unremarkable. No acute fracture. Sinuses: Visualized sinuses are unremarkable. No fluid levels. Mastoid air cells: Visualized mastoid air cells are well aerated. Soft tissues: Unremarkable. IMPRESSION: 1. Most likely artifact over the right hemispheric convexity . No definite evidence of intracranial hemorrhage. Electronically signed by: Manjula Guerrier On 07/01/2019 08:14:26 AM
[2019-07-01] MEDS: lisinopriL 10 MG TAB PO SCH (09:00)
[2019-07-01] MEDS: amLODIPine 10 MG TAB PO SCH (09:00)
[2019-07-01] MEDS: DOCUSATE SODIUM 100 MG CAP PO SCH ×2 (09:00→20:17)
[2019-07-01] MEDS: DIVALPROEX 500 MG TAB PO SCH ×2 (09:16→20:15)
[2019-07-01] MEDS: GABAPENTIN 300 MG CAP PO SCH ×3 (09:16→20:15)
[2019-07-01] MEDS: busPIRone 10 MG TAB PO SCH ×2 (09:16→20:15)
[2019-07-01] MEDS: CLOBAZAM 10 MG PO SCH ×2 (09:16→20:16)
[2019-07-01] MEDS: REMEDY PHYTOPLEX Z-GUARD PASTE 113GM TUBE (FROM STOREROOM PRODUCT) TOP SCH ×3 (09:17→20:16)
[2019-07-01] MEDS: LACOSAMIDE 50 MG TAB (VIMPAT) PO SCH ×2 (09:17→20:16)
[2019-07-01] MEDS: ONDANSETRON 4 MG ORAL DISINTEGRATING TAB PO PRN (11:24)
[2019-07-01 12:30] VITALS: BP 113/74
[2019-07-01 14:00] VITALS: BP 109/72
[2019-07-01] MEDS: ACETAMINOPHEN TAB 650MG DOSE (2X325MG) PO PRN (20:15)
[2019-07-01] MEDS: SENNA 8.6 MG TAB (SENOKOT) PO SCH (20:16)
[2019-07-01 20:17] VITALS: BP 111/77
[2019-07-02 06:00] VITALS: BP 124/83
[2019-07-02] MEDS: levETIRAcetam 250MG TABLET (KEPPRA) PO SCH ×3 (06:10→21:06)
[2019-07-02 06:47] LABS: BASO % 0.2 % (0.0-1.0); EOS # 0.1 10^3/uL (0.0-0.5); EOS % 1.6 % (0.0-3.0); HEMATOCRIT 37.8 % (42.0-52.0); HEMOGLOBIN 11.5 g/dl (13.5-17.5); LYMPH # 1.5 10^3/uL (1.5-5.0); LYMPH % 23.4 % (24.0-44.0); MEAN CORPUSCULAR HEMOGLOBIN 27.9 pg (27.0-33.0); MEAN CORPUSCULAR HGB CONC 30.4 g/dl (32.0-36.5); MEAN CORPUSCULAR VOLUME 91.7 fl (80.0-96.0); MONO # 0.6 10^3/uL (0.0-0.8); MONO % 9.5 % (0.0-5.0); NEUTROPHILS # 4.1 10^3/uL (1.5-8.5); NEUTROPHILS % 64.3 % (36.0-66.0); PLATELET COUNT, AUTOMATED 275 10^3/uL (150-450); RED BLOOD COUNT 4.12 10^6/uL (4.30-6.10); WHITE BLOOD COUNT 6.3 10^3/uL (4.0-10.0)
[2019-07-02 07:21] LABS: BLOOD UREA NITROGEN 7 MG/DL (7-18); CALCIUM LEVEL 8.1 MG/DL (8.5-10.1); CARBON DIOXIDE LEVEL 24 MEQ/L (21-32); CHLORIDE LEVEL 112 MEQ/L (98-107); CREATININE FOR GFR 0.51 MG/DL (0.70-1.30); GLOMERULAR FILTRATION RATE > 60.0 (>56); GLUCOSE, FASTING 75 MG/DL (70-100); POTASSIUM SERUM 3.8 MEQ/L (3.5-5.1); SODIUM LEVEL 143 MEQ/L (136-145)
[2019-07-02] MEDS: CLOBAZAM 10 MG PO SCH ×2 (08:13→20:06)
[2019-07-02] MEDS: amLODIPine 10 MG TAB PO SCH (08:13)
[2019-07-02] MEDS: busPIRone 10 MG TAB PO SCH ×2 (08:13→20:06)
[2019-07-02] MEDS: DIVALPROEX 500 MG TAB PO SCH ×2 (08:13→20:06)
[2019-07-02] MEDS: LACOSAMIDE 50 MG TAB (VIMPAT) PO SCH ×2 (08:13→20:06)
[2019-07-02] MEDS: GABAPENTIN 300 MG CAP PO SCH ×3 (08:13→20:06)
[2019-07-02] MEDS: REMEDY PHYTOPLEX Z-GUARD PASTE 113GM TUBE (FROM STOREROOM PRODUCT) TOP SCH ×4 (08:14→21:38)
[2019-07-02] MEDS: lisinopriL 10 MG TAB PO SCH (08:14)
[2019-07-02] MEDS: DOCUSATE SODIUM 100 MG CAP PO SCH ×2 (08:14→20:07)
--- NOTE | 2019-07-02 12:45 | REP ---
CT brain without contrast: History: Monitor for possible bleed. The patient status post a fall. Comparison is made with the two prior head CT acquisitions from July 01, 2019 and eight June 05, [address] findings: Preliminary digital abstract writer radiograph is unremarkable. There is an intact bony calvarium. No skull fractures seen. Visualized paranasal sinuses are clear. No intraorbital abnormality is seen. There is minimal generalized volume loss. There is no evidence of intracranial hemorrhage. No extra-axial fluid collection is seen. No infarct, mass, or midline shift is appreciated. Impression: Minimal generalized volume loss. Otherwise negative CT study of the brain. Electronically Signed by Angel Venegas MD 07/02/2019 12:36 P
[2019-07-02 14:00] VITALS: BP 102/62
--- NOTE | 2019-07-02 16:58 | IPNPDOC ---
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 REVIEW OF SYSTEMS: The following is a completed review of systems and has been reviewed. Review of systems otherwise unremarkable. PAIN: Patient self reports no pain EYES: No recent vision changes EARS, NOSE, & THROAT: No throat pain, or dysphagia, or rhinorrhea CARDIOVASCULAR: Denies chest pain or palpitations PULMONARY: Denies shortness of breath GASTROINTESTINAL: Denies constipation/diarrhea GENITOURINARY: denies dysuria MUSCULOSKELETAL: generalized weakness NEUROLOGICAL:+seizures HEMATOLOGICAL: denies easy bruising SKIN: no rash PSYCHIATRIC: Unremarkable All other review of systems found to be negative. PHYSICAL EXAMINATION: VITAL SIGNS: Please see below. GENERAL: Pleasant and cooperative. No acute distress. mildly sedated, but able to speak in full sentences and complete complex thought processes HEENT: PERRL. Extraocular movements intact. Clear conjunctiva CARDIOVASCULAR: Regular rate and rhythm. No murmurs, rubs, or gallops LUNGS: Clear to auscultation bilaterally. No wheezes. No rhonchi ABDOMEN: Soft, nontender, nondistended. Positive bowel sounds. Normal active bowel sounds NEUROLOGICAL: Alert and oriented times three. Cranial nerves II through XII grossly intact. Sensation grossly intact +mild apraxia (-) pronator drift EXTREMITIES:5\5 strength bilateral upper extremities. 5\5 strength right lower extremity. 5/5 strength in left lower extremity. SKIN: +blanchable sacral erythema ASSESSMENT:59-year-old M with past medical history of metastatic colon cancer who presents status post new onset seizure disorder PLAN: 1. 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 Neuro: recent onset of seizures and pseudoseizures captured on VEEG at [facility] and very difficult to control and contributing to overall impaired mobility -c/u Depakote 500mg BID, Lacosamide 200mg BID, Keppra 1500 q8h, gabapentin 300mg TID, and Onfi 15mg BID (medicine called in to outpatient pharmacy as [facility] does not carry it), f/u keppra/depakote/lacosamide levels while inhouse- patient understandably very sedated on multiple AEDs, will await blood levels before discussing tapering with neuro -discussed case with neurology in-house who would prefer to be consulted if new issue arises, so far no new seizure-like activity noted -Ativan ordered prn seizure -serial CTHs ordered to f/u two falls on the unit, no intracranial hemorrhage noted, no new focal deficits on exam 3. Cardiac: hx oh HTN c/u amlodipine and lisinopril, medicine consulted to assist in overall management 4. resp: encourage incentive spirometry 5. Vasc: LUE cephalic vein DVT dx 05-11-19 on eliquis, repeat US negative, discussed with Dr. Kang-->treatment for what really is a superficial VT was not necessary- eliquis d/c'd 6. GI: hx of metastatic colon cancer, treatment currently on hold, f/u with oncology 7. Pain: tylneol prn 8. Dispo: TBD Allergies Coded Allergies: No Known Allergies (Unverified , 10/11/18) Vital Signs Vital Signs Date Time Temp Pulse Resp B/P (MAP) Pulse Ox O2 Delivery O2 Flow Rate FiO2 07/02/19 14:00 98.5 116 16 102/62 (75) 97 Room Air Laboratory Data CBC/BMP Laboratory Tests 07/02/19 06:13 Labs 24H Laboratory Tests 2 07/02/19 06:13: Immature Granulocyte % (Auto) 1.0, Neutrophils (%) (Auto) 64.3, Lymphocytes (%) (Auto) 23.4L, Monocytes (%) (Auto) 9.5H, Eosinophils (%) (Auto) 1.6, Basophils (%) (Auto) 0.2, Neutrophils # (Auto) 4.1, Lymphocytes # (Auto) 1.5, Monocytes # (Auto) 0.6, Eosinophils # (Auto) 0.1, Basophils # (Auto) 0.0, Nucleated Red Blood Cells % (auto) 0.0, Anion Gap 7L, Glomerular Filtration Rate > 60.0, Calcium Level 8.1L 07/02/19 12:16: Current Medications Current Medications Current Medications Medications (Trade) Dose Ordered Sig/Juan Pablo Route PRN Reason Start Time Stop Time Status Last Admin Dose Admin Acetaminophen (Tylenol Tab) 650 mg Q4HP PRN PO fever/MILD PAIN (PS 1-4) 06/28/19 16:00 07/01/19 20:15 Amlodipine Besylate (Norvasc) 10 mg DAILY PO 06/29/19 09:00 07/02/19 08:13 Apixaban (Eliquis) 5 mg BID PO 06/28/19 21:00 06/29/19 09:44 DC 06/29/19 07:50 Bisacodyl (Dulcolax Suppository) 10 mg DAILYPRN PRN [place] CONSTIPATION 06/28/19 16:00 Buspirone HCl (Buspar) 10 mg BID PO 06/28/19 21:00 07/02/19 08:13 Clonazepam (KlonoPIN) 0.5 mg TID PO 06/28/19 16:00 06/28/19 17:12 DC Divalproex Sodium (Depakote) 500 mg BID PO 06/28/19 21:00 07/02/19 08:13 Docusate Sodium (Colace) 100 mg BID PO 06/28/19 21:00 06/29/19 07:51 Gabapentin (Neurontin) 300 mg TID PO 06/28/19 16:00 07/02/19 08:13 Home Med (Med Rec Complete!) ASDIRECTED XX 06/28/19 16:45 06/28/19 16:38 DC Lacosamide (Vimpat) 200 mg BID PO 06/28/19 21:00 07/02/19 08:13 Levetiracetam (Keppra) 1,500 mg Q8H PO 06/28/19 14:00 07/02/19 13:44 Lisinopril (Prinivil) 30 mg DAILY PO 06/29/19 09:00 07/02/19 08:14 Lorazepam (Ativan) 2 mg Q4HP PRN IM seizure 06/28/19 16:30 Miscellaneous (Unresolved Patient Own Med Order) SEE LABEL COMMENTS DAILY XX 06/28/19 09:00 06/28/19 19:27 DC Ondansetron HCl (Zofran Odt) 4 mg Q4HP PRN PO NAUSEA OR VOMITING 06/28/19 18:45 07/01/19 11:24 Patient Own Medication (Patient'S Own Med) CLOBAZAM(Onfi)10MG TABS: ADMINISTER 1.5 TABS (15mg) BID PO 06/28/19 21:00 07/02/19 08:13 Senna (Senokot) 1 tab QHS PO 06/28/19 21:00 06/28/19 20:28 GAGANDEEP DAVIS MD July 02, 2019 16:58
[2019-07-02 20:00] VITALS: BP 103/61
[2019-07-02] MEDS: SENNA 8.6 MG TAB (SENOKOT) PO SCH (20:07)
[2019-07-03] VITALS (7 sets, daily range): BP systolic 65–108; BP diastolic 44–68
[2019-07-03] MEDS ORDERED: LIDOCAINE 2% 5ML JELLY UROJET TOP ONE (05:15)
[2019-07-03] MEDS: levETIRAcetam 250MG TABLET (KEPPRA) PO SCH ×3 (05:37→22:57)
[2019-07-03] MEDS: lisinopriL 10 MG TAB PO SCH (09:00)
[2019-07-03] MEDS: DOCUSATE SODIUM 100 MG CAP PO SCH ×2 (09:00→20:19)
[2019-07-03] MEDS: amLODIPine 5 MG TAB PO SCH (09:00)
[2019-07-03] MEDS: GABAPENTIN 300 MG CAP PO SCH (09:17)
[2019-07-03] MEDS: LACOSAMIDE 50 MG TAB (VIMPAT) PO SCH ×2 (09:18→20:18)
[2019-07-03] MEDS: DIVALPROEX 500 MG TAB PO SCH ×2 (09:18→20:18)
[2019-07-03] MEDS: busPIRone 10 MG TAB PO SCH ×2 (09:18→20:19)
[2019-07-03] MEDS: CLOBAZAM 10 MG PO SCH ×2 (09:20→20:20)
[2019-07-03] MEDS: REMEDY PHYTOPLEX Z-GUARD PASTE 113GM TUBE (FROM STOREROOM PRODUCT) TOP SCH ×3 (09:20→20:20)
[2019-07-03] MEDS: ACETAMINOPHEN TAB 650MG DOSE (2X325MG) PO PRN (09:21)
[2019-07-03] MEDS ORDERED: SODIUM CHLORIDE 0.9% 1000ML IV ONE (09:30)
[2019-07-03] MEDS ORDERED: NS 500 ML IV ONE (12:15)
--- NOTE | 2019-07-03 12:30 | IPNPDOC ---
Text Note Date of Service The patient was seen on 07/03/19. NOTE Subjective: Called by nurse for low blood pressure this am 65/45. Patient was in the WC on his way to PT when Bp was checked in sitting position was low and he was tachycardic to 110. Patient did not have any dizziness or light headedness, no confusion, no chest pain or SOB. No fever or chills. No diarrhea or vomiting. Of Note his blood pressure has been very well controlled inthe last few days and he is on 2 antihypertensive medications. PHYSICAL EXAMINATION: VITAL SIGNS: Please see below. GENERAL: Pleasant and cooperative. No acute distress. laying down in bed HEENT: NCAT, PERRLA, EOMI, anicteric, non injected CARDIOVASCULAR: RRR, no mrg LUNGS: CTAB ABDOMEN: Normoactive bowel sounds, soft, NTND NEUROLOGICAL: AOx3 CN2-12 intact. Sensation grossly intact, has slightly slow but clear speech and slow but purposeful successful movement EXTREMITIES: No edema, warm to touch, bilateral pulses palpable ASSESSMENT:59-year-old M with metastatic colorectal cancer who recently developed epilepsy s/p hospital discharge from [facility] after optimization now admitted to the ARU for acute rehabilitation. Hypotension with tachycardia possibly a combination of mild volume contraction with antihypertensives will reduce doses of antihypertensives, regular diet. IVF bolus 1 liter. will check CBC Recently diagnosed seizure disorder: On Depakote 500mg BID, Lacosamide 200mg BID, Keppra 1500 q8h, gabapentin 300mg TID, and clobazam 15mg BID neurology was consulted to set up outpatient follow-up Has lorazepam ordered prn for acute seizure activity HTN now hypotensive reduce lisinopril and reduce dose of amlodipine with hold parameters. Recent history of LUE cephalic vein DVT: continue eliquis Repeat US showed no presence of clots at this time Metastatic colon cancer: follows with oncology, to follow up as an outpatient VS,Beni, I+O VS, Beni, I+O Vital Signs Date Time Temp Pulse Resp B/P (MAP) Pulse Ox O2 Delivery O2 Flow Rate FiO2 07/03/19 10:00 119 84/65 (71) 07/03/19 06:00 98.1 17 100 Room Air I&O- Last 24 Hours up to 6 AM 07/03/19 05:59 Intake Total 1190 ml Output Total 200 ml Balance 990 ml SHANNON TRONCOSO MD July 03, 2019 12:15
--- NOTE | 2019-07-03 12:48 | IPNPDOC ---
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 He denies double vision, but had reported double vision earlier in therapy. REVIEW OF SYSTEMS: The following is a completed review of systems and has been reviewed. Review of systems otherwise unremarkable. PAIN: Patient self reports no pain EYES: +intermittent diplopia EARS, NOSE, & THROAT: No throat pain, or dysphagia, or rhinorrhea CARDIOVASCULAR: Denies chest pain or palpitations PULMONARY: Denies shortness of breath GASTROINTESTINAL: Denies constipation/diarrhea GENITOURINARY: denies dysuria MUSCULOSKELETAL: generalized weakness NEUROLOGICAL:+seizures HEMATOLOGICAL: denies easy bruising SKIN: no rash PSYCHIATRIC: Unremarkable All other review of systems found to be negative. PHYSICAL EXAMINATION: VITAL SIGNS: Please see below. GENERAL: Pleasant and cooperative. No acute distress.moderately sedated, but able to speak in full sentences and complete complex thought processes HEENT: PERRL. Extraocular movements intact. Clear conjunctiva CARDIOVASCULAR: Regular rate and rhythm. No murmurs, rubs, or gallops LUNGS: Clear to auscultation bilaterally. No wheezes. No rhonchi ABDOMEN: Soft, nontender, nondistended. Positive bowel sounds. Normal active bowel sounds NEUROLOGICAL: Alert and oriented times three. Cranial nerves II through XII grossly intact. Sensation grossly intact +mild apraxia (-) pronator drift (+) non-sustained horizontal nystagmus EXTREMITIES:5\5 strength bilateral upper extremities. 5\5 strength right lower extremity. 5/5 strength in left lower extremity. SKIN: +blanchable sacral erythema ASSESSMENT:59-year-old M with past medical history of metastatic colon cancer w ho presents status post new onset seizure disorder PLAN: 1. 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 Neuro: recent onset of seizures and pseudoseizures captured on VEEG at [facility] and very difficult to control and contributing to overall impaired mobility -discussed case with Dr. Holden and concern for patient's lethargy as a side effect from multiple AEDs, he recommends lowering gabapentin, and gradually tapering Onfi down to 10mg BID (will do this over the course of a few days), c/u Depakote 500mg BID, Lacosamide 200mg BID, Keppra 1500 q8h, f/u keppra/lacosamide levels while inhouse, depakote levels WNL - patient reporting today he had an episode of double vision that subsided, this is likely a side effect of lacosamide and/or depakote, will wait for lacosamide levels to return and monitor for worsening vision symptoms before discussing Lacosamide dosing with neurology -in-house neuro would prefer for patient to f/u with [facility] epilepsy specialists -Ativan ordered prn seizure -serial CTHs ordered to f/u two falls on the unit, no intracranial hemorrhage noted, no new focal deficits on exam 3. Cardiac: hx oh HTN with hypotension today requiring NS bolus, BP meds dosing lowered and tighter parameters placed -medicine consulted to assist in overall management 4. resp: encourage incentive spirometry 5. Vasc: LUE cephalic vein DVT dx 05-11-19 on eliquis, repeat US negative, discussed with Dr. Kang-->treatment for what really is a superficial VT was not necessary- eliquis d/c'd 6. GI: hx of metastatic colon cancer, treatment currently on hold, f/u with oncology 7. Pain: tylneol prn 8. Dispo: TBD Allergies Coded Allergies: No Known Allergies (Unverified , 10/11/18) Vital Signs Vital Signs Date Time Temp Pulse Resp B/P (MAP) Pulse Ox O2 Delivery O2 Flow Rate FiO2 07/03/19 10:00 119 84/65 (71) 07/03/19 06:00 98.1 17 100 Room Air Laboratory Data Labs 24H Laboratory Tests 2 07/03/19 06:25: Valproic Acid (Depakene) Level 68.4 Current Medications Current Medications Current Medications Medications (Trade) Dose Ordered Sig/Juan Pablo Route PRN Reason Start Time Stop Time Status Last Admin Dose Admin Acetaminophen (Tylenol Tab) 650 mg Q4HP PRN PO fever/MILD PAIN (PS 1-4) 06/28/19 16:00 07/03/19 09:21 Amlodipine Besylate (Norvasc) 5 mg DAILY PO 07/03/19 09:00 Amlodipine Besylate (Norvasc) 10 mg DAILY PO 06/29/19 09:00 07/03/19 09:17 DC 07/02/19 08:13 Apixaban (Eliquis) 5 mg BID PO 06/28/19 21:00 06/29/19 09:44 DC 06/29/19 07:50 Bisacodyl (Dulcolax Suppository) 10 mg DAILYPRN PRN [place] CONSTIPATION 06/28/19 16:00 Buspirone HCl (Buspar) 10 mg BID PO 06/28/19 21:00 07/03/19 09:18 Clonazepam (KlonoPIN) 0.5 mg TID PO 06/28/19 16:00 06/28/19 17:12 DC Divalproex Sodium (Depakote) 500 mg BID PO 06/28/19 21:00 07/03/19 09:18 Docusate Sodium (Colace) 100 mg BID PO 06/28/19 21:00 06/29/19 07:51 Gabapentin (Neurontin) 300 mg TID PO 06/28/19 16:00 07/03/19 09:17 Home Med (Med Rec Complete!) ASDIRECTED XX 06/28/19 16:45 06/28/19 16:38 DC Lacosamide (Vimpat) 200 mg BID PO 06/28/19 21:00 07/03/19 09:18 Levetiracetam (Keppra) 1,500 mg Q8H PO 06/28/19 14:00 07/03/19 05:37 Lisinopril (Prinivil) 10 mg DAILY PO 07/03/19 09:00 Lisinopril (Prinivil) 30 mg DAILY PO 06/29/19 09:00 07/03/19 09:17 DC 07/02/19 08:14 Lorazepam (Ativan) 2 mg Q4HP PRN IM seizure 06/28/19 16:30 Miscellaneous (Unresolved Patient Own Med Order) SEE LABEL COMMENTS DAILY XX 06/28/19 09:00 06/28/19 19:27 DC Ondansetron HCl (Zofran Odt) 4 mg Q4HP PRN PO NAUSEA OR VOMITING 06/28/19 18:45 07/01/19 11:24 Patient Own Medication (Patient'S Own Med) CLOBAZAM(Onfi)10MG TABS: ADMINISTER 1.5 TABS (15mg) BID PO 06/28/19 21:00 07/03/19 09:20 Senna (Senokot) 1 tab QHS PO 06/28/19 21:00 06/28/19 20:28 GAGANDEEP DAVIS MD July 03, 2019 12:48
[2019-07-03 12:59] LABS: BASO % 0.1 % (0.0-1.0); EOS % 0.5 % (0.0-3.0); HEMATOCRIT 31.9 % (42.0-52.0); LYMPH # 1.2 10^3/uL (1.5-5.0); MEAN CORPUSCULAR HEMOGLOBIN 28.2 pg (27.0-33.0); MEAN CORPUSCULAR HGB CONC 31.3 g/dl (32.0-36.5); MEAN CORPUSCULAR VOLUME 89.9 fl (80.0-96.0); MONO # 0.6 10^3/uL (0.0-0.8); NEUTROPHILS # 5.9 10^3/uL (1.5-8.5); NEUTROPHILS % 75.9 % (36.0-66.0); PLATELET COUNT, AUTOMATED 254 10^3/uL (150-450); RED BLOOD COUNT 3.55 10^6/uL (4.30-6.10); WHITE BLOOD COUNT 7.8 10^3/uL (4.0-10.0)
[2019-07-03 13:31] LABS: BLOOD UREA NITROGEN 9 MG/DL (7-18); CALCIUM LEVEL 8.5 MG/DL (8.5-10.1); CARBON DIOXIDE LEVEL 26 MEQ/L (21-32); CHLORIDE LEVEL 110 MEQ/L (98-107); GLOMERULAR FILTRATION RATE > 60.0 (>56); GLUCOSE, FASTING 124 MG/DL (70-100); POTASSIUM SERUM 3.9 MEQ/L (3.5-5.1); SODIUM LEVEL 142 MEQ/L (136-145)
[2019-07-03] MEDS: GABAPENTIN 100 MG CAP PO SCH ×2 (15:54→20:18)
[2019-07-03] MEDS ORDERED: LIDOCAINE 2% 5ML JELLY UROJET TOP PRN (17:00)
[2019-07-03] MEDS: SENNA 8.6 MG TAB (SENOKOT) PO SCH (20:20)
[2019-07-04 06:00] VITALS: BP 118/89
[2019-07-04] MEDS: levETIRAcetam 250MG TABLET (KEPPRA) PO SCH ×3 (06:13→21:03)
[2019-07-04 08:23] LABS: BASO % 0.1 % (0.0-1.0); EOS % 0.6 % (0.0-3.0); HEMATOCRIT 34.8 % (42.0-52.0); LYMPH # 1.1 10^3/uL (1.5-5.0); LYMPH % 14.8 % (24.0-44.0); MEAN CORPUSCULAR HEMOGLOBIN 28.1 pg (27.0-33.0); MEAN CORPUSCULAR HGB CONC 31.6 g/dl (32.0-36.5); MEAN CORPUSCULAR VOLUME 88.8 fl (80.0-96.0); MONO # 0.4 10^3/uL (0.0-0.8); MONO % 6.2 % (0.0-5.0); NEUTROPHILS # 5.6 10^3/uL (1.5-8.5); PLATELET COUNT, AUTOMATED 263 10^3/uL (150-450); RED BLOOD COUNT 3.92 10^6/uL (4.30-6.10); WHITE BLOOD COUNT 7.2 10^3/uL (4.0-10.0)
[2019-07-04 08:42] LABS: BLOOD UREA NITROGEN 6 MG/DL (7-18); CALCIUM LEVEL 8.1 MG/DL (8.5-10.1); CARBON DIOXIDE LEVEL 27 MEQ/L (21-32); CHLORIDE LEVEL 111 MEQ/L (98-107); CREATININE FOR GFR 0.55 MG/DL (0.70-1.30); GLOMERULAR FILTRATION RATE > 60.0 (>56); GLUCOSE, FASTING 144 MG/DL (70-100); POTASSIUM SERUM 3.6 MEQ/L (3.5-5.1); SODIUM LEVEL 142 MEQ/L (136-145)
[2019-07-04] MEDS: CLOBAZAM 10 MG PO SCH ×2 (08:52→21:03)
[2019-07-04] MEDS: LACOSAMIDE 50 MG TAB (VIMPAT) PO SCH ×2 (08:52→21:03)
[2019-07-04] MEDS: busPIRone 10 MG TAB PO SCH ×2 (08:52→21:03)
[2019-07-04] MEDS: DOCUSATE SODIUM 100 MG CAP PO SCH ×2 (08:52→21:00)
[2019-07-04] MEDS: GABAPENTIN 100 MG CAP PO SCH ×3 (08:52→21:04)
[2019-07-04] MEDS: DIVALPROEX 500 MG TAB PO SCH ×2 (08:53→21:04)
[2019-07-04] MEDS: lisinopriL 10 MG TAB PO SCH (08:53)
[2019-07-04] MEDS: amLODIPine 5 MG TAB PO SCH (08:53)
[2019-07-04] MEDS: REMEDY PHYTOPLEX Z-GUARD PASTE 113GM TUBE (FROM STOREROOM PRODUCT) TOP SCH ×3 (08:54→21:00)
[2019-07-04 14:00] VITALS: BP 134/90
--- NOTE | 2019-07-04 15:50 | IPNPDOC ---
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 REVIEW OF SYSTEMS: The following is a completed review of systems and has been reviewed. Review of systems otherwise unremarkable. PAIN: Patient self reports no pain EYES: +intermittent diplopia EARS, NOSE, & THROAT: No throat pain, or dysphagia, or rhinorrhea CARDIOVASCULAR: Denies chest pain or palpitations PULMONARY: Denies shortness of breath GASTROINTESTINAL: Denies constipation/diarrhea GENITOURINARY: denies dysuria MUSCULOSKELETAL: generalized weakness NEUROLOGICAL:+seizures HEMATOLOGICAL: denies easy bruising SKIN: no rash PSYCHIATRIC: Unremarkable All other review of systems found to be negative. PHYSICAL EXAMINATION: VITAL SIGNS: Please see below. GENERAL: Pleasant and cooperative. No acute distress. HEENT: PERRL. Extraocular movements intact. Clear conjunctiva CARDIOVASCULAR: Regular rate and rhythm. No murmurs, rubs, or gallops LUNGS: Clear to auscultation bilaterally. No wheezes. No rhonchi ABDOMEN: Soft, nontender, nondistended. Positive bowel sounds. Normal active bowel sounds NEUROLOGICAL: Alert and oriented times three. Cranial nerves II through XII grossly intact. Sensation grossly intact +mild apraxia (-) pronator drift (+) non-sustained horizontal nystagmus EXTREMITIES:5\5 strength bilateral upper extremities. 5\5 strength right lower extremity. 5/5 strength in left lower extremity. SKIN: +blanchable sacral erythema ASSESSMENT:59-year-old M with past medical history of metastatic colon cancer who presents status post new onset seizure disorder PLAN: 1. 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 Neuro: recent onset of seizures and pseudoseizures captured on VEEG at [facility] and very difficult to control and contributing to overall impaired mobility -discussed case with Dr. Holden and concern for patient's lethargy as a side effect from multiple AEDs, he recommends lowering gabapentin, and gradually tapering Onfi down to 10mg BID (will do this over the course of a few days), c/u Depakote 500mg BID, Lacosamide 200mg BID, Keppra 1500 q8h, f/u keppra/lacosamide levels while inhouse, depakote levels WNL - patient not reporting diplopia today, this may be side effect of lacosamide and/or depakote, will wait c/u to for lacosamide levels to return and monitor for worsening vision symptoms before discussing Lacosamide dosing with neurology -in-house neuro would prefer for patient to f/u with [facility] epilepsy specialists -Ativan ordered prn seizure -serial CTHs ordered to f/u two falls on the unit, no intracranial hemorrhage noted, no new focal deficits on exam 3. Cardiac: hx oh HTN with hypotension 07-03-19 which has resolved s/p NS bolus and BP med adjustment -medicine consulted to assist in overall management 4. resp: encourage incentive spirometry 5. Vasc: LUE cephalic vein DVT dx 05-11-19 on eliquis, repeat US negative, discussed with Dr. Kang-->treatment for what really is a superficial VT w as not necessary- eliquis d/c'd 6. GI: hx of metastatic colon cancer, treatment currently on hold, f/u with oncology 7. Pain: tylneol prn 8. Dispo: TBD Allergies Coded Allergies: No Known Allergies (Unverified , 10/11/18) Vital Signs Vital Signs Date Time Temp Pulse Resp B/P (MAP) Pulse Ox O2 Delivery O2 Flow Rate FiO2 07/04/19 14:00 98.1 101 17 134/90 (105) 99 Room Air Laboratory Data CBC/BMP Laboratory Tests 07/04/19 08:05 Labs 24H Laboratory Tests 2 07/03/19 18:48: Urine Color YELLOW, Urine Appearance CLEAR, Urine pH 5.0, Urine Specific [place] 1.019, Urine Protein NEGATIVE, Urine Glucose (UA) NEGATIVE, Urine Ketones NEGATIVE, Urine Blood NEGATIVE, Urine Nitrite NEGATIVE, Urine Bilirubin NEGATIVE, Urine Urobilinogen 0.2, Urine Leukocyte Esterase NEGATIVE, Urine WBC (Auto) 2, Urine RBC (Auto) 1, Urine Hyaline Casts (Auto) 0, Urine Bacteria ( Auto) NEGATIVE, Urine Squamous Epithelial Cells 0, Urine Sperm (Auto) 07/04/19 08:05: Immature Granulocyte % (Auto) 0.3, Neutrophils (%) (Auto) 78.0H, Lymphocytes (%) (Auto) 14.8L, Monocytes (%) (Auto) 6.2H, Eosinophils (%) (Auto) 0.6, Basophils (%) (Auto) 0.1, Neutrophils # (Auto) 5.6, Lymphocytes # (Auto) 1.1L, Monocytes # (Auto) 0.4, Eosinophils # (Auto) 0.0, Basophils # (Auto) 0.0, Nucleated Red Blood Cells % (auto) 0.0, Anion Gap 4L, Glomerular Filtration Rate > 60.0, C alcium Level 8.1L Current Medications Current Medications Current Medications Medications (Trade) Dose Ordered Sig/Juan Pablo Route PRN Reason Start Time Stop Time Status Last Admin Dose Admin Acetaminophen (Tylenol Tab) 650 mg Q4HP PRN PO fever/MILD PAIN (PS 1-4) 06/28/19 16:00 07/03/19 09:21 Amlodipine Besylate (Norvasc) 5 mg DAILY PO 07/03/19 09:00 Amlodipine Besylate (Norvasc) 10 mg DAILY PO 06/29/19 09:00 07/03/19 09:17 DC 07/02/19 08:13 Apixaban (Eliquis) 5 mg BID PO 06/28/19 21:00 06/29/19 09:44 DC 06/29/19 07:50 Bisacodyl (Dulcolax Suppository) 10 mg DAILYPRN PRN [place] CONSTIPATION 06/28/19 16:00 Buspirone HCl (Buspar) 10 mg BID PO 06/28/19 21:00 07/04/19 08:52 Clonazepam (KlonoPIN) 0.5 mg TID PO 06/28/19 16:00 06/28/19 17:12 DC Divalproex Sodium (Depakote) 500 mg BID PO 06/28/19 21:00 07/04/19 08:53 Docusate Sodium (Colace) 100 mg BID PO 06/28/19 21:00 06/29/19 07:51 Gabapentin (Neurontin) 100 mg TID PO 07/03/19 16:00 07/04/19 08:52 Gabapentin (Neurontin) 300 mg TID PO 06/28/19 16:00 07/03/19 12:34 DC 07/03/19 09:17 Home Med (Med Rec Complete!) ASDIRECTED XX 06/28/19 16:45 06/28/19 16:38 DC Lacosamide (Vimpat) 200 mg BID PO 06/28/19 21:00 07/04/19 08:52 Levetiracetam (Keppra) 1,500 mg Q8H PO 06/28/19 14:00 07/04/19 13:22 Lidocaine HCl (Lidocaine 2% Urojet) 1 dose ASDIRECTED PRN TOP FOR EACH CATHETERIZATION 07/03/19 17:00 07/03/19 19:28 Lisinopril (Prinivil) 10 mg DAILY PO 07/03/19 09:00 Lisinopril (Prinivil) 30 mg DAILY PO 06/29/19 09:00 07/03/19 09:17 DC 07/02/19 08:14 Lorazepam (Ativan) 2 mg Q4HP PRN IM seizure 06/28/19 16:30 Miscellaneous (Unresolved Patient Own Med Order) SEE LABEL COMMENTS DAILY XX 06/28/19 09:00 06/28/19 19:27 DC Miscellaneous (Unresolved Patient Own Med Order) SEE LABEL COMMENTS DAILY XX 07/03/19 09:00 Ondansetron HCl (Zofran Odt) 4 mg Q4HP PRN PO NAUSEA OR VOMITING 06/28/19 18:45 07/01/19 11:24 Patient Own Medication (Patient'S Own Med) 1 TAB (10MG) QHS PO 07/03/19 21:00 07/03/19 20:20 Patient Own Medication (Patient'S Own Med) 1.5 TABS (15 MG) DAILY PO 07/04/19 09:00 07/04/19 08:52 Patient Own Medication (Patient'S Own Med) CLOBAZAM(Onfi)10MG TABS: ADMINISTER 1 tab qHS and ... BID PO 06/28/19 21:00 07/03/19 13:16 DC 07/03/19 09:20 Senna (Senokot) 1 tab QHS PO 06/28/19 21:00 06/28/19 20:28 GAGANDEEP DAVIS MD July 04, 2019 15:50
[2019-07-04 20:00] VITALS: BP 120/78
[2019-07-04] MEDS: SENNA 8.6 MG TAB (SENOKOT) PO SCH (21:00)
[2019-07-05 00:07] LABS: LACOSAMIDE LEVEL 17.4 ug/mL (5.0-10.0); LEVETIRACETAM (KEPPRA) 50.2 ug/mL (10.0-40.0)
[2019-07-05] MEDS: levETIRAcetam 250MG TABLET (KEPPRA) PO SCH ×3 (05:59→21:20)
[2019-07-05 06:04] VITALS: BP 141/81
[2019-07-05] MEDS: DOCUSATE SODIUM 100 MG CAP PO SCH ×2 (09:00→21:00)
[2019-07-05] MEDS: REMEDY PHYTOPLEX Z-GUARD PASTE 113GM TUBE (FROM STOREROOM PRODUCT) TOP SCH ×3 (09:00→21:00)
[2019-07-05] MEDS: lisinopriL 10 MG TAB PO SCH (09:00)
[2019-07-05] MEDS: GABAPENTIN 100 MG CAP PO SCH ×3 (09:45→21:20)
[2019-07-05 09:46] VITALS: BP 132/78
[2019-07-05] MEDS: busPIRone 10 MG TAB PO SCH ×2 (09:46→21:21)
[2019-07-05] MEDS: amLODIPine 5 MG TAB PO SCH (09:46)
[2019-07-05] MEDS: LACOSAMIDE 50 MG TAB (VIMPAT) PO SCH ×2 (09:46→21:21)
[2019-07-05] MEDS: DIVALPROEX 500 MG TAB PO SCH ×2 (09:47→21:20)
[2019-07-05] MEDS: CLOBAZAM 10 MG PO SCH ×2 (09:50→21:20)
[2019-07-05 14:00] VITALS: BP 126/83
[2019-07-05 20:00] VITALS: BP 151/90
[2019-07-05] MEDS: SENNA 8.6 MG TAB (SENOKOT) PO SCH (21:00)
[2019-07-06 06:00] VITALS: BP 153/87
[2019-07-06] MEDS: ACETAMINOPHEN TAB 650MG DOSE (2X325MG) PO PRN (06:06)
[2019-07-06] MEDS: levETIRAcetam 250MG TABLET (KEPPRA) PO SCH (06:10)
[2019-07-06 06:20] VITALS: BP 153/87
[2019-07-06] MEDS ORDERED: LORazepam 2 MG/ML VIAL IM STA (06:52)
[2019-07-06] MEDS: LORazepam 2 MG/ML VIAL IV STA ×2 (06:52→07:31)
[2019-07-06 07:00] VITALS: BP 113/82
[2019-07-06 07:06] LABS: BASO % 0.1 % (0.0-1.0); EOS % 0.1 % (0.0-3.0); HEMATOCRIT 35.8 % (42.0-52.0); HEMOGLOBIN 11.1 g/dl (13.5-17.5); LYMPH # 1.1 10^3/uL (1.5-5.0); LYMPH % 6.3 % (24.0-44.0); MEAN CORPUSCULAR HEMOGLOBIN 27.2 pg (27.0-33.0); MEAN CORPUSCULAR VOLUME 87.7 fl (80.0-96.0); MONO # 0.9 10^3/uL (0.0-0.8); MONO % 5.3 % (0.0-5.0); NEUTROPHILS # 15.6 10^3/uL (1.5-8.5); NEUTROPHILS % 87.7 % (36.0-66.0); PLATELET COUNT, AUTOMATED 277 10^3/uL (150-450); RED BLOOD COUNT 4.08 10^6/uL (4.30-6.10); WHITE BLOOD COUNT 17.7 10^3/uL (4.0-10.0)
[2019-07-06 07:33] LABS: BLOOD UREA NITROGEN 7 MG/DL (7-18); CALCIUM LEVEL 8.9 MG/DL (8.5-10.1); CARBON DIOXIDE LEVEL 23 MEQ/L (21-32); CHLORIDE LEVEL 104 MEQ/L (98-107); CREATININE FOR GFR 0.58 MG/DL (0.70-1.30); GLOMERULAR FILTRATION RATE > 60.0 (>56); GLUCOSE, FASTING 88 MG/DL (70-100); POTASSIUM SERUM 3.9 MEQ/L (3.5-5.1); SODIUM LEVEL 137 MEQ/L (136-145)
[2019-07-06 07:40] LABS: ALBUMIN 2.5 GM/DL (3.2-5.2); ALT/SGPT 12 U/L (12-78); BILIRUBIN,TOTAL 0.7 MG/DL (0.2-1.0); BLOOD UREA NITROGEN 7 MG/DL (7-18); CALCIUM LEVEL 8.9 MG/DL (8.5-10.1); CARBON DIOXIDE LEVEL 22 MEQ/L (21-32); CHLORIDE LEVEL 104 MEQ/L (98-107); CREATININE FOR GFR 0.58 MG/DL (0.70-1.30); GLOMERULAR FILTRATION RATE > 60.0 (>56); GLUCOSE, FASTING 89 MG/DL (70-100); POTASSIUM SERUM 3.9 MEQ/L (3.5-5.1); SODIUM LEVEL 137 MEQ/L (136-145); TOTAL PROTEIN 6.2 GM/DL (6.4-8.2); TROPONIN I < 0.02 NG/ML (< 0.10)
--- NOTE | 2019-07-06 09:32 | IPNPDOC ---
PM&R Progress Note DATE OF SERVICE: July 05, 2019 Director Instrumentation Progress Note Subjective: Patient reporting he feels tired today as he had difficultly sleeping through the night. He states he feels very anxious about his seizures and inability to function. REVIEW OF SYSTEMS: The following is a completed review of systems and has been reviewed. Review of systems otherwise unremarkable. PAIN: Patient self reports no pain EYES: +intermittent diplopia EARS, NOSE, & THROAT: No throat pain, or dysphagia, or rhinorrhea CARDIOVASCULAR: Denies chest pain or palpitations PULMONARY: Denies shortness of breath GASTROINTESTINAL: Denies constipation/diarrhea GENITOURINARY: denies dysuria MUSCULOSKELETAL: generalized weakness NEUROLOGICAL:+seizures HEMATOLOGICAL: denies easy bruising SKIN: no rash PSYCHIATRIC: Unremarkable All other review of systems found to be negative. PHYSICAL EXAMINATION: VITAL SIGNS: Please see below. GENERAL: Pleasant and cooperative. No acute distress. HEENT: PERRL. Extraocular movements intact. Clear conjunctiva CARDIOVASCULAR: Regular rate and rhythm. No murmurs, rubs, or gallops LUNGS: Clear to auscultation bilaterally. No wheezes. No rhonchi ABDOMEN: Soft, nontender, nondistended. Positive bowel sounds. Normal active bowel sounds NEUROLOGICAL: Alert and oriented times three. Cranial nerves II through XII grossly intact. Sensation grossly intact +mild apraxia (-) pronator drift (+) non-sustained horizontal nystagmus EXTREMITIES:5\5 strength bilateral upper extremities. 5\5 strength right lower extremity. 5/5 strength in left lower extremity. SKIN: +blanchable sacral erythema ASSESSMENT:59-year-old M with past medical history of metastatic colon cancer who presents status post new onset seizure disorder PLAN: 1. 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 Neuro: recent onset of seizures and pseudoseizures captured on VEEG at [facility] and very difficult to control and contributing to overall impaired mob ility -discussed case with Dr. Holden and concern for patient's lethargy as a side effect from multiple AEDs, he recommends lowering gabapentin, and gradually tapering Onfi down to 10mg BID (will do this over the course of a few days), c/u Depakote 500mg BID, Lacosamide 200mg BID, Keppra 1500 q8h, f/u keppra/lacosamide levels while inhouse, depakote levels WNL - patient not reporting diplopia today, this may be side effect of lacosamide and/or depakote, will wait c/u to for lacosamide levels to return and monitor for worsening vision symptoms before discussing Lacosamide dosing with neurology -in-house neuro would prefer for patient to f/u with [facility] epilepsy specialists -Ativan ordered prn seizure -serial CTHs ordered to f/u two falls on the unit, no intracranial hemorrhage noted, no new focal deficits on exam 3. Cardiac: hx oh HTN with hypotension 07-03-19 which has resolved s/p NS bolus and BP med adjustment -medicine consulted to assist in overall management 4. resp: encourage incentive spirometry 5. Vasc: LUE cephalic vein DVT dx 05-11-19 on eliquis, repeat US negative, discussed with Dr. Kang-->treatment for what really is a superficial VT was not necessary- eliquis d/c'd 6. GI: hx of metastatic colon cancer, treatment currently on hold, f/u with oncology 7. Pain: tylneol prn 8. Dispo: TBD Allergies Coded Allergies: No Known Allergies (Unverified , 10/11/18) Vital Signs Vital Signs Date Time Temp Pulse Resp B/P (MAP) Pulse Ox O2 Delivery O2 Flow Rate FiO2 07/06/19 07:00 97.8 108 18 113/82 (92) 95 07/06/19 06:20 Room Air Laboratory Data CBC/BMP Laboratory Tests 07/06/19 06:47 Labs 24H Laboratory Tests 2 07/06/19 06:47: Immature Granulocyte % (Auto) 0.5, Neutrophils (%) (Auto) 87.7H, Lymphocytes (%) (Auto) 6.3L, Monocytes (%) (Auto) 5.3H, Eosinophils (%) (Auto) 0.1, Basophils (%) (Auto) 0.1, Neutrophils # (Auto) 15.6H, Lymphocytes # (Auto) 1.1L, Monocytes # (Auto) 0.9H, Eosinophils # (Auto) 0.0, Basophils # (Auto) 0.0, Nucleated Red Blood Cells % (auto) 0.0, Anion Gap 11, Glomerular Filtration Rate > 60.0, Calcium Level 8.9, Total Bilirubin 0.7, Aspartate Amino Transf (AST/SGOT) 10, Al anine Aminotransferase (ALT/SGPT) 12, Alkaline Phosphatase 133H, Troponin I < 0.02, Total Protein 6.2L, Albumin 2.5L, Albumin/Globulin Ratio 0.68L Current Medications Current Medications Current Medications Medications (Trade) Dose Ordered Sig/Juan Pablo Route PRN Reason Start Time Stop Time Status Last Admin Dose Admin Acetaminophen (Tylenol Tab) 650 mg Q4HP PRN PO fever/MILD PAIN (PS 1-4) 06/28/19 16:00 07/06/19 07:46 DC 07/06/19 06:06 Amlodipine Besylate (Norvasc) 5 mg DAILY PO 07/03/19 09:00 07/06/19 07:46 DC 07/05/19 09:46 Amlodipine Besylate (Norvasc) 10 mg DAILY PO 06/29/19 09:00 07/03/19 09:17 DC 07/02/19 08:13 Apixaban (Eliquis) 5 mg BID PO 06/28/19 21:00 06/29/19 09:44 DC 06/29/19 07:50 Bisacodyl (Dulcolax Suppository) 10 mg DAILYPRN PRN [place] CONSTIPATION 06/28/19 16:00 07/06/19 07:46 DC Buspirone HCl (Buspar) 10 mg BID PO 06/28/19 21:00 07/06/19 07:46 DC 07/05/19 21:21 Clonazepam (KlonoPIN) 0.5 mg TID PO 06/28/19 16:00 06/28/19 17:12 DC Divalproex Sodium (Depakote) 500 mg BID PO 06/28/19 21:00 07/06/19 07:46 DC 07/05/19 21:20 Docusate Sodium (Colace) 100 mg BID PO 06/28/19 21:00 07/06/19 07:46 DC 06/29/19 07:51 Gabapentin (Neurontin) 100 mg TID PO 07/03/19 16:00 07/06/19 07:46 DC 07/05/19 21:20 Gabapentin (Neurontin) 300 mg TID PO 06/28/19 16:00 07/03/19 12:34 DC 07/03/19 09:17 Home Med (Med Rec Complete!) ASDIRECTED XX 06/28/19 16:45 06/28/19 16:38 DC Lacosamide (Vimpat) 200 mg BID PO 06/28/19 21:00 07/06/19 07:46 DC 07/05/19 21:21 Levetiracetam (Keppra) 1,500 mg Q8H PO 06/28/19 14:00 07/06/19 07:46 DC 07/06/19 06:10 Lidocaine HCl (Lidocaine 2% Urojet) 1 dose ASDIRECTED PRN TOP FOR EACH CATHETERIZATION 07/03/19 17:00 07/06/19 07:46 DC 07/03/19 19:28 Lisinopril (Prinivil) 10 mg DAILY PO 07/03/19 09:00 07/06/19 07:46 DC Lisinopril (Prinivil) 30 mg DAILY PO 06/29/19 09:00 07/03/19 09:17 DC 07/02/19 08:14 Lorazepam (Ativan) 2 mg Q4HP PRN IM seizure 06/28/19 16:30 07/06/19 07:46 DC Lorazepam (Ativan) 2 mg STAT STAT IM 07/06/19 06:52 07/06/19 06:54 DC Lorazepam (Ativan) 2 mg STAT STAT IV 07/06/19 06:52 07/06/19 06:53 DC 07/06/19 06:52 Miscellaneous (Unresolved Patient Own Med Order) SEE LABEL COMMENTS DAILY XX 06/28/19 09:00 06/28/19 19:27 DC Miscellaneous (Unresolved Patient Own Med Order) SEE LABEL COMMENTS DAILY XX 07/03/19 09:00 07/05/19 10:39 DC Ondansetron HCl (Zofran Odt) 4 mg Q4HP PRN PO NAUSEA OR VOMITING 06/28/19 18:45 07/06/19 07:46 DC 07/01/19 11:24 Patient Own Medication (Patient'S Own Med) 1 TAB (10MG) QHS PO 07/03/19 21:00 07/06/19 07:46 DC 07/05/19 21:20 Patient Own Medication (Patient'S Own Med) 1.5 TABS (15 MG) DAILY PO 07/04/19 09:00 07/06/19 07:46 DC 07/05/19 09:50 Patient Own Medication (Patient'S Own Med) CLOBAZAM(Onfi)10MG TABS: ADMINISTER 1 tab qHS and ... BID PO 06/28/19 21:00 07/03/19 13:16 DC 07/03/19 09:20 Senna (Senokot) 1 tab QHS PO 06/28/19 21:00 07/06/19 07:46 DC 06/28/19 20:28 GAGANDEEP DAVIS MD July 06, 2019 09:32
--- NOTE | 2019-07-07 01:08 | ECGEPIP ---
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
[2019-07-10 00:06] LABS: LACOSAMIDE LEVEL 13.6 ug/mL (5.0-10.0); LEVETIRACETAM (KEPPRA) 50.8 ug/mL (10.0-40.0)
== END 2019-07-06 07:15 | DRG 101 ==
LOC: M PM&R 15:54
PROVIDERS: ADMIT Physical Medicine & Rehabilitation; ATTEND Physical Medicine & Rehabilitation
DX: G40.909 Epilepsy, unspecified, not intractable, without status epilepticus (principal); C18.9 Malignant neoplasm of colon, unspecified; C79.9 Secondary malignant neoplasm of unspecified site; I10 Essential (primary) hypertension; R26.89 Other abnormalities of gait and mobility; Z79.899 Other long term (current) drug therapy; Z86.718 Personal history of other venous thrombosis and embolism; Z79.01 Long term (current) use of anticoagulants; I95.9 Hypotension, unspecified

== ENCOUNTER 2019-07-06 06:44 | Inpatient (IN) | payer MEDICARE, OTHER ==
[~2019-07-06] VITALS: Ht 180.3 cm; Wt 72.2 kg
[~2019-07-06 06:44] MED LIST changes: +AMLO10TA5 PO; +APAP325T4 PO; +CLOB10TA PO; +DICL1PAT TD; +DICL1PAT TOP; -DICL1PAT6 TD; -DICL1PAT6 TOP; +DIVA500T94 PO; +LEVE750T5 PO; +LIDO1PAD TD; +LISI30TA4 PO; +ONFI10TA PO; +OXYC-517 PO; +VIMP200T PO
[2019-07-06 07:00] VITALS: BP 113/82
[2019-07-06] MEDS ORDERED: MAALOX 30 ML SUSP *UDC PO PRN (07:00)
[2019-07-06] MEDS ORDERED: MOM 30ML SUSPENSION UDC PO PRN (07:00)
[2019-07-06] MEDS ORDERED: DIVALPROEX 500 MG TAB PO SCH (09:00)
[2019-07-06] MEDS: LACOSAMIDE 50 MG TAB (VIMPAT) PO SCH ×3 (09:00→21:00)
[2019-07-06] MEDS ORDERED: CLOBAZAM 10 MG PO SCH (09:00)
[2019-07-06] MEDS: GABAPENTIN 100 MG CAP PO SCH ×5 (10:15→21:00)
--- NOTE | 2019-07-06 11:06 | IPNPDOC ---
Text Note Date of Service The patient was seen on 07/06/19. NOTE Called to bedside by nurse for seizure On my arrival within 2 minutes i noticed jerky movements of the both the upper extremities without any movement of the lower extremities, jerking movement of his head backwrads , eyes looking towards right with persistent blinking. When i called ramona he said "yeah". There was resistance when i tried to raise his eye lids. His jerking of the upper extremities slowly petered out with 1 or 2 big jerks his blinking stopped but he continued to look to the right . No bowel or bladder incontinence, no hypertension, but was tachycardic to 120 to 140. No breath holding or cyanosis. He immediately sat and started talking. He sat up and wanted to get out of bed. When I called his name he said that was not his name and he identified himself Al " Jeremiah Nelson" . He wanted to go back to [facility] and arrest everyone. When staff said he could not get out of bed he said"Just watch me". As per the sitter and nurses he has been agitated for about an hour and he was back into [facility], trying to get out off bed. He did get ativan around 6:30Am today when he had a seizure in ARU and was transferred to PCU. In the morning when I saw him he was sedated from the ativan. Now he is refusing his oral meds. This episode is a pseudoseizure. He is agitated and uncooperative. Will give him Haldol im. Discussed with Dr Holden to continue him on Clobazepam 15 at night and 10 in the morning. Continue Gabapentin at 100 tid. SHANNON TRONCOSO MD July 06, 2019 10:53
[2019-07-06] MEDS: CLOBAZAM 10 MG PO SCH ×2 (11:44→21:00)
[2019-07-06] MEDS: HALOPERIDOL 5MG/ML VIAL (J1630 PER 1) IM PRN (11:48)
[2019-07-06 12:34] VITALS: BP 122/72
[2019-07-06] MEDS: levETIRAcetam 250MG TABLET (KEPPRA) PO SCH ×2 (15:10→15:13)
--- NOTE | 2019-07-06 15:38 | HPEPDOC ---
General Date of Admission July 06, 2019 at 07:15 Date of Service: July 06, 2019 Chief Complaint The patient is a 59-year-old male admitted with a reason for visit of Seizure. Source: RN/, RN notes reviewed History of Present Illness 59-year-old M with metastatic colorectal cancer who recently developed Seizure disorder and was hospitalized in [facility] where he had VEEG for 2 weeks showed bothe Seizures and pseudoseizures started on high doses of 4 antiepileptic medications. S/p hospital discharge from [facility] after optimization was admitted to [facility] for acute rehabilitation. There he was noted to be very sedated and unable to work with PT so his gabapentin was reduced from 300 to 100 mg TID and his Clobazepam was reduced from 15 mg bid to 15 mg in am and 10 mg in pm with the goal to reduce it to 10 mg bid after discussion with Dr Holden by Dr Lawson. During the ARU stay he also had an episode of hypotension so his Bp meds were reduced. This am nurse at ARU reported that he was having a seizure. He was given ativan and was admitted to inpatient medicine in PCU for Seizure. Initially when i saw him he had just gotten ativan so was somnolent gazing to the right when woken up. Later on when he became more awake he was agitated trying to get out of bed, answering some questions but easily distractable. Home Medications Scheduled Amlodipine Besylate (Amlodipine Besylate) 10 Mg Tablet, 10 MG PO DAILY, (Reported) STARTED AT [facility] Apixaban (Eliquis) 5 Mg Tablet, 5 MG PO BID, (Reported) Buspirone HCl (Buspirone HCl) 10 Mg Tablet, 10 MG PO BID, (Reported) Cholecalciferol (Vitamin D3) (Vitamin D3) 1,000 Unit Tablet, 1,000 UNITS PO DAILY, (Reported) Clobazam (Clobazam) 10 Mg Tablet, 15 MG PO BID, (Reported) STARTED AT [facility] Clobazam (Onfi) 10 Mg Tablet, 15 MG PO BID Diclofenac Epolamine (Diclofenac Epolamine) 1 Each Patch.td12, 1 PATCH TD Q12H, (Reported) APPLY TO LEFT SHOULDER Divalproex Sodium (Divalproex Sodium) 500 Mg Tablet.dr, 500 MG PO Q12H, (Reported) STARTED AT [facility] Gabapentin (Gabapentin) 300 Mg Capsule, 300 MG PO TID, (Reported) Lacosamide (Vimpat) 200 Mg Tablet, 200 MG PO BID, (Reported) STARTED AT [facility] Levetiracetam (Levetiracetam) 750 Mg Tablet, 1,500 MG PO Q8H, (Reported) DOSE CHANGED FROM 1000MG BID AT [facility] Lidocaine (Lidocaine) 5% Adh..patch, 2 PATCH TD DAILY, (Reported) APPLY TO LOWER BACK AND SHOULDER Lisinopril (Lisinopril) 30 Mg Tablet, 30 MG PO DAILY, (Reported) DOSE CHANGED FROM 20MG AT [facility] Magnesium Oxide (Magnesium) 400 Mg Capsule, 400 MG PO DAILY, (Reported) Pantoprazole Sodium (Protonix) 40 Mg Tablet.dr, 40 MG PO DAILY, (Reported) STARTED AT [facility] Phenytoin Sodium Extended (Dilantin) 100 Mg Capsule, 200 MG PO BID, (Reported) DISCONTINUED AT [facility] Scheduled PRN Acetaminophen (Acetaminophen) 325 Mg Tablet, 650 MG PO QID PRN for PAIN, (Reported) Ondansetron HCl (Ondansetron HCl) 8 Mg Tablet, 8 MG PO Q6H PRN for NAUSEA OR VOMITING, (Reported) Oxycodone HCl (Oxycodone HCl) 5 Mg Tablet, 5 MG PO BID PRN for SEVERE PAIN (PS 8-10), (Reported) CHANGED FROM PERCOCET 5MG/325MG AT [facility] Allergies Coded Allergies: No Known Allergies (Unverified , 10/11/18) Past Medical History Medical History Seizure disorder. Pseudoseizures. Metastatic colorectal CA was on chemotherapy last on 04/27/19 History of LUE clot which was clarified with vascular as actually a superficial venous clot so eliquis discontinued HTN DM HLD Severe deconditioning H/O MSSA bacteremia from infusaport line sepsis, infusaport removed. Septic thrombophlebitis of the left cephalic vein /MSSA and staph epidermidis bacteremia in April 2019 /catheter tip was positive for staph capitis / removal of Mediport in April 2019 Clostridium (C) difficile colitis,diagnosed 04/29/2019. Influenza A, diagnosed 04/28/2019. Portal vein thrombosis July 2016 Surgical History Right hemicolectomy 2017 infusaport placement and removal Inguinal hernia repair Tonsillectomy Piloidal cystectomy Family History Significant Family History: Cancer (grand mother), Diabetes (father), Heart disease (father) Social History * Smoker: former Smoker Alcohol: occationally Drugs: denies A-FIB/CHADSVASC A-FIB History Current/History of A-Fib/PAF?: No Review of Systems Constitutional: Denies: Chills, Fever, Night Sweats Eyes: Denies: Pain, Vision change Skin: Denies: Rash, Lesions, Breakdown Pulmonary: Denies: Dyspnea, Cough Cardiovascular: Denies: Chest Pain, Palpitations, Orthopnea, Lt Headedness Gastrointestinal: Denies: Nausea, Vomiting, Abdominal Pain, Diarrhea Genitourinary: Reports: Incontinence; Denies: Dysuria, Frequency Musculoskeletal: Denies: Neck Pain, Back Pain Neurological: Reports: Weakness, Confusion Physical Examination General Exam: Positive: Alert, No Acute Distress, Other (agitated) Eye Exam: Positive: Other Eye Symptoms (some nystagmus, gaze preferance to the right always seems to be loking to the right) ENT Exam: Positive: Atraumatic, Mucous membr. moist/pink, Pharynx Normal Neck Exam: Positive: Supple; Negative: JVD, thyromegaly Chest Exam: Positive: Clear to auscultation, Normal air movement Heart Exam: Positive: Tachycardic, Regular Rhythm, Normal S1, Normal S2; Negative: Irregular Rhythm, Gallops, Murmurs, Rubs Telemetry: Positive: Sinus, Tachycardia Abdomen Exam: Positive: Normal bowel sounds, Soft; Negative: Tenderness, Hepatospenomegaly Extremity Exam: Negative: Clubbing, Cyanosis, Edema Skin Exam: Positive: Nl turgor and temperature; Negative: Breakdown, Lesion Vital Signs Vital Signs Date Time Temp Pulse Resp B/P (MAP) Pulse Ox O2 Delivery O2 Flow Rate FiO2 07/06/19 12:34 98.4 107 18 122/72 (89) 97 Room Air Assessment/Plan 59-year-old M with metastatic colorectal cancer who recently developed Seizure disorder and was hospitalized in [facility] where he had VEEG for 2 weeks showed bothe Seizures and pseudoseizures started on high doses of 4 antiepileptic medications. S/p hospital discharge from [facility] after optimization was admitted to [facility] for acute rehabilitation. There he was noted to be very sedated and unable to work with PT so his gabapentin was reduced from 300 to 100 mg TID and his Clobazepam was reduced from 15 mg bid to 15 mg in am and 10 mg in pm with the goal to reduce it to 10 mg bid after discussion with Dr Holden by Dr Lawson. During the ARu stay he also had an episode of hypotension so his Bp meds were reduced. This am nurse at ARU reported that he was having a seizure. He was given ativan and was admitted to inpatient medicine in PCU for Seizure. 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 Goal is to bring down the clobazepam to 10 mg bid. avoid ativan Metabolic encephalopathy possibly due to ativan will give haldol and sitter. HTN continue lisinopril 10 and amlodipine 5 reduced lisinopril and reduce dose of amlodipine Recent history of LUE cephalic vein septic thrombophlebitis and clot clarified with vascular this is supperficial venous thrombosis does not need eliquis Repeat US showed no presence of clots at this time Metastatic colon cancer: Stage III Moderately to poorly differentiated KRAS, NRAS and, MMR negative adenocarcinoma of the cecum status post right haong-colectomy (May 2016 T3 N1 M0) & FOLFOX / recurrence in January 2018 was managed with FOLVIR with Vectibix; due to a severe rash secondary to Vectibix, he was switched to Xeloda and Avastin/ due to rising CEA in January 2019 and progressive lymphadenopathy in February 2019 was switched to FOLFIRI with Erbitux Last chemo on 04/27/19 Had infusaport infection and bacterimia so now infusaport is out. follows with oncology, to follow up as an outpatient Depression and anxiety will continue buspirone but will reduce dose from 10 bid to 5 bid. SHANNON TRONCOSO MD July 06, 2019 13:55
[2019-07-06 15:50] VITALS: BP 103/69
[2019-07-06] MEDS: amLODIPine 5 MG TAB PO SCH (15:56)
[2019-07-06] MEDS: lisinopriL 10 MG TAB PO SCH (15:56)
[2019-07-06 20:00] VITALS: BP 116/69
[2019-07-06] MEDS: VALPROATE SOD INJ 500 MG in D5W 50 ML IV SCH (20:12)
[2019-07-06] MEDS ORDERED: NS 1,000 ML IV ONE (20:15)
[2019-07-06] MEDS: SENOKOT S TAB PO SCH (21:00)
[2019-07-06] MEDS: busPIRone 5 MG TAB PO SCH (21:00)
[2019-07-06] MEDS: levETIRAcetam INJection 1,500 MG in D5W 100 ML IV SCH (21:22)
[2019-07-07] VITALS: BP 132/71
--- NOTE | 2019-07-07 01:22 | ECGEPIP ---
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 Order Number: [id number] Reading MD: Juan Tate Measurements Intervals [place] Rate: 113 P: 35 [place]: 145 QRS: 6 QRSD: 101 T: 17 QT: 326 QTc: 449 Interpretive Statements SINUS TACHYCARDIA Borderline low voltage in the limb leads Poor R wave progression ABNORMAL RHYTHM ECG Compared to prior tracings(2) in the system, no sigmificant changes Electronically Signed on 07-07-2019 1:22:24 EDT by Juan Tate
[2019-07-07 04:00] VITALS: BP 141/67
[2019-07-07] MEDS ORDERED: levETIRAcetam 250MG TABLET (KEPPRA) PO ONE (04:15)
[2019-07-07] MEDS ORDERED: GABAPENTIN 100 MG CAP PO ONE (04:15)
[2019-07-07] MEDS ORDERED: LACOSAMIDE 50 MG TAB (VIMPAT) PO ONE (04:15)
--- NOTE | 2019-07-07 04:21 | IPNPDOC ---
Text Note Date of Service The patient was seen on 07/07/19. NOTE Time of service 355AM I was asked to evaluate the patient because he appeared to have a true seizure with fecal and urinary incontinence. Shortly after the event he was more alert, teary, crying and expressed feeling frustrated that he is having seiizures, abou t being in the hospital and not being able to see his family. Upon chart review it was noted that he refused: -clobazam 10mg @1144 -keppra 1500mg @1530 -buspirone 5mg @2100 -clobzam 15mg 1.5 tab @2100 -lancosamide 200mg @2100 -gabapentin 100mg @2100 We ordered -keppra 1500mg (his AM dose is due in about an hour) -lancosamide 200mg -gabapentin 100mg I encouraged him to take his medications. We also called his to give her an update, she spoke to him on the phone and encouraged him to take his medications. We will ask the day time team to consider consulting Psychiatry to adjust his anti-depressants if they feel that this is appropriate. VS,Fishbone, I+O VS, Fishbone, I+O Vital Signs Date Time Temp Pulse Resp B/P (MAP) Pulse Ox O2 Delivery O2 Flow Rate FiO2 07/07/19 00:00 97.4 109 20 132/71 (91) 95 Room Air I&O- Last 24 Hours up to 6 AM 07/07/19 05:59 Intake Total 120 ml Output Total 500 ml Balance -380 ml GABBIE MEDRANO MD July 07, 2019 04:21
[2019-07-07] MEDS: levETIRAcetam INJection 1,500 MG in D5W 100 ML IV SCH ×3 (04:44→23:18)
[2019-07-07 06:11] LABS: BASO % 0.2 % (0.0-1.0); EOS % 0.1 % (0.0-3.0); HEMATOCRIT 30.5 % (42.0-52.0); HEMOGLOBIN 9.4 g/dl (13.5-17.5); LYMPH # 0.9 10^3/uL (1.5-5.0); LYMPH % 6.9 % (24.0-44.0); MEAN CORPUSCULAR HEMOGLOBIN 27.5 pg (27.0-33.0); MEAN CORPUSCULAR HGB CONC 30.8 g/dl (32.0-36.5); MEAN CORPUSCULAR VOLUME 89.2 fl (80.0-96.0); MONO # 0.8 10^3/uL (0.0-0.8); MONO % 6.6 % (0.0-5.0); NEUTROPHILS # 10.6 10^3/uL (1.5-8.5); NEUTROPHILS % 85.6 % (36.0-66.0); PLATELET COUNT, AUTOMATED 246 10^3/uL (150-450); RED BLOOD COUNT 3.42 10^6/uL (4.30-6.10); WHITE BLOOD COUNT 12.4 10^3/uL (4.0-10.0)
[2019-07-07 06:37] LABS: ALT/SGPT 9 U/L (12-78); BILIRUBIN,TOTAL 0.6 MG/DL (0.2-1.0); BLOOD UREA NITROGEN 7 MG/DL (7-18); CALCIUM LEVEL 8.1 MG/DL (8.5-10.1); CARBON DIOXIDE LEVEL 24 MEQ/L (21-32); CHLORIDE LEVEL 107 MEQ/L (98-107); CREATININE FOR GFR 0.39 MG/DL (0.70-1.30); GLOMERULAR FILTRATION RATE > 60.0 (>56); GLUCOSE, FASTING 93 MG/DL (70-100); MAGNESIUM LEVEL 1.7 MG/DL (1.8-2.4); POTASSIUM SERUM 3.1 MEQ/L (3.5-5.1); SODIUM LEVEL 140 MEQ/L (136-145); TOTAL PROTEIN 5.8 GM/DL (6.4-8.2)
[2019-07-07 07:37] VITALS: BP 132/82
[2019-07-07] MEDS ORDERED: MAG SULF 1GM/100ML (MAG RUN) 1 GM in IV 1 EA IV ONE (08:00)
[2019-07-07] MEDS ORDERED: POTASSIUM CHLORIDE 10 MEQ SR TABLET PO ONE ×2 (08:00→21:45)
[2019-07-07] MEDS: CLOBAZAM 10 MG PO SCH ×2 (08:10→22:07)
[2019-07-07] MEDS: SENOKOT S TAB PO SCH ×2 (08:10→21:00)
[2019-07-07] MEDS: lisinopriL 10 MG TAB PO SCH (08:13)
[2019-07-07] MEDS: GABAPENTIN 100 MG CAP PO SCH ×3 (08:13→22:02)
[2019-07-07] MEDS: LACOSAMIDE 50 MG TAB (VIMPAT) PO SCH ×2 (08:14→22:03)
[2019-07-07] MEDS: amLODIPine 5 MG TAB PO SCH (08:14)
[2019-07-07] MEDS: VALPROATE SOD INJ 500 MG in D5W 50 ML IV SCH ×2 (08:23→22:07)
[2019-07-07] MEDS: busPIRone 5 MG TAB PO SCH ×2 (08:23→22:03)
--- NOTE | 2019-07-07 10:49 | IPNPDOC ---
Text Note Date of Service The patient was seen on 07/07/19. NOTE Subjective: Patient had a seizure this overnight. He had been having behavioral abnormalities yesterday and had refused to take his meds. we could give him the keppra and valproate IV the other 2 we did not have iv preps so could not be given. This am he is more cooperative less agitated and took his meds without issues. He still is not very interactive and has a staring look to the right. Does know his name and that he is in the hospital. Physical Exam: Vitals : As below General Exam: Positive: Awake, No Acute Distress, sitting up in bed but slow to respond to questions. Eye Exam: Positive: Other Eye Symptoms (some nystagmus, gaze preference to the right always seems to be looking to the right) ENT Exam: Positive: Atraumatic, Mucous membr. moist/pink, Pharynx Normal Neck Exam: Positive: Supple; Negative: JVD, thyromegaly Chest Exam: Positive: Clear to auscultation, Normal air movement Heart Exam: Positive: Tachycardic, Regular Rhythm, Normal S1, Normal S2; Negative: Irregular Rhythm, Gallops, Murmurs, Rubs Telemetry: Positive: Sinus, Tachycardia Abdomen Exam: Positive: Normal bowel sounds, Soft; Negative: Tenderness, Hepatospenomegaly Extremity Exam: Negative: Clubbing, Cyanosis, Edema Skin Exam: Positive: Nl turgor and temperature; Negative: Breakdown, Lesion Labs and radiology reviewed. Assessment and plan: 59-year-old M with metastatic colorectal cancer who recently developed Seizure disorder and was hospitalized in [facility] where he had VEEG for 2 weeks showed both Seizures and pseudoseizures started on high doses of 4 antiepileptic medications. S/p hospital discharge from [facility] after optimization was admitted to [facility] for acute rehabilitation. There he was noted to be very sedated and unable to work with PT so his gabapentin was reduced from 300 to 100 mg TID and his Clobazepam was reduced from 15 mg bid to 15 mg in am and 10 mg in pm with the goal to reduce it to 10 mg bid after discussion with Dr Holden by Dr Lawson. During the ARU stay he also had an episode of hypotension so his BP meds were reduced. This am nurse at ARU reported that he was having a seizure. He was given ativan and was admitted to inpatient medicine in PCU for Seizure. 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 will continue with Keppra 1500 q8H, [id number] bid, and lacosamide 200 mg bid same dosage as before nad ofni 10 mg in the morning and 15 mg at night, continue gabapentin at [address] Holden and recommended not to change dosage . Goal is to bring down the clobazepam to 10 mg bid. avoid ativan Metabolic encephalopathy due to multipe meds break through seizures continue sitter Behavioral disorder getting intermittently agitated and refusing meds. on haldol im prn HTN continue lisinopril 10 and amlodipine 5 reduced lisinopril and reduce dose of amlodipine Recent history of LUE cephalic vein septic thrombophlebitis and clot clarified with vascular this is superficial venous thrombosis does not need eliquis Repeat US showed no presence of clots at this time Metastatic colon cancer: Stage III Moderately to poorly differentiated KRAS, NRAS and, MMR negative adenocarcinoma of the cecum status post right hoang-colectomy (May 2016 T3 N1 M0) & FOLFOX / recurrence in January 2018 was managed with FOLVIR with Vectibix; due to a severe rash secondary to Vectibix, he was switched to Xeloda and Avastin/ due to rising CEA in January 2019 and progressive lymphadenopathy in February 2019 was switched to FOLFIRI with Erbitux Last chemo on 04/27/19 Had infusaport infection and bacterimia so now infusaport is out. follows with oncology, to follow up as an outpatient Depression and anxiety will continue buspirone but will reduce dose from 10 bid to 5 bid. VS,Fishbone, I+O VS, Fishbone, I+O Laboratory Tests 07/07/19 05:21 Vital Signs Date Time Temp Pulse Resp B/P (MAP) Pulse Ox O2 Delivery O2 Flow Rate FiO2 07/07/19 00:00 97.4 109 20 132/71 (91) 95 Room Air I&O- Last 24 Hours up to 6 AM 07/07/19 06:00 Intake Total 120 ml Output Total 500 ml Balance -380 ml RAYSHANNON MD July 07, 2019 07:35
--- NOTE | 2019-07-07 11:04 | MHCRPDOC ---
[facility] Consultation Consultation Phone Call Abraham Overton MRN: N/A Date of : N/A Date of Service: 07/07/2019 Summary Received call from internal med attending, Dr. Wagoner. The patient has a history of seizures and is currently in status epilepticus. He has had some mild psychotic symptoms in the setting of being confused likely secondary to postictal delirium versus psychosis. Reportedly Haldol has been helpful for his agitation. Discussed with inpatient attending and agreed to cancel in-person consult and to pursue phone consult at this time. Recommend using Rozerem 8 mg nightly as delirium prophylaxis as highly likely to postictal delirium given his multiple seizures. If still orientated and having psychotic phenomenon, possibly postictal psychosis, would recommend full consultation at that time. Team will call back psychiatry if there is any concerns or if his condition does not improve. Tuesday Vital Signs Vital Signs Date Time Temp Pulse Resp B/P (MAP) Pulse Ox O2 Delivery O2 Flow Rate FiO2 07/07/19 08:14 106 121/71 07/07/19 07:39 97.2 07/07/19 07:37 20 98 Room Air Laboratory Data 24H Labs Laboratory Tests 2 07/06/19 19:33: Bedside Glucose (Misc Panel) 81 07/06/19 19:49: Troponin I < 0.02 07/06/19 21:47: Prolactin 22.1H 07/07/19 05:21: Immature Granulocyte % (Auto) 0.6, Neutrophils (%) (Auto) 85.6H, Lymphocytes (%) (Auto) 6.9L, Monocytes (%) (Auto) 6.6H, Eosinophils (%) (Auto) 0.1, Basophils (%) (Auto) 0.2, Neutrophils # (Auto) 10.6H, Lymphocytes # (Auto) 0.9L, Monocytes # (Auto) 0.8, Eosinophils # (Auto) 0.0, Basophils # (Auto) 0.0, Nucleated Red Blood Cells % (auto) 0.0, Anion Gap 9, Glomerular Filtration Rate > 60.0, Calcium Level 8.1L, Magnesium Level 1.7L, Total Bilirubin 0.6, Aspartate Amino Transf (AST/SGOT) 9, Alanine Aminotransferase (ALT/SGPT) 9L, Alkaline Phosphatase 111, Total Protein 5.8L, Albumin 2.0L, Albumin/Globulin Ratio 0.53L Home Medications Current Medications Current Medications Medications (Trade) Dose Ordered Sig/Juan Pablo Route PRN Reason Start Time Stop Time Status Last Admin Dose Admin Acetaminophen (Tylenol Tab) 650 mg Q6HP PRN PO PAIN / FEVER 07/07/19 03:15 Al Hydrox/Mg Hydrox/Simethicone (Mylanta) 30 ml DAILY PRN PO DYSPEPSIA 07/06/19 07:00 Amlodipine Besylate (Norvasc) 5 mg DAILY PO 07/06/19 09:00 Buspirone HCl (Buspar) 5 mg BID PO 07/06/19 21:00 07/07/19 08:23 Divalproex Sodium (Depakote) 500 mg BID PO 07/06/19 09:00 07/06/19 17:56 DC 07/06/19 10:16 Gabapentin (Neurontin) 100 mg TID PO 07/06/19 09:00 07/07/19 08:13 Haloperidol (Haldol) 2 mg Q6HP PRN IM AGITATION 07/06/19 10:45 07/06/19 11:48 Lacosamide (Vimpat) 200 mg BID PO 07/06/19 09:00 07/07/19 08:14 Levetiracetam (Keppra) 1,500 mg Q8H PO 07/06/19 14:00 07/06/19 17:56 DC Levetiracetam 1500 mg/Dextrose 115 ml @ 460 mls/hr Q8H IV 07/06/19 22:00 07/07/19 04:44 Lisinopril (Prinivil) 10 mg DAILY PO 07/06/19 09:00 Magnesium Hydroxide (Milk Of Magnesia) 30 ml DAILY PRN PO CONSTIPATION 07/06/19 07:00 Miscellaneous (Unresolved Patient Own Med Order) SEE LABEL COMMENTS DAILY XX 07/06/19 09:00 07/06/19 11:14 DC Patient Own Medication (Patient'S Own Med) 1 TAB(10mg) DAILY PO 07/06/19 09:00 07/07/19 08:10 Patient Own Medication (Patient'S Own Med) 1 tab (10mg) in morn... BID PO 07/06/19 09:00 07/06/19 11:38 DC Patient Own Medication (Patient'S Own Med) 1.5 TABS (15 MG) QHS PO 07/06/19 21:00 Senna/Docusate Sodium (Senokot S) 1 tab BID PO 07/06/19 21:00 07/07/19 08:10 Valproate Sodium 500 mg/Dextrose 55 ml @ 55 mls/hr Q12H IV 07/06/19 21:00 07/07/19 08:23 Scheduled Amlodipine Besylate (Amlodipine Besylate) 10 Mg Tablet, 10 MG PO DAILY, (Reported) STARTED AT [facility] Apixaban (Eliquis) 5 Mg Tablet, 5 MG PO BID, (Reported) Buspirone HCl (Buspirone HCl) 10 Mg Tablet, 10 MG PO BID, (Reported) Cholecalciferol (Vitamin D3) (Vitamin D3) 1,000 Unit Tablet, 1,000 UNITS PO DAILY, (Reported) Clobazam (Clobazam) 10 Mg Tablet, 15 MG PO BID, (Reported) STARTED AT [facility] Clobazam (Onfi) 10 Mg Tablet, 15 MG PO BID Diclofenac Epolamine (Diclofenac Epolamine) 1 Each Patch.td12, 1 PATCH TD Q12H, (Reported) APPLY TO LEFT SHOULDER Divalproex Sodium (Divalproex Sodium) 500 Mg Tablet.dr, 500 MG PO Q12H, (Reported) STARTED AT [facility] Gabapentin (Gabapentin) 300 Mg Capsule, 300 MG PO TID, (Reported) Lacosamide (Vimpat) 200 Mg Tablet, 200 MG PO BID, (Reported) STARTED AT [facility] Levetiracetam (Levetiracetam) 750 Mg Tablet, 1,500 MG PO Q8H, (Reported) DOSE CHANGED FROM 1000MG BID AT [facility] Lidocaine (Lidocaine) 5% Adh..patch, 2 PATCH TD DAILY, (Reported) APPLY TO LOWER BACK AND SHOULDER Lisinopril (Lisinopril) 30 Mg Tablet, 30 MG PO DAILY, (Reported) DOSE CHANGED FROM 20MG AT [facility] Magnesium Oxide (Magnesium) 400 Mg Capsule, 400 MG PO DAILY, (Reported) Pantoprazole Sodium (Protonix) 40 Mg Tablet.dr, 40 MG PO DAILY, (Reported) STARTED AT [facility] Phenytoin Sodium Extended (Dilantin) 100 Mg Capsule, 200 MG PO BID, (Reported) DISCONTINUED AT [facility] Scheduled PRN Acetaminophen (Acetaminophen) 325 Mg Tablet, 650 MG PO QID PRN for PAIN, (Reported) Ondansetron HCl (Ondansetron HCl) 8 Mg Tablet, 8 MG PO Q6H PRN for NAUSEA OR VOMITING, (Reported) Oxycodone HCl (Oxycodone HCl) 5 Mg Tablet, 5 MG PO BID PRN for SEVERE PAIN (PS 8-10), (Reported) CHANGED FROM PERCOCET 5MG/325MG AT [facility] Allergies Coded Allergies: No Known Allergies (Unverified , 10/11/18) DORI FISH DO July 07, 2019 11:04
[2019-07-07 11:15] VITALS: BP 114/71
[2019-07-07 16:00] VITALS: BP 139/81
[2019-07-07 20:00] VITALS: BP 128/78
[2019-07-07] MEDS: RAMELTEON 8 MG TAB (ROZEREM) PO SCH (22:02)
[2019-07-08] VITALS: BP 124/84
[2019-07-08] MEDS: ACETAMINOPHEN TAB 650MG DOSE (2X325MG) PO PRN ×2 (00:24→20:59)
[2019-07-08 04:00] VITALS: BP 130/93
[2019-07-08] MEDS: levETIRAcetam INJection 1,500 MG in D5W 100 ML IV SCH ×3 (05:51→22:53)
[2019-07-08 07:33] LABS: BASO % 0.1 % (0.0-1.0); EOS % 0.4 % (0.0-3.0); HEMATOCRIT 32.2 % (42.0-52.0); LYMPH # 0.9 10^3/uL (1.5-5.0); MEAN CORPUSCULAR HEMOGLOBIN 27.3 pg (27.0-33.0); MEAN CORPUSCULAR HGB CONC 31.1 g/dl (32.0-36.5); MONO # 0.6 10^3/uL (0.0-0.8); MONO % 7.8 % (0.0-5.0); NEUTROPHILS # 5.6 10^3/uL (1.5-8.5); NEUTROPHILS % 78.1 % (36.0-66.0); PLATELET COUNT, AUTOMATED 292 10^3/uL (150-450); RED BLOOD COUNT 3.66 10^6/uL (4.30-6.10); WHITE BLOOD COUNT 7.2 10^3/uL (4.0-10.0)
[2019-07-08 08:00] VITALS: BP 114/70
[2019-07-08 08:14] LABS: BLOOD UREA NITROGEN 5 MG/DL (7-18); CALCIUM LEVEL 7.9 MG/DL (8.5-10.1); CARBON DIOXIDE LEVEL 27 MEQ/L (21-32); CHLORIDE LEVEL 111 MEQ/L (98-107); CREATININE FOR GFR 0.42 MG/DL (0.70-1.30); GLOMERULAR FILTRATION RATE > 60.0 (>56); GLUCOSE, FASTING 92 MG/DL (70-100); POTASSIUM SERUM 3.5 MEQ/L (3.5-5.1); SODIUM LEVEL 145 MEQ/L (136-145)
[2019-07-08] MEDS: CLOBAZAM 10 MG PO SCH ×2 (08:27→20:55)
[2019-07-08] MEDS: LACOSAMIDE 50 MG TAB (VIMPAT) PO SCH ×2 (08:28→20:58)
[2019-07-08] MEDS: GABAPENTIN 100 MG CAP PO SCH ×3 (08:29→20:58)
[2019-07-08] MEDS: SENOKOT S TAB PO SCH ×2 (08:29→20:58)
[2019-07-08] MEDS: busPIRone 5 MG TAB PO SCH ×2 (08:29→20:56)
[2019-07-08] MEDS: amLODIPine 5 MG TAB PO SCH (08:30)
[2019-07-08] MEDS: VALPROATE SOD INJ 500 MG in D5W 50 ML IV SCH ×2 (08:31→21:48)
[2019-07-08] MEDS: lisinopriL 10 MG TAB PO SCH (08:31)
--- NOTE | 2019-07-08 10:51 | IPNPDOC ---
Text Note Date of Service The patient was seen on 07/08/19. NOTE Subjective: Patient calm and cooperative this am. Oriented to place and person. As per staff slept 2 to 3 hours at night. Sitting up in bed having breakfast. Today he knows his medical issues. He told me he was all confused at night and did not know where he was. Could read the clock and tell me the time. Taking his meds. Physical Exam: Vitals : As below General Exam: Positive: Awake, No Acute Distress, sitting up in bed but slow to respond to questions but answers appropriately. Eye Exam: No nystagmus today. No gaze preference today. ENT Exam: Positive: Atraumatic, Mucous membr. moist/pink, Pharynx Normal Neck Exam: Positive: Supple; Negative: JVD, thyromegaly Chest Exam: Positive: Clear to auscultation, Normal air movement Heart Exam: Positive: Tachycardic, Regular Rhythm, Normal S1, Normal S2; Negative: Irregular Rhythm, Gallops, Murmurs, Rubs Telemetry: Positive: Sinus, Tachycardia Abdomen Exam: Positive: Normal bowel sounds, Soft; Negative: Tenderness, Hepatospenomegaly Extremity Exam: Negative: Clubbing, Cyanosis, Edema Skin Exam: Positive: Nl turgor and temperature; Negative: Breakdown, Lesion Labs and radiology reviewed. Assessment and plan: 59-year-old M with metastatic colorectal cancer who recently developed Seizure disorder and was hospitalized in [facility] where he had VEEG for 2 weeks showed both Seizures and pseudoseizures started on high doses of 4 antiepileptic medications. S/p hospital discharge from [facility] after optimization was admitted to [facility] ARU for acute rehabilitation. There he was noted to be very sedated and unable to work with PT so his gabapentin was reduced from 300 to 100 mg TID and his Clobazepam was reduced from 15 mg bid to 15 mg in am and 10 mg in pm with the goal to reduce it to 10 mg bid after discussion with Dr Holden by Dr Lawson. During the ARU stay he also had an episode of hypotension so his BP meds were reduced. This am nurse at ARU reported that he was having a seizure. He was given ativan and was admitted to inpatient medicine in PCU for Seizure. 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 will continue with Keppra 1500 q8H, [id number] bid, and lacosamide 200 mg bid same dosage as before nad ofni 10 mg in the morning and 15 mg at night, continue gabapentin at [address] discussed [address] Holden and recommended not to change dosage . Goal is to bring down the clobazepam to 10 mg bid. avoid ativan Metabolic encephalopathy due to multiple meds break through seizures continue sitter Behavioral disorder Post seizure psychosis Vs post seizure delirium. better today. continue rozrem consulted Psych. HTN continue lisinopril 10 and amlodipine 5 reduced lisinopril and reduce dose of amlodipine Recent history of LUE cephalic vein septic thrombophlebitis and clot clarified with vascular this is superficial venous thrombosis does not need eliquis Repeat US showed no presence of clots at this time Metastatic colon cancer: Stage III Moderately to poorly differentiated KRAS, NRAS and, MMR negative adenocarcinoma of the cecum status post right hoang-colectomy (May 2016 T3 N1 M0) & FOLFOX / recurrence in January 2018 was managed with FOLVIR with Vectibix; due to a severe rash secondary to Vectibix, he was switched to Xeloda and Avastin/ due to rising CEA in January 2019 and progressive lymphadenopathy in February 2019 was switched to FOLFIRI with Erbitux Last chemo on 04/27/19 Had infusaport infection and bacterimia so now infusaport is out. follows with oncology, to follow up as an outpatient Depression and anxiety will continue buspirone but will reduce dose from 10 bid to 5 bid. VS,Fishbone, I+O VS, Fishbone, I+O Laboratory Tests 07/08/19 07:10 07/08/19 07:22 Vital Signs Date Time Temp Pulse Resp B/P (MAP) Pulse Ox O2 Delivery O2 Flow Rate FiO2 07/08/19 08:31 102/63 07/08/19 08:30 102 07/08/19 08:00 97.3 18 98 Room Air I&O- Last 24 Hours up to 6 AM 07/08/19 06:00 Intake Total 830 ml Output Total 1150 ml Balance -320 ml SHANNON TRONCOSO MD July 08, 2019 10:51
[2019-07-08 14:56] VITALS: BP 113/78
[2019-07-08] MEDS: HALOPERIDOL 5MG/ML VIAL (J1630 PER 1) IM PRN (18:24)
[2019-07-08] MEDS: RAMELTEON 8 MG TAB (ROZEREM) PO SCH (20:56)
[2019-07-08 22:00] VITALS: BP 128/85
[2019-07-09] MEDS: levETIRAcetam INJection 1,500 MG in D5W 100 ML IV SCH (05:37)
[2019-07-09] MEDS: HALOPERIDOL 5MG/ML VIAL (J1630 PER 1) IM PRN (05:46)
[2019-07-09 06:00] VITALS: BP 120/76
[2019-07-09 07:31] LABS: BASO % 0.4 % (0.0-1.0); EOS # 0.1 10^3/uL (0.0-0.5); EOS % 1.1 % (0.0-3.0); HEMATOCRIT 31.9 % (42.0-52.0); HEMOGLOBIN 9.9 g/dl (13.5-17.5); LYMPH # 0.8 10^3/uL (1.5-5.0); MEAN CORPUSCULAR HEMOGLOBIN 27.4 pg (27.0-33.0); MEAN CORPUSCULAR VOLUME 88.4 fl (80.0-96.0); MONO # 0.4 10^3/uL (0.0-0.8); MONO % 9.1 % (0.0-5.0); NEUTROPHILS # 3.3 10^3/uL (1.5-8.5); PLATELET COUNT, AUTOMATED 291 10^3/uL (150-450); RED BLOOD COUNT 3.61 10^6/uL (4.30-6.10); WHITE BLOOD COUNT 4.6 10^3/uL (4.0-10.0)
[2019-07-09] MEDS ORDERED: RAME8TAB2 PO (08:18)
[2019-07-09] MEDS ORDERED: CLOB10TA PO (08:18)
[2019-07-09] MEDS ORDERED: AMLO10TA5 PO (08:18)
[2019-07-09] MEDS ORDERED: BUSP10TA PO (08:18)
[2019-07-09] MEDS ORDERED: GABA-843 PO (08:18)
[2019-07-09 08:51] VITALS: BP 120/76
[2019-07-09] MEDS: LACOSAMIDE 50 MG TAB (VIMPAT) PO SCH (08:51)
[2019-07-09] MEDS: GABAPENTIN 100 MG CAP PO SCH ×2 (08:51→15:18)
[2019-07-09] MEDS: SENOKOT S TAB PO SCH (08:51)
[2019-07-09] MEDS: amLODIPine 5 MG TAB PO SCH (08:51)
[2019-07-09] MEDS: busPIRone 5 MG TAB PO SCH (08:51)
[2019-07-09] MEDS ORDERED: VALPROIC ACID 250 MG CAP PO SCH (09:00)
[2019-07-09] MEDS ORDERED: CLOBAZAM 10 MG PO SCH (09:00)
--- NOTE | 2019-07-09 12:55 | DS.PDOC ---
Discharge Summary General Date of Admission July 06, 2019 at 07:15 Date of Discharge 07/09/19 Discharge Summary PROCEDURES PERFORMED DURING STAY: [None]. DISCHARGE DIAGNOSES: Seizures and Pseudoseizures Post Seizure Delirium vs post seizure psychosis SECONDARY DIAGNOSIS: Metastatic colorectal CA was on chemotherapy last on 04/27/19 History of LUE clot which was clarified with vascular as actually a superficial venous clot so eliquis discontinued HTN DM HLD Severe deconditioning H/O MSSA bacteremia from infusaport line sepsis, infusaport removed. Septic thrombophlebitis of the left cephalic vein /MSSA and staph epidermidis bacteremia in April 2019 /catheter tip was positive for staph capitis / removal of Mediport in April 2019 H/o Clostridium (C) difficile colitis,diagnosed 04/29/2019. H/o Influenza A, diagnosed 04/28/2019. Portal vein thrombosis July 2016 Right hemicolectomy 2017 Infusaport placement and removal COMPLICATIONS/CHIEF COMPLAINT: Seizure. HISTORY OF PRESENT ILLNESS: See history and physical HOSPITAL COURSE: 59-year-old M with metastatic colorectal cancer who recently developed Seizure disorder and was hospitalized in [facility] where he had VEEG for 2 weeks showed both Seizures and pseudoseizures started on high doses of 4 antiepileptic medications. S/p hospital discharge from [facility] after optimization was admitted to [facility] ARU for acute rehabilitation. There he was no em to be very sedated and unable to work with PT so his gabapentin was reduced from 300 to 100 mg TID and his Clobazepam was reduced from 15 mg bid to 15 mg in am and 10 mg in pm with the goal to reduce it to 10 mg bid after discussion with Dr Holden by Dr Lawson. During the ARU stay he also had an episode of hypotension so his BP meds were reduced. This am nurse at ARU reported that he was having a seizure. He was given ativan and was admitted to inpatient medicine in PCU for Seizure. 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 will continue with Keppra 1500 q8H, depakote 500mg bid, and lacosamide 200 mg bid same dosage as before and ofni 10 mg reduced to 10 mg bid, continue gabapentin at [address] Holden and recommended not to change dosage. avoid ativan. Metabolic encephalopathy due to multiple meds break through seizures resolved Behavioral disorder Post seizure psychosis Vs post seizure delirium. better today. continue rozrem consulted Psych over the phone HTN Bp normal not needing any hypertensives most days will dc lisinopril. continue amlodipine 5 with hold parameters. Recent history of LUE cephalic vein septic thrombophlebitis and clot clarified with vascular this is superficial venous thrombosis does not need eliquis Repeat US showed no presence of clots at this time Metastatic colon cancer: Stage III Moderately to poorly differentiated KRAS, NRAS and, MMR negative adenocarcinoma of the cecum status post right hoang-colectomy (May 2016 T3 N1 M0) & FOLFOX / recurrence in January 2018 was managed with FOLVIR with Vectibix; due to a severe rash secondary to Vectibix, he was switched to Xeloda and Avastin/ due to rising CEA in January 2019 and progressive lymphadenopathy in February 2019 was switched to FOLFIRI with Erbitux Last chemo on 04/27/19 Had infusaport infection and bacterimia so now infusaport is out. follows with oncology, to follow up as an outpatient Depression and anxiety will continue buspirone but will reduce dose from 10 bid to 5 bid. DISCHARGE MEDICATIONS: Please see below. ALLERGIES: Please see below. PHYSICAL EXAMINATION ON DISCHARGE: VITAL SIGNS: Please see below. General Exam: Positive: Awake, No Acute Distress, sitting up in bed but slow to respond to questions but answers appropriately. Eye Exam: No nystagmus today. No gaze preference today. ENT Exam: Positive: Atraumatic, Mucous membr. moist/pink, Pharynx Normal Neck Exam: Positive: Supple; Negative: JVD, thyromegaly Chest Exam: Positive: Clear to auscultation, Normal air movement Heart Exam: Positive: normal rate, Regular Rhythm, Normal S1, Normal S2; Negative: Irregular Rhythm, Gallops, Murmurs, Rubs Abdomen Exam: Positive: Normal bowel sounds, Soft; Negative: Tenderness, Hepatospenomegaly Extremity Exam: Negative: Clubbing, Cyanosis, Edema Skin Exam: Positive: Nl turgor and temperature; Negative: Breakdown, Lesion LABORATORY DATA: Please see below. ACTIVITY: [As tolerated]. DIET: As tolerated DISCHARGE PLAN: Rehab DISPOSITION: Rehab DISCHARGE INSTRUCTIONS: Follow up with psych if continues to have behavioral issues. DISCHARGE CONDITION: [Stable]. TIME SPENT ON DISCHARGE: 35 minutes. Vital Signs/I&Os Vital Signs Date Time Temp Pulse Resp B/P (MAP) Pulse Ox O2 Delivery O2 Flow Rate FiO2 07/09/19 08:51 85 120/76 07/09/19 06:00 97.3 16 97 Room Air I&O- Last 24 Hours up to 6 AM 07/09/19 06:00 Intake Total 1140 ml Output Total 575 ml Balance 565 ml Laboratory Data Labs 24H Laboratory Tests 2 07/09/19 07:07: Immature Granulocyte % (Auto) 0.4, Neutrophils (%) (Auto) 72.0H, Lymphocytes (%) (Auto) 17.0L, Monocytes (%) (Auto) 9.1H, Eosinophils (%) (Auto) 1.1, Basophils (%) (Auto) 0.4, Neutrophils # (Auto) 3.3, Lymphocytes # (Auto) 0.8L, Monocytes # (Auto) 0.4, Eosinophils # (Auto) 0.1, Basophils # (Auto) 0.0, Nucleated Red Blood Cells % (auto) 0.0 CBC/BMP Laboratory Tests 07/09/19 07:07 Discharge Medications Scheduled Amlodipine Besylate (Amlodipine Besylate) 10 Mg Tablet, 5 MG PO DAILY STARTED AT [facility] Apixaban (Eliquis) 5 Mg Tablet, 5 MG PO BID, (Reported) Buspirone HCl (Buspirone HCl) 10 Mg Tablet, 5 MG PO BID Cholecalciferol (Vitamin D3) (Vitamin D3) 1,000 Unit Tablet, 1,000 UNITS PO DAILY, (Reported) Clobazam (Onfi) 10 Mg Tablet, 15 MG PO BID Clobazam (Clobazam) 10 Mg Tablet, 10 MG PO BID STARTED AT [facility] Diclofenac Epolamine (Diclofenac Epolamine) 1 Each Patch.td12, 1 PATCH TD Q12H, (Reported) APPLY TO LEFT SHOULDER Divalproex Sodium (Divalproex Sodium) 500 Mg Tablet.dr, 500 MG PO Q12H, (Reported) STARTED AT [facility] Gabapentin (Gabapentin) 300 Mg Capsule, 100 MG PO TID Lacosamide (Vimpat) 200 Mg Tablet, 200 MG PO BID, (Reported) STARTED AT [facility] Levetiracetam (Levetiracetam) 750 Mg Tablet, 1,500 MG PO Q8H, (Reported) DOSE CHANGED FROM 1000MG BID AT [facility] Lidocaine (Lidocaine) 5% Adh..patch, 2 PATCH TD DAILY, (Reported) APPLY TO LOWER BACK AND SHOULDER Lisinopril (Lisinopril) 30 Mg Tablet, 30 MG PO DAILY, (Reported) DOSE CHANGED FROM 20MG AT [facility] Magnesium Oxide (Magnesium) 400 Mg Capsule, 400 MG PO DAILY, (Reported) Pantoprazole Sodium (Protonix) 40 Mg Tablet.dr, 40 MG PO DAILY, (Reported) STARTED AT [facility] Phenytoin Sodium Extended (Dilantin) 100 Mg Capsule, 200 MG PO BID, (Reported) DISCONTINUED AT [facility] Ramelteon (Ramelteon) 8 Mg Tablet, 8 MG PO QHS Scheduled PRN Acetaminophen (Acetaminophen) 325 Mg Tablet, 650 MG PO QID PRN for PAIN, (Reported) Ondansetron HCl (Ondansetron HCl) 8 Mg Tablet, 8 MG PO Q6H PRN for NAUSEA OR VOMITING, (Reported) Oxycodone HCl (Oxycodone HCl) 5 Mg Tablet, 5 MG PO BID PRN for SEVERE PAIN (PS 8-10), (Reported) CHANGED FROM PERCOCET 5MG/325MG AT [facility] Allergies Coded Allergies: No Known Allergies (Unverified , 10/11/18) SHANNON TRONCOSO MD July 09, 2019 12:55
[2019-07-09 14:00] VITALS: BP 127/84
[2019-07-09] MEDS ORDERED: levETIRAcetam 250MG TABLET (KEPPRA) PO SCH (14:00)
== END 2019-07-09 17:55 | DRG 100 ==
LOC: M PCU 07:15 → M MS5PR 07-08 14:53
PROVIDERS: ADMIT Internal Medicine; ATTEND Internal Medicine Nephrology
DX: G40.401 Other generalized epilepsy and epileptic syndromes, not intractable, with status epilepticus (principal); G93.41 Metabolic encephalopathy; C18.9 Malignant neoplasm of colon, unspecified; I10 Essential (primary) hypertension; E11.9 Type 2 diabetes mellitus without complications; F41.9 Anxiety disorder, unspecified; F32.9 Major depressive disorder, single episode, unspecified; Z79.899 Other long term (current) drug therapy

== ENCOUNTER 2019-07-09 16:55 | Inpatient (IN) | payer MEDICARE, OTHER ==
[~2019-07-09] VITALS: Ht 180.3 cm; Wt 72.2 kg
[2019-07-09] MEDS: PANTOPRAZOLE 40MG TAB (PROTONIX) PO SCH (09:00)
[~2019-07-09 16:55] MED LIST changes: +RAME8TAB2 PO
[2019-07-09] MEDS ORDERED: ACETAMINOPHEN TAB 650MG DOSE (2X325MG) PO PRN (17:45)
[2019-07-09] MEDS ORDERED: BISACODYL 10 MG SUPP PR PRN (17:45)
[2019-07-09 18:06] VITALS: BP 107/79
[2019-07-09] MEDS: LACOSAMIDE 50 MG TAB (VIMPAT) PO SCH (20:25)
[2019-07-09] MEDS: busPIRone 5 MG TAB PO SCH (20:25)
[2019-07-09] MEDS: SENOKOT S TAB PO SCH (20:26)
[2019-07-09] MEDS: GABAPENTIN 100 MG CAP PO SCH (20:26)
[2019-07-09] MEDS: levETIRAcetam 250MG TABLET (KEPPRA) PO SCH (20:26)
[2019-07-09] MEDS: HEPARIN SOD (PORCINE) 5000UNITS/ML VIAL (J1644 PER 1000UNITS) SC SCH (20:27)
[2019-07-09] MEDS: VALPROIC ACID 250 MG CAP PO SCH (20:28)
[2019-07-09 20:30] VITALS: BP 120/80
[2019-07-09] MEDS ORDERED: RAMELTEON 8 MG TAB (ROZEREM) PO SCH (21:00)
[2019-07-09] MEDS: REMEDY PHYTOPLEX Z-GUARD PASTE 113GM TUBE (FROM STOREROOM PRODUCT) TOP SCH (21:00)
[2019-07-10] MEDS: levETIRAcetam 250MG TABLET (KEPPRA) PO SCH (05:46)
[2019-07-10 06:05] VITALS: BP 138/85
[2019-07-10 06:32] LABS: BASO % 0.4 % (0.0-1.0); EOS # 0.1 10^3/uL (0.0-0.5); HEMATOCRIT 33.3 % (42.0-52.0); HEMOGLOBIN 10.5 g/dl (13.5-17.5); LYMPH # 1.1 10^3/uL (1.5-5.0); LYMPH % 22.1 % (24.0-44.0); MEAN CORPUSCULAR HEMOGLOBIN 27.8 pg (27.0-33.0); MEAN CORPUSCULAR HGB CONC 31.5 g/dl (32.0-36.5); MEAN CORPUSCULAR VOLUME 88.1 fl (80.0-96.0); MONO # 0.4 10^3/uL (0.0-0.8); MONO % 7.8 % (0.0-5.0); NEUTROPHILS # 3.3 10^3/uL (1.5-8.5); NEUTROPHILS % 68.5 % (36.0-66.0); PLATELET COUNT, AUTOMATED 339 10^3/uL (150-450); RED BLOOD COUNT 3.78 10^6/uL (4.30-6.10); WHITE BLOOD COUNT 4.9 10^3/uL (4.0-10.0)
[2019-07-10 06:57] LABS: ALBUMIN 2.2 GM/DL (3.2-5.2); ALT/SGPT 14 U/L (12-78); BILIRUBIN,TOTAL 0.2 MG/DL (0.2-1.0); BLOOD UREA NITROGEN 3 MG/DL (7-18); CALCIUM LEVEL 8.4 MG/DL (8.5-10.1); CARBON DIOXIDE LEVEL 29 MEQ/L (21-32); CHLORIDE LEVEL 109 MEQ/L (98-107); CREATININE FOR GFR 0.45 MG/DL (0.70-1.30); GLOMERULAR FILTRATION RATE > 60.0 (>56); GLUCOSE, FASTING 77 MG/DL (70-100); POTASSIUM SERUM 3.6 MEQ/L (3.5-5.1); SODIUM LEVEL 144 MEQ/L (136-145); TOTAL PROTEIN 5.5 GM/DL (6.4-8.2)
[2019-07-10] MEDS: HALOPERIDOL 5MG/ML VIAL (J1630 PER 1) IM PRN ×4 (08:30→09:42)
[2019-07-10] MEDS ORDERED: LORazepam 2 MG/ML VIAL (J2060) As Ordered ONE ×2 (08:54→08:57)
[2019-07-10] MEDS: HEPARIN SOD (PORCINE) 5000UNITS/ML VIAL (J1644 PER 1000UNITS) SC SCH (09:00)
[2019-07-10] MEDS ORDERED: amLODIPine 5 MG TAB PO SCH (09:00)
[2019-07-10] MEDS: GABAPENTIN 100 MG CAP PO SCH (09:00)
[2019-07-10] MEDS: PANTOPRAZOLE 40MG TAB (PROTONIX) PO SCH (09:00)
[2019-07-10] MEDS: SENOKOT S TAB PO SCH (09:00)
[2019-07-10] MEDS: busPIRone 5 MG TAB PO SCH (09:00)
[2019-07-10] MEDS: LACOSAMIDE 50 MG TAB (VIMPAT) PO SCH (09:00)
[2019-07-10] MEDS ORDERED: lisinopriL 10 MG TAB PO SCH (09:00)
[2019-07-10] MEDS: REMEDY PHYTOPLEX Z-GUARD PASTE 113GM TUBE (FROM STOREROOM PRODUCT) TOP SCH (09:00)
[2019-07-10] MEDS: LORazepam 2 MG/ML VIAL (J2060) IM ONE ×2 (09:00→09:58)
[2019-07-10] MEDS: VALPROIC ACID 250 MG CAP PO SCH (09:00)
[2019-07-10] MEDS ORDERED: LORazepam 2 MG/ML VIAL (J2060) IV ONE (09:05)
[2019-07-10 10:52] LABS: MAGNESIUM LEVEL 1.9 MG/DL (1.8-2.4)
--- NOTE | 2019-07-10 10:58 | HPEPDOC ---
[facility] [facility] Note DATE OF ADMISSION: 07-09-19 Patient was admitted to ARU on 07-09-19 and the following morning was discharged to PCU for status epilepticus. POST ADMISSION PHYSICIAN EVALUATION: Patient is not considered an appropriate IRF level admission at this time due to his ongoing seizure activity. Vital Signs Vital Sign - Last 24 Hours 07/09/19 07/09/19 07/10/19 18:06 20:30 06:05 Temp 98.6 98.3 97.6 Pulse 111 102 92 Resp 18 19 17 B/P (MAP) 107/79 (88) 120/80 (93) 138/85 (102) Pulse Ox 99 98 96 O2 Delivery Room Air Room Air Room Air Laboratory Data CBC/BMP Laboratory Tests 07/10/19 06:00 Labs 24H Laboratory Tests 2 07/10/19 06:00: Immature Granulocyte % (Auto) 0.2, Neutrophils (%) (Auto) 68.5H, Lymphocytes (%) (Auto) 22.1L, Monocytes (%) (Auto) 7.8H, Eosinophils (%) (Auto) 1.0, Basophils (%) (Auto) 0.4, Neutrophils # (Auto) 3.3, Lymphocytes # (Auto) 1.1L, Monocytes # (Auto) 0.4, Eosinophils # (Auto) 0.1, Basophils # (Auto) 0.0, Nucleated Red Blood Cells % (auto) 0.0, Anion Gap 6L, Glomerular Filtration Rate > 60.0, Calcium Level 8.4L, Magnesium Level 1.9, Total Bilirubin 0.2, Aspartate Amino Transf (AST/SGOT) 10, Alanine Aminotransferase (ALT/SGPT) 14, Alkaline Phosphatase 130H, Total Protein 5.5L, Albumin 2.2L, Albumin/Globulin Ratio 0.67L 07/10/19 08:50: Bedside Glucose (Misc Panel) 121H FSBS Laboratory Tests Test 07/10/19 08:50 Range/Units Bedside Glucose (Misc Panel) 121 70-105 MG/DL Home Medications Scheduled Amlodipine Besylate (Amlodipine Besylate) 10 Mg Tablet, 5 MG PO DAILY STARTED AT [facility] Buspirone HCl (Buspirone HCl) 10 Mg Tablet, 5 MG PO BID Cholecalciferol (Vitamin D3) (Vitamin D3) 1,000 Unit Tablet, 1,000 UNITS PO DAILY, (Reported) Clobazam (Clobazam) 10 Mg Tablet, 10 MG PO BID STARTED AT [facility] Diclofenac Epolamine (Diclofenac Epolamine) 1 Each Patch.td12, 1 PATCH TD Q12H, (Reported) APPLY TO LEFT SHOULDER Divalproex Sodium (Divalproex Sodium) 500 Mg Tablet.dr, 500 MG PO Q12H, (Reported) STARTED AT [facility] Gabapentin (Gabapentin) 300 Mg Capsule, 100 MG PO TID Lacosamide (Vimpat) 200 Mg Tablet, 200 MG PO BID, (Reported) STARTED AT [facility] Levetiracetam (Levetiracetam) 750 Mg Tablet, 1,500 MG PO Q8H, (Reported) DOSE CHANGED FROM 1000MG BID AT [facility] Lidocaine (Lidocaine) 5% Adh..patch, 2 PATCH TD DAILY, (Reported) APPLY TO LOWER BACK AND SHOULDER Pantoprazole Sodium (Protonix) 40 Mg Tablet.dr, 40 MG PO DAILY, (Reported) STARTED AT [facility] Ramelteon (Ramelteon) 8 Mg Tablet, 8 MG PO QHS Scheduled PRN Acetaminophen (Acetaminophen) 325 Mg Tablet, 650 MG PO QID PRN for PAIN, (Reported) Ondansetron HCl (Ondansetron HCl) 8 Mg Tablet, 8 MG PO Q6H PRN for NAUSEA OR VOMITING, (Reported) Allergies Coded Allergies: No Known Allergies (Unverified , 10/11/18) A-FIB/CHADSVASC A-FIB History Current/History of A-Fib/PAF?: No GAGANDEEP DAVIS MD July 10, 2019 10:58
== END 2019-07-10 09:18 | disposition short-term general hospital (02) | DRG 101 ==
LOC: M PM&R 17:59
PROVIDERS: ADMIT Physical Medicine & Rehabilitation; ATTEND Physical Medicine & Rehabilitation
DX: G40.801 Other epilepsy, not intractable, with status epilepticus (principal); Z79.899 Other long term (current) drug therapy

== ENCOUNTER 2019-07-10 09:20 | Inpatient (IN) | payer MEDICARE, OTHER ==
[~2019-07-10] VITALS: Ht 180.3 cm; Wt 72.0 kg
[2019-07-10] MEDS: busPIRone 5 MG TAB PO SCH ×2 (09:00→21:10)
[2019-07-10] MEDS: DIVALPROEX 500 MG TAB PO SCH ×2 (09:00→21:10)
[2019-07-10 09:20] VITALS: BP 134/88
[2019-07-10] MEDS ORDERED: NS 1,000 ML IV ONE (09:45)
[2019-07-10] MEDS ORDERED: MAALOX 30 ML SUSP *UDC PO PRN (10:00)
[2019-07-10] MEDS ORDERED: ACETAMINOPHEN TAB 650MG DOSE (2X325MG) PO PRN (10:00)
[2019-07-10] MEDS ORDERED: MOM 30ML SUSPENSION UDC PO PRN (10:00)
[2019-07-10] MEDS ORDERED: LORazepam 2 MG/ML VIAL (J2060) IVP PRN (10:15)
--- NOTE | 2019-07-10 10:26 | HPEPDOC ---
General Date of Admission July 10, 2019 at 09:21 Date of Service: July 10, 2019 Chief Complaint The patient is a 59-year-old male admitted with a reason for visit of Seizure. Source: RN/, Old records Exam Limitations: Other (patient is sedated) Timing/Duration: Other (, not applicable) Severity: Other (not applicable) Associated Symptoms: Other (applicable) History of Present Illness This is 59 years old white male with past medical history of metastatic colorectal carcinoma has been admitted multiple times with seizure disorder since his hospital and on last admission, he was transferred to [facility] in [place] where he had further workup for seizure including VEEG for 2 weeks, which showed both seizures and pseudoseizures and was started on high doses of for antilipid medications. Once he was stabilized and [facility] was transferred to [facility] acute rehabilitation unit. He was found to be sedated secondary to multiple antiseizure meds and was unable to physical therapy. Hence, as all his meds were reduced, which includes gabapentin from 300-100 3 times a day, clonazepam to 15 mg twice to 10 mg twice a day. Again yesterday. He was transferred from medical unit to acute rehabilitation unit and he was found to have a seizures in the rehabilitation unit this morning. Has not transferred back to PCU. Patient is currently sedated and he received Ativan 2 mg IV for seizure disorder and unable to obtain history, all old records were checked and the spoke with the nursing staff and M.D. at the bedside Home Medications Scheduled Amlodipine Besylate (Amlodipine Besylate) 10 Mg Tablet, 5 MG PO DAILY STARTED AT [facility] Buspirone HCl (Buspirone HCl) 10 Mg Tablet, 5 MG PO BID Cholecalciferol (Vitamin D3) (Vitamin D3) 1,000 Unit Tablet, 1,000 UNITS PO DAILY, (Reported) Clobazam (Clobazam) 10 Mg Tablet, 10 MG PO BID STARTED AT [facility] Diclofenac Epolamine (Diclofenac Epolamine) 1 Each Patch.td12, 1 PATCH TD Q12H, (Reported) APPLY TO LEFT SHOULDER Divalproex Sodium (Divalproex Sodium) 500 Mg Tablet.dr, 500 MG PO Q12H, (Reported) STARTED AT [facility] Gabapentin (Gabapentin) 300 Mg Capsule, 100 MG PO TID Lacosamide (Vimpat) 200 Mg Tablet, 200 MG PO BID, (Reported) STARTED AT [facility] Levetiracetam (Levetiracetam) 750 Mg Tablet, 1,500 MG PO Q8H, (Reported) DOSE CHANGED FROM 1000MG BID AT [facility] Lidocaine (Lidocaine) 5% Adh..patch, 2 PATCH TD DAILY, (Reported) APPLY TO LOWER BACK AND SHOULDER Pantoprazole Sodium (Protonix) 40 Mg Tablet.dr, 40 MG PO DAILY, (Reported) STARTED AT [facility] Ramelteon (Ramelteon) 8 Mg Tablet, 8 MG PO QHS Scheduled PRN Acetaminophen (Acetaminophen) 325 Mg Tablet, 650 MG PO QID PRN for PAIN, (Reported) Ondansetron HCl (Ondansetron HCl) 8 Mg Tablet, 8 MG PO Q6H PRN for NAUSEA OR VOMITING, (Reported) Allergies Coded Allergies: No Known Allergies (Unverified , 10/11/18) Past Medical History Medical History Seizure disorder, pseudoseizures, metastasis. Colorectal carcinoma, last c hemotherapy 04/27/2019, left upper extremity clot, hypertension, diabetes mellitus, hyperlipidemia, severe deconditioning, history of emesis or bacteremia, history of C. difficile infection, history of influenza A infection and portal vein thrombosis Surgical History Tonsillectomy hilar nodule, cholecystectomy, inguinal hernia repair and [id number] placement and removal, right hemicolectomy Social History * Smoker: former Smoker Alcohol: Denies Drugs: denies A-FIB/CHADSVASC A-FIB History Current/History of A-Fib/PAF?: No Review of Systems Constitutional: Reports: Other (labile. Review of system as he is sedated) Physical Examination General Exam: Positive: Other (Mary Jane is sedated) Eye Exam: Positive: Other Eye Symptoms (, unable to do eye exam) ENT Exam: Positive: Atraumatic, Mucous membr. moist/pink Neck Exam: Positive: Supple Chest Exam: Positive: Clear to auscultation, Normal air movement Heart Exam: Positive: Rate Normal, Normal S1 Abdomen Exam: Positive: Normal bowel sounds, Soft Extremity Exam: Positive: Normal pulses Skin Exam: Positive: Nl turgor and temperature Neuro Exam: Positive: Other (. Unable to do neuro exam) Psych Exam: Positive: Other (unable to do psych exam) Vital Signs Vital Signs Date Time Temp Pulse Resp B/P (MAP) Pulse Ox O2 Delivery O2 Flow Rate FiO2 07/10/19 09:20 97.5 121 20 134/88 (103) 98 Nasal Cannula 2.0 Problems (1) Seizure disorder Status: Acute Problem Text: Patient had a frequently admissions with a seizure disorder. Recently he was admitted to [facility], where he had a extensive workup done which showed both seizures and pseudoseizures and was discharged on 4 and developed metastases. As patient was sedated with antilipid med and could not perform rehabilitation, hence his dosage of medication was decreased, but he developed seizures and was admitted to [facility] floor. Again, once he stabilized he was discharged back to acute rehabilitation unit and again he developed seizure today and transferred back to PCU for further care. Patient received Ativan 2 mg IV and he is currently sedated. I'm unable to drop. 10. History of perform extensive exam. Admit to PCU for telemetry monitoring Seizure precautions Ativan 2 mg IV every 4 hours when necessary for seizures Continue all current medication as he was taken on [facility] floor We will renew all meds, once the med rec is completed by pharmacy Is increase the dosage according to patient's clinical response and frequency of his seizures A.m. level work has been ordered DVT prophylaxis with heparin Activity as tolerated Diet regular (2) HTN (hypertension) Status: Chronic Problem Text: Continue lisinopril, amlodipine, as per orders Increases on decreased dose depending on patient's response to current meds (3) Colon cancer Status: Chronic Problem Text: History of metastatic colon cancer, stage III, moderately to poorly differentiated KRAS,NRAS & MMR negative. Adenocarcinoma of cecum, status post right hemicolectomy in 2016 and FOLFOX, recurrence in January 2018, managed with FOLVIR and VECTIBIX R due to severe range with Vetbibix, he was switched toXeloda and Avastin due to rising CEA in January 2019 and increasing lymphadenopathy in February 2019. He was later on switched to FOLFIRI with Erbitux. His last chemotherapy was given on 04/27/2019. Further follow-up with oncology as an outpatient Plan / VTE VTE Prophylaxis Ordered?: Yes SEBASTIAN REECE MD July 10, 2019 10:26
[2019-07-10] MEDS ORDERED: SLF 3 ML SYR IV PRN (10:30)
[2019-07-10] MEDS: SLF 3 ML SYR IV SCH ×2 (10:50→21:10)
[2019-07-10] MEDS ORDERED: ONDANSETRON 4 MG TAB PO PRN (11:45)
[2019-07-10 12:00] VITALS: BP 128/89
[2019-07-10] MEDS: amLODIPine 5 MG TAB PO SCH (12:06)
[2019-07-10] MEDS: LACOSAMIDE 50 MG TAB (VIMPAT) PO SCH ×2 (12:07→21:09)
[2019-07-10] MEDS: levETIRAcetam 250MG TABLET (KEPPRA) PO SCH ×2 (14:18→21:09)
[2019-07-10 16:00] VITALS: BP 119/85
[2019-07-10 20:00] VITALS: BP 120/78
[2019-07-10] MEDS ORDERED: CLOBAZAM 10 MG PO SCH (21:00)
[2019-07-10] MEDS: DOCUSATE SODIUM 100 MG CAP PO SCH ×2 (21:00→21:10)
[2019-07-10] MEDS: HEPARIN SOD (PORCINE) 5000UNITS/ML VIAL (J1644 PER 1000UNITS) SC SCH (21:09)
[2019-07-10] MEDS: RAMELTEON 8 MG TAB (ROZEREM) PO SCH (21:09)
[2019-07-11] VITALS: BP 116/71
[2019-07-11 04:00] VITALS: BP 138/80
[2019-07-11] MEDS: levETIRAcetam 250MG TABLET (KEPPRA) PO SCH ×3 (05:16→21:23)
[2019-07-11] MEDS: SLF 3 ML SYR IV SCH ×3 (05:17→21:25)
[2019-07-11 06:02] LABS: BASO % 0.2 % (0.0-1.0); EOS # 0.1 10^3/uL (0.0-0.5); EOS % 1.1 % (0.0-3.0); HEMATOCRIT 31.2 % (42.0-52.0); HEMOGLOBIN 9.6 g/dl (13.5-17.5); LYMPH % 21.1 % (24.0-44.0); MEAN CORPUSCULAR HEMOGLOBIN 27.2 pg (27.0-33.0); MEAN CORPUSCULAR HGB CONC 30.8 g/dl (32.0-36.5); MEAN CORPUSCULAR VOLUME 88.4 fl (80.0-96.0); MONO # 0.5 10^3/uL (0.0-0.8); MONO % 9.9 % (0.0-5.0); NEUTROPHILS # 3.1 10^3/uL (1.5-8.5); NEUTROPHILS % 67.3 % (36.0-66.0); PLATELET COUNT, AUTOMATED 331 10^3/uL (150-450); RED BLOOD COUNT 3.53 10^6/uL (4.30-6.10); WHITE BLOOD COUNT 4.6 10^3/uL (4.0-10.0)
[2019-07-11 06:10] LABS: ALBUMIN 2.1 GM/DL (3.2-5.2); ALT/SGPT 10 U/L (12-78); BILIRUBIN,TOTAL 0.2 MG/DL (0.2-1.0); BLOOD UREA NITROGEN 3 MG/DL (7-18); CALCIUM LEVEL 8.3 MG/DL (8.5-10.1); CARBON DIOXIDE LEVEL 28 MEQ/L (21-32); CHLORIDE LEVEL 112 MEQ/L (98-107); CREATININE FOR GFR 0.47 MG/DL (0.70-1.30); GLOMERULAR FILTRATION RATE > 60.0 (>56); GLUCOSE, FASTING 81 MG/DL (70-100); POTASSIUM SERUM 3.2 MEQ/L (3.5-5.1); SODIUM LEVEL 147 MEQ/L (136-145); TOTAL PROTEIN 5.8 GM/DL (6.4-8.2)
[2019-07-11] MEDS ORDERED: KCL 10MEQ/100ML SWI (KRUN) 10 MEQ in IV 1 EA IV SCH (06:30)
[2019-07-11] MEDS ORDERED: POTASSIUM CHLORIDE 10 MEQ SR TABLET PO ONE ×2 (07:30)
[2019-07-11] MEDS: DOCUSATE SODIUM 100 MG CAP PO SCH ×2 (07:50→21:00)
[2019-07-11 08:00] VITALS: BP 128/82
[2019-07-11] MEDS: PANTOPRAZOLE 40MG TAB (PROTONIX) PO SCH (08:00)
[2019-07-11] MEDS: HEPARIN SOD (PORCINE) 5000UNITS/ML VIAL (J1644 PER 1000UNITS) SC SCH ×2 (08:00→21:25)
[2019-07-11] MEDS: DIVALPROEX 500 MG TAB PO SCH ×2 (08:00→21:23)
[2019-07-11] MEDS: busPIRone 5 MG TAB PO SCH ×2 (08:01→21:23)
[2019-07-11] MEDS: LACOSAMIDE 50 MG TAB (VIMPAT) PO SCH ×2 (08:01→21:23)
[2019-07-11] MEDS: amLODIPine 5 MG TAB PO SCH (08:01)
[2019-07-11] MEDS: CLOBAZAM 10 MG PO SCH ×2 (09:18→21:24)
--- NOTE | 2019-07-11 09:44 | IPNPDOC ---
Subjective Date Seen The patient was seen on 07/11/19. Subjective Chief Complaint/HPI Patient is very hard to understand, but answers his questions, could not determine his orientation. Patient last night did not had any seizure episodes. General: Denies: ROS Unobtainable, Chills, Night Sweats, Fatigue, Malaise, Normal Appetite, Other Symptoms Constitutional: Denies: Chills, Fever, Malaise, Night Sweats, Weakness, Fatigue, Weight Loss, Lethargy, Other Pulmonary: Denies: Dyspnea, Cough, Pleuritic Chest Pain, Other Symptoms Cardiovascular: Denies: Chest Pain, Palpitations, Orthopnea, Paroxysmal Noc. Dyspnea, Edema, Lt Headedness, Other Symptoms Gastrointestinal: Denies: Nausea, Vomiting, Abdominal Pain, Diarrhea, Constipation, Melena, Hematochezia, Other Symptoms Musculoskeletal: Denies: Neck Pain, Back Pain, Shoulder Pain, Arm Pain, Hand Pain, Leg Pain, Foot Pain, Joint Pain, Muscle Pain, Spasms, Other Symptoms Neurological: Denies: Weakness, Numbness, Incoordination, Change in speech, Confusion, Seizures, Other Symptoms Objective Physical Examination General Exam: Positive: Alert, Cooperative, Other (Mary Jane is sedated) ENT Exam: Positive: Atraumatic, Mucous membr. moist/pink Neck Exam: Positive: Supple Chest Exam: Positive: Clear to auscultation, Normal air movement Heart Exam: Positive: Rate Normal, Normal S1, Normal S2 Abdomen Exam: Positive: Normal bowel sounds, Soft Extremity Exam: Positive: Normal pulses Skin Exam: Positive: Nl turgor and temperature Neuro Exam: Positive: Strength at 5/5 X4 ext, Sensation Intact, Cranial Nerves 3-12 NL Psych Exam: Positive: Mood NL Assessment /Plan Problems (1) Seizure disorder Status: Acute Problem Text: Patient had a frequently admissions with a seizure disorder. Recently he was admitted to [facility], where he had a extensive workup done which showed both seizures and pseudoseizures and was discharged on 4 and developed metastases. As patient was sedated with antilipid med and could not perform rehabilitation, hence his dosage of medication was decreased, but he developed seizures and was admitted to [facility] floor. Again, once he stabilized he was discharged back to acute rehabilitation unit and again he developed seizure today and transferred back to PCU for further care. Patient received Ativan 2 mg IV and he is currently sedated. I'm unable to drop. 10. History of perform extensive exam. Continue seizure precautions. Patient had no episode of seizure last night Continue all her previously taken antiseizure meds Ativan 2 mg IV every 4 hours when necessary for seizures I will increase the dosage according to patient's clinical response and frequency of his seizures I tried to discuss hospice care with the patient but he is not willing to accept it, will try to talk to his as well DC telemetry. May transfer to [facility] floor (2) Colon cancer Status: Chronic Problem Text: History of metastatic colon cancer, stage III, moderately to poorly differentiated KRAS,NRAS & MMR negative. Adenocarcinoma of cecum, status post right hemicolectomy in 2016 and FOLFOX, recurrence in January 2018, managed with FOLVIR and VECTIBIX R due to severe range with Vetbibix, he was switched toXeloda and Avastin due to rising CEA in January 2019 and increasing lymphadenopathy in February 2019. He was later on switched to FOLFIRI with Erbitux. His last chemotherapy was given on 04/27/2019. Further follow-up with oncology as an outpatient (3) HTN (hypertension) Status: Chronic Problem Text: Continue lisinopril, amlodipine, as per orders Continue present care Plan/VTE VTE Prophylaxis Ordered?: Yes VS, I&O, 24H, Fishbone Vital Signs/I&O Vital Signs Date Time Temp Pulse Resp B/P (MAP) Pulse Ox O2 Delivery O2 Flow Rate FiO2 07/11/19 08:01 110 133/80 07/11/19 08:00 98.5 18 97 Room Air 07/10/19 12:00 2.0 I&O- Last 24 Hours up to 6 AM 07/11/19 06:00 Intake Total 1180 ml Output Total 750 ml Balance 430 ml Laboratory Data 24H LABS Laboratory Tests 2 07/11/19 05:18: Immature Granulocyte % (Auto) 0.4, Neutrophils (%) (Auto) 67.3H, Lymphocytes (%) (Auto) 21.1L, Monocytes (%) (Auto) 9.9H, Eosinophils (%) (Auto) 1.1, Basophils (%) (Auto) 0.2, Neutrophils # (Auto) 3.1, Lymphocytes # (Auto) 1.0L, Monocytes # (Auto) 0.5, Eosinophils # (Auto) 0.1, Basophils # (Auto) 0.0, Nucleated Red Blood Cells % (auto) 0.0, Anion Gap 7L, Glomerular Filtration Rate > 60.0, Calci um Level 8.3L, Total Bilirubin 0.2, Aspartate Amino Transf (AST/SGOT) 10, Alanine Aminotransferase (ALT/SGPT) 10L, Alkaline Phosphatase 125H, Total Protein 5.8L, Albumin 2.1L, Albumin/Globulin Ratio 0.57L CBC/BMP Laboratory Tests 07/11/19 05:18 SEBASTIAN REECE MD July 11, 2019 09:44
[2019-07-11 10:00] LABS: MAGNESIUM LEVEL 1.7 MG/DL (1.8-2.4)
[2019-07-11] MEDS ORDERED: MAG SULF 1GM/100ML (MAG RUN) 1 GM in IV 1 EA IV ONE (10:30)
[2019-07-11 12:06] VITALS: BP 118/82
[2019-07-11 14:00] VITALS: BP 122/85
[2019-07-11] MEDS: RAMELTEON 8 MG TAB (ROZEREM) PO SCH (21:23)
[2019-07-11 22:00] VITALS: BP 144/94
[2019-07-12 06:00] VITALS: BP 124/87
[2019-07-12] MEDS: levETIRAcetam 250MG TABLET (KEPPRA) PO SCH ×3 (06:11→21:58)
[2019-07-12] MEDS: SLF 3 ML SYR IV SCH ×3 (06:17→22:00)
[2019-07-12 07:13] LABS: BASO % 0.5 % (0.0-1.0); EOS # 0.1 10^3/uL (0.0-0.5); EOS % 0.8 % (0.0-3.0); HEMATOCRIT 35.7 % (42.0-52.0); HEMOGLOBIN 11.1 g/dl (13.5-17.5); LYMPH # 1.2 10^3/uL (1.5-5.0); LYMPH % 18.2 % (24.0-44.0); MEAN CORPUSCULAR HEMOGLOBIN 27.7 pg (27.0-33.0); MEAN CORPUSCULAR HGB CONC 31.1 g/dl (32.0-36.5); MONO # 0.5 10^3/uL (0.0-0.8); MONO % 8.2 % (0.0-5.0); NEUTROPHILS # 4.7 10^3/uL (1.5-8.5); PLATELET COUNT, AUTOMATED 392 10^3/uL (150-450); RED BLOOD COUNT 4.01 10^6/uL (4.30-6.10); WHITE BLOOD COUNT 6.6 10^3/uL (4.0-10.0)
[2019-07-12 07:34] LABS: ALBUMIN 2.3 GM/DL (3.2-5.2); ALT/SGPT 10 U/L (12-78); BILIRUBIN,TOTAL 0.2 MG/DL (0.2-1.0); BLOOD UREA NITROGEN 3 MG/DL (7-18); CALCIUM LEVEL 8.4 MG/DL (8.5-10.1); CARBON DIOXIDE LEVEL 27 MEQ/L (21-32); CHLORIDE LEVEL 112 MEQ/L (98-107); CREATININE FOR GFR 0.42 MG/DL (0.70-1.30); GLOMERULAR FILTRATION RATE > 60.0 (>56); GLUCOSE, FASTING 88 MG/DL (70-100); POTASSIUM SERUM 3.8 MEQ/L (3.5-5.1); SODIUM LEVEL 146 MEQ/L (136-145); TOTAL PROTEIN 5.8 GM/DL (6.4-8.2)
[2019-07-12] MEDS: DOCUSATE SODIUM 100 MG CAP PO SCH ×2 (09:00→21:57)
[2019-07-12] MEDS: CLOBAZAM 10 MG PO SCH ×2 (09:21→21:58)
[2019-07-12] MEDS: LACOSAMIDE 50 MG TAB (VIMPAT) PO SCH ×2 (09:22→21:57)
[2019-07-12] MEDS: PANTOPRAZOLE 40MG TAB (PROTONIX) PO SCH (09:22)
[2019-07-12] MEDS: busPIRone 5 MG TAB PO SCH ×2 (09:22→21:57)
[2019-07-12] MEDS: DIVALPROEX 500 MG TAB PO SCH ×2 (09:22→21:58)
[2019-07-12] MEDS: HEPARIN SOD (PORCINE) 5000UNITS/ML VIAL (J1644 PER 1000UNITS) SC SCH ×2 (09:22→21:59)
[2019-07-12] MEDS: amLODIPine 5 MG TAB PO SCH (09:24)
--- NOTE | 2019-07-12 10:41 | IPNPDOC ---
Subjective Date Seen The patient was seen on 07/12/19. Subjective Chief Complaint/HPI Patient is comfortable did not had any seizures while he is been on the medical floor General: Denies: ROS Unobtainable, Chills, Night Sweats, Fatigue, Malaise, Normal Appetite, Other Symptoms Constitutional: Denies: Chills, Fever, Malaise, Night Sweats, Weakness, Fatigue, Weight Loss, Lethargy, Other Skin: Denies: Rash, Lesions, Jaundice, Bruising, Itching, Dry, Breakdown, Nail Changes, Other Pulmonary: Denies: Dyspnea, Cough, Pleuritic Chest Pain, Other Symptoms Cardiovascular: Denies: Chest Pain, Palpitations, Orthopnea, Paroxysmal Noc. Dyspnea, Edema, Lt Headedness, Other Symptoms Gastrointestinal: Denies: Nausea, Vomiting, Abdominal Pain, Diarrhea, Constipation, Melena, Hematochezia, Other Symptoms Musculoskeletal: Denies: Neck Pain, Back Pain, Shoulder Pain, Arm Pain, Hand P ain, Leg Pain, Foot Pain, Joint Pain, Muscle Pain, Spasms, Other Symptoms Neurological: Denies: Weakness, Numbness, Incoordination, Change in speech, Confusion, Seizures, Other Symptoms Objective Physical Examination General Exam: Positive: Other (Mary Jane is sedated) Eye Exam: Positive: Other Eye Symptoms (, unable to do eye exam) ENT Exam: Positive: Atraumatic, Mucous membr. moist/pink Neck Exam: Positive: Supple Chest Exam: Positive: Clear to auscultation, Normal air movement Heart Exam: Positive: Rate Normal, Normal S1 Abdomen Exam: Positive: Normal bowel sounds, Soft Extremity Exam: Positive: Normal pulses Skin Exam: Positive: Nl turgor and temperature Neuro Exam: Positive: Other (. Unable to do neuro exam) Psych Exam: Positive: Other (unable to do psych exam) Assessment /Plan Problems (1) Seizure disorder Status: Acute Problem Text: Patient had a frequently admissions with a seizure disorder. Recently he was admitted to [facility], where he had a extensive workup done which showed both seizures and pseudoseizures and was discharged on 4 and developed metastases. As patient was sedated with antilipid med and could not perform rehabilitation, hence his dosage of medication was decreased, but he developed seizures and was admitted to [facility] floor. Again, once he stabilized he was discharged back to acute rehabilitation unit and again he developed seizure and transferred back to PCU for further care. m. Continue seizure precautions. Continue Depakote wimpat and Keppra Ativan 2 mg IV every 4 hours when necessary for seizures I tried to discuss hospice care with the patient but he is not willing to accept it, Discussed with Dr. Lawson will monitor patient on current meds. He has been without seizures since last 2 days and if he remains asymptomatic till Tuesday, then will possibly think about placing him back in acute rehabilitation unit Also all his antiseizure medication levels were checked recently by Dr. Lawson and they were all essentially within normal limits to slightly higher levels, but not under therapeutic range. (2) Colon cancer Status: Chronic Problem Text: History of metastatic colon cancer, stage III, moderately to poorly differentiated KRAS,NRAS & MMR negative. Adenocarcinoma of cecum, status post right hemicolectomy in 2016 and FOLFOX, recurrence in January 2018, managed with FOLVIR and VECTIBIX R due to severe range with Vetbibix, he was switched toXeloda and Avastin due to rising CEA in January 2019 and increasing lymphadenopathy in February 2019. He was later on switched to FOLFIRI with Erbitux. His last chemotherapy was given on 04/27/2019. Further follow-up with oncology as an outpatient (3) HTN (hypertension) Status: Chronic Problem Text: Continue lisinopril, amlodipine, as per orders Continue present care Plan/VTE VTE Prophylaxis Ordered?: Yes VS, I&O, 24H, Fishbone Vital Signs/I&O Vital Signs Date Time Temp Pulse Resp B/P (MAP) Pulse Ox O2 Delivery O2 Flow Rate FiO2 07/12/19 09:24 102 123/86 07/12/19 06:00 97.9 18 96 Room Air 07/10/19 12:00 2.0 I&O- Last 24 Hours up to 6 AM 07/12/19 06:00 Intake Total 440 ml Output Total 475 ml Balance -35 ml Laboratory Data 24H LABS Laboratory Tests 2 07/12/19 06:53: Anion Gap 7L, Glomerular Filtration Rate > 60.0, Calcium Level 8.4L, Total Bilirubin 0.2, Aspartate Amino Transf (AST/SGOT) 11, Alanine Aminotransferase (ALT/SGPT) 10L, Alkaline Phosphatase 143H, Total Protein 5.8L, Albumin 2.3L, Alb umin/Globulin Ratio 0.66L 07/12/19 06:54: Immature Granulocyte % (Auto) 0.3, Neutrophils (%) (Auto) 72.0H, Lymphocytes (%) (Auto) 18.2L, Monocytes (%) (Auto) 8.2H, Eosinophils (%) (Auto) 0.8, Basophils (%) (Auto) 0.5, Neutrophils # (Auto) 4.7, Lymphocytes # (Auto) 1.2L, Monocytes # (Auto) 0.5, Eosinophils # (Auto) 0.1, Basophils # (Auto) 0.0, Nucleated Red Blood Cells % (auto) 0.0 CBC/BMP Laboratory Tests 07/12/19 06:53 07/12/19 06:54 SEBASTIAN REECE MD July 12, 2019 10:41
[2019-07-12 12:32] LABS: MAGNESIUM LEVEL 1.8 MG/DL (1.8-2.4); VALPROIC ACID (DEPAKOTE) 59.8 UG/ML (50.0-100.0)
[2019-07-12 14:00] VITALS: BP 118/82
[2019-07-12] MEDS: RAMELTEON 8 MG TAB (ROZEREM) PO SCH (21:57)
[2019-07-12 22:00] VITALS: BP 128/85
[2019-07-13 06:00] VITALS: BP 125/83
[2019-07-13] MEDS: SLF 3 ML SYR IV SCH ×3 (06:08→21:37)
[2019-07-13] MEDS: levETIRAcetam 250MG TABLET (KEPPRA) PO SCH ×3 (06:08→21:35)
[2019-07-13 07:57] LABS: BASO % 0.5 % (0.0-1.0); EOS % 0.5 % (0.0-3.0); HEMATOCRIT 36.4 % (42.0-52.0); HEMOGLOBIN 11.3 g/dl (13.5-17.5); LYMPH # 1.1 10^3/uL (1.5-5.0); LYMPH % 19.3 % (24.0-44.0); MEAN CORPUSCULAR HEMOGLOBIN 27.8 pg (27.0-33.0); MEAN CORPUSCULAR VOLUME 89.7 fl (80.0-96.0); MONO # 0.6 10^3/uL (0.0-0.8); MONO % 9.5 % (0.0-5.0); NEUTROPHILS # 4.1 10^3/uL (1.5-8.5); NEUTROPHILS % 69.7 % (36.0-66.0); PLATELET COUNT, AUTOMATED 343 10^3/uL (150-450); RED BLOOD COUNT 4.06 10^6/uL (4.30-6.10); WHITE BLOOD COUNT 5.8 10^3/uL (4.0-10.0)
[2019-07-13 08:10] LABS: ALBUMIN 2.3 GM/DL (3.2-5.2); ALT/SGPT 11 U/L (12-78); BILIRUBIN,TOTAL 0.2 MG/DL (0.2-1.0); BLOOD UREA NITROGEN 4 MG/DL (7-18); CALCIUM LEVEL 8.1 MG/DL (8.5-10.1); CARBON DIOXIDE LEVEL 25 MEQ/L (21-32); CHLORIDE LEVEL 110 MEQ/L (98-107); CREATININE FOR GFR 0.42 MG/DL (0.70-1.30); GLOMERULAR FILTRATION RATE > 60.0 (>56); GLUCOSE, FASTING 73 MG/DL (70-100); POTASSIUM SERUM 4.1 MEQ/L (3.5-5.1); SODIUM LEVEL 144 MEQ/L (136-145); TOTAL PROTEIN 5.8 GM/DL (6.4-8.2)
[2019-07-13] MEDS: HEPARIN SOD (PORCINE) 5000UNITS/ML VIAL (J1644 PER 1000UNITS) SC SCH ×2 (09:37→21:36)
[2019-07-13] MEDS: CLOBAZAM 10 MG PO SCH ×2 (09:37→21:37)
[2019-07-13] MEDS: busPIRone 5 MG TAB PO SCH ×2 (09:38→21:36)
[2019-07-13] MEDS: PANTOPRAZOLE 40MG TAB (PROTONIX) PO SCH (09:38)
[2019-07-13] MEDS: DIVALPROEX 500 MG TAB PO SCH ×2 (09:38→21:36)
[2019-07-13] MEDS: DOCUSATE SODIUM 100 MG CAP PO SCH ×2 (09:38→21:36)
[2019-07-13] MEDS: LACOSAMIDE 50 MG TAB (VIMPAT) PO SCH ×2 (09:38→21:36)
[2019-07-13] MEDS: amLODIPine 5 MG TAB PO SCH (09:40)
--- NOTE | 2019-07-13 10:55 | IPNPDOC ---
Subjective Date Seen The patient was seen on 07/13/19. Subjective Chief Complaint/HPI Patient is comfortable in no distress. No more seizures observed overnight General: Denies: ROS Unobtainable, Chills, Night Sweats, Fatigue, Malaise, Normal Appetite, Other Symptoms Pulmonary: Denies: Dyspnea, Cough, Pleuritic Chest Pain, Other Symptoms Cardiovascular: Denies: Chest Pain, Palpitations, Orthopnea, Paroxysmal Noc. Dyspnea, Edema, Lt Headedness, Other Symptoms Gastrointestinal: Denies: Nausea, Vomiting, Abdominal Pain, Diarrhea, Constipation, Melena, Hematochezia, Other Symptoms Musculoskeletal: Denies: Neck Pain, Back Pain, Shoulder Pain, Arm Pain, Hand Pain, Leg Pain, Foot Pain, Joint Pain, Muscle Pain, Spasms, Other Symptoms Neurological: Denies: Weakness, Numbness, Incoordination, Change in speech, Confusion, Seizures, Other Symptoms Objective Physical Examination General Exam: Positive: Other (Mary Jane is sedated) Eye Exam: Positive: Other Eye Symptoms (, unable to do eye exam) ENT Exam: Positive: Atraumatic, Mucous membr. moist/pink Neck Exam: Positive: Supple Chest Exam: Positive: Clear to auscultation, Normal air movement Heart Exam: Positive: Rate Normal, Normal S1 Abdomen Exam: Positive: Normal bowel sounds, Soft Extremity Exam: Positive: Normal pulses Skin Exam: Positive: Nl turgor and temperature Neuro Exam: Positive: Other (. Unable to do neuro exam) Psych Exam: Positive: Other (unable to do psych exam) Assessment /Plan Problems (1) Seizure disorder Status: Acute Problem Text: Patient had a frequently admissions with a seizure disorder. Recently he was admitted to [facility], where he had a extensive workup done which showed both seizures and pseudoseizures and was discharged on 4 and developed metastases. As patient was sedated with antilipid med and could not perform rehabilitation, hence his dosage of medication was decreased, but he developed seizures and was [facility]. Again, once he stabilized he was discharged back to acute rehabilitation unit and again he developed seizure and transferred back to PCU for further care. m. Continue seizure precautions. Continue Depakote vimpat and Keppra Ativan 2 mg IV every 4 hours when necessary for seizures I tried to discuss hospice care with the patient but he is not willing to accept it, Discussed with Dr. Lawson will monitor patient on current meds. He has been without seizures since last 2 days and if he remains asymptomatic till Tuesday, then will possibly think about placing him back in acute rehabilitation unit Also all his antiseizure medication levels were checked recently by Dr. Lawson and they were all essentially within normal limits to slightly higher levels, but not under therapeutic range. Patient's , Kaity [phone] was called and discussed patient's current status and future management, and she agrees with the plan of care. (2) Colon cancer Status: Chronic Problem Text: History of metastatic colon cancer, stage III, moderately to poorly differentiated KRAS,NRAS & MMR negative. Adenocarcinoma of cecum, status post right hemicolectomy in 2016 and FOLFOX, recurrence in January 2018, managed with FOLVIR and VECTIBIX R due to severe range with Vetbibix, he was switched toXeloda and Avastin due to rising CEA in January 2019 and increasing lymphadenopathy in February 2019. He was later on switched to FOLFIRI with Erbitux. His last chemotherapy was given on 04/27/2019. Further follow-up with oncology as an outpatient (3) HTN (hypertension) Status: Chronic Problem Text: Continue lisinopril, amlodipine, as per orders Continue present care Plan/VTE VTE Prophylaxis Ordered?: Yes VS, I&O, 24H, Fishbone Vital Signs/I&O Vital Signs Date Time Temp Pulse Resp B/P (MAP) Pulse Ox O2 Delivery O2 Flow Rate FiO2 07/13/19 09:40 116 123/85 07/13/19 06:00 97.5 18 100 Room Air 07/10/19 12:00 2.0 I&O- Last 24 Hours up to 6 AM 07/13/19 06:00 Intake Total 170 ml Output Total 1325 ml Balance -1155 ml Laboratory Data 24H LABS Laboratory Tests 2 07/12/19 12:07: 07/12/19 12:08: 07/13/19 07:15: Immature Granulocyte % (Auto) 0.5, Neutrophils (%) (Auto) 69.7H, Lymphocytes (%) (Auto) 19.3L, Monocytes (%) (Auto) 9.5H, Eosinophils (%) (Auto) 0.5, Basophils (%) (Auto) 0.5, Neutrophils # (Auto) 4.1, Lymphocytes # (Auto) 1.1L, Monocytes # (Auto) 0.6, Eosinophils # (Auto) 0.0, Basophils # (Auto) 0.0, Nucleated Red Blood Cells % (auto) 0.0, Anion Gap 9, Glomerular Filtration Rate > 60.0, Calcium Level 8.1L, Total Bilirubin 0.2, Aspartate Amino Transf (AST/SGOT) 11, Alanine Aminotransferase (ALT/SGPT) 11L, Alkaline Phosphatase 135H, Total Protein 5.8L, Albumin 2.3L, Albumin/Globulin Ratio 0.7 CBC/BMP Laboratory Tests 07/13/19 07:15 SEBASTIAN REECE MD July 13, 2019 10:55
[2019-07-13 14:00] VITALS: BP 128/83
[2019-07-13 20:14] VITALS: BP 131/89
[2019-07-13] MEDS: RAMELTEON 8 MG TAB (ROZEREM) PO SCH (21:36)
[2019-07-14 04:00] VITALS: BP 115/83
[2019-07-14] MEDS: levETIRAcetam 250MG TABLET (KEPPRA) PO SCH ×3 (05:49→21:40)
[2019-07-14] MEDS: SLF 3 ML SYR IV SCH ×3 (05:50→21:41)
[2019-07-14] MEDS: HEPARIN SOD (PORCINE) 5000UNITS/ML VIAL (J1644 PER 1000UNITS) SC SCH ×2 (08:45→21:39)
[2019-07-14] MEDS: DOCUSATE SODIUM 100 MG CAP PO SCH ×2 (08:45→21:40)
[2019-07-14] MEDS: PANTOPRAZOLE 40MG TAB (PROTONIX) PO SCH (08:53)
[2019-07-14] MEDS: LACOSAMIDE 50 MG TAB (VIMPAT) PO SCH ×2 (08:53→21:40)
[2019-07-14] MEDS: DIVALPROEX 500 MG TAB PO SCH ×2 (08:54→21:41)
[2019-07-14] MEDS: busPIRone 5 MG TAB PO SCH ×2 (08:58→21:40)
[2019-07-14] MEDS: amLODIPine 5 MG TAB PO SCH (08:59)
[2019-07-14] MEDS: CLOBAZAM 10 MG PO SCH ×2 (11:32→21:57)
--- NOTE | 2019-07-14 11:35 | IPNPDOC ---
Subjective Date Seen The patient was seen on 07/14/19. Subjective Chief Complaint/HPI Patient is comfortable in no distress, patient's , Kaity was called again and prognosis and further management discussed General: Denies: ROS Unobtainable, Chills, Night Sweats, Fatigue, Malaise, Normal Appetite, Other Symptoms Skin: Denies: Rash, Lesions, Jaundice, Bruising, Itching, Dry, Breakdown, Nail Changes, Other Cardiovascular: Denies: Chest Pain, Palpitations, Orthopnea, Paroxysmal Noc. Dyspnea, Edema, Lt Headedness, Other Symptoms Gastrointestinal: Denies: Nausea, Vomiting, Abdominal Pain, Diarrhea, Consti pation, Melena, Hematochezia, Other Symptoms Musculoskeletal: Denies: Neck Pain, Back Pain, Shoulder Pain, Arm Pain, Hand Pain, Leg Pain, Foot Pain, Joint Pain, Muscle Pain, Spasms, Other Symptoms Neurological: Denies: Weakness, Numbness, Incoordination, Change in speech, Confusion, Seizures, Other Symptoms Objective Physical Examination General Exam: Positive: Other (Mary Jane is sedated) Eye Exam: Positive: Other Eye Symptoms (, unable to do eye exam) ENT Exam: Positive: Atraumatic, Mucous membr. moist/pink Neck Exam: Positive: Supple Chest Exam: Positive: Clear to auscultation, Normal air movement Heart Exam: Positive: Rate Normal, Normal S1 Abdomen Exam: Positive: Normal bowel sounds, Soft Extremity Exam: Positive: Normal pulses Skin Exam: Positive: Nl turgor and temperature Neuro Exam: Positive: Other (. Unable to do neuro exam) Psych Exam: Positive: Other (unable to do psych exam) Assessment /Plan Problems (1) Seizure disorder Status: Acute Problem Text: Patient had a frequently admissions with a seizure disorder. Recently he was admitted to [facility], where he had a extensive workup done which showed both seizures and pseudoseizures and was discharged on 4 and developed metastases. As patient was sedated with antilipid med and could not perform rehabilitation, hence his dosage of medication was decreased, but he developed seizures and was admitted to [facility] floor. Again, once he stabilized he was discharged back to acute rehabilitation unit and again he developed seizure and transferred back to PCU for further care. m. Continue seizure precautions. Continue Depakote vimpat and Keppra Ativan 2 mg IV every 4 hours when necessary for seizures I tried to discuss hospice care with the patient but he is not willing to accept it, Discussed with Dr. Lawson will monitor patient on current meds. He has been without seizures since last 2 days and if he remains asymptomatic till Tuesday, then will possibly think about placing him back in acute rehabilitation unit Also all his antiseizure medication levels were checked recently by Dr. Lawson and they were all essentially within normal limits to slightly higher levels, but not under therapeutic range. I had extensive discussion with patient's , Kaity [phone]:. She had agreed with hospice care considering patient's poor prognosis. He had spoken with hospice and now she is getting her house fixed for him to come back. Once all her arrangements are made and she is ready to receive the patient patient will be discharged home with hospice care. Patient also was explained by me regarding hospice care, but he does not seem to comprehend secondary to his medical condition and on multiple antiseizure meds causing confusion (2) Colon cancer Status: Chronic Problem Text: History of metastatic colon cancer, stage III, moderately to poorly differentiated KRAS,NRAS & MMR negative. Adenocarcinoma of cecum, status post right hemicolectomy in 2016 and FOLFOX, recurrence in January 2018, managed with FOLVIR and VECTIBIX R due to severe range with Vetbibix, he was switched toXeloda and Avastin due to rising CEA in January 2019 and increasing lymphadenopathy in February 2019. He was later on switched to FOLFIRI with Erbitux. His last chemotherapy was given on 04/27/2019. Will be discharged home on hospice care (3) HTN (hypertension) Status: Chronic Problem Text: Continue lisinopril, amlodipine, as per orders Continue present care Plan/VTE VTE Prophylaxis Ordered?: Yes VTE Exclusion Mechanical Proph: Bilateral Amputee VS, I&O, 24H, Fishbone Vital Signs/I&O Vital Signs Date Time Temp Pulse Resp B/P (MAP) Pulse Ox O2 Delivery O2 Flow Rate FiO2 07/14/19 08:59 103 107/79 07/14/19 04:00 98.2 18 97 Room Air 07/10/19 12:00 2.0 I&O- Last 24 Hours up to 6 AM 07/14/19 06:00 Intake Total 460 ml Output Total 800 ml Balance -340 ml SEBASTIAN REECE MD July 14, 2019 11:35
[2019-07-14 14:00] VITALS: BP 118/79
[2019-07-14] MEDS: RAMELTEON 8 MG TAB (ROZEREM) PO SCH (21:40)
[2019-07-14 22:00] VITALS: BP 130/87
[2019-07-15] MEDS: levETIRAcetam 250MG TABLET (KEPPRA) PO SCH ×3 (05:22→21:47)
[2019-07-15] MEDS: SLF 3 ML SYR IV SCH ×3 (05:34→22:00)
[2019-07-15 06:00] VITALS: BP 130/89
[2019-07-15] MEDS: PANTOPRAZOLE 40MG TAB (PROTONIX) PO SCH (09:21)
[2019-07-15] MEDS: HEPARIN SOD (PORCINE) 5000UNITS/ML VIAL (J1644 PER 1000UNITS) SC SCH ×2 (09:21→21:47)
[2019-07-15] MEDS: DIVALPROEX 500 MG TAB PO SCH ×2 (09:21→21:46)
[2019-07-15] MEDS: busPIRone 5 MG TAB PO SCH ×2 (09:21→21:46)
[2019-07-15] MEDS: LACOSAMIDE 50 MG TAB (VIMPAT) PO SCH ×2 (09:21→22:50)
[2019-07-15] MEDS: DOCUSATE SODIUM 100 MG CAP PO SCH ×2 (09:21→21:46)
[2019-07-15] MEDS: amLODIPine 5 MG TAB PO SCH (09:22)
[2019-07-15] MEDS: CLOBAZAM 10 MG PO SCH ×2 (09:27→21:45)
--- NOTE | 2019-07-15 10:04 | IPNPDOC ---
Subjective Date Seen The patient was seen on 07/15/19. Subjective Chief Complaint/HPI Patient is awake, alert but still confused. Care of plan was explained to him, but I don't think he comprehends very well General: Denies: ROS Unobtainable, Chills, Night Sweats, Fatigue, Malaise, Normal Appetite, Other Symptoms Skin: Denies: Rash, Lesions, Jaundice, Bruising, Itching, Dry, Breakdown, Nail Changes, Other Pulmonary: Denies: Dyspnea, Cough, Pleuritic Chest Pain, Other Symptoms Cardiovascular: Denies: Chest Pain, Palpitations, Orthopnea, Paroxysmal Noc. Dyspnea, Edema, Lt Headedness, Other Symptoms Gastrointestinal: Denies: Nausea, Vomiting, Abdominal Pain, Diarrhea, Constipation, Melena, Hematochezia, Other Symptoms Musculoskeletal: Denies: Neck Pain, Back Pain, Shoulder Pain, Arm Pain, Hand Pain, Leg Pain, Foot Pain, Joint Pain, Muscle Pain, Spasms, Other Symptoms Neurological: Denies: Weakness, Numbness, Incoordination, Change in speech, Confusion, Seizures, Other Symptoms Objective Physical Examination General Exam: Positive: Other (Mary Jane is sedated) Eye Exam: Positive: Other Eye Symptoms (, unable to do eye exam) ENT Exam: Positive: Atraumatic, Mucous membr. moist/pink Neck Exam: Positive: Supple Chest Exam: Positive: Clear to auscultation, Normal air movement Heart Exam: Positive: Rate Normal, Normal S1 Abdomen Exam: Positive: Normal bowel sounds, Soft Extremity Exam: Positive: Normal pulses Skin Exam: Positive: Nl turgor and temperature Neuro Exam: Positive: Other (. Unable to do neuro exam) Psych Exam: Positive: Other (unable to do psych exam) Assessment /Plan Problems (1) Seizure disorder Status: Acute Problem Text: Patient had a frequently admissions with a seizure disorder. Recently he was admitted to [facility], where he had a extensive workup done which showed both seizures and pseudoseizures and was discharged on 4 and developed metastases. As patient was sedated with antilipid med and could not perform rehabilitation, hence his dosage of medication was decreased, but he developed seizures and was admitted to [facility] floor. Again, once he stabilized he was discharged back to acute rehabilitation unit and again he developed seizure and transferred back to PCU for further care. m. Continue seizure precautions. Continue Depakote vimpat and Keppra Ativan 2 mg IV every 4 hours when necessary for seizures I tried to discuss hospice care with the patient but he is not willing to accept it, Discussed with Dr. Lawson will monitor patient on current meds. He has been without seizures since last 2 days and if he remains asymptomatic till Tuesday, then will possibly think about placing him back in acute rehabilitation unit Also all his antiseizure medication levels were checked recently by Dr. Lawson and they were all essentially within normal limits to slightly higher levels, but not under therapeutic range. I had extensive discussion with patient's , Kaity [phone]:. She had agreed with hospice care considering patient's poor prognosis. He had spoken with hospice and now she is getting her house fixed for him to come back. Once all her arrangements are made and she is ready to receive the patient patient will be discharged home with hospice care. Patient also was explained by me regarding hospice care, but he does not seem to comprehend secondary to his medical condition and on multiple antiseizure meds causing confusion Patient will be discharged home tomorrow on hospice care if arrangements are made and the family is ready to receive an, spoke with patient's , Kaity informed consent for DNR/DNI obtained , No further workup, lab work, as per family's wishes (2) Colon cancer Status: Chronic Problem Text: History of metastatic colon cancer, stage III, moderately to poorly differentiated KRAS,NRAS & MMR negative. Adenocarcinoma of cecum, status post right hemicolectomy in 2016 and FOLFOX, recurrence in January 2018, managed with FOLVIR and VECTIBIX R due to severe range with Vetbibix, he was switched toXeloda and Avastin due to rising CEA in January 2019 and increasing lymphadenopathy in February 2019. He was later on switched to FOLFIRI with Erbitux. His last chemotherapy was given on 04/27/2019. Will be discharged home on hospice care (3) HTN (hypertension) Status: Chronic Problem Text: Continue lisinopril, amlodipine, as per orders Continue present care Plan/VTE VTE Prophylaxis Ordered?: Yes VTE Exclusion Mechanical Proph: Bilateral Amputee VS, I&O, 24H, Fishbone Vital Signs/I&O Vital Signs Date Time Temp Pulse Resp B/P (MAP) Pulse Ox O2 Delivery O2 Flow Rate FiO2 07/15/19 09:22 117 127/88 5/17/20 06:00 98.6 16 96 Room Air 07/10/19 12:00 2.0 I&O- Last 24 Hours up to 6 AM 07/15/19 06:00 Intake Total 440 ml Output Total 650 ml Balance -210 ml SEBASTIAN REECE MD July 15, 2019 10:04
[2019-07-15 14:00] VITALS: BP 110/72
[2019-07-15] MEDS: RAMELTEON 8 MG TAB (ROZEREM) PO SCH (21:46)
[2019-07-15 22:00] VITALS: BP 126/88
[2019-07-16 06:00] VITALS: BP 124/73
[2019-07-16] MEDS: levETIRAcetam 250MG TABLET (KEPPRA) PO SCH ×3 (06:00→22:51)
[2019-07-16] MEDS: SLF 3 ML SYR IV SCH ×3 (06:00→23:07)
[2019-07-16] MEDS ORDERED: LORazepam 2 MG/ML VIAL (J2060) IM STA (06:29)
[2019-07-16] MEDS: PANTOPRAZOLE 40MG TAB (PROTONIX) PO SCH ×2 (09:00→11:09)
[2019-07-16] MEDS: DIVALPROEX 500 MG TAB PO SCH ×3 (09:00→22:57)
[2019-07-16] MEDS: busPIRone 5 MG TAB PO SCH ×3 (09:00→22:57)
[2019-07-16] MEDS: amLODIPine 5 MG TAB PO SCH ×2 (09:00→11:09)
[2019-07-16] MEDS: LACOSAMIDE 50 MG TAB (VIMPAT) PO SCH ×3 (09:00→22:42)
[2019-07-16] MEDS: DOCUSATE SODIUM 100 MG CAP PO SCH ×3 (09:00→21:00)
--- NOTE | 2019-07-16 11:04 | IPNPDOC ---
Subjective Date Seen The patient was seen on 07/16/19. Subjective Chief Complaint/HPI Patient had a tonic-clonic seizure this morning and he was given Ativan. Patient is postictal and sedated at the present time General: Reports: ROS Unobtainable Objective Physical Examination General Exam: Positive: Other (Mary Jane is sedated) Eye Exam: Positive: Other Eye Symptoms (, unable to do eye exam) ENT Exam: Positive: Atraumatic, Mucous membr. moist/pink Neck Exam: Positive: Supple Chest Exam: Positive: Clear to auscultation, Normal air movement Heart Exam: Positive: Rate Normal, Normal S1 Abdomen Exam: Positive: Normal bowel sounds, Soft Extremity Exam: Positive: Normal pulses Skin Exam: Positive: Nl turgor and temperature Neuro Exam: Positive: Other (. Unable to do neuro exam) Psych Exam: Positive: Other (unable to do psych exam) Assessment /Plan Problems (1) Seizure disorder Status: Acute Problem Text: Patient had a frequently admissions with a seizure disorder. Recently he was admitted to [facility], where he had a extensive workup done which showed both seizures and pseudoseizures and was discharged on 4 and developed metastases. As patient was sedated with antilipid med and could not perform rehabilitation, hence his dosage of medication was decreased, but he developed seizures and was admitted to [facility] floor. Again, once he stabilized he was discharged back to acute rehabilitation unit and again he developed seizure and transferred back to PCU for further care. m. Continue seizure precautions. Continue Depakote vimpat and Keppra Ativan 2 mg IV every 4 hours when necessary for seizures I had extensive discussion with patient's , Kaity [phone]:. She had agreed with hospice care considering patient's poor prognosis. He had spoken with hospice and now she is getting her house fixed for him to come back. Once all her arrangements are made and she is ready to receive the patient patient will be discharged home with hospice care. Patient also was explained by me regarding hospice care, but he does not seem to comprehend secondary to his medical condition and on multiple antiseizure meds causing confusion Patient might require [id number] benzodiazepine for prevention of seizures. Once he is discharged home with home hospice Patient is DNR/DNI Will be discharged home once his is related to receive him in the home hospice (2) Colon cancer Status: Chronic Problem Text: History of metastatic colon cancer, stage III, moderately to poorly differentiated KRAS,NRAS & MMR negative. Adenocarcinoma of cecum, status post right hemicolectomy in 2016 and FOLFOX, recurrence in January 2018, managed with FOLVIR and VECTIBIX R due to severe range with Vetbibix, he was switched toXeloda and Avastin due to rising CEA in January 2019 and increasing lymphadenopathy in February 2019. He was later on switched to FOLFIRI with Erbitux. His last chemotherapy was given on 04/27/2019. Will be discharged home on hospice care (3) HTN (hypertension) Status: Chronic Problem Text: Continue lisinopril, amlodipine, as per orders Continue present care Plan/VTE VTE Prophylaxis Ordered?: Yes VTE Exclusion Mechanical Proph: Bilateral Amputee VS, I&O, 24H, Fishbone Vital Signs/I&O Vital Signs Date Time Temp Pulse Resp B/P (MAP) Pulse Ox O2 Delivery O2 Flow Rate FiO2 07/16/19 06:00 97.4 104 17 124/73 (90) 96 Room Air 07/10/19 12:00 2.0 I&O- Last 24 Hours up to 6 AM 07/16/19 06:00 Intake Total 240 ml Output Total 350 ml Balance -110 ml SEBASTIAN REECE MD July 16, 2019 11:04
[2019-07-16] MEDS: CLOBAZAM 10 MG PO SCH ×2 (11:10→23:07)
[2019-07-16] MEDS: HEPARIN SOD (PORCINE) 5000UNITS/ML VIAL (J1644 PER 1000UNITS) SC SCH ×2 (11:10→22:58)
[2019-07-16] MEDS ORDERED: LORazepam 2 MG/ML VIAL (J2060) IV STA ×2 (12:02→18:57)
[2019-07-16] MEDS ORDERED: LORazepam 2 MG/ML VIAL (J2060) As Ordered ONE ×2 (12:06→19:01)
[2019-07-16 14:00] VITALS: BP 124/75
[2019-07-16 22:00] VITALS: BP 121/78
[2019-07-16] MEDS: RAMELTEON 8 MG TAB (ROZEREM) PO SCH (23:07)
[2019-07-17 06:00] VITALS: BP 124/81
[2019-07-17] MEDS: SLF 3 ML SYR IV SCH ×2 (06:00→14:14)
[2019-07-17] MEDS: levETIRAcetam 250MG TABLET (KEPPRA) PO SCH ×2 (06:56→14:14)
[2019-07-17 08:47] VITALS: BP 124/81
[2019-07-17] MEDS: amLODIPine 5 MG TAB PO SCH (08:47)
[2019-07-17] MEDS: LACOSAMIDE 50 MG TAB (VIMPAT) PO SCH (08:47)
[2019-07-17] MEDS: DOCUSATE SODIUM 100 MG CAP PO SCH (08:47)
[2019-07-17] MEDS: PANTOPRAZOLE 40MG TAB (PROTONIX) PO SCH (08:47)
[2019-07-17] MEDS: busPIRone 5 MG TAB PO SCH (08:47)
[2019-07-17] MEDS: DIVALPROEX 500 MG TAB PO SCH (08:47)
[2019-07-17] MEDS: CLOBAZAM 10 MG PO SCH (08:48)
[2019-07-17] MEDS: HEPARIN SOD (PORCINE) 5000UNITS/ML VIAL (J1644 PER 1000UNITS) SC SCH (08:48)
[2019-07-17] MEDS ORDERED: RAME8TAB2 PO (13:36)
[2019-07-17] MEDS ORDERED: BUSP10TA PO (13:36)
[2019-07-17] MEDS ORDERED: CLOB10TA PO (13:36)
[2019-07-17] MEDS ORDERED: DIVA500T94 PO (13:36)
[2019-07-17] MEDS ORDERED: AMLO10TA5 PO (13:36)
[2019-07-17] MEDS ORDERED: VIMP200T PO (13:36)
[2019-07-17] MEDS ORDERED: GABA-843 PO (13:36)
[2019-07-17] MEDS ORDERED: LEVE750T5 PO (13:36)
[2019-07-17] MEDS ORDERED: MORP20SO3 PO (13:45)
[2019-07-17] MEDS ORDERED: LORA2TAB14 SL (13:45)
[2019-07-17] MEDS ORDERED: HYOS125TA PO (13:45)
[2019-07-17 14:00] VITALS: BP 125/80
--- NOTE | 2019-07-18 18:46 | DS.PDOC ---
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 Septic thrombophlebitis of the left cephalic vein /MSSA and staph epidermidis bacteremia in April 2019 /catheter tip was positive for staph capitis / removal of Mediport in April 2019 H/o Clostridium (C) difficile colitis Portal vein thrombosis Right hemicolectomy COMPLICATIONS/CHIEF COMPLAINT: Seizure. HISTORY OF PRESENT ILLNESS: See history and physical HOSPITAL COURSE: 59-year-old M with metastatic colorectal cancer who developed Seizure disorder this year and was hospitalized in [facility] where he had VEEG for 2 weeks showed both Seizures and pseudoseizures started on high doses of 4 antiepileptic medications. S/p hospital discharge from [facility] after optimization was admitted to [facility] for acute rehabilitation. There he was noted to be very sedated and unable to work with PT so his gabapentin was reduced from 300 to 100 mg TID and his Clobazepam was reduced from 15 mg bid to 10 mg bid. During the ARU stay he had been having seizures vs pseudoseizures so moved to inpatient back and forth. He also is having post seizure delirium vs psychosis. He has been unable to work with PT or OT and continued to deteriorate and ultimately has became bed bound. In view of Patient's poor response to treatment for his cancer, and persistent deterioration in functional status patient has a dismal prognosis. Hospice was discussed with and she has agreed to transition him to Home hospice. Patient was discharged home with Home hospice set up. 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 Metabolic encephalopathy due to multiple meds break through seizures, cancer. 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 HTN amlodipine Recent history of LUE cephalic vein septic thrombophlebitis and clot clarified with vascular this is superficial venous thrombosis does not need eliquis Repeat US showed no presence of clots at this time Metastatic colon cancer: Stage III Moderately to poorly differentiated KRAS, NRAS and, MMR negative adenocarcinoma of the cecum status post right hoang-colectomy (May 2016 T3 N1 M0) & FOLFOX / recurrence in January 2018 with rising CEA inspite of therapy in Jan 2019 with progressive lymphadenopathy in February 2019. No response to treatment Had infusaport infection and bacterimia in Mar- April 2019; Depression and anxiety will continue buspirone DISCHARGE MEDICATIONS: Please see below. ALLERGIES: Please see below. PHYSICAL EXAMINATION ON DISCHARGE: VITAL SIGNS: Please see below. General Exam: Positive: Awake, No Acute Distress, sitting up in bed but slow to respond to questions. Eye Exam: no nystagmus, no icterus, ENT Exam: Positive: Atraumatic, Mucous membr. moist/pink, Pharynx Normal Chest Exam: Positive: Clear to auscultation, Normal air movement Heart Exam: Positive: normal rate, Regular Rhythm, Normal S1, Normal S2; Abdomen Exam: Positive: Normal bowel sounds, Soft; Negative: Tenderness, Hepatoslpenomegaly Extremity Exam: Negative: Clubbing, Cyanosis, Edema Skin Exam: Positive: Nl turgor and temperature; ACTIVITY: [As tolerated]. DIET: As tolerated DISPOSITION: Home with Hospice DISCHARGE CONDITION: [Stable]. TIME SPENT ON DISCHARGE: 35 minutes. Vital Signs/I&Os Vital Signs Date Time Temp Pulse Resp B/P (MAP) Pulse Ox O2 Delivery O2 Flow Rate FiO2 07/17/19 14:00 98.0 94 18 125/80 (95) 97 Room Air I&O- Last 24 Hours up to 6 AM 07/18/19 05:59 Intake Total 60 ml Output Total 0 ml Balance 60 ml Discharge Medications Scheduled Amlodipine Besylate (Amlodipine Besylate) 10 Mg Tablet, 5 MG PO DAILY Buspirone HCl (Buspirone HCl) 10 Mg Tablet, 5 MG PO BID Clobazam (Clobazam) 10 Mg Tablet, 10 MG PO BID Diclofenac Epolamine (Diclofenac Epolamine) 1 Each Patch.td12, 1 PATCH TD Q12H, (Reported) APPLY TO LEFT SHOULDER Divalproex Sodium (Divalproex Sodium) 500 Mg Tablet.dr, 500 MG PO BID STARTED AT [facility] Gabapentin (Gabapentin) 300 Mg Capsule, 100 MG PO TID Lacosamide (Vimpat) 200 Mg Tablet, 200 MG PO BID Levetiracetam (Levetiracetam) 750 Mg Tablet, 1,500 MG PO Q8H DOSE CHANGED FROM 1000MG BID AT [facility] Lidocaine (Lidocaine) 5% Adh..patch, 2 PATCH TD DAILY, (Reported) APPLY TO LOWER BACK AND SHOULDER Pantoprazole Sodium (Protonix) 40 Mg Tablet.dr, 40 MG PO DAILY, (Reported) STARTED AT [facility] Scheduled PRN Acetaminophen (Acetaminophen) 325 Mg Tablet, 650 MG PO QID PRN for PAIN, (Reported) Hyoscyamine Sulfate (Hyoscyamine Sulfate) 0.125 Mg Tab.subl, 0.125 MG PO Q4HP PRN for TERMINAL SECRETIONS Use sublingually if unable to swallow Lorazepam (Lorazepam) 2 Mg Tablet, 2 MG SL ASDIRECTED PRN for SEIZURES 1 tab S/L every 15 mins upto a maximum of 5 doses. Morphine Sulfate (Morphine Sulfate) 100 Mg/5 Ml Solution, 0.25-1 ML PO Q2H PRN for PAIN OR DYSPNEA Use sublingually if unable to swallow Ondansetron HCl (Ondansetron HCl) 8 Mg Tablet, 8 MG PO Q6H PRN for NAUSEA OR VOMITING, (Reported) Allergies Coded Allergies: No Known Allergies (Unverified , 10/11/18) SHANNON TRONCOSO MD July 18, 2019 18:46
== END 2019-07-17 15:00 | disposition hospice, home (50) | DRG 101 ==
LOC: M PCU 09:21 → M MSPAV 07-11 12:02
PROVIDERS: ADMIT Internal Medicine; ATTEND Internal Medicine Nephrology
DX: G40.909 Epilepsy, unspecified, not intractable, without status epilepticus (principal); C19 Malignant neoplasm of rectosigmoid junction; C79.9 Secondary malignant neoplasm of unspecified site; I10 Essential (primary) hypertension; F91.8 Other conduct disorders; F41.9 Anxiety disorder, unspecified; F32.9 Major depressive disorder, single episode, unspecified; Z79.899 Other long term (current) drug therapy; E11.9 Type 2 diabetes mellitus without complications; E78.5 Hyperlipidemia, unspecified; Z87.891 Personal history of nicotine dependence

== ENCOUNTER → 2019-07-19 | Outpatient (REF) ==
[~2019-07-19] MED LIST changes: +HYOS125TA PO; +LORA2TAB14 SL; +MORP20SO3 PO
[2019-07-19 11:23] LABS: APPEARANCE, URINE TURBID (CLEAR); BACTERIA, URINE AUTO 1+ (NEGATIVE); BILIRUBIN, URINE AUTO NEGATIVE (NEGATIVE); BLOOD, URINE BLOOD NEGATIVE (NEGATIVE); COLOR, URINE AMBER (YELLOW); GLUCOSE, URINE (UA) AUTO NEGATIVE (NEGATIVE); KETONE, URINE AUTO TRACE mg/dL (NEGATIVE); LEUKOCYTE ESTERASE, URINE AUTO 3+ (NEGATIVE); MUCUS, URINE SMALL (NEGATIVE); NITRITE, URINE AUTO POSITIVE (NEGATIVE); PROTEIN, URINE AUTO 2+ mg/dL (NEGATIVE); RBC, URINE AUTO 16 /HPF (0-3); SPECIFIC GRAVITY URINE AUTO 1.024 (1.002-1.035); SQUAMOUS EPITHELIAL CELL UR AU 0 /HPF (0-6); WBC, URINE AUTO TNTC /HPF (0-3)
== END ==
LOC: M LAB REF 10:55
PROVIDERS: ATTEND Family Medicine
DX: R30.0 Dysuria (principal)